=== PATIENT | female | born 1965 | race Two or more races ===

== ENCOUNTER 2020-01-17 15:47 | Inpatient (IN) | payer SELFPAY ==
[~2020-01-17] VITALS: Ht 160 cm; Wt 93.1 kg
--- NOTE | 2020-01-17 16:26 | RAD ---
Single AP view of the chest. Comparison: None. Indication: Shortness of breath Findings: The heart is not enlarged. There is no pneumothorax or effusion. Patchy wedge-shaped opacities are identified throughout the bilateral lung whitt in the mid zones more so on the left in the periphery. Impression: 1. Patchy interstitial opacities throughout the lung whitt may represent pulmonary wedge-shaped infarcts versus atypical infection such as a viral illness. Electronically signed by: Santiago Sweet MD (01/17/2020 4:23 PM) [id number]
[2020-01-17 16:45] LABS: BASO % 0 % (0-3); EOS % 0 % (0-3); HEMATOCRIT 42.1 % (36.0-47.0); HEMOGLOBIN 14.5 g/dL (12.0-15.5); LYMPH # 0.6 x10^3/uL (1.0-4.8); LYMPH % 31 % (24-48); MEAN CORPUSCULAR HEMOGLOBIN 31 pg (25-35); MEAN CORPUSCULAR HGB CONC 34 g/dL (31-37); MEAN CORPUSCULAR VOLUME 91 fL (79-100); MONO # 0.2 x10^3/uL (0.0-1.1); MONO % 11 % (0-9); NEUT # 1.1 x10^3/uL (1.8-7.7); NEUT % 58 % (31-73); PLATELET COUNT 70 x10^3/uL (140-400); RED BLOOD COUNT 4.62 x10^6/uL (3.50-5.40)
[2020-01-17 16:48] LABS: WHITE BLOOD COUNT 1.8 x10^3/uL (4.0-11.0)
[2020-01-17 16:56] LABS: CALCIUM 7.9 mg/dL (8.5-10.1); CREATININE 0.8 mg/dL (0.6-1.0); GFR 74.2
[2020-01-17 16:57] LABS: ALBUMIN 2.8 g/dL (3.4-5.0); ALBUMIN/GLOBULIN RATIO 0.7 (1.0-1.7); C-REACTIVE PROTEIN 31.7 mg/L (0-3.3); TOTAL BILIRUBIN 0.9 mg/dL (0.2-1.0); TOTAL PROTEIN 7.1 g/dL (6.4-8.2)
[2020-01-17 17:11] LABS: % ATYL 1 % (0-0); % BANDS 13 % (0-9); % LYMPHS 28 % (24-48); % MONOS 4 % (0-10); % SEGS 54 % (35-66); PLT ESTIMATE DECREASED (ADEQUATE)
[2020-01-17] MEDS ORDERED: PIP/TAZO PER PHARMACY MC PRN (19:30)
[2020-01-17] MEDS ORDERED: PIPERACILLIN/TAZOBACTAM 3.375 GM in IV NORMAL SALINE 50ML 50 ML IV ONE (19:45)
--- NOTE | 2020-01-17 19:52 | HP ---
ADMIT DATE: CHIEF COMPLAINT: Shortness of breath. HISTORY OF PRESENT ILLNESS: The patient is a pleasant middle-aged female who presents with shortness of breath. Chest x-ray showing patchy interstitial opacities throughout the lung whitt consistent with an atypical infection or virus. I discussed the case with ER physician. We are concerned she could have COVID-19. We are going to admit the patient and consult Pulmonary and Infectious Disease. PAST MEDICAL HISTORY: None. ALLERGIES: None. FAMILY HISTORY: Diabetes. SOCIAL HISTORY: She does not drink, smoke or take drugs. MEDICATIONS: Reviewed, please refer to the MRAD. REVIEW OF SYSTEMS: GENERAL: No history of weight change, weakness or fevers. SKIN: No bruising, hair changes or rashes. EYES: No blurred, double or loss of vision. NOSE AND THROAT: No history of nosebleeds, hoarseness or sore throat. HEART: No history of palpitations, chest pain or shortness of breath on exertion. LUNGS: She complains of shortness of breath. GASTROINTESTINAL: Denies changes in appetite, nausea, vomiting, diarrhea or constipation. GENITOURINARY: No history of frequency, urgency, hesitancy or nocturia. NEUROLOGIC: Denies history of numbness, tingling, tremor or weakness. PSYCHIATRIC: No history of panic, anxiety or depression. ENDOCRINE: No history of heat or cold intolerance, polyuria or polydipsia. EXTREMITIES: Denies muscle weakness, joint pain, pain on walking or stiffness. PHYSICAL EXAMINATION: VITALS: Within normal limits and are stable. GENERAL: No apparent distress. Alert and oriented. HEENT: Normal cephalic atraumatic, external auditory canals are patent. EYES: Extraocular muscles are intact, pupils are equally round and reactive to light and accommodation. MUSCULOSKELETAL: Well developed, well nourished, good range of motion ENDOCRINE: No thyromegaly was palpated LYMPHATICS: No cervical chain or axillary nodes were noted HEMATOPOIETIC: No bruising NECK: Supple, no JVD, no thyromegaly was noted. LUNGS: She has decreased breath sounds. HEART: RRR, S1, S2 present. Peripheral pulses intact, no obvious murmurs were noted. ABDOMEN: Soft, nontender. Positive bowel sounds no organomegaly, normal bowel sounds. EXTREMITIES: Without any cyanosis, clubbing, or edema. Pedal pulses intact, Homans sign is negative. NEUROLOGIC: Normal speech, normal tone. A & O x3, moves all extremities, no obvious focal deficits. PSYCHIATRIC: Normal affect, normal mood. Stable. SKIN: No ulcerations or rashes, good skin turgor, no jaundice. VASCULAR: Good capillary refill, neurovascular bundle appears to be intact. LABORATORY DATA: White count 1.8. Chest x-ray shows atypical infection in all lung whitt. Sodium was 132. ASSESSMENT AND PLAN: Probable COVID-19. The patient has been admitted. We will consult Infectious Disease and Pulmonary. Respiratory isolation. Home meds, DVT prophylaxis. Full code. We will give her IV antibiotics and trend labs. Prognosis guarded. PATRICIA MEDINA DO DR: JERRY/bradly JOB#: [id number] / [id number]
[2020-01-17 20:44] LABS: BILIRUBIN,URINE NEGATIVE (NEG); CLARITY,URINE CLOUDY; COLOR,URINE AMBER; NITRITE,URINE NEGATIVE (NEG); PH,URINE 6.5 (<5.0-8.0); PROTEIN,URINE 100 mg/dL (NEG-TRACE)
[2020-01-17 20:49] LABS: SQUAMOUS EPITHELIAL CELL,UR MANY /LPF
[2020-01-17 20:50] LABS: BACTERIA,URINE 0 /HPF (0-FEW); WBC,URINE >40 /HPF (0-4)
[2020-01-17 23:00] VITALS: BP 137/67
[2020-01-17] MEDS: PIPERACILLIN/TAZOBACTAM 3.375 GM in IV NORMAL SALINE 50ML 50 ML IV SCH (23:34)
[2020-01-18] MEDS ORDERED: METF10007 PO (00:37)
[2020-01-18] MEDS ORDERED: ZOLPIDEM 5 MG TABLET. PO PRN (01:00)
[2020-01-18] MEDS: ACETAMINOPHEN 325 MG TABLET. PO PRN ×2 (01:42→17:20)
[2020-01-18 03:00] VITALS: BP 109/60
[2020-01-18] MEDS: PIPERACILLIN/TAZOBACTAM 3.375 GM in IV NORMAL SALINE 50ML 50 ML IV SCH ×3 (06:21→17:20)
[2020-01-18 07:30] VITALS: BP 128/86
[2020-01-18] MEDS: ENOXAPARIN 40 MG/0.4 ML SYRINGE. SQ SCH ×2 (09:03→21:28)
--- NOTE | 2020-01-18 09:03 | PHYS DOC ---
Past Medical History Past Medical History: Diabetes-Type II Past Surgical History: No Surgical History Smoking Status: Unknown if ever smoked Alcohol Use: None General Adult EDM: Chief Complaint: ABNORMAL LABS HPI: HPI: Patient is a 54 year old female who presents with shortness of breath, fatigue, cough. She saw her primary care doctor last week who did lab work at that time as she had just started feeling unwell. They deny the lab work done until today. They called her and told her she needed to come to the emergency room because she had some lab abnormalities. I did discuss the case with her primary care physician who is concerned that she may have the coronavirus. Patient has progressively been feeling worse over the last several days. She states that she is very fatigued and has severe shortness of breath if she tries to get up and walk to the bathroom. She otherwise does not get out of bed. She denies any other medical problems. Review of Systems: Review of Systems: General: Reports fever, chills, sweats, fatigue Eyes: Denies drainage, blurred vision HENT: Denies rhinorrhea, sore throat Respiratory: Reports cough, shortness of breath Cardiac: Denies edema, palpitations, chest pain GI: Denies abdominal pain, N/V MSK: Denies back pain, neck pain Skin: Denies rash, jaundice Neuro: Denies headache, dizziness Psychiatric: Denies SI/HI Heart Score: Risk Factors: Risk Factors: DM, Current or recent (<one month) smoker, HTN, HLP, family history of CAD, obesity. Risk Scores: Score 0 - 3: 2.5% MACE over next 6 weeks - Discharge Home Score 4 - 6: 20.3% MACE over next 6 weeks - Admit for Clinical Observation Score 7 - 10: 72.7% MACE over next 6 weeks - Early Invasive Strategies Allergies: Allergies: Allergies Coded Allergies Type Severity Reaction Last Updated Verified No Known Drug Allergies 01/17/20 No Physical Exam: PE: Constitutional: Well developed, well nourished, Cooperative, NAD, non-toxic appearing HEENT: Normocephalic, atraumatic, oropharynx moist, EOMI, PERRL, no drainage from eyes, normal conjunctiva Neck: Supple, normal range of motion, no stridor Cardiovascular: Tachycardic, 2+ radial pulses bilaterally, no edema Respiratory: Decreased breath sounds bilaterally, mild increased work of breathing, diffuse crackles Abdomen: Soft, nontender, nondistended, no masses Skin: Warm, dry, intact Extremities: No obvious deformities Neurologic: Alert and Oriented x3, motor and sensory function grossly normal, no focal deficits Psychologic: Normal affect, normal judgment, normal mood. No SI/HI Current Patient Data: Labs: Laboratory Tests Test 01/17/20 16:30 01/17/20 20:30 01/17/20 23:40 White Blood Count 1.8 x10^3/uL (4.0-11.0) *L Red Blood Count 4.62 x10^6/uL (3.50-5.40) Hemoglobin 14.5 g/dL (12.0-15.5) Hematocrit 42.1 % (36.0-47.0) Mean Corpuscular Volume 91 fL (79-100) Mean Corpuscular Hemoglobin 31 pg (25-35) Mean Corpuscular Hemoglobin Concent 34 g/dL (31-37) Red Cell Distribution Width 14.0 % (11.5-14.5) Platelet Count 70 x10^3/uL (140-400) L Neutrophils (%) (Auto) 58 % (31-73) Lymphocytes (%) (Auto) 31 % (24-48) Monocytes (%) (Auto) 11 % (0-9) H Eosinophils (%) (Auto) 0 % (0-3) Basophils (%) (Auto) 0 % (0-3) Neutrophils # (Auto) 1.1 x10^3/uL (1.8-7.7) L Lymphocytes # (Auto) 0.6 x10^3/uL (1.0-4.8) L Monocytes # (Auto) 0.2 x10^3/uL (0.0-1.1) Eosinophils # (Auto) 0.0 x10^3/uL (0.0-0.7) Basophils # (Auto) 0.0 x10^3/uL (0.0-0.2) Segmented Neutrophils % 54 % (35-66) Band Neutrophils % 13 % (0-9) H Lymphocytes % 28 % (24-48) Atypical Lymphocytes % (Manual) 1 % (0-0) H Monocytes % 4 % (0-10) Platelet Estimate Decreased (ADEQUATE) Sodium Level 132 mmol/L (136-145) L Potassium Level 4.0 mmol/L (3.5-5.1) Chloride Level 98 mmol/L (98-107) Carbon Dioxide Level 26 mmol/L (21-32) Anion Gap 8 (6-14) Blood Urea Nitrogen 11 mg/dL (7-20) Creatinine 0.8 mg/dL (0.6-1.0) Estimated GFR (Cockcroft-Gault) 74.2 BUN/Creatinine Ratio 14 (6-20) Glucose Level 312 mg/dL (70-99) H Calcium Level 7.9 mg/dL (8.5-10.1) L Total Bilirubin 0.9 mg/dL (0.2-1.0) Aspartate Amino Transferase (AST) 158 U/L (15-37) H Alanine Aminotransferase (ALT) 89 U/L (14-59) H Alkaline Phosphatase 67 U/L (46-116) Lactate Dehydrogenase 422 U/L (81-234) H Troponin I Quantitative < 0.017 ng/mL (0.000-0.055) C-Reactive Protein, Quantitative 31.7 mg/L (0-3.3) H Total Protein 7.1 g/dL (6.4-8.2) Albumin 2.8 g/dL (3.4-5.0) L Albumin/Globulin Ratio 0.7 (1.0-1.7) L Urine Collection Type Unknown Urine Color Carmen Urine Clarity Cloudy Urine pH 6.5 (<5.0-8.0) Urine Specific [place] >=1.030 (1.000-1.030) Urine Protein 100 mg/dL (NEG-TRACE) Urine Glucose (UA) 250 mg/dL (NEG) Urine Ketones (Stick) >=80 mg/dL (NEG) Urine Blood Negative (NEG) Urine Nitrite Negative (NEG) Urine Bilirubin Negative (NEG) Urine Urobilinogen Dipstick 4.0 mg/dL (0.2 mg/dL) Urine Leukocyte Esterase Small (NEG) Urine RBC 3-5 /HPF (0-2) Urine WBC >40 /HPF (0-4) Urine Squamous Epithelial Cells Many /LPF Urine Bacteria 0 /HPF (0-FEW) Urine Mucus Marked /LPF Glucose (Fingerstick) 285 mg/dL (70-99) H Laboratory Tests 01/17/20 16:30 Laboratory Tests 01/17/20 16:30 Vital Signs: Vital Signs Date Time Temp Pulse Resp B/P (MAP) Pulse Ox O2 Delivery O2 Flow Rate FiO2 01/18/20 07:30 99.6 81 16 128/86 (100) 91 Room Air 2.0 99.6 EKG: EKG: [] Radiology/Procedures: Radiology/Procedures: Chest x-ray suggestive of viral pneumonia likely coronavirus [] Course & Med Decision Making: Course & Med Decision Making Pertinent Labs and Imaging studies reviewed. (See chart for details) Patient is a 54-year-old female who presents to the emergency room with shortness of breath, cough, fatigue. At this time there is concern for the novel coronavirus 19. Patient's risk factors include age and diabetes. Risk stratifying work-up was ordered including chest x-ray, d-dimer, CPK, CRP, LDH, troponin, ferritin, CBC, CMP. At this time, patients labs, vitals, and exam are significant for hypoxia, low white blood cell count, elevated CRP, elevated LDH. Due to patient's risk and clinical picture, they will need to be admitted at this time. IVFs will be limited due to concern for fluid overload in COVID-19 patients. Patient will be given empiric antibiotics due to infiltrates and risk of co-bacterial infection. Further treatment will be dictated by the inpatient team. I spent greater than 30 minutes discussing her care with her family and discussing why the patient needed to stay in the hospital. She is requiring oxygen at this time. I have also spent a large amount of time discussing with them that the family who lives at home will only do quarantine as they likely c an also be infected even if they do not have symptoms. Esme Disclaimer: Dragemelyn Disclaimer: This electronic medical record was generated, in whole or in part, using a voice recognition dictation system. Departure Departure Impression: Primary Impression: Respiratory failure, acute Additional Impressions: Coronavirus infection Leukopenia Condition: STABLE Referrals: UNKNOWN PCP NAME (PCP) Justicifation of Admission Dx: Justifications for Admission: Justification of Admission Dx: Yes DIMA MCCARTY MD Jan 18, 2020 09:03
--- NOTE | 2020-01-18 09:13 | PDOC ---
Infectious Disease Note Vital Sign Vital Signs Vital Signs Date Time Temp Pulse Resp B/P (MAP) Pulse Ox O2 Delivery O2 Flow Rate FiO2 01/18/20 07:30 99.6 81 16 128/86 (100) 91 Room Air 2.0 99.6 Labs Lab Laboratory Tests Test 01/17/20 16:30 01/17/20 20:30 01/17/20 23:40 White Blood Count 1.8 x10^3/uL (4.0-11.0) Red Blood Count 4.62 x10^6/uL (3.50-5.40) Hemoglobin 14.5 g/dL (12.0-15.5) Hematocrit 42.1 % (36.0-47.0) Mean Corpuscular Volume 91 fL (79-100) Mean Corpuscular Hemoglobin 31 pg (25-35) Mean Corpuscular Hemoglobin Concent 34 g/dL (31-37) Red Cell Distribution Width 14.0 % (11.5-14.5) Platelet Count 70 x10^3/uL (140-400) Neutrophils (%) (Auto) 58 % (31-73) Lymphocytes (%) (Auto) 31 % (24-48) Monocytes (%) (Auto) 11 % (0-9) Eosinophils (%) (Auto) 0 % (0-3) Basophils (%) (Auto) 0 % (0-3) Neutrophils # (Auto) 1.1 x10^3/uL (1.8-7.7) Lymphocytes # (Auto) 0.6 x10^3/uL (1.0-4.8) Monocytes # (Auto) 0.2 x10^3/uL (0.0-1.1) Eosinophils # (Auto) 0.0 x10^3/uL (0.0-0.7) Basophils # (Auto) 0.0 x10^3/uL (0.0-0.2) Segmented Neutrophils % 54 % (35-66) Band Neutrophils % 13 % (0-9) Lymphocytes % 28 % (24-48) Atypical Lymphocytes % (Manual) 1 % (0-0) Monocytes % 4 % (0-10) Platelet Estimate Decreased (ADEQUATE) Sodium Level 132 mmol/L (136-145) Potassium Level 4.0 mmol/L (3.5-5.1) Chloride Level 98 mmol/L (98-107) Carbon Dioxide Level 26 mmol/L (21-32) Anion Gap 8 (6-14) Blood Urea Nitrogen 11 mg/dL (7-20) Creatinine 0.8 mg/dL (0.6-1.0) Estimated GFR (Cockcroft-Gault) 74.2 BUN/Creatinine Ratio 14 (6-20) Glucose Level 312 mg/dL (70-99) Calcium Level 7.9 mg/dL (8.5-10.1) Total Bilirubin 0.9 mg/dL (0.2-1.0) Aspartate Amino Transf (AST/SGOT) 158 U/L (15-37) Alanine Aminotransferase (ALT/SGPT) 89 U/L (14-59) Alkaline Phosphatase 67 U/L (46-116) Lactate Dehydrogenase 422 U/L (81-234) Troponin I Quantitative < 0.017 ng/mL (0.000-0.055) C-Reactive Protein, Quantitative 31.7 mg/L (0-3.3) Total Protein 7.1 g/dL (6.4-8.2) Albumin 2.8 g/dL (3.4-5.0) Albumin/Globulin Ratio 0.7 (1.0-1.7) Urine Collection Type Unknown Urine Color Carmen Urine Clarity Cloudy Urine pH 6.5 (<5.0-8.0) Urine Specific [place] >=1.030 (1.000-1.030) Urine Protein 100 mg/dL (NEG-TRACE) Urine Glucose (UA) 250 mg/dL (NEG) Urine Ketones (Stick) >=80 mg/dL (NEG) Urine Blood Negative (NEG) Urine Nitrite Negative (NEG) Urine Bilirubin Negative (NEG) Urine Urobilinogen Dipstick 4.0 mg/dL (0.2 mg/dL) Urine Leukocyte Esterase Small (NEG) Urine RBC 3-5 /HPF (0-2) Urine WBC >40 /HPF (0-4) Urine Squamous Epithelial Cells Many /LPF Urine Bacteria 0 /HPF (0-FEW) Urine Mucus Marked /LPF Glucose (Fingerstick) 285 mg/dL (70-99) Objective Assessment Acute resp hypoxic resp failure Abnormal CXR Leukopenina - chronic Thrombocytopenia Plan Plan of Care Cont Zosyn Add Doxycycline F/u COVID and if + would benefit from plasma F/u labs and cults May need Heme eval Seen and examined during COVID pandemic. Proper PPE was used. No interpretation phone or assistance available D/w nursing Thank you # [id number] DARIUSZ PARTIDA MD Jan 18, 2020 09:13
[2020-01-18] MEDS ORDERED: DEXTROSE 50% 25 GM / 50ML DISP.SYRIN. IV PRN (09:45)
[2020-01-18] MEDS: DOXYCYCLINE HYCLATE 100 MG TABLET PO SCH ×2 (09:46→21:28)
--- NOTE | 2020-01-18 10:15 | PDOC ---
[facility] PROGRESS NOTE Chief Complaint Chief Complaint Probable COVID-19 syndrome Leukopenia Thrombocytopenia History of Present Illness History of Present Illness 01/18/2020 Patient seen and examined Discussed with infectious disease Discussed with RN Chart reviewed I ordered hematology consultation as well Vitals/I&O Vitals/I&O: Vital Signs Date Time Temp Pulse Resp B/P (MAP) Pulse Ox O2 Delivery O2 Flow Rate FiO2 01/18/20 07:30 99.6 81 16 128/86 (100) 91 Room Air 2.0 99.6 I & O 0 01/17/20 01/17/20 01/18/20 15:00 23:00 07:00 Intake Total 100 ml Balance 100 ml Physical Exam General: Alert, Oriented X3 Heart: Regular rate, Normal S1 Lungs: Crackles Abdomen: Normal bowel sounds, Soft Extremities: No clubbing, No cyanosis Skin: No rashes, No breakdown Labs Labs: Laboratory Tests Test 01/17/20 16:30 01/17/20 20:30 01/17/20 23:40 01/18/20 09:18 White Blood Count 1.8 x10^3/uL (4.0-11.0) Red Blood Count 4.62 x10^6/uL (3.50-5.40) Hemoglobin 14.5 g/dL (12.0-15.5) Hematocrit 42.1 % (36.0-47.0) Mean Corpuscular Volume 91 fL (79-100) Mean Corpuscular Hemoglobin 31 pg (25-35) Mean Corpuscular Hemoglobin Concent 34 g/dL (31-37) Red Cell Distribution Width 14.0 % (11.5-14.5) Platelet Count 70 x10^3/uL (140-400) Neutrophils (%) (Auto) 58 % (31-73) Lymphocytes (%) (Auto) 31 % (24-48) Monocytes (%) (Auto) 11 % (0-9) Eosinophils (%) (Auto) 0 % (0-3) Basophils (%) (Auto) 0 % (0-3) Neutrophils # (Auto) 1.1 x10^3/uL (1.8-7.7) Lymphocytes # (Auto) 0.6 x10^3/uL (1.0-4.8) Monocytes # (Auto) 0.2 x10^3/uL (0.0-1.1) Eosinophils # (Auto) 0.0 x10^3/uL (0.0-0.7) Basophils # (Auto) 0.0 x10^3/uL (0.0-0.2) Segmented Neutrophils % 54 % (35-66) Band Neutrophils % 13 % (0-9) Lymphocytes % 28 % (24-48) Atypical Lymphocytes % (Manual) 1 % (0-0) Monocytes % 4 % (0-10) Platelet Estimate Decreased (ADEQUATE) Sodium Level 132 mmol/L (136-145) Potassium Level 4.0 mmol/L (3.5-5.1) Chloride Level 98 mmol/L (98-107) Carbon Dioxide Level 26 mmol/L (21-32) Anion Gap 8 (6-14) Blood Urea Nitrogen 11 mg/dL (7-20) Creatinine 0.8 mg/dL (0.6-1.0) Estimated GFR (Cockcroft-Gault) 74.2 BUN/Creatinine Ratio 14 (6-20) Glucose Level 312 mg/dL (70-99) Calcium Level 7.9 mg/dL (8.5-10.1) Total Bilirubin 0.9 mg/dL (0.2-1.0) Aspartate Amino Transf (AST/SGOT) 158 U/L (15-37) Alanine Aminotransferase (ALT/SGPT) 89 U/L (14-59) Alkaline Phosphatase 67 U/L (46-116) Lactate Dehydrogenase 422 U/L (81-234) Troponin I Quantitative < 0.017 ng/mL (0.000-0.055) C-Reactive Protein, Quantitative 31.7 mg/L (0-3.3) Total Protein 7.1 g/dL (6.4-8.2) Albumin 2.8 g/dL (3.4-5.0) Albumin/Globulin Ratio 0.7 (1.0-1.7) Urine Collection Type Unknown Urine Color Carmen Urine Clarity Cloudy Urine pH 6.5 (<5.0-8.0) Urine Specific [place] >=1.030 (1.000-1.030) Urine Protein 100 mg/dL (NEG-TRACE) Urine Glucose (UA) 250 mg/dL (NEG) Urine Ketones (Stick) >=80 mg/dL (NEG) Urine Blood Negative (NEG) Urine Nitrite Negative (NEG) Urine Bilirubin Negative (NEG) Urine Urobilinogen Dipstick 4.0 mg/dL (0.2 mg/dL) Urine Leukocyte Esterase Small (NEG) Urine RBC 3-5 /HPF (0-2) Urine WBC >40 /HPF (0-4) Urine Squamous Epithelial Cells Many /LPF Urine Bacteria 0 /HPF (0-FEW) Urine Mucus Marked /LPF Glucose (Fingerstick) 285 mg/dL (70-99) 246 mg/dL (70-99) Assessment and Plan Assessmemt and Plan Problems Medical Problems: (1) Coronavirus infection Status: Acute (2) Leukopenia Status: Acute (3) Respiratory failure, acute Status: Acut Probable COVID-19 Leukopenia Thrombocytopenia Plan Consult hematology for second opinion Appreciate ID input IV antibiotics Awaiting COVID-19 results Trend labs DVT prophylaxis Home meds PRN O2 Pulmonary consulted as well Full code Comment Review of Relevant I have reviewed the following items jorge (where applicable) has been applied. Medications: Current Medications Medications (Trade) Dose Ordered Sig/Tiear Route PRN Reason Start Time Stop Time Status Last Admin Dose Admin Piperacillin Sod/ Tazobactam Sod 3.375 gm/Sodium Chloride 50 ml @ 100 mls/hr 1X ONCE IV 01/17/20 19:45 01/17/20 20:14 DC 01/17/20 20:31 Piperacillin Sod/ Tazobactam Sod 3.375 gm/Sodium Chloride 50 ml @ 100 mls/hr Q6HRS IV 01/18/20 00:00 01/18/20 06:21 Acetaminophen (Tylenol) 650 mg PRN Q6HRS PRN PO FEVER > 100.3'F 01/18/20 01:00 01/18/20 01:42 Enoxaparin Sodium (Lovenox 40mg Syringe) 40 mg BID SQ 01/18/20 09:00 01/18/20 09:03 Doxycycline Hyclate (Vibra-Tab) 100 mg BID PO 01/18/20 09:00 01/18/20 09:46 Justicifation of Admission Dx: Justifications for Admission: Justification of Admission Dx: Yes Respiratory Failure: Severe Vent Deficit PATRICIA MEDINA III DO Jan 18, 2020 10:15
--- NOTE | 2020-01-18 10:16 | CONS ---
DATE OF CONSULTATION: 01/18/2020 PATIENT'S ROOM: 673. REQUESTING PHYSICIAN: Dr. Correa. REASON FOR CONSULTATION: COVID. HISTORY OF PRESENT ILLNESS: The patient is a 54-year-old female who presented to [facility] on 01[facility]17[facility]2020 with complaints of shortness of air. She had a chest x-ray, which showed patchy interstitial opacities throughout the lung whitt. She had a temperature of 100.3. White blood cell count was 1.8 and her AST was 158, ALT was 89. Troponin was normal. She was admitted to the hospital. COVID test is currently pending and she has been placed on Zosyn. She is [place] speaking and there is no interpretation phone available and no ip network architect available. PAST MEDICAL HISTORY: Appears to be positive for leukopenia and thrombocytopenia for over a year. She had a RPR test in 06/2017 as well as HIV that were nonreactive and she has had a nonreactive hepatitis screens in 03/2018 and also on 01/15/2020 she had a rheumatoid factor and FLORIN, linn antibody, double stranded DNA antibody, cyclic citrulline peptide, SSA and SSB, Ro and La antibodies were all negative. She has been admitted to the hospital. Otherwise past medical history is unknown. REVIEW OF SYSTEMS: She denies any fevers. She has no cough, no nausea or diarrhea. ALLERGIES: No known drug allergies. SOCIAL HISTORY: No tobacco, alcohol or drugs reported. FAMILY HISTORY: Positive for diabetes. CURRENT MEDICATIONS: Include Zosyn, Lovenox, insulin. PHYSICAL EXAMINATION: VITAL SIGNS: T-max has been 101.9, currently 99.6; pulse 81; respirations 16; blood pressure 128/60; satting 91% on 2 liters. CONSTITUTIONAL: She is lying in bed. She is cooperative. She is in no acute distress. She is smiling. HEENT: Pupils are equal and reactive. She has normal conjunctivae. Oral cavity, pharynx was clear. NECK: Supple. LUNGS: Decreased in the bases. HEART: S1, S2. ABDOMEN: Obese, soft, no guarding, rebound. EXTREMITIES: No clubbing, cyanosis or gross edema. SKIN: Warm to touch without signs of rash. NEUROLOGIC: She moves all extremities. She did answer some questions LABORATORY DATA: White count on admission was 1.8, it was 1.8 on the 12th, hemoglobin 14.5, platelets are 70, there were 86 on the 12th. She has 54 neutrophils, 13 bands, 28 lymphocytes, 1 atypical. Urinalysis is not consistent with urinary tract infection. Immunology serology previously reviewed in history of present illness. Chest x-ray reviewed in the history of present illness. IMPRESSION: 1. Acute hypoxic respiratory failure. 2. Abnormal chest x-ray. 3. Leukopenia appears chronic. 4. Thrombocytopenia. RECOMMENDATIONS: For now, continue the Zosyn, we will add doxycycline. Follow up COVID, would benefit from plasma. Follow up labs and cultures. She may need Hemovac. Again she was seen and examined during the COVID pandemic. Proper PPE was used. There is no interpretation or further assistance available at this time. This was discussed with nursing. Thank you for allowing me to participate in the patient's care. If you have any questions, please do not hesitate to contact me. DARIUSZ PARTIDA MD DR: QUENTIN/bradly JOB#: [id number] / [id number]
--- NOTE | 2020-01-18 10:20 | CONS ---
DATE OF CONSULTATION: PULMONARY CONSULTATION ATTENDING PHYSICIAN: Dr. Correa. REASON FOR CONSULTATION: Pneumonia, fever. HISTORY OF PRESENT ILLNESS: The patient is a 54-year-old female with a BMI of 41. No history of tobacco use. She came into the hospital with some shortness of breath and cough. Her chest x-ray showed bilateral patchy infiltrates. She had a fever of 101.9. Clinical and radiographic presentation was highly suspicious for COVID-19. As a result, she is in isolation. She is currently on 3 liters. PAST MEDICAL HISTORY: None. PAST SURGICAL HISTORY: No recent surgeries. ALLERGIES: None. MEDICATIONS: Reviewed as listed in the MRAD including antibiotic, Zosyn. REVIEW OF SYSTEMS: As discussed in my history of present illness. She does not speak much Amharic. SOCIAL HISTORY: Nonsmoker. PHYSICAL EXAMINATION: VITAL SIGNS: T-max of 101.9, pulse ox 99% on 2 liters. GENERAL: Visual exam done. No obvious respiratory distress. She is obese. SKIN: No rash. LABORATORY DATA: Reviewed. White cell count 1.8, hemoglobin 14.5. BUN and creatinine normal. AST and ALT are abnormal. IMPRESSION: 1. Acute hypoxic respiratory failure secondary to highly suspected COVID-19 pneumonia. 2. Leukopenia secondary to viral pneumonia. 3. Abnormal chest x-ray with bilateral patchy infiltrates, highly compatible with COVID-19 pneumonia. 4. Abnormal liver function tests, likely related to COVID pneumonia. RECOMMENDATIONS: 1. Keep her under COVID isolation. 2. Monitor oxygen level. Keep saturation 92 and above. 3. Empiric antibiotic. 4. COVID-19 has been sent and is pending. 5. Lovenox for DVT prophylaxis. 6. We will monitor respiratory status closely. MARIS BOYD MD DR: ALIA/bradly JOB#: [id number] / [id number]
[2020-01-18 11:30] VITALS: BP 134/70
[2020-01-18] MEDS: INSULIN LISPRO 300 UNITS/3 ML VIAL. SQ SCH ×2 (12:19→17:22)
--- NOTE | 2020-01-18 12:30 | NUR ---
SS following for discharge planning. SS reviewed pt chart and discussed with pt RN. Pt is self pay pt. Pt is from home with spouse and is currently requiring oxygen. Pt on IV Zosyn and PO Doxy. Pt COVID19 test pending. SS will continue to follow for discharge planning.
[2020-01-18 15:20] VITALS: BP 136/63
[2020-01-18 19:00] VITALS: BP 123/56
[2020-01-18] MEDS: LACTOBACILLUS RHAMNOSUS GG 1 CAPSULE. PO SCH (21:29)
[2020-01-18] MEDS: INSULIN GLARGINE SYRINGE. SQ SCH (21:30)
[2020-01-18 23:00] VITALS: BP 137/66
[2020-01-19] VITALS (12 sets, daily range): BP systolic 93–180; BP diastolic 41–109
[2020-01-19] MEDS: PIPERACILLIN/TAZOBACTAM 3.375 GM in IV NORMAL SALINE 50ML 50 ML IV SCH ×4 (00:02→17:40)
[2020-01-19] MEDS: ACETAMINOPHEN 325 MG TABLET. PO PRN ×2 (00:26→16:20)
[2020-01-19 04:54] LABS: BASO % 0 % (0-3); EOS % 0 % (0-3); HEMATOCRIT 39.9 % (36.0-47.0); HEMOGLOBIN 13.5 g/dL (12.0-15.5); LYMPH # 0.5 x10^3/uL (1.0-4.8); LYMPH % 16 % (24-48); MEAN CORPUSCULAR HEMOGLOBIN 31 pg (25-35); MEAN CORPUSCULAR HGB CONC 34 g/dL (31-37); MEAN CORPUSCULAR VOLUME 91 fL (79-100); MONO # 0.2 x10^3/uL (0.0-1.1); MONO % 7 % (0-9); NEUT # 2.5 x10^3/uL (1.8-7.7); NEUT % 77 % (31-73); PLATELET COUNT 66 x10^3/uL (140-400); RED BLOOD COUNT 4.38 x10^6/uL (3.50-5.40); RED CELL DISTRIBUTION WIDTH 14.1 % (11.5-14.5); WHITE BLOOD COUNT 3.2 x10^3/uL (4.0-11.0)
[2020-01-19 05:15] LABS: ALBUMIN 2.4 g/dL (3.4-5.0); ALBUMIN/GLOBULIN RATIO 0.6 (1.0-1.7); CALCIUM 7.7 mg/dL (8.5-10.1); CREATININE 0.9 mg/dL (0.6-1.0); GFR 64.8; POTASSIUM 3.5 mmol/L (3.5-5.1); TOTAL PROTEIN 6.4 g/dL (6.4-8.2)
--- NOTE | 2020-01-19 09:28 | PDOC ---
Infectious Disease Note Subjective Subjective Doing ok. Denies F/pain/nausea and had improved cough but sore lips Vital Sign Vital Signs Vital Signs Date Time Temp Pulse Resp B/P (MAP) Pulse Ox O2 Delivery O2 Flow Rate FiO2 01/19/20 03:00 99.0 85 20 124/72 (89) 91 Nasal Cannula 3.0 99.0 Physical Exam PHYSICAL EXAM CONSTITUTIONAL: She is lying in bed. She is cooperative. She is in no acute distress. She is smiling. HEENT: Pupils are equal and reactive. She has normal conjunctivae. Oral cavity, pharynx was clear. some blisters NECK: Supple. LUNGS: Decreased in the bases. HEART: S1, S2. ABDOMEN: Obese, soft, no guarding, rebound. EXTREMITIES: No clubbing, cyanosis or gross edema. SKIN: Warm to touch without signs of rash. NEUROLOGIC: She moves all extremities. She did answer some questions Labs Lab Laboratory Tests Test 01/18/20 11:22 01/18/20 16:59 01/18/20 21:34 01/19/20 04:30 Glucose (Fingerstick) 279 mg/dL (70-99) 266 mg/dL (70-99) 333 mg/dL (70-99) White Blood Count 3.2 x10^3/uL (4.0-11.0) Red Blood Count 4.38 x10^6/uL (3.50-5.40) Hemoglobin 13.5 g/dL (12.0-15.5) Hematocrit 39.9 % (36.0-47.0) Mean Corpuscular Volume 91 fL (79-100) Mean Corpuscular Hemoglobin 31 pg (25-35) Mean Corpuscular Hemoglobin Concent 34 g/dL (31-37) Red Cell Distribution Width 14.1 % (11.5-14.5) Platelet Count 66 x10^3/uL (140-400) Neutrophils (%) (Auto) 77 % (31-73) Lymphocytes (%) (Auto) 16 % (24-48) Monocytes (%) (Auto) 7 % (0-9) Eosinophils (%) (Auto) 0 % (0-3) Basophils (%) (Auto) 0 % (0-3) Neutrophils # (Auto) 2.5 x10^3/uL (1.8-7.7) Lymphocytes # (Auto) 0.5 x10^3/uL (1.0-4.8) Monocytes # (Auto) 0.2 x10^3/uL (0.0-1.1) Eosinophils # (Auto) 0.0 x10^3/uL (0.0-0.7) Basophils # (Auto) 0.0 x10^3/uL (0.0-0.2) Sodium Level 137 mmol/L (136-145) Potassium Level 3.5 mmol/L (3.5-5.1) Chloride Level 101 mmol/L (98-107) Carbon Dioxide Level 27 mmol/L (21-32) Anion Gap 9 (6-14) Blood Urea Nitrogen 12 mg/dL (7-20) Creatinine 0.9 mg/dL (0.6-1.0) Estimated GFR (Cockcroft-Gault) 64.8 BUN/Creatinine Ratio 13 (6-20) Glucose Level 285 mg/dL (70-99) Calcium Level 7.7 mg/dL (8.5-10.1) Total Bilirubin 1.0 mg/dL (0.2-1.0) Aspartate Amino Transf (AST/SGOT) 103 U/L (15-37) Alanine Aminotransferase (ALT/SGPT) 65 U/L (14-59) Alkaline Phosphatase 56 U/L (46-116) Total Protein 6.4 g/dL (6.4-8.2) Albumin 2.4 g/dL (3.4-5.0) Albumin/Globulin Ratio 0.6 (1.0-1.7) Test 01/19/20 08:29 Glucose (Fingerstick) 275 mg/dL (70-99) Objective Assessment Fever - Lips blisters Acute resp hypoxic resp failure - COVID + Abnormal CXR Leukopenina - chronic - some better Thrombocytopenia Plan Plan of Care Cont Zosyn Added Doxycycline 01/17 Started Remdesivir Pulm to eval for plasma Add valtrex for lips F/u labs and cults May need Heme eval Seen and examined during COVID pandemic. Proper PPE was used. No interpretation phone or assistance available D/w nursing DARIUSZ PARTIDA MD Jan 19, 2020 09:28
[2020-01-19] MEDS ORDERED: NON FORMULARY ITEM 1 EA in IV NORMAL SALINE 250ML 210 ML IV ONE ×2 (09:45→10:00)
[2020-01-19] MEDS: INSULIN LISPRO 300 UNITS/3 ML VIAL. SQ SCH ×3 (09:57→17:42)
[2020-01-19] MEDS: ENOXAPARIN 40 MG/0.4 ML SYRINGE. SQ SCH ×2 (09:57→21:23)
[2020-01-19] MEDS: LACTOBACILLUS RHAMNOSUS GG 1 CAPSULE. PO SCH ×2 (09:57→21:23)
[2020-01-19] MEDS: DOXYCYCLINE HYCLATE 100 MG TABLET PO SCH ×2 (09:58→21:23)
--- NOTE | 2020-01-19 10:00 | PDOC ---
PULMONARY PROGRESS NOTES Subjective no soa Vitals Vital Signs Date Time Temp Pulse Resp B/P (MAP) Pulse Ox O2 Delivery O2 Flow Rate FiO2 01/19/20 07:45 100.0 84 16 123/69 (87) 90 Room Air 4.0 100.0 Comments visual exam done due to COVID pandemia no soa, no rash, no edema General: Alert, No acute distress Labs Laboratory Tests Test 01/17/20 16:25 01/17/20 16:30 01/17/20 20:30 01/17/20 23:40 Coronavirus (COVID-19)(PCR) Detected (NOT DETECT.) White Blood Count 1.8 x10^3/uL (4.0-11.0) Red Blood Count 4.62 x10^6/uL (3.50-5.40) Hemoglobin 14.5 g/dL (12.0-15.5) Hematocrit 42.1 % (36.0-47.0) Mean Corpuscular Volume 91 fL (79-100) Mean Corpuscular Hemoglobin 31 pg (25-35) Mean Corpuscular Hemoglobin Concent 34 g/dL (31-37) Red Cell Distribution Width 14.0 % (11.5-14.5) Platelet Count 70 x10^3/uL (140-400) Neutrophils (%) (Auto) 58 % (31-73) Lymphocytes (%) (Auto) 31 % (24-48) Monocytes (%) (Auto) 11 % (0-9) Eosinophils (%) (Auto) 0 % (0-3) Basophils (%) (Auto) 0 % (0-3) Neutrophils # (Auto) 1.1 x10^3/uL (1.8-7.7) Lymphocytes # (Auto) 0.6 x10^3/uL (1.0-4.8) Monocytes # (Auto) 0.2 x10^3/uL (0.0-1.1) Eosinophils # (Auto) 0.0 x10^3/uL (0.0-0.7) Basophils # (Auto) 0.0 x10^3/uL (0.0-0.2) Segmented Neutrophils % 54 % (35-66) Band Neutrophils % 13 % (0-9) Lymphocytes % 28 % (24-48) Atypical Lymphocytes % (Manual) 1 % (0-0) Monocytes % 4 % (0-10) Platelet Estimate Decreased (ADEQUATE) Sodium Level 132 mmol/L (136-145) Potassium Level 4.0 mmol/L (3.5-5.1) Chloride Level 98 mmol/L (98-107) Carbon Dioxide Level 26 mmol/L (21-32) Anion Gap 8 (6-14) Blood Urea Nitrogen 11 mg/dL (7-20) Creatinine 0.8 mg/dL (0.6-1.0) Estimated GFR (Cockcroft-Gault) 74.2 BUN/Creatinine Ratio 14 (6-20) Glucose Level 312 mg/dL (70-99) Calcium Level 7.9 mg/dL (8.5-10.1) Total Bilirubin 0.9 mg/dL (0.2-1.0) Aspartate Amino Transf (AST/SGOT) 158 U/L (15-37) Alanine Aminotransferase (ALT/SGPT) 89 U/L (14-59) Alkaline Phosphatase 67 U/L (46-116) Lactate Dehydrogenase 422 U/L (81-234) Troponin I Quantitative < 0.017 ng/mL (0.000-0.055) C-Reactive Protein, Quantitative 31.7 mg/L (0-3.3) Total Protein 7.1 g/dL (6.4-8.2) Albumin 2.8 g/dL (3.4-5.0) Albumin/Globulin Ratio 0.7 (1.0-1.7) Urine Collection Type Unknown Urine Color Carmen Urine Clarity Cloudy Urine pH 6.5 (<5.0-8.0) Urine Specific [place] >=1.030 (1.000-1.030) Urine Protein 100 mg/dL (NEG-TRACE) Urine Glucose (UA) 250 mg/dL (NEG) Urine Ketones (Stick) >=80 mg/dL (NEG) Urine Blood Negative (NEG) Urine Nitrite Negative (NEG) Urine Bilirubin Negative (NEG) Urine Urobilinogen Dipstick 4.0 mg/dL (0.2 mg/dL) Urine Leukocyte Esterase Small (NEG) Urine RBC 3-5 /HPF (0-2) Urine WBC >40 /HPF (0-4) Urine Squamous Epithelial Cells Many /LPF Urine Bacteria 0 /HPF (0-FEW) Urine Mucus Marked /LPF Glucose (Fingerstick) 285 mg/dL (70-99) Test 01/18/20 09:18 01/18/20 11:22 01/18/20 16:59 01/18/20 21:34 Glucose (Fingerstick) 246 mg/dL (70-99) 279 mg/dL (70-99) 266 mg/dL (70-99) 333 mg/dL (70-99) Test 01/19/20 04:30 01/19/20 08:29 White Blood Count 3.2 x10^3/uL (4.0-11.0) Red Blood Count 4.38 x10^6/uL (3.50-5.40) Hemoglobin 13.5 g/dL (12.0-15.5) Hematocrit 39.9 % (36.0-47.0) Mean Corpuscular Volume 91 fL (79-100) Mean Corpuscular Hemoglobin 31 pg (25-35) Mean Corpuscular Hemoglobin Concent 34 g/dL (31-37) Red Cell Distribution Width 14.1 % (11.5-14.5) Platelet Count 66 x10^3/uL (140-400) Neutrophils (%) (Auto) 77 % (31-73) Lymphocytes (%) (Auto) 16 % (24-48) Monocytes (%) (Auto) 7 % (0-9) Eosinophils (%) (Auto) 0 % (0-3) Basophils (%) (Auto) 0 % (0-3) Neutrophils # (Auto) 2.5 x10^3/uL (1.8-7.7) Lymphocytes # (Auto) 0.5 x10^3/uL (1.0-4.8) Monocytes # (Auto) 0.2 x10^3/uL (0.0-1.1) Eosinophils # (Auto) 0.0 x10^3/uL (0.0-0.7) Basophils # (Auto) 0.0 x10^3/uL (0.0-0.2) Sodium Level 137 mmol/L (136-145) Potassium Level 3.5 mmol/L (3.5-5.1) Chloride Level 101 mmol/L (98-107) Carbon Dioxide Level 27 mmol/L (21-32) Anion Gap 9 (6-14) Blood Urea Nitrogen 12 mg/dL (7-20) Creatinine 0.9 mg/dL (0.6-1.0) Estimated GFR (Cockcroft-Gault) 64.8 BUN/Creatinine Ratio 13 (6-20) Glucose Level 285 mg/dL (70-99) Calcium Level 7.7 mg/dL (8.5-10.1) Total Bilirubin 1.0 mg/dL (0.2-1.0) Aspartate Amino Transf (AST/SGOT) 103 U/L (15-37) Alanine Aminotransferase (ALT/SGPT) 65 U/L (14-59) Alkaline Phosphatase 56 U/L (46-116) Total Protein 6.4 g/dL (6.4-8.2) Albumin 2.4 g/dL (3.4-5.0) Albumin/Globulin Ratio 0.6 (1.0-1.7) Glucose (Fingerstick) 275 mg/dL (70-99) Laboratory Tests Test 01/18/20 11:22 01/18/20 16:59 01/18/20 21:34 01/19/20 04:30 Glucose (Fingerstick) 279 mg/dL (70-99) 266 mg/dL (70-99) 333 mg/dL (70-99) White Blood Count 3.2 x10^3/uL (4.0-11.0) Red Blood Count 4.38 x10^6/uL (3.50-5.40) Hemoglobin 13.5 g/dL (12.0-15.5) Hematocrit 39.9 % (36.0-47.0) Mean Corpuscular Volume 91 fL (79-100) Mean Corpuscular Hemoglobin 31 pg (25-35) Mean Corpuscular Hemoglobin Concent 34 g/dL (31-37) Red Cell Distribution Width 14.1 % (11.5-14.5) Platelet Count 66 x10^3/uL (140-400) Neutrophils (%) (Auto) 77 % (31-73) Lymphocytes (%) (Auto) 16 % (24-48) Monocytes (%) (Auto) 7 % (0-9) Eosinophils (%) (Auto) 0 % (0-3) Basophils (%) (Auto) 0 % (0-3) Neutrophils # (Auto) 2.5 x10^3/uL (1.8-7.7) Lymphocytes # (Auto) 0.5 x10^3/uL (1.0-4.8) Monocytes # (Auto) 0.2 x10^3/uL (0.0-1.1) Eosinophils # (Auto) 0.0 x10^3/uL (0.0-0.7) Basophils # (Auto) 0.0 x10^3/uL (0.0-0.2) Sodium Level 137 mmol/L (136-145) Potassium Level 3.5 mmol/L (3.5-5.1) Chloride Level 101 mmol/L (98-107) Carbon Dioxide Level 27 mmol/L (21-32) Anion Gap 9 (6-14) Blood Urea Nitrogen 12 mg/dL (7-20) Creatinine 0.9 mg/dL (0.6-1.0) Estimated GFR (Cockcroft-Gault) 64.8 BUN/Creatinine Ratio 13 (6-20) Glucose Level 285 mg/dL (70-99) Calcium Level 7.7 mg/dL (8.5-10.1) Total Bilirubin 1.0 mg/dL (0.2-1.0) Aspartate Amino Transf (AST/SGOT) 103 U/L (15-37) Alanine Aminotransferase (ALT/SGPT) 65 U/L (14-59) Alkaline Phosphatase 56 U/L (46-116) Total Protein 6.4 g/dL (6.4-8.2) Albumin 2.4 g/dL (3.4-5.0) Albumin/Globulin Ratio 0.6 (1.0-1.7) Test 01/19/20 08:29 Glucose (Fingerstick) 275 mg/dL (70-99) Medications Active Scripts Medications Dose Route/Sig Max Daily Dose Days Date Category Metformin Hcl 1,000 Mg Tablet 1,000 Mg PO BIDWMEALS 01/18/20 Reported Impression . IMPRESSION: 1. Acute hypoxic respiratory failure secondary to COVID-19 pneumonia. 2. Leukopenia secondary to viral pneumonia. 3. Abnormal chest x-ray with bilateral patchy infiltrates, highly compatible with COVID-19 pneumonia. 4. Abnormal liver function tests, likely related to COVID pneumonia. Plan . 1. Keep her under COVID isolation. 2. Monitor oxygen level. Keep saturation 92 and above. 3. Empiric antibiotic. 4. COVID-19 positive 5. Lovenox for DVT prophylaxis. 6. We will monitor respiratory status closely. MARIS BOYD MD Jan 19, 2020 10:00
--- NOTE | 2020-01-19 10:09 | PDOC ---
[facility] PROGRESS NOTE Chief Complaint Chief Complaint COVID-19 syndrome Leukopenia Thrombocytopenia History of Present Illness History of Present Illness 01/19/2020 Patient seen and examined Her COVID test is now positive I spoke with her son Alexis on the phone Chart reviewed Discussed with RN 01/18/2020 Patient seen and examined Discussed with infectious disease Discussed with RN Chart reviewed I ordered hematology consultation as well Vitals/I&O Vitals/I&O: Vital Signs Date Time Temp Pulse Resp B/P (MAP) Pulse Ox O2 Delivery O2 Flow Rate FiO2 01/19/20 07:45 100.0 84 16 123/69 (87) 90 Room Air 4.0 100.0 I & O 01/18/20 01/18/20 01/19/20 15:00 23:00 07:00 Intake Total 200 ml 100 ml 100 ml Balance 200 ml 100 ml 100 ml Physical Exam Physical Exam: CONSTITUTIONAL: She is lying in bed. She is cooperative. She is in no acute distress. She is smiling. HEENT: Pupils are equal and reactive. She has normal conjunctivae. Oral cavity, pharynx was clear. NECK: Supple. LUNGS: Decreased in the bases. HEART: S1, S2. ABDOMEN: Obese, soft, no guarding, rebound. EXTREMITIES: No clubbing, cyanosis or gross edema. SKIN: Warm to touch without signs of rash. NEUROLOGIC: She moves all extremities. She did answer some questions General: Alert, Oriented X3 Heart: Regular rate, Normal S1 Lungs: Crackles Abdomen: Normal bowel sounds, Soft Extremities: No clubbing, No cyanosis Skin: No rashes, No breakdown Labs Labs: Laboratory Tests Test 01/18/20 11:22 01/18/20 16:59 01/18/20 21:34 01/19/20 04:30 Glucose (Fingerstick) 279 mg/dL (70-99) 266 mg/dL (70-99) 333 mg/dL (70-99) White Blood Count 3.2 x10^3/uL (4.0-11.0) Red Blood Count 4.38 x10^6/uL (3.50-5.40) Hemoglobin 13.5 g/dL (12.0-15.5) Hematocrit 39.9 % (36.0-47.0) Mean Corpuscular Volume 91 fL (79-100) Mean Corpuscular Hemoglobin 31 pg (25-35) Mean Corpuscular Hemoglobin Concent 34 g/dL (31-37) Red Cell Distribution Width 14.1 % (11.5-14.5) Platelet Count 66 x10^3/uL (140-400) Neutrophils (%) (Auto) 77 % (31-73) Lymphocytes (%) (Auto) 16 % (24-48) Monocytes (%) (Auto) 7 % (0-9) Eosinophils (%) (Auto) 0 % (0-3) Basophils (%) (Auto) 0 % (0-3) Neutrophils # (Auto) 2.5 x10^3/uL (1.8-7.7) Lymphocytes # (Auto) 0.5 x10^3/uL (1.0-4.8) Monocytes # (Auto) 0.2 x10^3/uL (0.0-1.1) Eosinophils # (Auto) 0.0 x10^3/uL (0.0-0.7) Basophils # (Auto) 0.0 x10^3/uL (0.0-0.2) Sodium Level 137 mmol/L (136-145) Potassium Level 3.5 mmol/L (3.5-5.1) Chloride Level 101 mmol/L (98-107) Carbon Dioxide Level 27 mmol/L (21-32) Anion Gap 9 (6-14) Blood Urea Nitrogen 12 mg/dL (7-20) Creatinine 0.9 mg/dL (0.6-1.0) Estimated GFR (Cockcroft-Gault) 64.8 BUN/Creatinine Ratio 13 (6-20) Glucose Level 285 mg/dL (70-99) Calcium Level 7.7 mg/dL (8.5-10.1) Total Bilirubin 1.0 mg/dL (0.2-1.0) Aspartate Amino Transf (AST/SGOT) 103 U/L (15-37) Alanine Aminotransferase (ALT/SGPT) 65 U/L (14-59) Alkaline Phosphatase 56 U/L (46-116) Total Protein 6.4 g/dL (6.4-8.2) Albumin 2.4 g/dL (3.4-5.0) Albumin/Globulin Ratio 0.6 (1.0-1.7) Test 01/19/20 08:29 Glucose (Fingerstick) 275 mg/dL (70-99) Assessment and Plan Assessmemt and Plan Problems Medical Problems: (1) Coronavirus infection Status: Acute (2) Leukopenia Status: Acute (3) Respiratory failure, acute Status: Acute COVID-19 syndrome Leukopenia Thrombocytopenia Plan IV antibiotics Duo nebs Trend lab O2 per nasal cannula DVT prophylaxis Home meds Respiratory isolation Appreciate subspecialist input Comment Review of Relevant I have reviewed the following items jorge (where applicable) has been applied. Medications: Current Medications Medications (Trade) Dose Ordered Sig/Tiera Route PRN Reason Start Time Stop Time Status Last Admin Dose Admin Insulin Glargine (Lantus Syringe) 12 unit QHS SQ 01/18/20 21:00 01/18/20 21:30 Insulin Human Lispro (HumaLOG) 0-5 UNITS TIDWMEALS SQ 01/18/20 12:00 01/19/20 09:57 Lactobacillus Rhamnosus (Culturelle) 1 cap BID PO 01/18/20 21:00 01/19/20 09:57 Non-Formulary Medication 1 ea/ Sodium Chloride 210 ml @ 420 mls/hr 1X ONCE IV 01/19/20 09:45 01/19/20 10:14 01/19/20 10:05 Justicifation of Admission Dx: Justifications for Admission: Justification of Admission Dx: Yes Respiratory Failure: Severe Vent Deficit PATRICIA MEDINA III DO Jan 19, 2020 10:09
--- NOTE | 2020-01-19 13:16 | NUR ---
IP: Pt is COVID + requiring airborne/contact precautions using a face shield.
[2020-01-19] MEDS: valACYclovir 500 MG TABLET. PO SCH ×2 (15:47→21:23)
--- NOTE | 2020-01-19 17:06 | NUR ---
SW following for discharge planning. SW reviewed chart and coordinate care with RN. Pt from home. Pt COVID positive with temperature today, 01/19/2020. Pt on 4l 02. Pt does not have home 02 but is self pay. SW to continue following.
--- NOTE | 2020-01-19 17:32 | NUR ---
Pt was requiring adtl O2. Paged Dr. Arvizu, he ordered 50% venti mask and transfer to ICU for closer monitoring. Pt's son, Alexis, notified of transfer. Pt and all personal belongings transferred to room 114. Care transferred to FRANCES Ortega.
--- NOTE | 2020-01-19 17:34 | NUR ---
Pt transferred to room 114 via bed with O2 on via venti mask at 50%. O2 sats 86% on venti mask. RT called and pt placed on vapotherm at 35 liters at 80% FiO2. O2 sats increased to 95%.
[2020-01-19] MEDS: STERILE WATER for RESP 1,000 ML BAG. INH PRN (18:00)
[2020-01-19] MEDS: INSULIN GLARGINE SYRINGE. SQ SCH (21:24)
[2020-01-19] MEDS: methylPREDNISolone SOD SUCC PF 125 MG/2 ML VIAL. IV SCH (22:15)
[2020-01-20] VITALS (24 sets, daily range): BP systolic 92–121; BP diastolic 52–74
[2020-01-20] MEDS: PIPERACILLIN/TAZOBACTAM 3.375 GM in IV NORMAL SALINE 50ML 50 ML IV SCH ×4 (00:18→18:16)
--- NOTE | 2020-01-20 04:23 | NUR ---
O2 sat decreases to 87-88% on vapotherm with 100% FiO2 plus 40 lpm. This is happening more frequenly as the night progresses. RR 28-36, though pt does not c/o SOA. Sat will recover to 91-92%, but within 30 minutes, has dropped again. Will monitor closely
--- NOTE | 2020-01-20 04:56 | NUR ---
Dr Medina called with updated assessment. Pt continues to desat to 87-88% frequently. Dr Medina ordered to start on BiPAP.
[2020-01-20 05:30] LABS: BASO % 0 % (0-3); EOS % 0 % (0-3); HEMATOCRIT 40.5 % (36.0-47.0); HEMOGLOBIN 13.8 g/dL (12.0-15.5); LYMPH # 0.5 x10^3/uL (1.0-4.8); LYMPH % 19 % (24-48); MEAN CORPUSCULAR HEMOGLOBIN 31 pg (25-35); MEAN CORPUSCULAR HGB CONC 34 g/dL (31-37); MEAN CORPUSCULAR VOLUME 92 fL (79-100); MONO # 0.1 x10^3/uL (0.0-1.1); MONO % 3 % (0-9); NEUT # 1.9 x10^3/uL (1.8-7.7); NEUT % 78 % (31-73); PLATELET COUNT 69 x10^3/uL (140-400); RED BLOOD COUNT 4.43 x10^6/uL (3.50-5.40); RED CELL DISTRIBUTION WIDTH 13.8 % (11.5-14.5); WHITE BLOOD COUNT 2.4 x10^3/uL (4.0-11.0)
[2020-01-20 05:40] LABS: ALBUMIN 2.1 g/dL (3.4-5.0); ALBUMIN/GLOBULIN RATIO 0.5 (1.0-1.7); CALCIUM 7.5 mg/dL (8.5-10.1); CREATININE 0.9 mg/dL (0.6-1.0); GFR 64.8; POTASSIUM 3.8 mmol/L (3.5-5.1); TOTAL BILIRUBIN 0.8 mg/dL (0.2-1.0); TOTAL PROTEIN 6.3 g/dL (6.4-8.2)
[2020-01-20 05:41] LABS: C-REACTIVE PROTEIN 85.7 mg/L (0-3.3)
[2020-01-20] MEDS: methylPREDNISolone SOD SUCC PF 125 MG/2 ML VIAL. IV SCH ×3 (05:51→20:23)
--- NOTE | 2020-01-20 06:24 | PDOC ---
PULMONARY PROGRESS NOTES Subjective on vapotherm 40 lpm and 100% fio2, appears comfortable, desat when falls sleep suspect pepito. Vitals Vital Signs Date Time Temp Pulse Resp B/P (MAP) Pulse Ox O2 Delivery O2 Flow Rate FiO2 01/20/20 04:20 90 VAPOTHERM 40.0 01/20/20 02:00 76 28 108/65 (79) 01/20/20 00:00 99.8 99.8 Comments visual exam done due to COVID pandemia appears comfortable, alert, nc at, nsr on ekg, no paradoxical abd motion, no rash, no edema General: Alert, No acute distress Labs Laboratory Tests Test 01/18/20 09:18 01/18/20 11:22 01/18/20 16:59 01/18/20 21:34 Glucose (Fingerstick) 246 mg/dL (70-99) 279 mg/dL (70-99) 266 mg/dL (70-99) 333 mg/dL (70-99) Test 01/19/20 04:30 01/19/20 08:29 01/19/20 12:23 01/19/20 17:27 White Blood Count 3.2 x10^3/uL (4.0-11.0) Red Blood Count 4.38 x10^6/uL (3.50-5.40) Hemoglobin 13.5 g/dL (12.0-15.5) Hematocrit 39.9 % (36.0-47.0) Mean Corpuscular Volume 91 fL (79-100) Mean Corpuscular Hemoglobin 31 pg (25-35) Mean Corpuscular Hemoglobin Concent 34 g/dL (31-37) Red Cell Distribution Width 14.1 % (11.5-14.5) Platelet Count 66 x10^3/uL (140-400) Neutrophils (%) (Auto) 77 % (31-73) Lymphocytes (%) (Auto) 16 % (24-48) Monocytes (%) (Auto) 7 % (0-9) Eosinophils (%) (Auto) 0 % (0-3) Basophils (%) (Auto) 0 % (0-3) Neutrophils # (Auto) 2.5 x10^3/uL (1.8-7.7) Lymphocytes # (Auto) 0.5 x10^3/uL (1.0-4.8) Monocytes # (Auto) 0.2 x10^3/uL (0.0-1.1) Eosinophils # (Auto) 0.0 x10^3/uL (0.0-0.7) Basophils # (Auto) 0.0 x10^3/uL (0.0-0.2) Sodium Level 137 mmol/L (136-145) Potassium Level 3.5 mmol/L (3.5-5.1) Chloride Level 101 mmol/L (98-107) Carbon Dioxide Level 27 mmol/L (21-32) Anion Gap 9 (6-14) Blood Urea Nitrogen 12 mg/dL (7-20) Creatinine 0.9 mg/dL (0.6-1.0) Estimated GFR (Cockcroft-Gault) 64.8 BUN/Creatinine Ratio 13 (6-20) Glucose Level 285 mg/dL (70-99) Calcium Level 7.7 mg/dL (8.5-10.1) Total Bilirubin 1.0 mg/dL (0.2-1.0) Aspartate Amino Transf (AST/SGOT) 103 U/L (15-37) Alanine Aminotransferase (ALT/SGPT) 65 U/L (14-59) Alkaline Phosphatase 56 U/L (46-116) Total Protein 6.4 g/dL (6.4-8.2) Albumin 2.4 g/dL (3.4-5.0) Albumin/Globulin Ratio 0.6 (1.0-1.7) Glucose (Fingerstick) 275 mg/dL (70-99) 271 mg/dL (70-99) 260 mg/dL (70-99) Test 01/19/20 21:33 01/20/20 05:15 Glucose (Fingerstick) 202 mg/dL (70-99) White Blood Count 2.4 x10^3/uL (4.0-11.0) Red Blood Count 4.43 x10^6/uL (3.50-5.40) Hemoglobin 13.8 g/dL (12.0-15.5) Hematocrit 40.5 % (36.0-47.0) Mean Corpuscular Volume 92 fL (79-100) Mean Corpuscular Hemoglobin 31 pg (25-35) Mean Corpuscular Hemoglobin Concent 34 g/dL (31-37) Red Cell Distribution Width 13.8 % (11.5-14.5) Platelet Count 69 x10^3/uL (140-400) Neutrophils (%) (Auto) 78 % (31-73) Lymphocytes (%) (Auto) 19 % (24-48) Monocytes (%) (Auto) 3 % (0-9) Eosinophils (%) (Auto) 0 % (0-3) Basophils (%) (Auto) 0 % (0-3) Neutrophils # (Auto) 1.9 x10^3/uL (1.8-7.7) Lymphocytes # (Auto) 0.5 x10^3/uL (1.0-4.8) Monocytes # (Auto) 0.1 x10^3/uL (0.0-1.1) Eosinophils # (Auto) 0.0 x10^3/uL (0.0-0.7) Basophils # (Auto) 0.0 x10^3/uL (0.0-0.2) D-Dimer (Mary Ann) 0.28 ug/mlFEU (0.00-0.50) Sodium Level 138 mmol/L (136-145) Potassium Level 3.8 mmol/L (3.5-5.1) Chloride Level 103 mmol/L (98-107) Carbon Dioxide Level 26 mmol/L (21-32) Anion Gap 9 (6-14) Blood Urea Nitrogen 16 mg/dL (7-20) Creatinine 0.9 mg/dL (0.6-1.0) Estimated GFR (Cockcroft-Gault) 64.8 BUN/Creatinine Ratio 18 (6-20) Glucose Level 316 mg/dL (70-99) Calcium Level 7.5 mg/dL (8.5-10.1) Ferritin 329 ng/mL (8-252) Total Bilirubin 0.8 mg/dL (0.2-1.0) Aspartate Amino Transf (AST/SGOT) 86 U/L (15-37) Alanine Aminotransferase (ALT/SGPT) 49 U/L (14-59) Alkaline Phosphatase 55 U/L (46-116) Lactate Dehydrogenase 436 U/L (81-234) C-Reactive Protein, Quantitative 85.7 mg/L (0-3.3) Total Protein 6.3 g/dL (6.4-8.2) Albumin 2.1 g/dL (3.4-5.0) Albumin/Globulin Ratio 0.5 (1.0-1.7) Laboratory Tests Test 01/19/20 08:29 01/19/20 12:23 01/19/20 17:27 01/19/20 21:33 Glucose (Fingerstick) 275 mg/dL (70-99) 271 mg/dL (70-99) 260 mg/dL (70-99) 202 mg/dL (70-99) Test 01/20/20 05:15 White Blood Count 2.4 x10^3/uL (4.0-11.0) Red Blood Count 4.43 x10^6/uL (3.50-5.40) Hemoglobin 13.8 g/dL (12.0-15.5) Hematocrit 40.5 % (36.0-47.0) Mean Corpuscular Volume 92 fL (79-100) Mean Corpuscular Hemoglobin 31 pg (25-35) Mean Corpuscular Hemoglobin Concent 34 g/dL (31-37) Red Cell Distribution Width 13.8 % (11.5-14.5) Platelet Count 69 x10^3/uL (140-400) Neutrophils (%) (Auto) 78 % (31-73) Lymphocytes (%) (Auto) 19 % (24-48) Monocytes (%) (Auto) 3 % (0-9) Eosinophils (%) (Auto) 0 % (0-3) Basophils (%) (Auto) 0 % (0-3) Neutrophils # (Auto) 1.9 x10^3/uL (1.8-7.7) Lymphocytes # (Auto) 0.5 x10^3/uL (1.0-4.8) Monocytes # (Auto) 0.1 x10^3/uL (0.0-1.1) Eosinophils # (Auto) 0.0 x10^3/uL (0.0-0.7) Basophils # (Auto) 0.0 x10^3/uL (0.0-0.2) D-Dimer (Mary Ann) 0.28 ug/mlFEU (0.00-0.50) Sodium Level 138 mmol/L (136-145) Potassium Level 3.8 mmol/L (3.5-5.1) Chloride Level 103 mmol/L (98-107) Carbon Dioxide Level 26 mmol/L (21-32) Anion Gap 9 (6-14) Blood Urea Nitrogen 16 mg/dL (7-20) Creatinine 0.9 mg/dL (0.6-1.0) Estimated GFR (Cockcroft-Gault) 64.8 BUN/Creatinine Ratio 18 (6-20) Glucose Level 316 mg/dL (70-99) Calcium Level 7.5 mg/dL (8.5-10.1) Ferritin 329 ng/mL (8-252) Total Bilirubin 0.8 mg/dL (0.2-1.0) Aspartate Amino Transf (AST/SGOT) 86 U/L (15-37) Alanine Aminotransferase (ALT/SGPT) 49 U/L (14-59) Alkaline Phosphatase 55 U/L (46-116) Lactate Dehydrogenase 436 U/L (81-234) C-Reactive Protein, Quantitative 85.7 mg/L (0-3.3) Total Protein 6.3 g/dL (6.4-8.2) Albumin 2.1 g/dL (3.4-5.0) Albumin/Globulin Ratio 0.5 (1.0-1.7) Medications Active Scripts Medications Dose Route/Sig Max Daily Dose Days Date Category Metformin Hcl 1,000 Mg Tablet 1,000 Mg PO BIDWMEALS 01/18/20 Reported Comments cxr reviewed Patchy interstitial opacities throughout the lung whitt may represent pulmonary wedge-shaped infarcts versus atypical infection such as a viral illness. Impression . IMPRESSION: 1. Acute hypoxic respiratory failure secondary to COVID-19 pneumonia. 2. Leukopenia secondary to viral pneumonia. 3. Abnormal chest x-ray with bilateral patchy infiltrates, highly compatible with COVID-19 pneumonia. 4. Abnormal liver function tests, likely related to COVID pneumonia. Plan . 1. now in icu, Keep her under COVID isolation. 2. Monitor oxygen level. Keep saturation 92 and above. 3. Empiric antibiotic. 4. COVID-19 positive 5. Lovenox for DVT prophylaxis. 6. We will monitor respiratory status closely, may need intubation, full code. discussed w rn, rt PEDRO REYES MD Jan 20, 2020 06:24
[2020-01-20] MEDS: INSULIN LISPRO 300 UNITS/3 ML VIAL. SQ SCH ×3 (08:00→17:58)
[2020-01-20] MEDS: LACTOBACILLUS RHAMNOSUS GG 1 CAPSULE. PO SCH ×2 (08:50→20:22)
[2020-01-20] MEDS: NON FORMULARY ITEM 1 EA in IV NORMAL SALINE 250ML 230 ML IV SCH (08:50)
[2020-01-20] MEDS: valACYclovir 500 MG TABLET. PO SCH ×3 (08:50→20:22)
[2020-01-20] MEDS: DOXYCYCLINE HYCLATE 100 MG TABLET PO SCH ×2 (08:50→20:23)
[2020-01-20 08:51] LABS: BASE EXCESS ABG 1 mmol/L (-3-3); HCO3 ABG 25 mmol/L (21-28); PCO2 ABG 40 mmHg (35-46); PO2 ABG 63 mmHg (75-108); SAT O2 ABG 92 % (92-99)
[2020-01-20] MEDS: ENOXAPARIN 40 MG/0.4 ML SYRINGE. SQ SCH ×2 (08:51→20:23)
--- NOTE | 2020-01-20 09:23 | PDOC ---
PROGRESS NOTES Chief Complaint Chief Complaint impression ACUTE HYPOXIC RESPIRATORY FAILURE COVID-19 syndrome Patchy interstitial opacities throughout the lung whitt may represent pulmonary wedge-shaped infarcts versus atypical infection such as a viral illness. Leukopenia Thrombocytopenia morbid obesity diabetes, uncontrolled History of Present Illness History of Present Illness 01/20/2020 Patient seen and examined COVID positive Chart reviewed Discussed with RN possible uti inc lantus to 16 units sq hs 33 min cc time 01/18/2020 Patient seen and examined Discussed with infectious disease Discussed with RN Chart reviewed I ordered hematology consultation as well Vitals Vitals Vital Signs Date Time Temp Pulse Resp B/P (MAP) Pulse Ox O2 Delivery O2 Flow Rate FiO2 01/20/20 06:00 70 28 92/52 (65) 93 Nasal Cannula 40.0 01/20/20 00:00 99.8 99.8 Physical Exam Physical Exam CONSTITUTIONAL: She is lying in bed. She is cooperative. She is in no acute distress. eating lunch HEENT: Pupils are equal and reactive. She has normal conjunctivae. Oral cavity, pharynx was clear. some blisters NECK: Supple. LUNGS: Decreased in the bases. HEART: S1, S2. ABDOMEN: Obese, soft, no guarding, rebound. EXTREMITIES: No clubbing, cyanosis or gross edema. SKIN: Warm to touch without signs of rash. NEUROLOGIC: She moves all extremities. General: Alert, Oriented X3 Heart: Regular rate, Normal S1 Abdomen: Normal bowel sounds, Soft Extremities: No clubbing, No cyanosis Skin: No rashes, No breakdown Labs LABS Single AP view of the chest. Comparison: None. Indication: Shortness of breath Findings: The heart is not enlarged. There is no pneumothorax or effusion. Patchy wedge-shaped opacities are identified throughout the bilateral lung whitt in the mid zones more so on the left in the periphery. Impression: 1. Patchy interstitial opacities throughout the lung whitt may represent pulmonary wedge-shaped infarcts versus atypical infection such as a viral illness. Electronically signed by: Santiago Pereira MD (01/17/2020 4:23 PM) [id number] DICTATED and SIGNED BY: SANTIAGO PEREIRA MD DATE: 01/17/20 1623 Laboratory Tests Test 01/19/20 12:23 01/19/20 17:27 01/19/20 21:33 01/20/20 05:15 Glucose (Fingerstick) 271 mg/dL (70-99) 260 mg/dL (70-99) 202 mg/dL (70-99) White Blood Count 2.4 x10^3/uL (4.0-11.0) Red Blood Count 4.43 x10^6/uL (3.50-5.40) Hemoglobin 13.8 g/dL (12.0-15.5) Hematocrit 40.5 % (36.0-47.0) Mean Corpuscular Volume 92 fL (79-100) Mean Corpuscular Hemoglobin 31 pg (25-35) Mean Corpuscular Hemoglobin Concent 34 g/dL (31-37) Red Cell Distribution Width 13.8 % (11.5-14.5) Platelet Count 69 x10^3/uL (140-400) Neutrophils (%) (Auto) 78 % (31-73) Lymphocytes (%) (Auto) 19 % (24-48) Monocytes (%) (Auto) 3 % (0-9) Eosinophils (%) (Auto) 0 % (0-3) Basophils (%) (Auto) 0 % (0-3) Neutrophils # (Auto) 1.9 x10^3/uL (1.8-7.7) Lymphocytes # (Auto) 0.5 x10^3/uL (1.0-4.8) Monocytes # (Auto) 0.1 x10^3/uL (0.0-1.1) Eosinophils # (Auto) 0.0 x10^3/uL (0.0-0.7) Basophils # (Auto) 0.0 x10^3/uL (0.0-0.2) D-Dimer (Mary Ann) 0.28 ug/mlFEU (0.00-0.50) Sodium Level 138 mmol/L (136-145) Potassium Level 3.8 mmol/L (3.5-5.1) Chloride Level 103 mmol/L (98-107) Carbon Dioxide Level 26 mmol/L (21-32) Anion Gap 9 (6-14) Blood Urea Nitrogen 16 mg/dL (7-20) Creatinine 0.9 mg/dL (0.6-1.0) Estimated GFR (Cockcroft-Gault) 64.8 BUN/Creatinine Ratio 18 (6-20) Glucose Level 316 mg/dL (70-99) Calcium Level 7.5 mg/dL (8.5-10.1) Ferritin 329 ng/mL (8-252) Total Bilirubin 0.8 mg/dL (0.2-1.0) Aspartate Amino Transf (AST/SGOT) 86 U/L (15-37) Alanine Aminotransferase (ALT/SGPT) 49 U/L (14-59) Alkaline Phosphatase 55 U/L (46-116) Lactate Dehydrogenase 436 U/L (81-234) C-Reactive Protein, Quantitative 85.7 mg/L (0-3.3) Total Protein 6.3 g/dL (6.4-8.2) Albumin 2.1 g/dL (3.4-5.0) Albumin/Globulin Ratio 0.5 (1.0-1.7) Assessment and Plan Assessmemt and Plan Problems Medical Problems: (1) Coronavirus infection Status: Acute (2) Leukopenia Status: Acute (3) Respiratory failure, acute Status: Acute Comment Review of Relevant I have reviewed the following items jorge (where applicable) has been applied. Labs Laboratory Tests Test 01/18/20 11:22 01/18/20 16:59 01/18/20 21:34 01/19/20 04:30 Glucose (Fingerstick) 279 mg/dL (70-99) 266 mg/dL (70-99) 333 mg/dL (70-99) White Blood Count 3.2 x10^3/uL (4.0-11.0) Red Blood Count 4.38 x10^6/uL (3.50-5.40) Hemoglobin 13.5 g/dL (12.0-15.5) Hematocrit 39.9 % (36.0-47.0) Mean Corpuscular Volume 91 fL (79-100) Mean Corpuscular Hemoglobin 31 pg (25-35) Mean Corpuscular Hemoglobin Concent 34 g/dL (31-37) Red Cell Distribution Width 14.1 % (11.5-14.5) Platelet Count 66 x10^3/uL (140-400) Neutrophils (%) (Auto) 77 % (31-73) Lymphocytes (%) (Auto) 16 % (24-48) Monocytes (%) (Auto) 7 % (0-9) Eosinophils (%) (Auto) 0 % (0-3) Basophils (%) (Auto) 0 % (0-3) Neutrophils # (Auto) 2.5 x10^3/uL (1.8-7.7) Lymphocytes # (Auto) 0.5 x10^3/uL (1.0-4.8) Monocytes # (Auto) 0.2 x10^3/uL (0.0-1.1) Eosinophils # (Auto) 0.0 x10^3/uL (0.0-0.7) Basophils # (Auto) 0.0 x10^3/uL (0.0-0.2) Sodium Level 137 mmol/L (136-145) Potassium Level 3.5 mmol/L (3.5-5.1) Chloride Level 101 mmol/L (98-107) Carbon Dioxide Level 27 mmol/L (21-32) Anion Gap 9 (6-14) Blood Urea Nitrogen 12 mg/dL (7-20) Creatinine 0.9 mg/dL (0.6-1.0) Estimated GFR (Cockcroft-Gault) 64.8 BUN/Creatinine Ratio 13 (-20) Glucose Level 285 mg/dL (70-99) Calcium Level 7.7 mg/dL (8.5-10.1) Total Bilirubin 1.0 mg/dL (0.2-1.0) Aspartate Amino Transf (AST/SGOT) 103 U/L (15-37) Alanine Aminotransferase (ALT/SGPT) 65 U/L (14-59) Alkaline Phosphatase 56 U/L (46-116) Total Protein 6.4 g/dL (6.4-8.2) Albumin 2.4 g/dL (3.4-5.0) Albumin/Globulin Ratio 0.6 (1.0-1.7) Test 01/19/20 08:29 01/19/20 12:23 01/19/20 17:27 01/19/20 21:33 Glucose (Fingerstick) 275 mg/dL (70-99) 271 mg/dL (70-99) 260 mg/dL (70-99) 202 mg/dL (70-99) Test 01/20/20 05:15 White Blood Count 2.4 x10^3/uL (4.0-11.0) Red Blood Count 4.43 x10^6/uL (3.50-5.40) Hemoglobin 13.8 g/dL (12.0-15.5) Hematocrit 40.5 % (36.0-47.0) Mean Corpuscular Volume 92 fL (79-100) Mean Corpuscular Hemoglobin 31 pg (25-35) Mean Corpuscular Hemoglobin Concent 34 g/dL (31-37) Red Cell Distribution Width 13.8 % (11.5-14.5) Platelet Count 69 x10^3/uL (140-400) Neutrophils (%) (Auto) 78 % (31-73) Lymphocytes (%) (Auto) 19 % (24-48) Monocytes (%) (Auto) 3 % (0-9) Eosinophils (%) (Auto) 0 % (0-3) Basophils (%) (Auto) 0 % (0-3) Neutrophils # (Auto) 1.9 x10^3/uL (1.8-7.7) Lymphocytes # (Auto) 0.5 x10^3/uL (1.0-4.8) Monocytes # (Auto) 0.1 x10^3/uL (0.0-1.1) Eosinophils # (Auto) 0.0 x10^3/uL (0.0-0.7) Basophils # (Auto) 0.0 x10^3/uL (0.0-0.2) D-Dimer (Mary Ann) 0.28 ug/mlFEU (0.00-0.50) Sodium Level 138 mmol/L (136-145) Potassium Level 3.8 mmol/L (3.5-5.1) Chloride Level 103 mmol/L (98-107) Carbon Dioxide Level 26 mmol/L (21-32) Anion Gap 9 (6-14) Blood Urea Nitrogen 16 mg/dL (7-20) Creatinine 0.9 mg/dL (0.6-1.0) Estimated GFR (Cockcroft-Gault) 64.8 BUN/Creatinine Ratio 18 (6-20) Glucose Level 316 mg/dL (70-99) Calcium Level 7.5 mg/dL (8.5-10.1) Ferritin 329 ng/mL (8-252) Total Bilirubin 0.8 mg/dL (0.2-1.0) Aspartate Amino Transf (AST/SGOT) 86 U/L (15-37) Alanine Aminotransferase (ALT/SGPT) 49 U/L (14-59) Alkaline Phosphatase 55 U/L (46-116) Lactate Dehydrogenase 436 U/L (81-234) C-Reactive Protein, Quantitative 85.7 mg/L (0-3.3) Total Protein 6.3 g/dL (6.4-8.2) Albumin 2.1 g/dL (3.4-5.0) Albumin/Globulin Ratio 0.5 (1.0-1.7) Laboratory Tests Test 01/19/20 12:23 01/19/20 17:27 01/19/20 21:33 01/20/20 05:15 Glucose (Fingerstick) 271 mg/dL (70-99) 260 mg/dL (70-99) 202 mg/dL (70-99) White Blood Count 2.4 x10^3/uL (4.0-11.0) Red Blood Count 4.43 x10^6/uL (3.50-5.40) Hemoglobin 13.8 g/dL (12.0-15.5) Hematocrit 40.5 % (36.0-47.0) Mean Corpuscular Volume 92 fL (79-100) Mean Corpuscular Hemoglobin 31 pg (25-35) Mean Corpuscular Hemoglobin Concent 34 g/dL (31-37) Red Cell Distribution Width 13.8 % (11.5-14.5) Platelet Count 69 x10^3/uL (140-400) Neutrophils (%) (Auto) 78 % (31-73) Lymphocytes (%) (Auto) 19 % (24-48) Monocytes (%) (Auto) 3 % (0-9) Eosinophils (%) (Auto) 0 % (0-3) Basophils (%) (Auto) 0 % (0-3) Neutrophils # (Auto) 1.9 x10^3/uL (1.8-7.7) Lymphocytes # (Auto) 0.5 x10^3/uL (1.0-4.8) Monocytes # (Auto) 0.1 x10^3/uL (0.0-1.1) Eosinophils # (Auto) 0.0 x10^3/uL (0.0-0.7) Basophils # (Auto) 0.0 x10^3/uL (0.0-0.2) D-Dimer (Mary Ann) 0.28 ug/mlFEU (0.00-0.50) Sodium Level 138 mmol/L (136-145) Potassium Level 3.8 mmol/L (3.5-5.1) Chloride Level 103 mmol/L (98-107) Carbon Dioxide Level 26 mmol/L (21-32) Anion Gap 9 (6-14) Blood Urea Nitrogen 16 mg/dL (7-20) Creatinine 0.9 mg/dL (0.6-1.0) Estimated GFR (Cockcroft-Gault) 64.8 BUN/Creatinine Ratio 18 (6-20) Glucose Level 316 mg/dL (70-99) Calcium Level 7.5 mg/dL (8.5-10.1) Ferritin 329 ng/mL (8-252) Total Bilirubin 0.8 mg/dL (0.2-1.0) Aspartate Amino Transf (AST/SGOT) 86 U/L (15-37) Alanine Aminotransferase (ALT/SGPT) 49 U/L (14-59) Alkaline Phosphatase 55 U/L (46-116) Lactate Dehydrogenase 436 U/L (81-234) C-Reactive Protein, Quantitative 85.7 mg/L (0-3.3) Total Protein 6.3 g/dL (6.4-8.2) Albumin 2.1 g/dL (3.4-5.0) Albumin/Globulin Ratio 0.5 (1.0-1.7) Medications Current Medications Piperacillin Sod/ Tazobactam Sod (Zosyn Per Pharmacy) 1 each PRN DAILY PRN SEE COMMENTS; Start 01/17/20 at 19:30 Piperacillin Sod/ Tazobactam Sod 3.375 gm/Sodium Chloride 50 ml @ 100 mls/hr 1X ONCE IV Last administered on 01/17/20at 20:31; Start 01/17/20 at 19:45; Stop 01/17/20 at 20:14; Status DC Piperacillin Sod/ Tazobactam Sod 3.375 gm/Sodium Chloride 50 ml @ 100 mls/hr Q6HRS IV Last administered on 01/20/20at 05:51; Start 01/18/20 at 00:00 Zolpidem Tartrate (Ambien) 5 mg PRN QHS PRN PO INSOMNIA; Start 01/18/20 at 01:00 Enoxaparin Sodium (Lovenox Per Pharmacy Prophylaxis Dosing) 1 each PRN DAILY PRN MC SEE COMMENTS; Start 01/18/20 at 01:00 Insulin Glargine (Lantus Syringe) 12 unit QHS SQ Last administered on 01/19/20at 21:24; Start 01/18/20 at 21:00 Acetaminophen (Tylenol) 650 mg PRN Q6HRS PRN PO FEVER > 100.3'F Last admini stered on 01/19/20at 16:20; Start 01/18/20 at 01:00 Enoxaparin Sodium (Lovenox 40mg Syringe) 40 mg BID SQ Last administered on at 08:51; Start 01/18/20 at 09:00 Doxycycline Hyclate (Vibra-Tab) 100 mg BID PO Last administered on 01/20/20at 08:50; Start 01/18/20 at 09:00 Insulin Human Lispro (HumaLOG) 0-5 UNITS TIDWMEALS SQ Last administered on 01/19/20at 17:42; Start 01/18/20 at 12:00 Dextrose (Dextrose 50%-Water Syringe) 12.5 gm PRN Q15MIN PRN IV SEE COMMENTS; Start 01/18/20 at 09:45 Lactobacillus Rhamnosus (Culturelle) 1 cap BID PO Last administered on 01/20/20at 08:50; Start 01/18/20 at 21:00 Non-Formulary Medication 1 ea/ Sodium Chloride 210 ml @ 420 mls/hr 1X ONCE IV ; Start 01/19/20 at 10:00; Stop 01/19/20 at 09:34; Status DC Non-Formulary Medication 1 ea/ Sodium Chloride 230 ml @ 460 mls/hr DAILY IV Last administered on 01/20/20at 08:50; Start 01/20/20 at 09:00; Stop 01/23/20 at 09:29 Non-Formulary Medication 1 ea/ Sodium Chloride 210 ml @ 420 mls/hr 1X ONCE IV Last administered on 01/19/20at 10:05; Start 01/19/20 at 09:45; Stop 01/19/20 at 10:14; Status DC Valacyclovir HCl (Valtrex) 1,000 mg TID PO Last administered on 01/20/20at 08:50; Start 01/19/20 at 14:00 Methylprednisolone Sodium Succinate (SOLU-Medrol 125MG VIAL) [address] administered on 01/20/20at 05:51; Start 01/19/20 at 22:00 Sterile Water (WATER for RESP) 1,000 ml CONT PRN INH VIA VAPOTHERM DEVICE Last administered on 01/19/20at 18:00; Start 01/19/20 at 17:30 Active Scripts Active Reported Metformin Hcl 1,000 Mg Tablet 1,000 Mg PO BIDWMEALS Vitals/I & O Vital Sign - Last 24 Hours 01/19/20 01/19/20 01/19/20 01/19/20 11:30 15:05 17:30 17:45 Temp 100.3 101.0 99.3 100.3 101.0 99.3 Pulse 87 90 88 Resp 18 31 B/P (MAP) 180/109 (132) 118/71 (87) 93/41 (58) Pulse Ox 89 87 86 91 O2 Delivery Nasal Cannula Nasal Cannula Venturi Mask VAPOTHERM O2 Flow Rate 4.0 6.0 15.0 40.0 01/19/20 01/19/20 01/19/20 01/19/20 17:45 18:00 18:15 20:00 Temp 99.1 99.1 Pulse 86 84 83 82 Resp 25 31 22 28 B/P (MAP) 94/59 (71) 105/64 (78) 116/65 (82) 115/64 (81) Pulse Ox 92 91 92 92 O2 Delivery vapotherm vapotherm vapotherm Nasal Cannula O2 Flow Rate 40.0 40.0 01/19/20 01/19/20 01/19/20 01/19/20 20:00 20:33 21:00 22:00 Pulse 83 75 Resp 26 28 B/P (MAP) 113/72 (86) 106/64 (78) Pulse Ox 94 91 91 O2 Delivery Nasal Cannula VAPOTHERM Nasal Cannula Nasal Cannula O2 Flow Rate 40.0 40.0 40.0 40.0 01/19/20 01/20/20 01/20/20 01/20/20 23:00 00:00 00:00 00:00 Temp 99.8 99.8 Pulse 83 82 Resp 28 26 B/P (MAP) 102/64 (77) 121/74 (90) Pulse Ox 92 94 O2 Delivery Nasal Cannula Nasal Cannula Nasal Cannula O2 Flow Rate 40.0 40.0 40.0 01/20/20 01/20/20 01/20/20 01/20/20 00:20 01:00 01:00 02:00 Pulse 74 Resp 28 B/P (MAP) 101/58 (72) Pulse Ox 94 90 93 O2 Delivery VAPOTHERM Nasal Cannula O2 Flow Rate 40.0 40.0 01/20/20 01/20/20 01/20/20 01/20/20 02:00 03:00 04:00 04:00 Pulse 76 68 72 Resp 28 36 34 B/P (MAP) 108/65 (79) 96/57 (70) 108/65 (79) Pulse Ox 91 89 O2 Delivery Nasal Cannula Nasal Cannula Nasal Cannula Nasal Cannula O2 Flow Rate 40.0 40.0 40.0 40.0 01/20/20 01/20/20 01/20/20 04:20 05:00 06:00 Pulse 76 70 Resp 36 28 B/P (MAP) 99/60 (73) 92/52 (65) Pulse Ox 90 93 93 O2 Delivery VAPOTHERM Nasal Cannula Nasal Cannula O2 Flow Rate 40.0 40.0 40.0 Intake and Output 01/19/20 01/19/20 01/20/20 15:00 23:00 07:00 Intake Total 200 ml 600 ml Output Total 1 ml 340 ml Balance -1 ml 200 ml 260 ml TANK MILTON MD Jan 20, 2020 09:23
--- NOTE | 2020-01-20 10:08 | PDOC ---
Infectious Disease Note Subjective Subjective Less fever O2 40 L FiO2 100% Vital Sign Vital Signs Vital Signs Date Time Temp Pulse Resp B/P (MAP) Pulse Ox O2 Delivery O2 Flow Rate FiO2 01/20/20 08:00 Nasal Cannula 40.0 01/20/20 06:00 70 28 92/52 (65) 93 01/20/20 00:00 99.8 99.8 Physical Exam PHYSICAL EXAM Visual exam: more details GENERAL: Propped up in bed, resting, appears comfortable LUNGS: Breathing is nonlabored HEART: Regular ABDOMEN: Obese PIV Labs Lab Laboratory Tests Test 01/19/20 12:23 01/19/20 17:27 01/19/20 21:33 01/20/20 05:15 Glucose (Fingerstick) 271 mg/dL (70-99) 260 mg/dL (70-99) 202 mg/dL (70-99) White Blood Count 2.4 x10^3/uL (4.0-11.0) Red Blood Count 4.43 x10^6/uL (3.50-5.40) Hemoglobin 13.8 g/dL (12.0-15.5) Hematocrit 40.5 % (36.0-47.0) Mean Corpuscular Volume 92 fL (79-100) Mean Corpuscular Hemoglobin 31 pg (25-35) Mean Corpuscular Hemoglobin Concent 34 g/dL (31-37) Red Cell Distribution Width 13.8 % (11.5-14.5) Platelet Count 69 x10^3/uL (140-400) Neutrophils (%) (Auto) 78 % (31-73) Lymphocytes (%) (Auto) 19 % (24-48) Monocytes (%) (Auto) 3 % (0-9) Eosinophils (%) (Auto) 0 % (0-3) Basophils (%) (Auto) 0 % (0-3) Neutrophils # (Auto) 1.9 x10^3/uL (1.8-7.7) Lymphocytes # (Auto) 0.5 x10^3/uL (1.0-4.8) Monocytes # (Auto) 0.1 x10^3/uL (0.0-1.1) Eosinophils # (Auto) 0.0 x10^3/uL (0.0-0.7) Basophils # (Auto) 0.0 x10^3/uL (0.0-0.2) D-Dimer (Mary Ann) 0.28 ug/mlFEU (0.00-0.50) Sodium Level 138 mmol/L (136-145) Potassium Level 3.8 mmol/L (3.5-5.1) Chloride Level 103 mmol/L (98-107) Carbon Dioxide Level 26 mmol/L (21-32) Anion Gap 9 (6-14) Blood Urea Nitrogen 16 mg/dL (7-20) Creatinine 0.9 mg/dL (0.6-1.0) Estimated GFR (Cockcroft-Gault) 64.8 BUN/Creatinine Ratio 18 (6-20) Glucose Level 316 mg/dL (70-99) Calcium Level 7.5 mg/dL (8.5-10.1) Ferritin 329 ng/mL (8-252) Total Bilirubin 0.8 mg/dL (0.2-1.0) Aspartate Amino Transf (AST/SGOT) 86 U/L (15-37) Alanine Aminotransferase (ALT/SGPT) 49 U/L (14-59) Alkaline Phosphatase 55 U/L (46-116) Lactate Dehydrogenase 436 U/L (81-234) C-Reactive Protein, Quantitative 85.7 mg/L (0-3.3) Total Protein 6.3 g/dL (6.4-8.2) Albumin 2.1 g/dL (3.4-5.0) Albumin/Globulin Ratio 0.5 (1.0-1.7) Objective Assessment Fever - better Lips blisters Acute resp hypoxic resp failure - COVID + Abnormal CXR Leukopenina - chronic Thrombocytopenia Plan Plan of Care Cont Zosyn, Doxycycline and Valtrex Remdesivir, 01/18 Pulm to eval for plasma On steroids F/u labs and cults May need Heme eval D/w nursing Attending Co-Sign The patient was seen and interviewed as well as examined at the bedside. The chart was reviewed. The case was discussed. Agree with the plan of care. HERBERT WOOTEN APRN Jan 20, 2020 10:08 ANALIA CHANG MD Jan 20, 2020 11:20
[2020-01-20 10:36] LABS: FIO2 ABG 100% VAPOTHERM
[2020-01-20] MEDS: STERILE WATER for RESP 1,000 ML BAG. INH PRN (11:31)
[2020-01-20] MEDS: INSULIN GLARGINE SYRINGE. SQ SCH (20:30)
--- NOTE | 2020-01-20 21:30 | NUR ---
Patient saturation maintaining 81-85% when sleeping. This RN went in to talk with patient, when patient was awake, highest saturations reached was 90%. This RN paged and talked to Dr. Medina about saturation situation not reaching >90% and desaturation and plateauing to low 80s when sleeping. Dr. Medina wants patient to try IS Q1 HR and also mentioned that patient has expressed she does not wish to be intubated in the past. Patient is currently a full code. This RN spoke with patient via fermenter helper. This RN discussed intubation with patient. Patient expressed that she did not want the breathing tube, did not want to be placed on mechanical ventilation. Patient said she has had negative experiences with family members being intubated. This RN told patient her saturations were not doing well in the 80s, and her current oxygen is as high as it will go. Still adamant about decision. Patient said she already spoke with family about this decision and they all agree with her. Dr. Medina was then updated on the decision. Situation then discussed with Dr. Mead, hiramay to give code status change.
[2020-01-21] VITALS (28 sets, daily range): BP systolic 93–119; BP diastolic 51–70
[2020-01-21] MEDS: PIPERACILLIN/TAZOBACTAM 3.375 GM in IV NORMAL SALINE 50ML 50 ML IV SCH ×5 (00:10→23:46)
[2020-01-21] MEDS: STERILE WATER for RESP 1,000 ML BAG. INH PRN ×2 (00:11→23:47)
[2020-01-21 04:30] LABS: BASO % 1 % (0-3); EOS % 0 % (0-3); HEMATOCRIT 39.6 % (36.0-47.0); HEMOGLOBIN 13.4 g/dL (12.0-15.5); LYMPH # 0.5 x10^3/uL (1.0-4.8); LYMPH % 21 % (24-48); MEAN CORPUSCULAR HEMOGLOBIN 31 pg (25-35); MEAN CORPUSCULAR HGB CONC 34 g/dL (31-37); MEAN CORPUSCULAR VOLUME 91 fL (79-100); MONO # 0.2 x10^3/uL (0.0-1.1); MONO % 9 % (0-9); NEUT # 1.9 x10^3/uL (1.8-7.7); NEUT % 70 % (31-73); PLATELET COUNT 81 x10^3/uL (140-400); RED BLOOD COUNT 4.36 x10^6/uL (3.50-5.40); RED CELL DISTRIBUTION WIDTH 13.9 % (11.5-14.5); WHITE BLOOD COUNT 2.7 x10^3/uL (4.0-11.0)
[2020-01-21 04:41] LABS: CALCIUM 7.8 mg/dL (8.5-10.1); GFR 57.4; POTASSIUM 3.5 mmol/L (3.5-5.1)
[2020-01-21] MEDS: methylPREDNISolone SOD SUCC PF 125 MG/2 ML VIAL. IV SCH (06:33)
--- NOTE | 2020-01-21 07:05 | PDOC ---
PULMONARY PROGRESS NOTES Subjective on vapotherm 40 lpm and 100% fio2, appears comfortable, desat when falls sleep suspect pepito. she doesnt want intubation Vitals Vital Signs Date Time Temp Pulse Resp B/P (MAP) Pulse Ox O2 Delivery O2 Flow Rate FiO2 01/21/20 06:00 62 28 96/61 (73) 96 Nasal Cannula 40.0 01/21/20 04:00 98.3 98.3 Comments visual exam done due to COVID pandemia appears comfortable, alert, nc at, nsr on ekg, no paradoxical abd motion, no rash, no edema General: Alert, No acute distress Labs Laboratory Tests Test 01/19/20 08:29 01/19/20 12:23 01/19/20 17:27 01/19/20 21:33 Glucose (Fingerstick) 275 mg/dL (70-99) 271 mg/dL (70-99) 260 mg/dL (70-99) 202 mg/dL (70-99) Test 01/20/20 05:15 01/20/20 08:00 01/20/20 12:59 01/20/20 17:49 White Blood Count 2.4 x10^3/uL (4.0-11.0) Red Blood Count 4.43 x10^6/uL (3.50-5.40) Hemoglobin 13.8 g/dL (12.0-15.5) Hematocrit 40.5 % (36.0-47.0) Mean Corpuscular Volume 92 fL (79-100) Mean Corpuscular Hemoglobin 31 pg (25-35) Mean Corpuscular Hemoglobin Concent 34 g/dL (31-37) Red Cell Distribution Width 13.8 % (11.5-14.5) Platelet Count 69 x10^3/uL (140-400) Neutrophils (%) (Auto) 78 % (31-73) Lymphocytes (%) (Auto) 19 % (24-48) Monocytes (%) (Auto) 3 % (0-9) Eosinophils (%) (Auto) 0 % (0-3) Basophils (%) (Auto) 0 % (0-3) Neutrophils # (Auto) 1.9 x10^3/uL (1.8-7.7) Lymphocytes # (Auto) 0.5 x10^3/uL (1.0-4.8) Monocytes # (Auto) 0.1 x10^3/uL (0.0-1.1) Eosinophils # (Auto) 0.0 x10^3/uL (0.0-0.7) Basophils # (Auto) 0.0 x10^3/uL (0.0-0.2) D-Dimer (Mary Ann) 0.28 ug/mlFEU (0.00-0.50) Sodium Level 138 mmol/L (136-145) Potassium Level 3.8 mmol/L (3.5-5.1) Chloride Level 103 mmol/L (98-107) Carbon Dioxide Level 26 mmol/L (21-32) Anion Gap 9 (6-14) Blood Urea Nitrogen 16 mg/dL (7-20) Creatinine 0.9 mg/dL (0.6-1.0) Estimated GFR (Cockcroft-Gault) 64.8 BUN/Creatinine Ratio 18 (6-20) Glucose Level 316 mg/dL (70-99) Calcium Level 7.5 mg/dL (8.5-10.1) Ferritin 329 ng/mL (8-252) Total Bilirubin 0.8 mg/dL (0.2-1.0) Aspartate Amino Transf (AST/SGOT) 86 U/L (15-37) Alanine Aminotransferase (ALT/SGPT) 49 U/L (14-59) Alkaline Phosphatase 55 U/L (46-116) Lactate Dehydrogenase 436 U/L (81-234) C-Reactive Protein, Quantitative 85.7 mg/L (0-3.3) Total Protein 6.3 g/dL (6.4-8.2) Albumin 2.1 g/dL (3.4-5.0) Albumin/Globulin Ratio 0.5 (1.0-1.7) O2 Saturation 92 % (92-99) Arterial Blood pH 7.42 (7.35-7.45) Arterial Blood pCO2 at Patient Temp 40 mmHg (35-46) Arterial Blood pO2 at Patient Temp 63 mmHg (75-108) Arterial Blood HCO3 25 mmol/L (21-28) Arterial Blood Base Excess 1 mmol/L (-3-3) FiO2 100% vapotherm Glucose (Fingerstick) 373 mg/dL (70-99) 387 mg/dL (70-99) Test 01/20/20 20:35 01/21/20 04:20 Glucose (Fingerstick) 365 mg/dL (70-99) White Blood Count 2.7 x10^3/uL (4.0-11.0) Red Blood Count 4.36 x10^6/uL (3.50-5.40) Hemoglobin 13.4 g/dL (12.0-15.5) Hematocrit 39.6 % (36.0-47.0) Mean Corpuscular Volume 91 fL (79-100) Mean Corpuscular Hemoglobin 31 pg (25-35) Mean Corpuscular Hemoglobin Concent 34 g/dL (31-37) Red Cell Distribution Width 13.9 % (11.5-14.5) Platelet Count 81 x10^3/uL (140-400) Neutrophils (%) (Auto) 70 % (31-73) Lymphocytes (%) (Auto) 21 % (24-48) Monocytes (%) (Auto) 9 % (0-9) Eosinophils (%) (Auto) 0 % (0-3) Basophils (%) (Auto) 1 % (0-3) Neutrophils # (Auto) 1.9 x10^3/uL (1.8-7.7) Lymphocytes # (Auto) 0.5 x10^3/uL (1.0-4.8) Monocytes # (Auto) 0.2 x10^3/uL (0.0-1.1) Eosinophils # (Auto) 0.0 x10^3/uL (0.0-0.7) Basophils # (Auto) 0.0 x10^3/uL (0.0-0.2) Sodium Level 138 mmol/L (136-145) Potassium Level 3.5 mmol/L (3.5-5.1) Chloride Level 103 mmol/L (98-107) Carbon Dioxide Level 27 mmol/L (21-32) Anion Gap 8 (6-14) Blood Urea Nitrogen 24 mg/dL (7-20) Creatinine 1.0 mg/dL (0.6-1.0) Estimated GFR (Cockcroft-Gault) 57.4 Glucose Level 392 mg/dL (70-99) Calcium Level 7.8 mg/dL (8.5-10.1) Laboratory Tests Test 01/20/20 08:00 01/20/20 12:59 01/20/20 17:49 01/20/20 20:35 O2 Saturation 92 % (92-99) Arterial Blood pH 7.42 (7.35-7.45) Arterial Blood pCO2 at Patient Temp 40 mmHg (35-46) Arterial Blood pO2 at Patient Temp 63 mmHg (75-108) Arterial Blood HCO3 25 mmol/L (21-28) Arterial Blood Base Excess 1 mmol/L (-3-3) FiO2 100% vapotherm Glucose (Fingerstick) 373 mg/dL (70-99) 387 mg/dL (70-99) 365 mg/dL (70-99) Test 01/21/20 04:20 White Blood Count 2.7 x10^3/uL (4.0-11.0) Red Blood Count 4.36 x10^6/uL (3.50-5.40) Hemoglobin 13.4 g/dL (12.0-15.5) Hematocrit 39.6 % (36.0-47.0) Mean Corpuscular Volume 91 fL (79-100) Mean Corpuscular Hemoglobin 31 pg (25-35) Mean Corpuscular Hemoglobin Concent 34 g/dL (31-37) Red Cell Distribution Width 13.9 % (11.5-14.5) Platelet Count 81 x10^3/uL (140-400) Neutrophils (%) (Auto) 70 % (31-73) Lymphocytes (%) (Auto) 21 % (24-48) Monocytes (%) (Auto) 9 % (0-9) Eosinophils (%) (Auto) 0 % (0-3) Basophils (%) (Auto) 1 % (0-3) Neutrophils # (Auto) 1.9 x10^3/uL (1.8-7.7) Lymphocytes # (Auto) 0.5 x10^3/uL (1.0-4.8) Monocytes # (Auto) 0.2 x10^3/uL (0.0-1.1) Eosinophils # (Auto) 0.0 x10^3/uL (0.0-0.7) Basophils # (Auto) 0.0 x10^3/uL (0.0-0.2) Sodium Level 138 mmol/L (136-145) Potassium Level 3.5 mmol/L (3.5-5.1) Chloride Level 103 mmol/L (98-107) Carbon Dioxide Level 27 mmol/L (21-32) Anion Gap 8 (6-14) Blood Urea Nitrogen 24 mg/dL (7-20) Creatinine 1.0 mg/dL (0.6-1.0) Estimated GFR (Cockcroft-Gault) 57.4 Glucose Level 392 mg/dL (70-99) Calcium Level 7.8 mg/dL (8.5-10.1) Medications Active Scripts Medications Dose Route/Sig Max Daily Dose Days Date Category Metformin Hcl 1,000 Mg Tablet 1,000 Mg PO BIDWMEALS 01/18/20 Reported Comments cxr reviewed There is increased airspace opacity/infiltrates of the bilateral hemithoraces. Impression . IMPRESSION: 1. Acute hypoxic respiratory failure secondary to COVID-19 pneumonia. 2. Leukopenia secondary to viral pneumonia. 3. Abnormal chest x-ray with bilateral patchy infiltrates, highly compatible with COVID-19 pneumonia. 4. Abnormal liver function tests, likely related to COVID pneumonia. 5. leukopenia tcp Plan . 1. Keep her under COVID isolation. Remdesivir, 01/18 ? convulasant plasma, will discuss w id and dr devlin, cont solumedrol, change to 40 bid 2. Monitor oxygen level. Keep saturation 92 and above. is helped oxygenation some 3. Empiric antibiotic. 4. COVID-19 positive 5. Lovenox for DVT prophylaxis. 6. We will monitor respiratory status closely, 7. no intubation per pt request discussed w rn, rt PEDRO REYES MD Jan 21, 2020 07:04
--- NOTE | 2020-01-21 07:54 | RAD ---
PORTABLE CHEST 1V History: Respiratory failure, COVID PNEUMONIA Comparison: None. Findings: Single view of the chest is submitted. There is increased airspace opacity of the bilateral hemithoraces greatest at the periphery of the mid to superior hemithoraces bilaterally. No pneumothorax or significant dependent pleural fluid is identified. Heart size is similar. Impression: 1. There is increased airspace opacity/infiltrates of the bilateral hemithoraces. Electronically signed by: Luis Duke MD (01/21/2020 7:51 AM) [id number]
--- NOTE | 2020-01-21 08:38 | PDOC ---
Infectious Disease Note Subjective Subjective Feels good No fevers last 24 hrs Remains on O2 40 L FiO2 100% ROS ROS limited d/t language barrier Vital Sign Vital Signs Vital Signs Date Time Temp Pulse Resp B/P (MAP) Pulse Ox O2 Delivery O2 Flow Rate FiO2 01/21/20 08:00 Nasal Cannula 40.0 01/21/20 08:00 65 36 95/64 (74) 87 01/21/20 07:00 98.3 98.3 Physical Exam PHYSICAL EXAM GENERAL: Propped up in bed, alert and watching TV HEENT: Oral cavity, pharynx was clear. some blisters NECK: Supple. LUNGS: Clear, no accessory muscle use HEART: S1, S2. regular ABDOMEN: Obese, soft, no guarding, rebound. : Hinkle in place EXTREMITIES: No clubbing, cyanosis or gross edema. SKIN: Warm to touch without signs of rash. NEUROLOGIC: Alert, responding to questions/gestures appropriately PIV Labs Lab Laboratory Tests Test 01/20/20 12:59 01/20/20 17:49 01/20/20 20:35 01/21/20 04:20 Glucose (Fingerstick) 373 mg/dL (70-99) 387 mg/dL (70-99) 365 mg/dL (70-99) White Blood Count 2.7 x10^3/uL (4.0-11.0) Red Blood Count 4.36 x10^6/uL (3.50-5.40) Hemoglobin 13.4 g/dL (12.0-15.5) Hematocrit 39.6 % (36.0-47.0) Mean Corpuscular Volume 91 fL (79-100) Mean Corpuscular Hemoglobin 31 pg (25-35) Mean Corpuscular Hemoglobin Concent 34 g/dL (31-37) Red Cell Distribution Width 13.9 % (11.5-14.5) Platelet Count 81 x10^3/uL (140-400) Neutrophils (%) (Auto) 70 % (31-73) Lymphocytes (%) (Auto) 21 % (24-48) Monocytes (%) (Auto) 9 % (0-9) Eosinophils (%) (Auto) 0 % (0-3) Basophils (%) (Auto) 1 % (0-3) Neutrophils # (Auto) 1.9 x10^3/uL (1.8-7.7) Lymphocytes # (Auto) 0.5 x10^3/uL (1.0-4.8) Monocytes # (Auto) 0.2 x10^3/uL (0.0-1.1) Eosinophils # (Auto) 0.0 x10^3/uL (0.0-0.7) Basophils # (Auto) 0.0 x10^3/uL (0.0-0.2) Sodium Level 138 mmol/L (136-145) Potassium Level 3.5 mmol/L (3.5-5.1) Chloride Level 103 mmol/L (98-107) Carbon Dioxide Level 27 mmol/L (21-32) Anion Gap 8 (6-14) Blood Urea Nitrogen 24 mg/dL (7-20) Creatinine 1.0 mg/dL (0.6-1.0) Estimated GFR (Cockcroft-Gault) 57.4 Glucose Level 392 mg/dL (70-99) Calcium Level 7.8 mg/dL (8.5-10.1) CXR, 01/20 Impression: 1. There is increased airspace opacity/infiltrates of the bilateral hemithoraces. Objective Assessment Fever - better Lips blisters Acute resp hypoxic resp failure - COVID + 01/16 Abnormal CXR Leukopenina - chronic Thrombocytopenia Plan Plan of Care Cont Zosyn, Doxycycline and Valtrex Remdesivir, 01/18 On steroids F/u labs May need Heme eval D/w Dr. Medina Attending Co-Sign The patient was seen and interviewed as well as examined at the bedside. The chart was reviewed. The case was discussed. Agree with the plan of care. HERBERT WOOTEN APRN Jan 21, 2020 08:38 ANALIA CHANG MD Jan 21, 2020 11:23
[2020-01-21 09:01] LABS: BASE EXCESS ABG -1 mmol/L (-3-3); HCO3 ABG 22 mmol/L (21-28); PCO2 ABG 31 mmHg (35-46); PO2 ABG 65 mmHg (75-108); SAT O2 ABG 93 % (92-99)
[2020-01-21] MEDS: NON FORMULARY ITEM 1 EA in IV NORMAL SALINE 250ML 230 ML IV SCH (09:15)
[2020-01-21] MEDS: LACTOBACILLUS RHAMNOSUS GG 1 CAPSULE. PO SCH ×2 (09:18→21:17)
[2020-01-21] MEDS: methylPREDNISolone SOD SUCC PF 40 MG/ML VIAL. IV SCH ×2 (09:18→21:19)
[2020-01-21] MEDS: DOXYCYCLINE HYCLATE 100 MG TABLET PO SCH ×2 (09:18→21:19)
[2020-01-21] MEDS: valACYclovir 500 MG TABLET. PO SCH ×3 (09:18→21:17)
[2020-01-21] MEDS: ENOXAPARIN 40 MG/0.4 ML SYRINGE. SQ SCH ×2 (09:18→21:17)
[2020-01-21] MEDS: INSULIN LISPRO 300 UNITS/3 ML VIAL. SQ SCH ×3 (09:20→17:55)
[2020-01-21 11:07] LABS: FIO2 ABG 100% VAPOTH
--- NOTE | 2020-01-21 11:22 | PDOC ---
PROGRESS NOTES Chief Complaint Chief Complaint impression ACUTE HYPOXIC RESPIRATORY FAILURE COVID-19 syndrome Patchy interstitial opacities throughout the lung whitt may represent pulmonary wedge-shaped infarcts versus atypical infection such as a viral illness. Leukopenia Thrombocytopenia morbid obesity diabetes, uncontrolled Cont Zosyn, Doxycycline and Valtrex Remdesivir, 01/18 On steroids heme consult History of Present Illness History of Present Illness 01/21/2020 Patient seen and examined COVID positive Chart reviewed Discussed with RN possible uti inc lantus to 16 units sq hs heme consult 35 min cc time 01/18/2020 Patient seen and examined Discussed with infectious disease Discussed with RN Chart reviewed I ordered hematology consultation as well Vitals Vitals Vital Signs Date Time Temp Pulse Resp B/P (MAP) Pulse Ox O2 Delivery O2 Flow Rate FiO2 01/21/20 11:01 88 VAPOTHERM 40.0 01/21/20 11:00 71 30 98/57 (71) 01/21/20 07:00 98.3 98.3 Physical Exam Physical Exam GENERAL: Propped up in bed, alert and watching TV HEENT: Oral cavity, pharynx was clear. some blisters NECK: Supple. LUNGS: Clear, no accessory muscle use HEART: S1, S2. regular ABDOMEN: Obese, soft, no guarding, rebound. : Hinkle in place EXTREMITIES: No clubbing, cyanosis or gross edema. SKIN: Warm to touch without signs of rash. NEUROLOGIC: Alert, responding to questions/gestures appropriately PIV General: Alert, Oriented X3 Heart: Regular rate, Normal S1 Abdomen: Normal bowel sounds, Soft Extremities: No clubbing, No cyanosis Skin: No rashes, No breakdown Labs LABS Laboratory Tests Test 01/20/20 12:59 01/20/20 17:49 01/20/20 20:35 01/21/20 04:20 Glucose (Fingerstick) 373 mg/dL (70-99) 387 mg/dL (70-99) 365 mg/dL (70-99) White Blood Count 2.7 x10^3/uL (4.0-11.0) Red Blood Count 4.36 x10^6/uL (3.50-5.40) Hemoglobin 13.4 g/dL (12.0-15.5) Hematocrit 39.6 % (36.0-47.0) Mean Corpuscular Volume 91 fL (79-100) Mean Corpuscular Hemoglobin 31 pg (25-35) Mean Corpuscular Hemoglobin Concent 34 g/dL (31-37) Red Cell Distribution Width 13.9 % (11.5-14.5) Platelet Count 81 x10^3/uL (140-400) Neutrophils (%) (Auto) 70 % (31-73) Lymphocytes (%) (Auto) 21 % (24-48) Monocytes (%) (Auto) 9 % (0-9) Eosinophils (%) (Auto) 0 % (0-3) Basophils (%) (Auto) 1 % (0-3) Neutrophils # (Auto) 1.9 x10^3/uL (1.8-7.7) Lymphocytes # (Auto) 0.5 x10^3/uL (1.0-4.8) Monocytes # (Auto) 0.2 x10^3/uL (0.0-1.1) Eosinophils # (Auto) 0.0 x10^3/uL (0.0-0.7) Basophils # (Auto) 0.0 x10^3/uL (0.0-0.2) Sodium Level 138 mmol/L (136-145) Potassium Level 3.5 mmol/L (3.5-5.1) Chloride Level 103 mmol/L (98-107) Carbon Dioxide Level 27 mmol/L (21-32) Anion Gap 8 (6-14) Blood Urea Nitrogen 24 mg/dL (7-20) Creatinine 1.0 mg/dL (0.6-1.0) Estimated GFR (Cockcroft-Gault) 57.4 Glucose Level 392 mg/dL (70-99) Calcium Level 7.8 mg/dL (8.5-10.1) Test 01/21/20 09:00 O2 Saturation 93 % (92-99) Arterial Blood pH 7.46 (7.35-7.45) Arterial Blood pCO2 at Patient Temp 31 mmHg (35-46) Arterial Blood pO2 at Patient Temp 65 mmHg (75-108) Arterial Blood HCO3 22 mmol/L (21-28) Arterial Blood Base Excess -1 mmol/L (-3-3) FiO2 100% vapoth Assessment and Plan Assessmemt and Plan Problems Medical Problems: (1) Coronavirus infection Status: Acute (2) Leukopenia Status: Acute (3) Respiratory failure, acute Status: Acute Comment Review of Relevant I have reviewed the following items jorge (where applicable) has been applied. Labs Laboratory Tests Test 01/19/20 12:23 01/19/20 17:27 01/19/20 21:33 01/20/20 05:15 Glucose (Fingerstick) 271 mg/dL (70-99) 260 mg/dL (70-99) 202 mg/dL (70-99) White Blood Count 2.4 x10^3/uL (4.0-11.0) Red Blood Count 4.43 x10^6/uL (3.50-5.40) Hemoglobin 13.8 g/dL (12.0-15.5) Hematocrit 40.5 % (36.0-47.0) Mean Corpuscular Volume 92 fL (79-100) Mean Corpuscular Hemoglobin 31 pg (25-35) Mean Corpuscular Hemoglobin Concent 34 g/dL (31-37) Red Cell Distribution Width 13.8 % (11.5-14.5) Platelet Count 69 x10^3/uL (140-400) Neutrophils (%) (Auto) 78 % (31-73) Lymphocytes (%) (Auto) 19 % (24-48) Monocytes (%) (Auto) 3 % (0-9) Eosinophils (%) (Auto) 0 % (0-3) Basophils (%) (Auto) 0 % (0-3) Neutrophils # (Auto) 1.9 x10^3/uL (1.8-7.7) Lymphocytes # (Auto) 0.5 x10^3/uL (1.0-4.8) Monocytes # (Auto) 0.1 x10^3/uL (0.0-1.1) Eosinophils # (Auto) 0.0 x10^3/uL (0.0-0.7) Basophils # (Auto) 0.0 x10^3/uL (0.0-0.2) D-Dimer (Mary Ann) 0.28 ug/mlFEU (0.00-0.50) Sodium Level 138 mmol/L (136-145) Potassium Level 3.8 mmol/L (3.5-5.1) Chloride Level 103 mmol/L (98-107) Carbon Dioxide Level 26 mmol/L (21-32) Anion Gap 9 (6-14) Blood Urea Nitrogen 16 mg/dL (7-20) Creatinine 0.9 mg/dL (0.6-1.0) Estimated GFR (Cockcroft-Gault) 64.8 BUN/Creatinine Ratio 18 (6-20) Glucose Level 316 mg/dL (70-99) Calcium Level 7.5 mg/dL (8.5-10.1) Ferritin 329 ng/mL (8-252) Total Bilirubin 0.8 mg/dL (0.2-1.0) Aspartate Amino Transf (AST/SGOT) 86 U/L (15-37) Alanine Aminotransferase (ALT/SGPT) 49 U/L (14-59) Alkaline Phosphatase 55 U/L (46-116) Lactate Dehydrogenase 436 U/L (81-234) C-Reactive Protein, Quantitative 85.7 mg/L (0-3.3) Total Protein 6.3 g/dL (6.4-8.2) Albumin 2.1 g/dL (3.4-5.0) Albumin/Globulin Ratio 0.5 (1.0-1.7) Test 01/20/20 08:00 01/20/20 12:59 01/20/20 17:49 01/20/20 20:35 O2 Saturation 92 % (92-99) Arterial Blood pH 7.42 (7.35-7.45) Arterial Blood pCO2 at Patient Temp 40 mmHg (35-46) Arterial Blood pO2 at Patient Temp 63 mmHg (75-108) Arterial Blood HCO3 25 mmol/L (21-28) Arterial Blood Base Excess 1 mmol/L (-3-3) FiO2 100% vapotherm Glucose (Fingerstick) 373 mg/dL (70-99) 387 mg/dL (70-99) 365 mg/dL (70-99) Test 01/21/20 04:20 01/21/20 09:00 White Blood Count 2.7 x10^3/uL (4.0-11.0) Red Blood Count 4.36 x10^6/uL (3.50-5.40) Hemoglobin 13.4 g/dL (12.0-15.5) Hematocrit 39.6 % (36.0-47.0) Mean Corpuscular Volume 91 fL (79-100) Mean Corpuscular Hemoglobin 31 pg (25-35) Mean Corpuscular Hemoglobin Concent 34 g/dL (31-37) Red Cell Distribution Width 13.9 % (11.5-14.5) Platelet Count 81 x10^3/uL (140-400) Neutrophils (%) (Auto) 70 % (31-73) Lymphocytes (%) (Auto) 21 % (24-48) Monocytes (%) (Auto) 9 % (0-9) Eosinophils (%) (Auto) 0 % (0-3) Basophils (%) (Auto) 1 % (0-3) Neutrophils # (Auto) 1.9 x10^3/uL (1.8-7.7) Lymphocytes # (Auto) 0.5 x10^3/uL (1.0-4.8) Monocytes # (Auto) 0.2 x10^3/uL (0.0-1.1) Eosinophils # (Auto) 0.0 x10^3/uL (0.0-0.7) Basophils # (Auto) 0.0 x10^3/uL (0.0-0.2) Sodium Level 138 mmol/L (136-145) Potassium Level 3.5 mmol/L (3.5-5.1) Chloride Level 103 mmol/L (98-107) Carbon Dioxide Level 27 mmol/L (21-32) Anion Gap 8 (6-14) Blood Urea Nitrogen 24 mg/dL (7-20) Creatinine 1.0 mg/dL (0.6-1.0) Estimated GFR (Cockcroft-Gault) 57.4 Glucose Level 392 mg/dL (70-99) Calcium Level 7.8 mg/dL (8.5-10.1) O2 Saturation 93 % (92-99) Arterial Blood pH 7.46 (7.35-7.45) Arterial Blood pCO2 at Patient Temp 31 mmHg (35-46) Arterial Blood pO2 at Patient Temp 65 mmHg (75-108) Arterial Blood HCO3 22 mmol/L (21-28) Arterial Blood Base Excess -1 mmol/L (-3-3) FiO2 100% vapoth Laboratory Tests Test 01/20/20 12:59 01/20/20 17:49 01/20/20 20:35 01/21/20 04:20 Glucose (Fingerstick) 373 mg/dL (70-99) 387 mg/dL (70-99) 365 mg/dL (70-99) White Blood Count 2.7 x10^3/uL (4.0-11.0) Red Blood Count 4.36 x10^6/uL (3.50-5.40) Hemoglobin 13.4 g/dL (12.0-15.5) Hematocrit 39.6 % (36.0-47.0) Mean Corpuscular Volume 91 fL (79-100) Mean Corpuscular Hemoglobin 31 pg (25-35) Mean Corpuscular Hemoglobin Concent 34 g/dL (31-37) Red Cell Distribution Width 13.9 % (11.5-14.5) Platelet Count 81 x10^3/uL (140-400) Neutrophils (%) (Auto) 70 % (31-73) Lymphocytes (%) (Auto) 21 % (24-48) Monocytes (%) (Auto) 9 % (0-9) Eosinophils (%) (Auto) 0 % (0-3) Basophils (%) (Auto) 1 % (0-3) Neutrophils # (Auto) 1.9 x10^3/uL (1.8-7.7) Lymphocytes # (Auto) 0.5 x10^3/uL (1.0-4.8) Monocytes # (Auto) 0.2 x10^3/uL (0.0-1.1) Eosinophils # (Auto) 0.0 x10^3/uL (0.0-0.7) Basophils # (Auto) 0.0 x10^3/uL (0.0-0.2) Sodium Level 138 mmol/L (136-145) Potassium Level 3.5 mmol/L (3.5-5.1) Chloride Level 103 mmol/L (98-107) Carbon Dioxide Level 27 mmol/L (21-32) Anion Gap 8 (6-14) Blood Urea Nitrogen 24 mg/dL (7-20) Creatinine 1.0 mg/dL (0.6-1.0) Estimated GFR (Cockcroft-Gault) 57.4 Glucose Level 392 mg/dL (70-99) Calcium Level 7.8 mg/dL (8.5-10.1) Test 01/21/20 09:00 O2 Saturation 93 % (92-99) Arterial Blood pH 7.46 (7.35-7.45) Arterial Blood pCO2 at Patient Temp 31 mmHg (35-46) Arterial Blood pO2 at Patient Temp 65 mmHg (75-108) Arterial Blood HCO3 22 mmol/L (21-28) Arterial Blood Base Excess -1 mmol/L (-3-3) FiO2 100% vapoth Medications Current Medications Piperacillin Sod/ Tazobactam Sod (Zosyn Per Pharmacy) 1 each PRN DAILY PRN MC SEE COMMENTS; Start 01/17/20 at 19:30 Piperacillin Sod/ Tazobactam Sod 3.375 gm/Sodium Chloride 50 ml @ 100 mls/hr 1X ONCE IV Last administered on 01/17/20at 20:31; Start 01/17/20 at 19:45; Stop 01/17/20 at 20:14; Status DC Piperacillin Sod/ Tazobactam Sod 3.375 gm/Sodium Chloride 50 ml @ 100 mls/hr Q6HRS IV Last administered on 01/21/20at 06:32; Start 01/18/20 at 00:00 Zolpidem Tartrate (Ambien) 5 mg PRN QHS PRN PO INSOMNIA; Start 01/18/20 at 01:00 Enoxaparin Sodium (Lovenox Per Pharmacy Prophylaxis Dosing) 1 each PRN DAILY PRN MC SEE COMMENTS; Start 01/18/20 at 01:00 Insulin Glargine (Lantus Syringe) 12 unit QHS SQ Last administered on 01/19/20at 21:24; Start 01/18/20 at 21:00; Stop 01/20/20 at 09:27; Status DC Acetaminophen (Tylenol) 650 mg PRN Q6HRS PRN PO FEVER > 100.3'F Last administered on 01/19/20at 16:20; Start 01/18/20 at 01:00 Enoxaparin Sodium (Lovenox 40mg Syringe) 40 mg BID SQ Last administered on 01/21/20at 09:18; Start 01/18/20 at 09:00 Doxycycline Hyclate (Vibra-Tab) 100 mg BID PO Last administered on 01/21/20at 09:18; Start 01/18/20 at 09:00 Insulin Human Lispro (HumaLOG) 0-5 UNITS TIDWMEALS SQ Last administered on 01/20/20at 17:58; Start 01/18/20 at 12:00; Stop 01/20/20 at 19:03; Status DC Dextrose (Dextrose 50%-Water Syringe) 12.5 gm PRN Q15MIN PRN IV SEE COMMENTS; Start 01/18/20 at 09:45 Lactobacillus Rhamnosus (Culturelle) 1 cap BID PO Last administered on 01/21/20at 09:18; Start 01/18/20 at 21:00 Non-Formulary Medication 1 ea/ Sodium Chloride 210 ml @ 420 mls/hr 1X ONCE IV ; Start 01/19/20 at 10:00; Stop 01/19/20 at 09:34; Status DC Non-Formulary Medication 1 ea/ Sodium Chloride 230 ml @ 460 mls/hr DAILY IV Last administered on 01/21/20at 09:15; Start 01/20/20 at 09:00; Stop 01/23/20 at 09:29 Non-Formulary Medication 1 ea/ Sodium Chloride 210 ml @ 420 mls/hr 1X ONCE IV Last administered on 01/19/20at 10:05; Start 01/19/20 at 09:45; Stop 01/19/20 at 10:14; Status DC Valacyclovir HCl (Valtrex) 1,000 mg TID PO Last administered on 01/21/20at 09:18; Start 01/19/20 at 14:00 Methylprednisolone Sodium Succinate (SOLU-Medrol 125MG VIAL) 60 mg Q8HRS IV Last administered on 01/21/20at 06:33; Start 01/19/20 at 22:00; Stop 01/21/20 at 07:09; Status DC Sterile Water (WATER for RESP) 1,000 ml CONT PRN INH VIA VAPOTHERM DEVICE Last administered on 01/21/20at 00:11; Start 01/19/20 at 17:30 Insulin Glargine (Lantus Syringe) 16 unit QHS SQ Last administered on 01/20/20at 20:30; Start 01/20/20 at 21:00 Insulin Human Lispro (HumaLOG) 0-9 UNITS TIDWMEALS SQ Last administered on 01/21/20at 09:20; Start 01/21/20 at 08:00 Methylprednisolone Sodium Succinate (SOLU-Medrol 40MG VIAL) 40 mg Q12HR IV Last administered on 01/21/20at 09:18; Start 01/21/20 at 09:00 Active Scripts Active Reported Metformin Hcl 1,000 Mg Tablet 1,000 Mg PO BIDWMEALS Vitals/I & O Vital Sign - Last 24 Hours 01/20/20 01/20/20 01/20/20 01/20/20 11:31 12:00 12:00 13:00 Pulse 76 70 Resp B/P (MAP) 108/61 (77) 108/65 (79) Pulse Ox 92 91 89 O2 Delivery VAPOTHERM Nasal Cannula Nasal Cannula Nasal Cannula O2 Flow Rate 40.0 40.0 40.0 40.0 01/20/20 01/20/20 01/20/20 01/20/20 14:00 15:00 16:00 16:00 Temp 98.6 98.6 Pulse 76 78 78 Resp B/P (MAP) 100/65 (77) 104/60 (75) 105/56 (72) Pulse Ox 88 87 92 O2 Delivery Nasal Cannula Nasal Cannula Nasal Cannula Nasal Cannula O2 Flow Rate 40.0 40.0 40.0 40.0 01/20/20 01/20/20 01/20/20 01/20/20 17:00 18:00 19:00 20:00 Pulse 76 74 72 Resp B/P (MAP) 107/69 (82) 111/65 (80) 111/64 (80) Pulse Ox 87 92 87 O2 Delivery Nasal Cannula Nasal Cannula Nasal Cannula Nasal Cannula O2 Flow Rate 40.0 40.0 40.0 40.0 01/20/20 01/20/20 01/20/20 01/20/20 20:00 21:00 21:11 22:00 Temp 98.4 98.4 Pulse 76 70 63 Resp B/P (MAP) 106/61 (76) 106/57 (73) 107/62 (77) Pulse Ox 90 84 84 87 O2 Delivery Nasal Cannula Nasal Cannula VAPOTHERM Nasal Cannula O2 Flow Rate 40.0 40.0 40.0 40.0 01/20/20 01/21/20 01/21/20 01/21/20 23:00 00:00 00:01 01:00 Temp 98.3 98.3 Pulse 72 60 64 Resp B/P (MAP) 102/65 (77) 107/63 (78) 107/63 (78) Pulse Ox 84 93 82 O2 Delivery Nasal Cannula Nasal Cannula Nasal Cannula Nasal Cannula O2 Flow Rate 40.0 40.0 40.0 40.0 01/21/20 01/21/20 01/21/20 01/21/20 02:00 02:45 03:00 03:50 Pulse 64 64 63 Resp 28 22 28 B/P (MAP) 98/61 (73) 100/57 (71) Pulse Ox 80 95 83 O2 Delivery Nasal Cannula Nasal Cannula Nasal Cannula Nasal Cannula O2 Flow Rate 40.0 40.0 40.0 40.0 01/21/20 01/21/20 01/21/20 01/21/20 04:00 05:00 06:00 07:00 Temp 98.3 98.3 98.3 98.3 Pulse 70 62 62 71 Resp 26 28 28 33 B/P (MAP) 99/65 (76) 100/63 (75) 96/61 (73) 102/62 (75) Pulse Ox 91 85 96 87 O2 Delivery Nasal Cannula Nasal Cannula Nasal Cannula Nasal Cannula O2 Flow Rate 40.0 40.0 40.0 40.0 01/21/20 01/21/20 01/21/20 01/21/20 08:00 08:00 09:00 09:00 Pulse 65 61 Resp 36 23 B/P (MAP) 95/64 (74) 102/53 (69) Pulse Ox 87 90 88 O2 Delivery Nasal Cannula Nasal Cannula VAPOTHERM Nasal Cannula O2 Flow Rate 40.0 40.0 40.0 40.0 01/21/20 01/21/20 01/21/20 10:00 11:00 11:01 Pulse 68 71 Resp 30 30 B/P (MAP) 102/55 (71) 98/57 (71) Pulse Ox 87 89 88 O2 Delivery Nasal Cannula Nasal Cannula VAPOTHERM O2 Flow Rate 40.0 40.0 40.0 Intake and Output 01/20/20 01/20/20 01/21/20 15:00 23:00 07:00 Intake Total 600 ml Output Total 390 ml 305 ml 365 ml Balance -390 ml 295 ml -365 ml TANK MILTON MD Jan 21, 2020 11:22
[2020-01-21] MEDS: INSULIN GLARGINE SYRINGE. SQ SCH (21:18)
[2020-01-22] VITALS (24 sets, daily range): BP systolic 85–119; BP diastolic 51–69
[2020-01-22 04:28] LABS: BASO % 0 % (0-3); EOS % 0 % (0-3); HEMATOCRIT 38.5 % (36.0-47.0); HEMOGLOBIN 13.1 g/dL (12.0-15.5); LYMPH # 0.3 x10^3/uL (1.0-4.8); LYMPH % 10 % (24-48); MEAN CORPUSCULAR HEMOGLOBIN 31 pg (25-35); MEAN CORPUSCULAR HGB CONC 34 g/dL (31-37); MEAN CORPUSCULAR VOLUME 92 fL (79-100); MONO # 0.3 x10^3/uL (0.0-1.1); MONO % 8 % (0-9); NEUT # 2.7 x10^3/uL (1.8-7.7); NEUT % 82 % (31-73); PLATELET COUNT 79 x10^3/uL (140-400); RED BLOOD COUNT 4.21 x10^6/uL (3.50-5.40); RED CELL DISTRIBUTION WIDTH 13.7 % (11.5-14.5); WHITE BLOOD COUNT 3.3 x10^3/uL (4.0-11.0)
[2020-01-22 04:51] LABS: ALBUMIN/GLOBULIN RATIO 0.5 (1.0-1.7); CALCIUM 7.8 mg/dL (8.5-10.1); CREATININE 0.9 mg/dL (0.6-1.0); GFR 64.8; POTASSIUM 3.3 mmol/L (3.5-5.1); TOTAL BILIRUBIN 0.7 mg/dL (0.2-1.0)
[2020-01-22] MEDS: PIPERACILLIN/TAZOBACTAM 3.375 GM in IV NORMAL SALINE 50ML 50 ML IV SCH ×3 (05:55→18:19)
[2020-01-22] MEDS: ENOXAPARIN 40 MG/0.4 ML SYRINGE. SQ SCH ×2 (08:23→20:41)
[2020-01-22] MEDS: LACTOBACILLUS RHAMNOSUS GG 1 CAPSULE. PO SCH ×2 (08:23→20:41)
[2020-01-22] MEDS: valACYclovir 500 MG TABLET. PO SCH ×3 (08:23→20:41)
[2020-01-22] MEDS: DOXYCYCLINE HYCLATE 100 MG TABLET PO SCH ×2 (08:23→20:41)
[2020-01-22] MEDS: methylPREDNISolone SOD SUCC PF 40 MG/ML VIAL. IV SCH ×2 (08:24→20:41)
[2020-01-22] MEDS: INSULIN LISPRO 300 UNITS/3 ML VIAL. SQ SCH ×3 (08:27→18:47)
[2020-01-22 08:48] LABS: BASE EXCESS ABG 1 mmol/L (-3-3); HCO3 ABG 24 mmol/L (21-28); PCO2 ABG 33 mmHg (35-46); PO2 ABG 60 mmHg (75-108); SAT O2 ABG 91 % (92-99)
[2020-01-22 08:59] LABS: FIO2 ABG 100
--- NOTE | 2020-01-22 09:55 | PDOC ---
PROGRESS NOTES Chief Complaint Chief Complaint impression ACUTE HYPOXIC RESPIRATORY FAILURE COVID-19 syndrome Patchy interstitial opacities throughout the lung whitt may represent pulmonary wedge-shaped infarcts versus atypical infection such as a viral illness. Leukopenia Thrombocytopenia morbid obesity diabetes, uncontrolled Cont Zosyn, Doxycycline and Valtrex Remdesivir, 01/18 On steroids heme consult 01/21 on vapotherm 40 lpm and 100% fio2, History of Present Illness History of Present Illness 01/22/2020 Patient seen and examined COVID positive Chart reviewed Discussed with RN possible uti inc lantus to 20 units sq hs heme consult 37 min cc time 01/18/2020 Patient seen and examined Discussed with infectious disease Discussed with RN Chart reviewed I ordered hematology consultation as well Vitals Vitals Vital Signs Date Time Temp Pulse Resp B/P (MAP) Pulse Ox O2 Delivery O2 Flow Rate FiO2 01/22/20 07:50 90 High Flow Nasal Cannula 40.0 01/22/20 07:28 53 39 105/61 (76) 01/22/20 04:00 98.0 98.0 Physical Exam Physical Exam GENERAL: Propped up in bed, alert and watching TV HEENT: Oral cavity, pharynx was clear. some blisters NECK: Supple. LUNGS: WHEEZING HEART: S1, S2. regular ABDOMEN: Obese, soft, no guarding, rebound. : Hinkle in place EXTREMITIES: No clubbing, cyanosis or gross edema. SKIN: Warm to touch without signs of rash. NEUROLOGIC: Alert, responding to questions/gestures appropriately PIV General: Alert, Oriented X3, Cooperative Heart: Regular rate, Normal S1 Lungs: Wheezing Abdomen: Normal bowel sounds, Soft Extremities: No clubbing, No cyanosis Skin: No rashes, No breakdown Labs LABS Laboratory Tests Test 01/21/20 12:35 01/21/20 17:16 01/21/20 21:31 01/22/20 03:55 Glucose (Fingerstick) 413 mg/dL (70-99) 343 mg/dL (70-99) 357 mg/dL (70-99) White Blood Count 3.3 x10^3/uL (4.0-11.0) Red Blood Count 4.21 x10^6/uL (3.50-5.40) Hemoglobin 13.1 g/dL (12.0-15.5) Hematocrit 38.5 % (36.0-47.0) Mean Corpuscular Volume 92 fL (79-100) Mean Corpuscular Hemoglobin 31 pg (25-35) Mean Corpuscular Hemoglobin Concent 34 g/dL (31-37) Red Cell Distribution Width 13.7 % (11.5-14.5) Platelet Count 79 x10^3/uL (140-400) Neutrophils (%) (Auto) 82 % (31-73) Lymphocytes (%) (Auto) 10 % (24-48) Monocytes (%) (Auto) 8 % (0-9) Eosinophils (%) (Auto) 0 % (0-3) Basophils (%) (Auto) 0 % (0-3) Neutrophils # (Auto) 2.7 x10^3/uL (1.8-7.7) Lymphocytes # (Auto) 0.3 x10^3/uL (1.0-4.8) Monocytes # (Auto) 0.3 x10^3/uL (0.0-1.1) Eosinophils # (Auto) 0.0 x10^3/uL (0.0-0.7) Basophils # (Auto) 0.0 x10^3/uL (0.0-0.2) Sodium Level 139 mmol/L (136-145) Potassium Level 3.3 mmol/L (3.5-5.1) Chloride Level 103 mmol/L (98-107) Carbon Dioxide Level 25 mmol/L (21-32) Anion Gap 11 (6-14) Blood Urea Nitrogen 26 mg/dL (7-20) Creatinine 0.9 mg/dL (0.6-1.0) Estimated GFR (Cockcroft-Gault) 64.8 BUN/Creatinine Ratio 29 (6-20) Glucose Level 396 mg/dL (70-99) Calcium Level 7.8 mg/dL (8.5-10.1) Total Bilirubin 0.7 mg/dL (0.2-1.0) Aspartate Amino Transf (AST/SGOT) 59 U/L (15-37) Alanine Aminotransferase (ALT/SGPT) 37 U/L (14-59) Alkaline Phosphatase 61 U/L (46-116) Total Protein 6.0 g/dL (6.4-8.2) Albumin 2.0 g/dL (3.4-5.0) Albumin/Globulin Ratio 0.5 (1.0-1.7) Test 01/22/20 07:50 O2 Saturation 91 % (92-99) Arterial Blood pH 7.48 (7.35-7.45) Arterial Blood pCO2 at Patient Temp 33 mmHg (35-46) Arterial Blood pO2 at Patient Temp 60 mmHg (75-108) Arterial Blood HCO3 24 mmol/L (21-28) Arterial Blood Base Excess 1 mmol/L (-3-3) FiO2 100 Assessment and Plan Assessmemt and Plan Problems Medical Problems: (1) Coronavirus infection Status: Acute (2) Leukopenia Status: Acute (3) Respiratory failure, acute Status: Acute Comment Review of Relevant I have reviewed the following items jorge (where applicable) has been applied. Labs Laboratory Tests Test 01/20/20 12:59 01/20/20 17:49 01/20/20 20:35 01/21/20 04:20 Glucose (Fingerstick) 373 mg/dL (70-99) 387 mg/dL (70-99) 365 mg/dL (70-99) White Blood Count 2.7 x10^3/uL (4.0-11.0) Red Blood Count 4.36 x10^6/uL (3.50-5.40) Hemoglobin 13.4 g/dL (12.0-15.5) Hematocrit 39.6 % (36.0-47.0) Mean Corpuscular Volume 91 fL (79-100) Mean Corpuscular Hemoglobin 31 pg (25-35) Mean Corpuscular Hemoglobin Concent 34 g/dL (31-37) Red Cell Distribution Width 13.9 % (11.5-14.5) Platelet Count 81 x10^3/uL (140-400) Neutrophils (%) (Auto) 70 % (31-73) Lymphocytes (%) (Auto) 21 % (24-48) Monocytes (%) (Auto) 9 % (0-9) Eosinophils (%) (Auto) 0 % (0-3) Basophils (%) (Auto) 1 % (0-3) Neutrophils # (Auto) 1.9 x10^3/uL (1.8-7.7) Lymphocytes # (Auto) 0.5 x10^3/uL (1.0-4.8) Monocytes # (Auto) 0.2 x10^3/uL (0.0-1.1) Eosinophils # (Auto) 0.0 x10^3/uL (0.0-0.7) Basophils # (Auto) 0.0 x10^3/uL (0.0-0.2) Sodium Level 138 mmol/L (136-145) Potassium Level 3.5 mmol/L (3.5-5.1) Chloride Level 103 mmol/L (98-107) Carbon Dioxide Level 27 mmol/L (21-32) Anion Gap 8 (6-14) Blood Urea Nitrogen 24 mg/dL (7-20) Creatinine 1.0 mg/dL (0.6-1.0) Estimated GFR (Cockcroft-Gault) 57.4 Glucose Level 392 mg/dL (70-99) Calcium Level 7.8 mg/dL (8.5-10.1) Test 01/21/20 09:00 01/21/20 12:35 01/21/20 17:16 01/21/20 21:31 O2 Saturation 93 % (92-99) Arterial Blood pH 7.46 (7.35-7.45) Arterial Blood pCO2 at Patient Temp 31 mmHg (35-46) Arterial Blood pO2 at Patient Temp 65 mmHg (75-108) Arterial Blood HCO3 22 mmol/L (21-28) Arterial Blood Base Excess -1 mmol/L (-3-3) FiO2 100% vapoth Glucose (Fingerstick) 413 mg/dL (70-99) 343 mg/dL (70-99) 357 mg/dL (70-99) Test 01/22/20 03:55 01/22/20 07:50 White Blood Count 3.3 x10^3/uL (4.0-11.0) Red Blood Count 4.21 x10^6/uL (3.50-5.40) Hemoglobin 13.1 g/dL (12.0-15.5) Hematocrit 38.5 % (36.0-47.0) Mean Corpuscular Volume 92 fL (79-100) Mean Corpuscular Hemoglobin 31 pg (25-35) Mean Corpuscular Hemoglobin Concent 34 g/dL (31-37) Red Cell Distribution Width 13.7 % (11.5-14.5) Platelet Count 79 x10^3/uL (140-400) Neutrophils (%) (Auto) 82 % (31-73) Lymphocytes (%) (Auto) 10 % (24-48) Monocytes (%) (Auto) 8 % (0-9) Eosinophils (%) (Auto) 0 % (0-3) Basophils (%) (Auto) 0 % (0-3) Neutrophils # (Auto) 2.7 x10^3/uL (1.8-7.7) Lymphocytes # (Auto) 0.3 x10^3/uL (1.0-4.8) Monocytes # (Auto) 0.3 x10^3/uL (0.0-1.1) Eosinophils # (Auto) 0.0 x10^3/uL (0.0-0.7) Basophils # (Auto) 0.0 x10^3/uL (0.0-0.2) Sodium Level 139 mmol/L (136-145) Potassium Level 3.3 mmol/L (3.5-5.1) Chloride Level 103 mmol/L (98-107) Carbon Dioxide Level 25 mmol/L (21-32) Anion Gap 11 (6-14) Blood Urea Nitrogen 26 mg/dL (7-20) Creatinine 0.9 mg/dL (0.6-1.0) Estimated GFR (Cockcroft-Gault) 64.8 BUN/Creatinine Ratio 29 (6-20) Glucose Level 396 mg/dL (70-99) Calcium Level 7.8 mg/dL (8.5-10.1) Total Bilirubin 0.7 mg/dL (0.2-1.0) Aspartate Amino Transf (AST/SGOT) 59 U/L (15-37) Alanine Aminotransferase (ALT/SGPT) 37 U/L (14-59) Alkaline Phosphatase 61 U/L (46-116) Total Protein 6.0 g/dL (6.4-8.2) Albumin 2.0 g/dL (3.4-5.0) Albumin/Globulin Ratio 0.5 (1.0-1.7) O2 Saturation 91 % (92-99) Arterial Blood pH 7.48 (7.35-7.45) Arterial Blood pCO2 at Patient Temp 33 mmHg (35-46) Arterial Blood pO2 at Patient Temp 60 mmHg (75-108) Arterial Blood HCO3 24 mmol/L (21-28) Arterial Blood Base Excess 1 mmol/L (-3-3) FiO2 100 Laboratory Tests Test 01/21/20 12:35 01/21/20 17:16 01/21/20 21:31 01/22/20 03:55 Glucose (Fingerstick) 413 mg/dL (70-99) 343 mg/dL (70-99) 357 mg/dL (70-99) White Blood Count 3.3 x10^3/uL (4.0-11.0) Red Blood Count 4.21 x10^6/uL (3.50-5.40) Hemoglobin 13.1 g/dL (12.0-15.5) Hematocrit 38.5 % (36.0-47.0) Mean Corpuscular Volume 92 fL (79-100) Mean Corpuscular Hemoglobin 31 pg (25-35) Mean Corpuscular Hemoglobin Concent 34 g/dL (31-37) Red Cell Distribution Width 13.7 % (11.5-14.5) Platelet Count 79 x10^3/uL (140-400) Neutrophils (%) (Auto) 82 % (31-73) Lymphocytes (%) (Auto) 10 % (24-48) Monocytes (%) (Auto) 8 % (0-9) Eosinophils (%) (Auto) 0 % (0-3) Basophils (%) (Auto) 0 % (0-3) Neutrophils # (Auto) 2.7 x10^3/uL (1.8-7.7) Lymphocytes # (Auto) 0.3 x10^3/uL (1.0-4.8) Monocytes # (Auto) 0.3 x10^3/uL (0.0-1.1) Eosinophils # (Auto) 0.0 x10^3/uL (0.0-0.7) Basophils # (Auto) 0.0 x10^3/uL (0.0-0.2) Sodium Level 139 mmol/L (136-145) Potassium Level 3.3 mmol/L (3.5-5.1) Chloride Level 103 mmol/L (98-107) Carbon Dioxide Level 25 mmol/L (21-32) Anion Gap 11 (6-14) Blood Urea Nitrogen 26 mg/dL (7-20) Creatinine 0.9 mg/dL (0.6-1.0) Estimated GFR (Cockcroft-Gault) 64.8 BUN/Creatinine Ratio 29 (6-20) Glucose Level 396 mg/dL (70-99) Calcium Level 7.8 mg/dL (8.5-10.1) Total Bilirubin 0.7 mg/dL (0.2-1.0) Aspartate Amino Transf (AST/SGOT) 59 U/L (15-37) Alanine Aminotransferase (ALT/SGPT) 37 U/L (14-59) Alkaline Phosphatase 61 U/L (46-116) Total Protein 6.0 g/dL (6.4-8.2) Albumin 2.0 g/dL (3.4-5.0) Albumin/Globulin Ratio 0.5 (1.0-1.7) Test 01/22/20 07:50 O2 Saturation 91 % (92-99) Arterial Blood pH 7.48 (7.35-7.45) Arterial Blood pCO2 at Patient Temp 33 mmHg (35-46) Arterial Blood pO2 at Patient Temp 60 mmHg (75-108) Arterial Blood HCO3 24 mmol/L (21-28) Arterial Blood Base Excess 1 mmol/L (-3-3) FiO2 100 Medications Current Medications Piperacillin Sod/ Tazobactam Sod (Zosyn Per Pharmacy) 1 each PRN DAILY PRN MC SEE COMMENTS; Start 01/17/20 at 19:30 Piperacillin Sod/ Tazobactam Sod 3.375 gm/Sodium Chloride 50 ml @ 100 mls/hr 1X ONCE IV Last administered on 01/17/20at 20:31; Start 01/17/20 at 19:45; Stop 01/17/20 at 20:14; Status DC Piperacillin Sod/ Tazobactam Sod 3.375 gm/Sodium Chloride 50 ml @ 100 mls/hr Q6HRS IV Last administered on 01/22/20at 05:55; Start 01/18/20 at 00:00 Zolpidem Tartrate (Ambien) 5 mg PRN QHS PRN PO INSOMNIA; Start 01/18/20 at 01:00 Enoxaparin Sodium (Lovenox Per Pharmacy Prophylaxis Dosing) 1 each PRN DAILY PRN MC SEE COMMENTS; Start 01/18/20 at 01:00 Insulin Glargine (Lantus Syringe) 12 unit QHS SQ Last administered on 01/19/20at 21:24; Start 01/18/20 at 21:00; Stop 01/20/20 at 09:27; Status DC Acetaminophen (Tylenol) 650 mg PRN Q6HRS PRN PO FEVER > 100.3'F Last administered on 01/19/20at 16:20; Start 01/18/20 at 01:00 Enoxaparin Sodium (Lovenox 40mg Syringe) 40 mg BID SQ Last administered on 01/22/20at 08:23; Start 01/18/20 at 09:00 Doxycycline Hyclate (Vibra-Tab) 100 mg BID PO Last administered on 01/22/20at 08:23; Start 01/18/20 at 09:00 Insulin Human Lispro (HumaLOG) 0-5 UNITS TIDWMEALS SQ Last administered on 01/20/20at 17:58; Start 01/18/20 at 12:00; Stop 01/20/20 at 19:03; Status DC Dextrose (Dextrose 50%-Water Syringe) 12.5 gm PRN Q15MIN PRN IV SEE COMMENTS; Start 01/18/20 at 09:45 Lactobacillus Rhamnosus (Culturelle) 1 cap BID PO Last administered on 01/22/20at 08:23; Start 01/18/20 at 21:00 Non-Formulary Medication 1 ea/ Sodium Chloride 210 ml @ 420 mls/hr 1X ONCE IV ; Start 01/19/20 at 10:00; Stop 01/19/20 at 09:34; Status DC Non-Formulary Medication 1 ea/ Sodium Chloride 230 ml @ 460 mls/hr DAILY IV Last administered on 01/21/20at 09:15; Start 01/20/20 at 09:00; Stop 01/23/20 at 09:29 Non-Formulary Medication 1 ea/ Sodium Chloride 210 ml @ 420 mls/hr 1X ONCE IV Last administered on 01/19/20at 10:05; Start 01/19/20 at 09:45; Stop 01/19/20 at 10:14; Status DC Valacyclovir HCl (Valtrex) 1,000 mg TID PO Last administered on 01/22/20at 08:23; Start 01/19/20 at 14:00 Methylprednisolone Sodium Succinate (SOLU-Medrol 125MG VIAL) 60 mg Q8HRS IV Last administered on 01/21/20at 06:33; Start 01/19/20 at 22:00; Stop 01/21/20 at 07:09; Status DC Sterile Water (WATER for RESP) 1,000 ml CONT PRN INH VIA VAPOTHERM DEVICE Last administered on 01/21/20at 23:47; Start 01/19/20 at 17:30 Insulin Glargine (Lantus Syringe) 16 unit QHS SQ Last administered on 01/21/20at 21:18; Start 01/20/20 at 21:00 Insulin Human Lispro (HumaLOG) 0-9 UNITS TIDWMEALS SQ Last administered on 01/22/20at 08:27; Start 01/21/20 at 08:00 Methylprednisolone Sodium Succinate (SOLU-Medrol 40MG VIAL) 40 mg Q12HR IV Last administered on 01/22/20at 08:24; Start 01/21/20 at 09:00 Active Scripts Active Reported Metformin Hcl 1,000 Mg Tablet 1,000 Mg PO BIDWMEALS Vitals/I & O Vital Sign - Last 24 Hours 01/21/20 01/21/20 01/21/20 01/21/20 10:00 11:00 11:01 12:00 Pulse 68 71 Resp 30 30 B/P (MAP) 102/55 (71) 98/57 (71) Pulse Ox 87 89 88 O2 Delivery Nasal Cannula Nasal Cannula VAPOTHERM Nasal Cannula O2 Flow Rate 40.0 40.0 40.0 40.0 01/21/20 01/21/20 01/21/20 01/21/20 12:00 13:00 14:00 15:00 Temp 98.4 98.4 Pulse 62 59 73 71 Resp 31 24 32 27 B/P (MAP) 103/58 (73) 103/66 (78) 113/57 (75) 95/51 (66) Pulse Ox 83 87 89 86 O2 Delivery Nasal Cannula Nasal Cannula Nasal Cannula Nasal Cannula O2 Flow Rate 40.0 40.0 40.0 40.0 01/21/20 01/21/20 01/21/20 01/21/20 15:10 16:00 16:00 17:00 Temp 98.2 98.2 Pulse 69 63 Resp 40 29 B/P (MAP) 100/56 (71) 102/56 (71) Pulse Ox 93 86 91 O2 Delivery VAPOTHERM Nasal Cannula Nasal Cannula Nasal Cannula O2 Flow Rate 40.0 40.0 40.0 40.0 01/21/20 01/21/20 01/21/20 01/21/20 17:50 18:00 18:20 19:00 Temp 98.2 98.3 98.2 98.3 Pulse 66 69 67 63 Resp 24 22 31 38 B/P (MAP) 102/56 119/70 (86) 119/70 116/65 (82) Pulse Ox 89 87 O2 Delivery Nasal Cannula Nasal Cannula O2 Flow Rate 40.0 40.0 01/21/20 01/21/20 01/21/20 01/21/20 19:30 20:00 20:00 20:30 Temp 98.3 98.3 98.4 98.3 98.3 98.4 Pulse 68 68 72 Resp 28 33 28 B/P (MAP) 116/65 110/59 (76) 115/59 Pulse Ox 87 O2 Delivery Nasal Cannula Nasal Cannula O2 Flow Rate 40.0 40.0 01/21/20 01/21/20 01/21/20 01/21/20 20:35 21:00 21:00 22:00 Temp 98.3 98.4 98.3 98.4 Pulse 72 72 58 Resp 38 38 33 B/P (MAP) 110/53 110/53 (72) 104/56 Pulse Ox 87 95 O2 Delivery High Flow Nasal Cannula Nasal Cannula O2 Flow Rate 40.0 40.0 01/21/20 01/21/20 01/21/20 01/22/20 22:00 23:00 23:30 00:00 Temp 98.1 98.1 Pulse 58 56 72 Resp 33 39 29 B/P (MAP) 104/56 (72) 93/56 (68) 99/59 (72) Pulse Ox 86 85 88 O2 Delivery Nasal Cannula Nasal Cannula Nasal Cannula Nasal Cannula O2 Flow Rate 40.0 40.0 40.0 40.0 01/22/20 01/22/20 01/22/20 01/22/20 01:00 02:00 03:00 04:00 Temp 98.0 98.0 Pulse 54 56 60 70 Resp 31 35 27 30 B/P (MAP) 100/54 (69) 96/52 (67) 97/51 (66) 95/55 (68) Pulse Ox 85 86 90 88 O2 Delivery Nasal Cannula Nasal Cannula Nasal Cannula Nasal Cannula O2 Flow Rate 40.0 40.0 40.0 40.0 01/22/20 01/22/20 01/22/20 01/22/20 04:00 05:00 06:00 07:28 Pulse 54 60 53 Resp 43 39 39 B/P (MAP) 106/66 (79) 96/65 (75) 105/61 (76) Pulse Ox 84 83 86 O2 Delivery Nasal Cannula Nasal Cannula Nasal Cannula Nasal Cannula O2 Flow Rate 40.0 40.0 40.0 40.0 01/22/20 07:50 Pulse Ox 90 O2 Delivery High Flow Nasal Cannula O2 Flow Rate 40.0 Intake and Output 01/21/20 01/21/20 01/22/20 15:00 23:00 07:00 Intake Total 1954 ml 400 ml Output Total 305 ml 330 ml 235 ml Balance -305 ml 1624 ml 165 ml TANK MILTON MD Jan 22, 2020 09:55
--- NOTE | 2020-01-22 10:41 | PDOC ---
PULMONARY PROGRESS NOTES Subjective on vapotherm 40 lpm and 100% fio2, appears comfortable, desat when falls sleep suspect pepito. she doesnt want intubation Vitals Vital Signs Date Time Temp Pulse Resp B/P (MAP) Pulse Ox O2 Delivery O2 Flow Rate FiO2 01/22/20 07:50 90 High Flow Nasal Cannula 40.0 01/22/20 07:28 53 39 105/61 (76) 01/22/20 04:00 98.0 98.0 Comments visual exam done due to COVID pandemia appears comfortable, alert, nc at, nsr on ekg, no paradoxical abd motion, no rash, no edema General: Alert, No acute distress Labs Laboratory Tests Test 01/20/20 12:59 01/20/20 17:49 01/20/20 20:35 01/21/20 04:20 Glucose (Fingerstick) 373 mg/dL (70-99) 387 mg/dL (70-99) 365 mg/dL (70-99) White Blood Count 2.7 x10^3/uL (4.0-11.0) Red Blood Count 4.36 x10^6/uL (3.50-5.40) Hemoglobin 13.4 g/dL (12.0-15.5) Hematocrit 39.6 % (36.0-47.0) Mean Corpuscular Volume 91 fL (79-100) Mean Corpuscular Hemoglobin 31 pg (25-35) Mean Corpuscular Hemoglobin Concent 34 g/dL (31-37) Red Cell Distribution Width 13.9 % (11.5-14.5) Platelet Count 81 x10^3/uL (140-400) Neutrophils (%) (Auto) 70 % (31-73) Lymphocytes (%) (Auto) 21 % (24-48) Monocytes (%) (Auto) 9 % (0-9) Eosinophils (%) (Auto) 0 % (0-3) Basophils (%) (Auto) 1 % (0-3) Neutrophils # (Auto) 1.9 x10^3/uL (1.8-7.7) Lymphocytes # (Auto) 0.5 x10^3/uL (1.0-4.8) Monocytes # (Auto) 0.2 x10^3/uL (0.0-1.1) Eosinophils # (Auto) 0.0 x10^3/uL (0.0-0.7) Basophils # (Auto) 0.0 x10^3/uL (0.0-0.2) Sodium Level 138 mmol/L (136-145) Potassium Level 3.5 mmol/L (3.5-5.1) Chloride Level 103 mmol/L (98-107) Carbon Dioxide Level 27 mmol/L (21-32) Anion Gap 8 (6-14) Blood Urea Nitrogen 24 mg/dL (7-20) Creatinine 1.0 mg/dL (0.6-1.0) Estimated GFR (Cockcroft-Gault) 57.4 Glucose Level 392 mg/dL (70-99) Calcium Level 7.8 mg/dL (8.5-10.1) Test 01/21/20 09:00 01/21/20 12:35 01/21/20 17:16 01/21/20 21:31 O2 Saturation 93 % (92-99) Arterial Blood pH 7.46 (7.35-7.45) Arterial Blood pCO2 at Patient Temp 31 mmHg (35-46) Arterial Blood pO2 at Patient Temp 65 mmHg (75-108) Arterial Blood HCO3 22 mmol/L (21-28) Arterial Blood Base Excess -1 mmol/L (-3-3) FiO2 100% vapoth Glucose (Fingerstick) 413 mg/dL (70-99) 343 mg/dL (70-99) 357 mg/dL (70-99) Test 01/22/20 03:55 01/22/20 07:50 White Blood Count 3.3 x10^3/uL (4.0-11.0) Red Blood Count 4.21 x10^6/uL (3.50-5.40) Hemoglobin 13.1 g/dL (12.0-15.5) Hematocrit 38.5 % (36.0-47.0) Mean Corpuscular Volume 92 fL (79-100) Mean Corpuscular Hemoglobin 31 pg (25-35) Mean Corpuscular Hemoglobin Concent 34 g/dL (31-37) Red Cell Distribution Width 13.7 % (11.5-14.5) Platelet Count 79 x10^3/uL (140-400) Neutrophils (%) (Auto) 82 % (31-73) Lymphocytes (%) (Auto) 10 % (24-48) Monocytes (%) (Auto) 8 % (0-9) Eosinophils (%) (Auto) 0 % (0-3) Basophils (%) (Auto) 0 % (0-3) Neutrophils # (Auto) 2.7 x10^3/uL (1.8-7.7) Lymphocytes # (Auto) 0.3 x10^3/uL (1.0-4.8) Monocytes # (Auto) 0.3 x10^3/uL (0.0-1.1) Eosinophils # (Auto) 0.0 x10^3/uL (0.0-0.7) Basophils # (Auto) 0.0 x10^3/uL (0.0-0.2) Sodium Level 139 mmol/L (136-145) Potassium Level 3.3 mmol/L (3.5-5.1) Chloride Level 103 mmol/L (98-107) Carbon Dioxide Level 25 mmol/L (21-32) Anion Gap 11 (6-14) Blood Urea Nitrogen 26 mg/dL (7-20) Creatinine 0.9 mg/dL (0.6-1.0) Estimated GFR (Cockcroft-Gault) 64.8 BUN/Creatinine Ratio 29 (6-20) Glucose Level 396 mg/dL (70-99) Calcium Level 7.8 mg/dL (8.5-10.1) Total Bilirubin 0.7 mg/dL (0.2-1.0) Aspartate Amino Transf (AST/SGOT) 59 U/L (15-37) Alanine Aminotransferase (ALT/SGPT) 37 U/L (14-59) Alkaline Phosphatase 61 U/L (46-116) Total Protein 6.0 g/dL (6.4-8.2) Albumin 2.0 g/dL (3.4-5.0) Albumin/Globulin Ratio 0.5 (1.0-1.7) O2 Saturation 91 % (92-99) Arterial Blood pH 7.48 (7.35-7.45) Arterial Blood pCO2 at Patient Temp 33 mmHg (35-46) Arterial Blood pO2 at Patient Temp 60 mmHg (75-108) Arterial Blood HCO3 24 mmol/L (21-28) Arterial Blood Base Excess 1 mmol/L (-3-3) FiO2 100 Laboratory Tests Test 01/21/20 12:35 01/21/20 17:16 01/21/20 21:31 01/22/20 03:55 Glucose (Fingerstick) 413 mg/dL (70-99) 343 mg/dL (70-99) 357 mg/dL (70-99) White Blood Count 3.3 x10^3/uL (4.0-11.0) Red Blood Count 4.21 x10^6/uL (3.50-5.40) Hemoglobin 13.1 g/dL (12.0-15.5) Hematocrit 38.5 % (36.0-47.0) Mean Corpuscular Volume 92 fL (79-100) Mean Corpuscular Hemoglobin 31 pg (25-35) Mean Corpuscular Hemoglobin Concent 34 g/dL (31-37) Red Cell Distribution Width 13.7 % (11.5-14.5) Platelet Count 79 x10^3/uL (140-400) Neutrophils (%) (Auto) 82 % (31-73) Lymphocytes (%) (Auto) 10 % (24-48) Monocytes (%) (Auto) 8 % (0-9) Eosinophils (%) (Auto) 0 % (0-3) Basophils (%) (Auto) 0 % (0-3) Neutrophils # (Auto) 2.7 x10^3/uL (1.8-7.7) Lymphocytes # (Auto) 0.3 x10^3/uL (1.0-4.8) Monocytes # (Auto) 0.3 x10^3/uL (0.0-1.1) Eosinophils # (Auto) 0.0 x10^3/uL (0.0-0.7) Basophils # (Auto) 0.0 x10^3/uL (0.0-0.2) Sodium Level 139 mmol/L (136-145) Potassium Level 3.3 mmol/L (3.5-5.1) Chloride Level 103 mmol/L (98-107) Carbon Dioxide Level 25 mmol/L (21-32) Anion Gap 11 (6-14) Blood Urea Nitrogen 26 mg/dL (7-20) Creatinine 0.9 mg/dL (0.6-1.0) Estimated GFR (Cockcroft-Gault) 64.8 BUN/Creatinine Ratio 29 (6-20) Glucose Level 396 mg/dL (70-99) Calcium Level 7.8 mg/dL (8.5-10.1) Total Bilirubin 0.7 mg/dL (0.2-1.0) Aspartate Amino Transf (AST/SGOT) 59 U/L (15-37) Alanine Aminotransferase (ALT/SGPT) 37 U/L (14-59) Alkaline Phosphatase 61 U/L (46-116) Total Protein 6.0 g/dL (6.4-8.2) Albumin 2.0 g/dL (3.4-5.0) Albumin/Globulin Ratio 0.5 (1.0-1.7) Test 01/22/20 07:50 O2 Saturation 91 % (92-99) Arterial Blood pH 7.48 (7.35-7.45) Arterial Blood pCO2 at Patient Temp 33 mmHg (35-46) Arterial Blood pO2 at Patient Temp 60 mmHg (75-108) Arterial Blood HCO3 24 mmol/L (21-28) Arterial Blood Base Excess 1 mmol/L (-3-3) FiO2 100 Medications Active Scripts Medications Dose Route/Sig Max Daily Dose Days Date Category Metformin Hcl 1,000 Mg Tablet 1,000 Mg PO BIDWMEALS 01/18/20 Reported Comments cxr reviewed There is increased airspace opacity/infiltrates of the bilateral hemithoraces. Impression . IMPRESSION: 1. Acute hypoxic respiratory failure secondary to COVID-19 pneumonia. 2. Leukopenia secondary to viral pneumonia.improved. 3. Abnormal chest x-ray with bilateral patchy infiltrates, highly compatible with COVID-19 pneumonia. 4. Abnormal liver function tests, likely related to COVID pneumonia. Plan . 1. Keep her on high flow Vapotherm/ 100%FIO2. Keep her under COVID isolation. Remdesivir, 01/18 s/p convulasant plasma, cont solumedrol, changed to 40 bid 2. Monitor oxygen level. Keep saturation 92 and above. 3. Empiric antibiotic. 4. COVID-19 positive 5. Lovenox for DVT prophylaxis. 6. We will monitor respiratory status closely, 7. no intubation per pt request . will d/w son and make her official DNR discussed w rn, rt MARIS BOYD MD Jan 22, 2020 10:41
[2020-01-22] MEDS: NON FORMULARY ITEM 1 EA in IV NORMAL SALINE 250ML 230 ML IV SCH (10:57)
--- NOTE | 2020-01-22 11:15 | PDOC ---
Infectious Disease Note Subjective Subjective Feels better says No fevers last 24 hrs Remains on O2 40 L FiO2 100% ROS ROS No nausea vomiting diarrhea chest pain Vital Sign Vital Signs Vital Signs Date Time Temp Pulse Resp B/P (MAP) Pulse Ox O2 Delivery O2 Flow Rate FiO2 01/22/20 11:05 63 40 101/55 (70) 89 Nasal Cannula 40.0 01/22/20 08:00 97.9 97.9 Physical Exam PHYSICAL EXAM GENERAL: Propped up in bed, alert and watching TV HEENT: Oral cavity, pharynx was clear. some blisters NECK: Supple. LUNGS: Clear, no accessory muscle use HEART: S1, S2. regular ABDOMEN: Obese, soft, no guarding, rebound. : Hinkle in place EXTREMITIES: No clubbing, cyanosis or gross edema. SKIN: Warm to touch without signs of rash. NEUROLOGIC: Alert, responding to questions/gestures appropriately PIV Labs Lab Laboratory Tests Test 01/21/20 12:35 01/21/20 17:16 01/21/20 21:31 01/22/20 03:55 Glucose (Fingerstick) 413 mg/dL (70-99) 343 mg/dL (70-99) 357 mg/dL (70-99) White Blood Count 3.3 x10^3/uL (4.0-11.0) Red Blood Count 4.21 x10^6/uL (3.50-5.40) Hemoglobin 13.1 g/dL (12.0-15.5) Hematocrit 38.5 % (36.0-47.0) Mean Corpuscular Volume 92 fL (79-100) Mean Corpuscular Hemoglobin 31 pg (25-35) Mean Corpuscular Hemoglobin Concent 34 g/dL (31-37) Red Cell Distribution Width 13.7 % (11.5-14.5) Platelet Count 79 x10^3/uL (140-400) Neutrophils (%) (Auto) 82 % (31-73) Lymphocytes (%) (Auto) 10 % (24-48) Monocytes (%) (Auto) 8 % (0-9) Eosinophils (%) (Auto) 0 % (0-3) Basophils (%) (Auto) 0 % (0-3) Neutrophils # (Auto) 2.7 x10^3/uL (1.8-7.7) Lymphocytes # (Auto) 0.3 x10^3/uL (1.0-4.8) Monocytes # (Auto) 0.3 x10^3/uL (0.0-1.1) Eosinophils # (Auto) 0.0 x10^3/uL (0.0-0.7) Basophils # (Auto) 0.0 x10^3/uL (0.0-0.2) Sodium Level 139 mmol/L (136-145) Potassium Level 3.3 mmol/L (3.5-5.1) Chloride Level 103 mmol/L (98-107) Carbon Dioxide Level 25 mmol/L (21-32) Anion Gap 11 (6-14) Blood Urea Nitrogen 26 mg/dL (7-20) Creatinine 0.9 mg/dL (0.6-1.0) Estimated GFR (Cockcroft-Gault) 64.8 BUN/Creatinine Ratio 29 (6-20) Glucose Level 396 mg/dL (70-99) Calcium Level 7.8 mg/dL (8.5-10.1) Total Bilirubin 0.7 mg/dL (0.2-1.0) Aspartate Amino Transf (AST/SGOT) 59 U/L (15-37) Alanine Aminotransferase (ALT/SGPT) 37 U/L (14-59) Alkaline Phosphatase 61 U/L (46-116) Total Protein 6.0 g/dL (6.4-8.2) Albumin 2.0 g/dL (3.4-5.0) Albumin/Globulin Ratio 0.5 (1.0-1.7) Test 01/22/20 07:50 O2 Saturation 91 % (92-99) Arterial Blood pH 7.48 (7.35-7.45) Arterial Blood pCO2 at Patient Temp 33 mmHg (35-46) Arterial Blood pO2 at Patient Temp 60 mmHg (75-108) Arterial Blood HCO3 24 mmol/L (21-28) Arterial Blood Base Excess 1 mmol/L (-3-3) FiO2 100 Objective Assessment Fever - better Lips blisters Acute resp hypoxic resp failure - COVID + Abnormal CXR Leukopenina - chronic Thrombocytopenia Plan Plan of Care Cont Zosyn, Doxycycline and Valtrex Remdesivir, 01/18 On steroids F/u labs Plasma given D/w son through the phone per patient request ANALIA CHANG MD Jan 22, 2020 11:15
--- NOTE | 2020-01-22 12:04 | NUR ---
SS following up with discharge planning. SS reviewed pt chart and discussed with pt RN. Pt is currently on vapotherm and COVID19 positive. Pt DNI. Pt on IV Zosyn and Remdesvir. Pt received plasma. SS will continue to follow for discharge planning.
[2020-01-22] MEDS ORDERED: POTASSIUM CHLORIDE 20 MEQ TABLET.ER. PO ONE (16:00)
[2020-01-22] MEDS: metFORMIN 500 MG TABLET PO SCH (16:56)
[2020-01-22] MEDS ORDERED: INSULIN GLARGINE SYRINGE. SQ SCH (21:00)
[2020-01-22] MEDS: STERILE WATER for RESP 1,000 ML BAG. INH PRN (23:54)
[2020-01-23] VITALS (24 sets, daily range): BP systolic 90–127; BP diastolic 47–75
[2020-01-23] MEDS: PIPERACILLIN/TAZOBACTAM 3.375 GM in IV NORMAL SALINE 50ML 50 ML IV SCH ×4 (00:46→17:40)
[2020-01-23 04:11] LABS: BASO % 0 % (0-3); EOS % 0 % (0-3); HEMATOCRIT 39.6 % (36.0-47.0); HEMOGLOBIN 13.2 g/dL (12.0-15.5); LYMPH # 0.3 x10^3/uL (1.0-4.8); LYMPH % 7 % (24-48); MEAN CORPUSCULAR HEMOGLOBIN 31 pg (25-35); MEAN CORPUSCULAR HGB CONC 34 g/dL (31-37); MEAN CORPUSCULAR VOLUME 91 fL (79-100); MONO # 0.2 x10^3/uL (0.0-1.1); MONO % 6 % (0-9); NEUT # 3.5 x10^3/uL (1.8-7.7); NEUT % 87 % (31-73); PLATELET COUNT 75 x10^3/uL (140-400); RED BLOOD COUNT 4.34 x10^6/uL (3.50-5.40); RED CELL DISTRIBUTION WIDTH 13.8 % (11.5-14.5)
[2020-01-23 04:56] LABS: CALCIUM 7.5 mg/dL (8.5-10.1); GFR 57.4; POTASSIUM 3.6 mmol/L (3.5-5.1)
--- NOTE | 2020-01-23 08:07 | PDOC ---
Infectious Disease Note Subjective Subjective Feels better says No fevers last 24 hrs Remains on O2 40 L FiO2 100% ROS ROS No nausea vomiting diarrhea chest pain Vital Sign Vital Signs Vital Signs Date Time Temp Pulse Resp B/P (MAP) Pulse Ox O2 Delivery O2 Flow Rate FiO2 01/23/20 07:38 66 35 95/65 (75) 96 Nasal Cannula 40.0 01/23/20 04:00 98.1 98.1 Physical Exam PHYSICAL EXAM GENERAL: Propped up in bed, alert and watching TV HEENT: Oral cavity, pharynx was clear. some blisters NECK: Supple. LUNGS: WHEEZING HEART: S1, S2. regular ABDOMEN: Obese, soft, no guarding, rebound. : Hinkle in place EXTREMITIES: No clubbing, cyanosis or gross edema. SKIN: Warm to touch without signs of rash. NEUROLOGIC: Alert, responding to questions/gestures appropriately PIV Labs Lab Laboratory Tests Test 01/22/20 12:37 01/22/20 21:50 01/23/20 02:55 Glucose (Fingerstick) 358 mg/dL (70-99) 293 mg/dL (70-99) White Blood Count 4.0 x10^3/uL (4.0-11.0) Red Blood Count 4.34 x10^6/uL (3.50-5.40) Hemoglobin 13.2 g/dL (12.0-15.5) Hematocrit 39.6 % (36.0-47.0) Mean Corpuscular Volume 91 fL (79-100) Mean Corpuscular Hemoglobin 31 pg (25-35) Mean Corpuscular Hemoglobin Concent 34 g/dL (31-37) Red Cell Distribution Width 13.8 % (11.5-14.5) Platelet Count 75 x10^3/uL (140-400) Neutrophils (%) (Auto) 87 % (31-73) Lymphocytes (%) (Auto) 7 % (24-48) Monocytes (%) (Auto) 6 % (0-9) Eosinophils (%) (Auto) 0 % (0-3) Basophils (%) (Auto) 0 % (0-3) Neutrophils # (Auto) 3.5 x10^3/uL (1.8-7.7) Lymphocytes # (Auto) 0.3 x10^3/uL (1.0-4.8) Monocytes # (Auto) 0.2 x10^3/uL (0.0-1.1) Eosinophils # (Auto) 0.0 x10^3/uL (0.0-0.7) Basophils # (Auto) 0.0 x10^3/uL (0.0-0.2) Sodium Level 141 mmol/L (136-145) Potassium Level 3.6 mmol/L (3.5-5.1) Chloride Level 106 mmol/L (98-107) Carbon Dioxide Level 23 mmol/L (21-32) Anion Gap 12 (6-14) Blood Urea Nitrogen 25 mg/dL (7-20) Creatinine 1.0 mg/dL (0.6-1.0) Estimated GFR (Cockcroft-Gault) 57.4 Glucose Level 330 mg/dL (70-99) Calcium Level 7.5 mg/dL (8.5-10.1) Objective Assessment Fever - better Acute resp hypoxic resp failure - COVID + Abnormal CXR Leukopenina - chronic Thrombocytopenia Plan Plan of Care Cont Zosyn, Doxycycline and Valtrex Remdesivir, 01/18 On steroids F/u labs Plasma given ANALIA CHANG MD Jan 23, 2020 08:07
[2020-01-23] MEDS: LACTOBACILLUS RHAMNOSUS GG 1 CAPSULE. PO SCH ×2 (08:39→21:01)
[2020-01-23] MEDS: methylPREDNISolone SOD SUCC PF 40 MG/ML VIAL. IV SCH ×2 (08:39→21:01)
[2020-01-23] MEDS: valACYclovir 500 MG TABLET. PO SCH ×3 (08:39→21:01)
[2020-01-23] MEDS: metFORMIN 500 MG TABLET PO SCH ×2 (08:39→17:32)
[2020-01-23] MEDS: DOXYCYCLINE HYCLATE 100 MG TABLET PO SCH ×2 (08:39→21:01)
[2020-01-23] MEDS: ENOXAPARIN 40 MG/0.4 ML SYRINGE. SQ SCH ×2 (08:40→21:00)
[2020-01-23] MEDS: INSULIN LISPRO 300 UNITS/3 ML VIAL. SQ SCH ×3 (08:41→17:35)
[2020-01-23] MEDS: POTASSIUM CHLORIDE 20 MEQ TABLET.ER. PO SCH (08:43)
[2020-01-23 09:10] LABS: BASE EXCESS ABG -1 mmol/L (-3-3); HCO3 ABG 22 mmol/L (21-28); PCO2 ABG 32 mmHg (35-46); PO2 ABG 82 mmHg (75-108); SAT O2 ABG 96 % (92-99)
[2020-01-23 09:32] LABS: FIO2 ABG 100% VAPOTHERM
--- NOTE | 2020-01-23 09:56 | PDOC ---
PULMONARY PROGRESS NOTES Subjective on vapotherm 40 lpm and 100% fio2, appears comfortable, desat when falls sleep suspect pepito. she doesnt want intubation Vitals Vital Signs Date Time Temp Pulse Resp B/P (MAP) Pulse Ox O2 Delivery O2 Flow Rate FiO2 01/23/20 09:03 60 36 95/54 (68) 96 Nasal Cannula 40.0 01/23/20 08:14 98.1 98.1 Comments visual exam done due to COVID pandemia appears comfortable, alert, nc at, nsr on ekg, no paradoxical abd motion, no rash, no edema General: Alert, No acute distress Lungs: Wheezing Labs Laboratory Tests Test 01/21/20 12:35 01/21/20 17:16 01/21/20 21:31 01/22/20 03:55 Glucose (Fingerstick) 413 mg/dL (70-99) 343 mg/dL (70-99) 357 mg/dL (70-99) White Blood Count 3.3 x10^3/uL (4.0-11.0) Red Blood Count 4.21 x10^6/uL (3.50-5.40) Hemoglobin 13.1 g/dL (12.0-15.5) Hematocrit 38.5 % (36.0-47.0) Mean Corpuscular Volume 92 fL (79-100) Mean Corpuscular Hemoglobin 31 pg (25-35) Mean Corpuscular Hemoglobin Concent 34 g/dL (31-37) Red Cell Distribution Width 13.7 % (11.5-14.5) Platelet Count 79 x10^3/uL (140-400) Neutrophils (%) (Auto) 82 % (31-73) Lymphocytes (%) (Auto) 10 % (24-48) Monocytes (%) (Auto) 8 % (0-9) Eosinophils (%) (Auto) 0 % (0-3) Basophils (%) (Auto) 0 % (0-3) Neutrophils # (Auto) 2.7 x10^3/uL (1.8-7.7) Lymphocytes # (Auto) 0.3 x10^3/uL (1.0-4.8) Monocytes # (Auto) 0.3 x10^3/uL (0.0-1.1) Eosinophils # (Auto) 0.0 x10^3/uL (0.0-0.7) Basophils # (Auto) 0.0 x10^3/uL (0.0-0.2) Sodium Level 139 mmol/L (136-145) Potassium Level 3.3 mmol/L (3.5-5.1) Chloride Level 103 mmol/L (98-107) Carbon Dioxide Level 25 mmol/L (21-32) Anion Gap 11 (6-14) Blood Urea Nitrogen 26 mg/dL (7-20) Creatinine 0.9 mg/dL (0.6-1.0) Estimated GFR (Cockcroft-Gault) 64.8 BUN/Creatinine Ratio 29 (6-20) Glucose Level 396 mg/dL (70-99) Calcium Level 7.8 mg/dL (8.5-10.1) Total Bilirubin 0.7 mg/dL (0.2-1.0) Aspartate Amino Transf (AST/SGOT) 59 U/L (15-37) Alanine Aminotransferase (ALT/SGPT) 37 U/L (14-59) Alkaline Phosphatase 61 U/L (46-116) Total Protein 6.0 g/dL (6.4-8.2) Albumin 2.0 g/dL (3.4-5.0) Albumin/Globulin Ratio 0.5 (1.0-1.7) Test 01/22/20 07:50 01/22/20 12:37 01/22/20 21:50 01/23/20 02:55 O2 Saturation 91 % (92-99) Arterial Blood pH 7.48 (7.35-7.45) Arterial Blood pCO2 at Patient Temp 33 mmHg (35-46) Arterial Blood pO2 at Patient Temp 60 mmHg (75-108) Arterial Blood HCO3 24 mmol/L (21-28) Arterial Blood Base Excess 1 mmol/L (-3-3) FiO2 100 Glucose (Fingerstick) 358 mg/dL (70-99) 293 mg/dL (70-99) White Blood Count 4.0 x10^3/uL (4.0-11.0) Red Blood Count 4.34 x10^6/uL (3.50-5.40) Hemoglobin 13.2 g/dL (12.0-15.5) Hematocrit 39.6 % (36.0-47.0) Mean Corpuscular Volume 91 fL (79-100) Mean Corpuscular Hemoglobin 31 pg (25-35) Mean Corpuscular Hemoglobin Concent 34 g/dL (31-37) Red Cell Distribution Width 13.8 % (11.5-14.5) Platelet Count 75 x10^3/uL (140-400) Neutrophils (%) (Auto) 87 % (31-73) Lymphocytes (%) (Auto) 7 % (24-48) Monocytes (%) (Auto) 6 % (0-9) Eosinophils (%) (Auto) 0 % (0-3) Basophils (%) (Auto) 0 % (0-3) Neutrophils # (Auto) 3.5 x10^3/uL (1.8-7.7) Lymphocytes # (Auto) 0.3 x10^3/uL (1.0-4.8) Monocytes # (Auto) 0.2 x10^3/uL (0.0-1.1) Eosinophils # (Auto) 0.0 x10^3/uL (0.0-0.7) Basophils # (Auto) 0.0 x10^3/uL (0.0-0.2) Sodium Level 141 mmol/L (136-145) Potassium Level 3.6 mmol/L (3.5-5.1) Chloride Level 106 mmol/L (98-107) Carbon Dioxide Level 23 mmol/L (21-32) Anion Gap 12 (6-14) Blood Urea Nitrogen 25 mg/dL (7-20) Creatinine 1.0 mg/dL (0.6-1.0) Estimated GFR (Cockcroft-Gault) 57.4 Glucose Level 330 mg/dL (70-99) Calcium Level 7.5 mg/dL (8.5-10.1) Test 01/23/20 09:05 O2 Saturation 96 % (92-99) Arterial Blood pH 7.46 (7.35-7.45) Arterial Blood pCO2 at Patient Temp 32 mmHg (35-46) Arterial Blood pO2 at Patient Temp 82 mmHg (75-108) Arterial Blood HCO3 22 mmol/L (21-28) Arterial Blood Base Excess -1 mmol/L (-3-3) FiO2 100% vapotherm Laboratory Tests Test 01/22/20 12:37 01/22/20 21:50 6/23/20 02:55 01/23/20 09:05 Glucose (Fingerstick) 358 mg/dL (70-99) 293 mg/dL (70-99) White Blood Count 4.0 x10^3/uL (4.0-11.0) Red Blood Count 4.34 x10^6/uL (3.50-5.40) Hemoglobin 13.2 g/dL (12.0-15.5) Hematocrit 39.6 % (36.0-47.0) Mean Corpuscular Volume 91 fL (79-100) Mean Corpuscular Hemoglobin 31 pg (25-35) Mean Corpuscular Hemoglobin Concent 34 g/dL (31-37) Red Cell Distribution Width 13.8 % (11.5-14.5) Platelet Count 75 x10^3/uL (140-400) Neutrophils (%) (Auto) 87 % (31-73) Lymphocytes (%) (Auto) 7 % (24-48) Monocytes (%) (Auto) 6 % (0-9) Eosinophils (%) (Auto) 0 % (0-3) Basophils (%) (Auto) 0 % (0-3) Neutrophils # (Auto) 3.5 x10^3/uL (1.8-7.7) Lymphocytes # (Auto) 0.3 x10^3/uL (1.0-4.8) Monocytes # (Auto) 0.2 x10^3/uL (0.0-1.1) Eosinophils # (Auto) 0.0 x10^3/uL (0.0-0.7) Basophils # (Auto) 0.0 x10^3/uL (0.0-0.2) Sodium Level 141 mmol/L (136-145) Potassium Level 3.6 mmol/L (3.5-5.1) Chloride Level 106 mmol/L (98-107) Carbon Dioxide Level 23 mmol/L (21-32) Anion Gap 12 (6-14) Blood Urea Nitrogen 25 mg/dL (7-20) Creatinine 1.0 mg/dL (0.6-1.0) Estimated GFR (Cockcroft-Gault) 57.4 Glucose Level 330 mg/dL (70-99) Calcium Level 7.5 mg/dL (8.5-10.1) O2 Saturation 96 % (92-99) Arterial Blood pH 7.46 (7.35-7.45) Arterial Blood pCO2 at Patient Temp 32 mmHg (35-46) Arterial Blood pO2 at Patient Temp 82 mmHg (75-108) Arterial Blood HCO3 22 mmol/L (21-28) Arterial Blood Base Excess -1 mmol/L (-3-3) FiO2 100% vapotherm Medications Active Scripts Medications Dose Route/Sig Max Daily Dose Days Date Category Metformin Hcl 1,000 Mg Tablet 1,000 Mg PO [id number] 01/18/20 Reported Comments cxr reviewed There is increased airspace opacity/infiltrates of the bilateral hemithoraces. Impression . IMPRESSION: 1. Acute hypoxic respiratory failure secondary to COVID-19 pneumonia. 2. Leukopenia secondary to viral pneumonia.improved. 3. Abnormal chest x-ray with bilateral patchy infiltrates, highly compatible with COVID-19 pneumonia. 4. Abnormal liver function tests, likely related to COVID pneumonia. Plan . 1. Keep her on high flow Vapotherm/ 100%FIO2. wean to 90% .Keep her under COVID isolation. Remdesivir, 01/18 s/p convulasant plasma, cont solumedrol, changed to 40 bid 2. Monitor oxygen level. Keep saturation 92 and above. 3. Empiric antibiotic. 4. COVID-19 positive 5. Lovenox for DVT prophylaxis. 6. We will monitor respiratory status closely, 7. no intubation per pt request . will d/w son and make her official DNR discussed w rn, rt MARIS BOYD MD Jan 23, 2020 09:56
[2020-01-23] MEDS: NON FORMULARY ITEM 1 EA in IV NORMAL SALINE 250ML 230 ML IV SCH (10:37)
--- NOTE | 2020-01-23 10:57 | PDOC ---
PROGRESS NOTES Chief Complaint Chief Complaint impression ACUTE HYPOXIC RESPIRATORY FAILURE COVID-19 syndrome Patchy interstitial opacities throughout the lung whitt may represent pulmonary wedge-shaped infarcts versus atypical infection such as a viral illness. Leukopenia Thrombocytopenia morbid obesity diabetes, uncontrolled Cont Zosyn, Doxycycline and Valtrex Remdesivir, 01/18 On steroids heme consult REFUSED INTUBATION SUPPORT 01/21 on vapotherm 40 lpm and 100% fio2, History of Present Illness History of Present Illness 01/23/2020 Patient seen and examined COVID positive Chart reviewed Discussed with RN possible uti inc lantus to 25 units sq hs heme consult on vapotherm 40 lpm and 100% fio2, appears comfortable, 34 min cc time 01/18/2020 Patient seen and examined Discussed with infectious disease Discussed with RN Chart reviewed I ordered hematology consultation as well Vitals Vitals Vital Signs Date Time Temp Pulse Resp B/P (MAP) Pulse Ox O2 Delivery O2 Flow Rate FiO2 01/23/20 10:21 54 36 92/50 (64) 94 Nasal Cannula 40.0 01/23/20 08:14 98.1 98.1 Physical Exam Physical Exam GENERAL: Propped up in bed, alert and watching TV HEENT: Oral cavity, pharynx was clear. some blisters NECK: Supple. LUNGS: WHEEZING HEART: S1, S2. regular ABDOMEN: Obese, soft, no guarding, rebound. : Hinkle in place EXTREMITIES: No clubbing, cyanosis or gross edema. SKIN: Warm to touch without signs of rash. NEUROLOGIC: Alert, responding to questions/gestures appropriately PIV General: Alert, Oriented X3, Cooperative Heart: Regular rate, Normal S1 Lungs: Wheezing Abdomen: Normal bowel sounds, Soft Extremities: No clubbing, No cyanosis Skin: No rashes, No breakdown Labs LABS Laboratory Tests Test 01/22/20 12:37 01/22/20 21:50 01/23/20 02:55 01/23/20 09:05 Glucose (Fingerstick) 358 mg/dL (70-99) 293 mg/dL (70-99) White Blood Count 4.0 x10^3/uL (4.0-11.0) Red Blood Count 4.34 x10^6/uL (3.50-5.40) Hemoglobin 13.2 g/dL (12.0-15.5) Hematocrit 39.6 % (36.0-47.0) Mean Corpuscular Volume 91 fL (79-100) Mean Corpuscular Hemoglobin 31 pg (25-35) Mean Corpuscular Hemoglobin Concent 34 g/dL (31-37) Red Cell Distribution Width 13.8 % (11.5-14.5) Platelet Count 75 x10^3/uL (140-400) Neutrophils (%) (Auto) 87 % (31-73) Lymphocytes (%) (Auto) 7 % (24-48) Monocytes (%) (Auto) 6 % (0-9) Eosinophils (%) (Auto) 0 % (0-3) Basophils (%) (Auto) 0 % (0-3) Neutrophils # (Auto) 3.5 x10^3/uL (1.8-7.7) Lymphocytes # (Auto) 0.3 x10^3/uL (1.0-4.8) Monocytes # (Auto) 0.2 x10^3/uL (0.0-1.1) Eosinophils # (Auto) 0.0 x10^3/uL (0.0-0.7) Basophils # (Auto) 0.0 x10^3/uL (0.0-0.2) Sodium Level 141 mmol/L (136-145) Potassium Level 3.6 mmol/L (3.5-5.1) Chloride Level 106 mmol/L (98-107) Carbon Dioxide Level 23 mmol/L (21-32) Anion Gap 12 (6-14) Blood Urea Nitrogen 25 mg/dL (7-20) Creatinine 1.0 mg/dL (0.6-1.0) Estimated GFR (Cockcroft-Gault) 57.4 Glucose Level 330 mg/dL (70-99) Calcium Level 7.5 mg/dL (8.5-10.1) O2 Saturation 96 % (92-99) Arterial Blood pH 7.46 (7.35-7.45) Arterial Blood pCO2 at Patient Temp 32 mmHg (35-46) Arterial Blood pO2 at Patient Temp 82 mmHg (75-108) Arterial Blood HCO3 22 mmol/L (21-28) Arterial Blood Base Excess -1 mmol/L (-3-3) FiO2 100% vapotherm Assessment and Plan Assessmemt and Plan Problems Medical Problems: (1) Coronavirus infection Status: Acute (2) Leukopenia Status: Acute (3) Respiratory failure, acute Status: Acute Comment Review of Relevant I have reviewed the following items jorge (where applicable) has been applied. Labs Laboratory Tests Test 01/21/20 12:35 01/21/20 17:16 01/21/20 21:31 01/22/20 03:55 Glucose (Fingerstick) 413 mg/dL (70-99) 343 mg/dL (70-99) 357 mg/dL (70-99) White Blood Count 3.3 x10^3/uL (4.0-11.0) Red Blood Count 4.21 x10^6/uL (3.50-5.40) Hemoglobin 13.1 g/dL (12.0-15.5) Hematocrit 38.5 % (36.0-47.0) Mean Corpuscular Volume 92 fL (79-100) Mean Corpuscular Hemoglobin 31 pg (25-35) Mean Corpuscular Hemoglobin Concent 34 g/dL (31-37) Red Cell Distribution Width 13.7 % (11.5-14.5) Platelet Count 79 x10^3/uL (140-400) Neutrophils (%) (Auto) 82 % (31-73) Lymphocytes (%) (Auto) 10 % (24-48) Monocytes (%) (Auto) 8 % (0-9) Eosinophils (%) (Auto) 0 % (0-3) Basophils (%) (Auto) 0 % (0-3) Neutrophils # (Auto) 2.7 x10^3/uL (1.8-7.7) Lymphocytes # (Auto) 0.3 x10^3/uL (1.0-4.8) Monocytes # (Auto) 0.3 x10^3/uL (0.0-1.1) Eosinophils # (Auto) 0.0 x10^3/uL (0.0-0.7) Basophils # (Auto) 0.0 x10^3/uL (0.0-0.2) Sodium Level 139 mmol/L (136-145) Potassium Level 3.3 mmol/L (3.5-5.1) Chloride Level 103 mmol/L (98-107) Carbon Dioxide Level 25 mmol/L (21-32) Anion Gap 11 (6-14) Blood Urea Nitrogen 26 mg/dL (7-20) Creatinine 0.9 mg/dL (0.6-1.0) Estimated GFR (Cockcroft-Gault) 64.8 BUN/Creatinine Ratio 29 (6-20) Glucose Level 396 mg/dL (70-99) Calcium Level 7.8 mg/dL (8.5-10.1) Total Bilirubin 0.7 mg/dL (0.2-1.0) Aspartate Amino Transf (AST/SGOT) 59 U/L (15-37) Alanine Aminotransferase (ALT/SGPT) 37 U/L (14-59) Alkaline Phosphatase 61 U/L (46-116) Total Protein 6.0 g/dL (6.4-8.2) Albumin 2.0 g/dL (3.4-5.0) Albumin/Globulin Ratio 0.5 (1.0-1.7) Test 01/22/20 07:50 01/22/20 12:37 01/22/20 21:50 01/23/20 02:55 O2 Saturation 91 % (92-99) Arterial Blood pH 7.48 (7.35-7.45) Arterial Blood pCO2 at Patient Temp 33 mmHg (35-46) Arterial Blood pO2 at Patient Temp 60 mmHg (75-108) Arterial Blood HCO3 24 mmol/L (21-28) Arterial Blood Base Excess 1 mmol/L (-3-3) FiO2 100 Glucose (Fingerstick) 358 mg/dL (70-99) 293 mg/dL (70-99) White Blood Count 4.0 x10^3/uL (4.0-11.0) Red Blood Count 4.34 x10^6/uL (3.50-5.40) Hemoglobin 13.2 g/dL (12.0-15.5) Hematocrit 39.6 % (36.0-47.0) Mean Corpuscular Volume 91 fL (79-100) Mean Corpuscular Hemoglobin 31 pg (25-35) Mean Corpuscular Hemoglobin Concent 34 g/dL (31-37) Red Cell Distribution Width 13.8 % (11.5-14.5) Platelet Count 75 x10^3/uL (140-400) Neutrophils (%) (Auto) 87 % (31-73) Lymphocytes (%) (Auto) 7 % (24-48) Monocytes (%) (Auto) 6 % (0-9) Eosinophils (%) (Auto) 0 % (0-3) Basophils (%) (Auto) 0 % (0-3) Neutrophils # (Auto) 3.5 x10^3/uL (1.8-7.7) Lymphocytes # (Auto) 0.3 x10^3/uL (1.0-4.8) Monocytes # (Auto) 0.2 x10^3/uL (0.0-1.1) Eosinophils # (Auto) 0.0 x10^3/uL (0.0-0.7) Basophils # (Auto) 0.0 x10^3/uL (0.0-0.2) Sodium Level 141 mmol/L (136-145) Potassium Level 3.6 mmol/L (3.5-5.1) Chloride Level 106 mmol/L (98-107) Carbon Dioxide Level 23 mmol/L (21-32) Anion Gap 12 (6-14) Blood Urea Nitrogen 25 mg/dL (7-20) Creatinine 1.0 mg/dL (0.6-1.0) Estimated GFR (Cockcroft-Gault) 57.4 Glucose Level 330 mg/dL (70-99) Calcium Level 7.5 mg/dL (8.5-10.1) Test 01/23/20 09:05 O2 Saturation 96 % (92-99) Arterial Blood pH 7.46 (7.35-7.45) Arterial Blood pCO2 at Patient Temp 32 mmHg (35-46) Arterial Blood pO2 at Patient Temp 82 mmHg (75-108) Arterial Blood HCO3 22 mmol/L (21-28) Arterial Blood Base Excess -1 mmol/L (-3-3) FiO2 100% vapotherm Laboratory Tests Test 01/22/20 12:37 01/22/20 21:50 01/23/20 02:55 01/23/20 09:05 Glucose (Fingerstick) 358 mg/dL (70-99) 293 mg/dL (70-99) White Blood Count 4.0 x10^3/uL (4.0-11.0) Red Blood Count 4.34 x10^6/uL (3.50-5.40) Hemoglobin 13.2 g/dL (12.0-15.5) Hematocrit 39.6 % (36.0-47.0) Mean Corpuscular Volume 91 fL (79-100) Mean Corpuscular Hemoglobin 31 pg (25-35) Mean Corpuscular Hemoglobin Concent 34 g/dL (31-37) Red Cell Distribution Width 13.8 % (11.5-14.5) Platelet Count 75 x10^3/uL (140-400) Neutrophils (%) (Auto) 87 % (31-73) Lymphocytes (%) (Auto) 7 % (24-48) Monocytes (%) (Auto) 6 % (0-9) Eosinophils (%) (Auto) 0 % (0-3) Basophils (%) (Auto) 0 % (0-3) Neutrophils # (Auto) 3.5 x10^3/uL (1.8-7.7) Lymphocytes # (Auto) 0.3 x10^3/uL (1.0-4.8) Monocytes # (Auto) 0.2 x10^3/uL (0.0-1.1) Eosinophils # (Auto) 0.0 x10^3/uL (0.0-0.7) Basophils # (Auto) 0.0 x10^3/uL (0.0-0.2) Sodium Level 141 mmol/L (136-145) Potassium Level 3.6 mmol/L (3.5-5.1) Chloride Level 106 mmol/L (98-107) Carbon Dioxide Level 23 mmol/L (21-32) Anion Gap 12 (6-14) Blood Urea Nitrogen 25 mg/dL (7-20) Creatinine 1.0 mg/dL (0.6-1.0) Estimated GFR (Cockcroft-Gault) 57.4 Glucose Level 330 mg/dL (70-99) Calcium Level 7.5 mg/dL (8.5-10.1) O2 Saturation 96 % (92-99) Arterial Blood pH 7.46 (7.35-7.45) Arterial Blood pCO2 at Patient Temp 32 mmHg (35-46) Arterial Blood pO2 at Patient Temp 82 mmHg (75-108) Arterial Blood HCO3 22 mmol/L (21-28) Arterial Blood Base Excess -1 mmol/L (-3-3) FiO2 100% vapotherm Medications Current Medications Piperacillin Sod/ Tazobactam Sod (Zosyn Per Pharmacy) 1 each PRN DAILY PRN MC SEE COMMENTS; Start 01/17/20 at 19:30 Piperacillin Sod/ Tazobactam Sod 3.375 gm/Sodium Chloride 50 ml @ 100 mls/hr 1X ONCE IV Last administered on 01/17/20at 20:31; Start 01/17/20 at 19:45; Stop 01/17/20 at 20:14; Status DC Piperacillin Sod/ Tazobactam Sod 3.375 gm/Sodium Chloride 50 ml @ 100 mls/hr Q6HRS IV Last administered on 01/23/20at 05:49; Start 01/18/20 at 00:00 Zolpidem Tartrate (Ambien) 5 mg PRN QHS PRN PO INSOMNIA; Start 01/18/20 at 01:00 Enoxaparin Sodium (Lovenox Per Pharmacy Prophylaxis Dosing) 1 each PRN DAILY PRN MC SEE COMMENTS; Start 01/18/20 at 01:00 Insulin Glargine (Lantus Syringe) 12 unit QHS SQ Last administered on 01/19/20at 21:24; Start 01/18/20 at 21:00; Stop 01/20/20 at 09:27; Status DC Acetaminophen (Tylenol) 650 mg PRN Q6HRS PRN PO FEVER > 100.3'F Last administered on 01/19/20at 16:20; Start 01/18/20 at 01:00 Enoxaparin Sodium (Lovenox 40mg Syringe) 40 mg BID SQ Last administered on 01/23/20at 08:40; Start 01/18/20 at 09:00 Doxycycline Hyclate (Vibra-Tab) 100 mg BID PO Last administered on 01/23/20at 08:39; Start 01/18/20 at 09:00 Insulin Human Lispro (HumaLOG) 0-5 UNITS TIDWMEALS SQ Last administered on 01/20/20at 17:58; Start 01/18/20 at 12:00; Stop 01/20/20 at 19:03; Status DC Dextrose (Dextrose 50%-Water Syringe) 12.5 gm PRN Q15MIN PRN IV SEE COMMENTS; Start 01/18/20 at 09:45 Lactobacillus Rhamnosus (Culturelle) 1 cap BID PO Last administered on 01/23/20at 08:39; Start 01/18/20 at 21:00 Non-Formulary Medication 1 ea/ Sodium Chloride 210 ml @ 420 mls/hr 1X ONCE IV ; Start 01/19/20 at 10:00; Stop 01/19/20 at 09:34; Status DC Non-Formulary Medication 1 ea/ Sodium Chloride 230 ml @ 460 mls/hr DAILY IV Last administered on 01/23/20at 10:37; Start 01/20/20 at 09:00; Stop 01/23/20 at 09:29; Status DC Non-Formulary Medication 1 ea/ Sodium Chloride 210 ml @ 420 mls/hr 1X ONCE IV Last administered on 01/19/20at 10:05; Start 01/19/20 at 09:45; Stop 01/19/20 at 10:14; Status DC Valacyclovir HCl (Valtrex) 1,000 mg TID PO Last administered on 01/23/20at 08:39; Start 01/19/20 at 14:00 Methylprednisolone Sodium Succinate (SOLU-Medrol 125MG VIAL) 60 mg Q8HRS IV Last administered on 01/21/20at 06:33; Start 01/19/20 at 22:00; Stop 01/21/20 at 07:09; Status DC Sterile Water (WATER for RESP) 1,000 ml CONT PRN INH VIA VAPOTHERM DEVICE Last administered on 01/22/20at 23:54; Start 01/19/20 at 17:30 Insulin Glargine (Lantus Syringe) 16 unit QHS SQ Last administered on 01/21/20at 21:18; Start 01/20/20 at 21:00; Stop 01/22/20 at 13:09; Status DC Insulin Human Lispro (HumaLOG) 0-9 UNITS TIDWMEALS SQ Last administered on 01/23/20at 08:41; Start 01/21/20 at 08:00 Methylprednisolone Sodium Succinate (SOLU-Medrol 40MG VIAL) 40 mg Q12HR IV Last administered on 01/23/20at 08:39; Start 01/21/20 at 09:00 Insulin Glargine (Lantus Syringe) 20 unit QHS SQ Last administered on 01/22/20at 20:40; Start 01/22/20 at 21:00 Potassium Chloride (Klor-Con) 40 meq 1X ONCE PO Last administered on 01/22/20at 16:56; Start 01/22/20 at 16:00; Stop 01/22/20 at 16:03; Status DC Potassium Chloride (Klor-Con) 20 meq DAILYWBKFT PO Last administered on 01/23/20at 08:43; Start 01/23/20 at 08:00 Metformin HCl (Glucophage) 1,000 mg BIDWMEALS PO Last administered on 01/23/20at 08:39; Start 01/22/20 at 17:00 Active Scripts Active Reported Metformin Hcl 1,000 Mg Tablet 1,000 Mg PO BIDWMEALS Vitals/I & O Vital Sign - Last 24 Hours 01/22/20 01/22/20 01/22/20 01/22/20 11:05 11:53 12:45 12:48 Temp 98.1 98.1 Pulse 63 65 Resp 40 33 B/P (MAP) 101/55 (70) 96/57 (70) Pulse Ox 89 90 90 O2 Delivery Nasal Cannula High Flow Nasal Cannula Nasal Cannula Nasal Cannula O2 Flow Rate 40.0 40.0 40.0 40.0 01/22/20 01/22/20 01/22/20 01/22/20 13:02 14:00 15:12 15:40 Pulse 57 61 63 Resp 40 33 37 B/P (MAP) 110/56 (74) 119/68 (85) 85/67 (73) Pulse Ox 88 89 90 89 O2 Delivery Nasal Cannula Nasal Cannula Nasal Cannula High Flow Nasal Cannula O2 Flow Rate 40.0 40.0 40.0 40.0 01/22/20 01/22/20 01/22/20 01/22/20 15:50 16:02 17:02 18:06 Pulse 59 72 Resp 25 32 B/P (MAP) 92/56 (68) 113/69 (84) Pulse Ox 92 89 93 O2 Delivery Nasal Cannula Nasal Cannula Nasal Cannula High Flow Nasal Cannula O2 Flow Rate 40.0 40.0 40.0 40.0 01/22/20 01/22/20 01/22/20 01/22/20 18:27 19:00 19:42 20:00 Pulse 65 67 Resp 30 32 B/P (MAP) 105/60 (75) 106/64 (78) Pulse Ox 92 94 96 O2 Delivery Nasal Cannula Nasal Cannula High Flow Nasal Cannula Nasal Cannula O2 Flow Rate 40.0 40.0 40.0 40.0 01/22/20 01/22/20 01/22/20 01/22/20 20:00 21:00 22:00 23:00 Temp 98.3 98.3 Pulse 58 62 56 56 Resp 31 34 37 40 B/P (MAP) 112/65 (81) 110/59 (76) 109/64 (79) 98/56 (70) Pulse Ox 96 94 91 92 O2 Delivery Nasal Cannula Nasal Cannula Nasal Cannula Nasal Cannula O2 Flow Rate 40.0 40.0 40.0 40.0 01/22/20 01/23/20 01/23/20 01/23/20 23:53 00:00 00:00 01:00 Temp 98.1 98.1 Pulse 59 60 Resp 45 39 B/P (MAP) 101/55 (70) 101/59 (73) Pulse Ox 92 91 93 O2 Delivery High Flow Nasal Cannula Nasal Cannula Nasal Cannula Nasal Cannula O2 Flow Rate 40.0 40.0 40.0 40.0 01/23/20 01/23/20 01/23/20 01/23/20 02:00 03:00 03:10 04:00 Temp 98.1 98.1 Pulse 63 59 56 Resp 32 41 27 B/P (MAP) 98/59 (72) 93/47 (62) 94/52 (66) Pulse Ox 92 91 95 92 O2 Delivery Nasal Cannula Nasal Cannula High Flow Nasal Cannula Nasal Cannula O2 Flow Rate 40.0 40.0 40.0 40.0 01/23/20 01/23/20 01/23/20 01/23/20 04:00 05:00 06:00 07:38 Pulse 50 53 66 Resp 40 37 35 B/P (MAP) 90/53 (65) 90/51 (64) 95/65 (75) Pulse Ox 92 91 96 O2 Delivery Nasal Cannula Nasal Cannula Nasal Cannula Nasal Cannula O2 Flow Rate 40.0 40.0 40.0 40.0 01/23/20 01/23/20 01/23/20 01/23/20 08:00 08:00 08:14 09:03 Temp 98.1 98.1 Pulse 62 60 Resp 27 36 B/P (MAP) 99/54 (69) 95/54 (68) Pulse Ox 97 97 96 O2 Delivery Nasal Cannula High Flow Nasal Cannula Nasal Cannula Nasal Cannula O2 Flow Rate 40.0 40.0 40.0 40.0 01/23/20 10:21 Pulse 54 Resp 36 B/P (MAP) 92/50 (64) Pulse Ox 94 O2 Delivery Nasal Cannula O2 Flow Rate 40.0 Intake and Output 01/22/20 01/22/20 01/23/20 15:00 23:00 07:00 Intake Total 280 ml 100 ml 100 ml Output Total 280 ml 250 ml 195 ml Balance 0 ml -150 ml -95 ml TANK MILTON MD Jan 23, 2020 10:57
--- NOTE | 2020-01-23 13:33 | NUR ---
SS following up with discharge planning. SS reviewed pt chart and discussed with pt RN. Pt currently on Vapotherm and COVID19 positive. SS will continue to follow for discharge planning.
[2020-01-23] MEDS ORDERED: INSULIN GLARGINE SYRINGE. SQ SCH (21:00)
[2020-01-24] VITALS (25 sets, daily range): BP systolic 100–125; BP diastolic 58–78
[2020-01-24] MEDS: PIPERACILLIN/TAZOBACTAM 3.375 GM in IV NORMAL SALINE 50ML 50 ML IV SCH ×2 (00:24→06:07)
[2020-01-24] MEDS: STERILE WATER for RESP 1,000 ML BAG. INH PRN ×2 (04:21→11:27)
[2020-01-24 05:24] LABS: BASO % 0 % (0-3); EOS % 0 % (0-3); HEMATOCRIT 40.6 % (36.0-47.0); HEMOGLOBIN 13.5 g/dL (12.0-15.5); LYMPH # 0.3 x10^3/uL (1.0-4.8); LYMPH % 9 % (24-48); MEAN CORPUSCULAR HEMOGLOBIN 31 pg (25-35); MEAN CORPUSCULAR HGB CONC 33 g/dL (31-37); MEAN CORPUSCULAR VOLUME 92 fL (79-100); MONO # 0.1 x10^3/uL (0.0-1.1); MONO % 4 % (0-9); NEUT # 3.3 x10^3/uL (1.8-7.7); NEUT % 88 % (31-73); PLATELET COUNT 72 x10^3/uL (140-400); RED BLOOD COUNT 4.43 x10^6/uL (3.50-5.40); WHITE BLOOD COUNT 3.8 x10^3/uL (4.0-11.0)
[2020-01-24 05:44] LABS: CALCIUM 7.4 mg/dL (8.5-10.1); CREATININE 0.9 mg/dL (0.6-1.0); GFR 64.8
[2020-01-24] MEDS: DOXYCYCLINE HYCLATE 100 MG TABLET PO SCH ×2 (08:28→21:18)
[2020-01-24] MEDS: POTASSIUM CHLORIDE 20 MEQ TABLET.ER. PO SCH (08:28)
[2020-01-24] MEDS: valACYclovir 500 MG TABLET. PO SCH (08:28)
[2020-01-24] MEDS: metFORMIN 500 MG TABLET PO SCH ×2 (08:28→17:25)
[2020-01-24] MEDS: LACTOBACILLUS RHAMNOSUS GG 1 CAPSULE. PO SCH ×2 (08:28→21:16)
[2020-01-24] MEDS: methylPREDNISolone SOD SUCC PF 40 MG/ML VIAL. IV SCH ×2 (08:29→21:16)
[2020-01-24] MEDS: ENOXAPARIN 40 MG/0.4 ML SYRINGE. SQ SCH ×2 (08:29→21:18)
[2020-01-24] MEDS: INSULIN LISPRO 300 UNITS/3 ML VIAL. SQ SCH ×3 (08:30→17:25)
--- NOTE | 2020-01-24 09:27 | PDOC ---
Infectious Disease Note Subjective Subjective Feels better says No fevers last 24 hrs Remains on O2 40 L FiO2 100% ROS ROS No nausea vomiting diarrhea chest pain Vital Sign Vital Signs Vital Signs Date Time Temp Pulse Resp B/P (MAP) Pulse Ox O2 Delivery O2 Flow Rate FiO2 01/24/20 09:12 58 41 111/58 (75) 97 Nasal Cannula 40.0 01/24/20 08:10 98.1 98.1 Physical Exam PHYSICAL EXAM GENERAL: Propped up in bed, alert and watching TV HEENT: Oral cavity, pharynx was clear. some blisters NECK: Supple. LUNGS: WHEEZING HEART: S1, S2. regular ABDOMEN: Obese, soft, no guarding, rebound. : Hinkle in place EXTREMITIES: No clubbing, cyanosis or gross edema. SKIN: Warm to touch without signs of rash. NEUROLOGIC: Alert, responding to questions/gestures appropriately PIV Labs Lab Laboratory Tests Test 01/23/20 12:04 01/23/20 17:34 01/23/20 21:48 01/24/20 04:50 Glucose (Fingerstick) 258 mg/dL (70-99) 232 mg/dL (70-99) 215 mg/dL (70-99) White Blood Count 3.8 x10^3/uL (4.0-11.0) Red Blood Count 4.43 x10^6/uL (3.50-5.40) Hemoglobin 13.5 g/dL (12.0-15.5) Hematocrit 40.6 % (36.0-47.0) Mean Corpuscular Volume 92 fL (79-100) Mean Corpuscular Hemoglobin 31 pg (25-35) Mean Corpuscular Hemoglobin Concent 33 g/dL (31-37) Red Cell Distribution Width 14.0 % (11.5-14.5) Platelet Count 72 x10^3/uL (140-400) Neutrophils (%) (Auto) 88 % (31-73) Lymphocytes (%) (Auto) 9 % (24-48) Monocytes (%) (Auto) 4 % (0-9) Eosinophils (%) (Auto) 0 % (0-3) Basophils (%) (Auto) 0 % (0-3) Neutrophils # (Auto) 3.3 x10^3/uL (1.8-7.7) Lymphocytes # (Auto) 0.3 x10^3/uL (1.0-4.8) Monocytes # (Auto) 0.1 x10^3/uL (0.0-1.1) Eosinophils # (Auto) 0.0 x10^3/uL (0.0-0.7) Basophils # (Auto) 0.0 x10^3/uL (0.0-0.2) Sodium Level 141 mmol/L (136-145) Potassium Level 4.0 mmol/L (3.5-5.1) Chloride Level 106 mmol/L (98-107) Carbon Dioxide Level 24 mmol/L (21-32) Anion Gap 11 (6-14) Blood Urea Nitrogen 25 mg/dL (7-20) Creatinine 0.9 mg/dL (0.6-1.0) Estimated GFR (Cockcroft-Gault) 64.8 Glucose Level 285 mg/dL (70-99) Calcium Level 7.4 mg/dL (8.5-10.1) Objective Assessment Fever - better Acute resp hypoxic resp failure - COVID + Abnormal CXR Leukopenina - chronic Thrombocytopenia Plan Plan of Care Cont Doxycycline and Valtrex discontinue Valtrex and Zosyn Remdesivir, 01/18 On steroids F/u labs Plasma given ANALIA CHANG MD Jan 24, 2020 09:27
--- NOTE | 2020-01-24 09:51 | PDOC ---
PROGRESS NOTES Chief Complaint Chief Complaint impression ACUTE HYPOXIC RESPIRATORY FAILURE COVID-19 syndrome Patchy interstitial opacities throughout the lung whitt may represent pulmonary wedge-shaped infarcts versus atypical infection such as a viral illness. 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 morbid obesity diabetes, uncontrolled, insulin adjusted Cont Zosyn, Doxycycline and Valtrex Remdesivir, 01/18 s/p convulasant plasma, cont solumedrol, changed to 40 bid heme consult REFUSED INTUBATION SUPPORT INC LANTUS 28 UNITS SQ HS 01/23 on vapotherm 40 lpm and 100% fio2, History of Present Illness History of Present Illness 01/24/2020 Patient seen and examined COVID positive Chart reviewed Discussed with RN possible uti inc lantus to 25 units sq hs heme consult on vapotherm 40 lpm and 100% fio2, appears comfortable, 35 min cc time 01/18/2020 Patient seen and examined Discussed with infectious disease Discussed with RN Chart reviewed I ordered hematology consultation as well Vitals Vitals Vital Signs Date Time Temp Pulse Resp B/P (MAP) Pulse Ox O2 Delivery O2 Flow Rate FiO2 01/24/20 09:12 58 41 111/58 (75) 97 Nasal Cannula 40.0 01/24/20 08:10 98.1 98.1 Physical Exam Physical Exam GENERAL: Propped up in bed, alert and watching TV HEENT: Oral cavity, pharynx was clear. some blisters NECK: Supple. LUNGS: WHEEZING HEART: S1, S2. regular ABDOMEN: Obese, soft, no guarding, rebound. : Hinkle in place EXTREMITIES: No clubbing, cyanosis or gross edema. SKIN: Warm to touch without signs of rash. NEUROLOGIC: Alert, responding to questions/gestures appropriately PIV General: Alert, Oriented X3, Cooperative Heart: Regular rate, Normal S1 Lungs: Wheezing Abdomen: Normal bowel sounds, Soft Extremities: No clubbing, No cyanosis Skin: No rashes, No breakdown Labs LABS Laboratory Tests Test 01/23/20 12:04 01/23/20 17:34 01/23/20 21:48 01/24/20 04:50 Glucose (Fingerstick) 258 mg/dL (70-99) 232 mg/dL (70-99) 215 mg/dL (70-99) White Blood Count 3.8 x10^3/uL (4.0-11.0) Red Blood Count 4.43 x10^6/uL (3.50-5.40) Hemoglobin 13.5 g/dL (12.0-15.5) Hematocrit 40.6 % (36.0-47.0) Mean Corpuscular Volume 92 fL (79-100) Mean Corpuscular Hemoglobin 31 pg (25-35) Mean Corpuscular Hemoglobin Concent 33 g/dL (31-37) Red Cell Distribution Width 14.0 % (11.5-14.5) Platelet Count 72 x10^3/uL (140-400) Neutrophils (%) (Auto) 88 % (31-73) Lymphocytes (%) (Auto) 9 % (24-48) Monocytes (%) (Auto) 4 % (0-9) Eosinophils (%) (Auto) 0 % (0-3) Basophils (%) (Auto) 0 % (0-3) Neutrophils # (Auto) 3.3 x10^3/uL (1.8-7.7) Lymphocytes # (Auto) 0.3 x10^3/uL (1.0-4.8) Monocytes # (Auto) 0.1 x10^3/uL (0.0-1.1) Eosinophils # (Auto) 0.0 x10^3/uL (0.0-0.7) Basophils # (Auto) 0.0 x10^3/uL (0.0-0.2) Sodium Level 141 mmol/L (136-145) Potassium Level 4.0 mmol/L (3.5-5.1) Chloride Level 106 mmol/L (98-107) Carbon Dioxide Level 24 mmol/L (21-32) Anion Gap 11 (6-14) Blood Urea Nitrogen 25 mg/dL (7-20) Creatinine 0.9 mg/dL (0.6-1.0) Estimated GFR (Cockcroft-Gault) 64.8 Glucose Level 285 mg/dL (70-99) Calcium Level 7.4 mg/dL (8.5-10.1) Assessment and Plan Assessmemt and Plan Problems Medical Problems: (1) Coronavirus infection Status: Acute (2) Leukopenia Status: Acute (3) Respiratory failure, acute Status: Acute Comment Review of Relevant I have reviewed the following items jorge (where applicable) has been applied. Labs Laboratory Tests Test 01/22/20 12:37 01/22/20 21:50 01/23/20 02:55 01/23/20 09:05 Glucose (Fingerstick) 358 mg/dL (70-99) 293 mg/dL (70-99) White Blood Count 4.0 x10^3/uL (4.0-11.0) Red Blood Count 4.34 x10^6/uL (3.50-5.40) Hemoglobin 13.2 g/dL (12.0-15.5) Hematocrit 39.6 % (36.0-47.0) Mean Corpuscular Volume 91 fL (79-100) Mean Corpuscular Hemoglobin 31 pg (25-35) Mean Corpuscular Hemoglobin Concent 34 g/dL (31-37) Red Cell Distribution Width 13.8 % (11.5-14.5) Platelet Count 75 x10^3/uL (140-400) Neutrophils (%) (Auto) 87 % (31-73) Lymphocytes (%) (Auto) 7 % (24-48) Monocytes (%) (Auto) 6 % (0-9) Eosinophils (%) (Auto) 0 % (0-3) Basophils (%) (Auto) 0 % (0-3) Neutrophils # (Auto) 3.5 x10^3/uL (1.8-7.7) Lymphocytes # (Auto) 0.3 x10^3/uL (1.0-4.8) Monocytes # (Auto) 0.2 x10^3/uL (0.0-1.1) Eosinophils # (Auto) 0.0 x10^3/uL (0.0-0.7) Basophils # (Auto) 0.0 x10^3/uL (0.0-0.2) Sodium Level 141 mmol/L (136-145) Potassium Level 3.6 mmol/L (3.5-5.1) Chloride Level 106 mmol/L (98-107) Carbon Dioxide Level 23 mmol/L (21-32) Anion Gap 12 (6-14) Blood Urea Nitrogen 25 mg/dL (7-20) Creatinine 1.0 mg/dL (0.6-1.0) Estimated GFR (Cockcroft-Gault) 57.4 Glucose Level 330 mg/dL (70-99) Calcium Level 7.5 mg/dL (8.5-10.1) O2 Saturation 96 % (92-99) Arterial Blood pH 7.46 (7.35-7.45) Arterial Blood pCO2 at Patient Temp 32 mmHg (35-46) Arterial Blood pO2 at Patient Temp 82 mmHg (75-108) Arterial Blood HCO3 22 mmol/L (21-28) Arterial Blood Base Excess -1 mmol/L (-3-3) FiO2 100% vapotherm Test 01/23/20 12:04 01/23/20 17:34 01/23/20 21:48 01/24/20 04:50 Glucose (Fingerstick) 258 mg/dL (70-99) 232 mg/dL (70-99) 215 mg/dL (70-99) White Blood Count 3.8 x10^3/uL (4.0-11.0) Red Blood Count 4.43 x10^6/uL (3.50-5.40) Hemoglobin 13.5 g/dL (12.0-15.5) Hematocrit 40.6 % (36.0-47.0) Mean Corpuscular Volume 92 fL (79-100) Mean Corpuscular Hemoglobin 31 pg (25-35) Mean Corpuscular Hemoglobin Concent 33 g/dL (31-37) Red Cell Distribution Width 14.0 % (11.5-14.5) Platelet Count 72 x10^3/uL (140-400) Neutrophils (%) (Auto) 88 % (31-73) Lymphocytes (%) (Auto) 9 % (24-48) Monocytes (%) (Auto) 4 % (0-9) Eosinophils (%) (Auto) 0 % (0-3) Basophils (%) (Auto) 0 % (0-3) Neutrophils # (Auto) 3.3 x10^3/uL (1.8-7.7) Lymphocytes # (Auto) 0.3 x10^3/uL (1.0-4.8) Monocytes # (Auto) 0.1 x10^3/uL (0.0-1.1) Eosinophils # (Auto) 0.0 x10^3/uL (0.0-0.7) Basophils # (Auto) 0.0 x10^3/uL (0.0-0.2) Sodium Level 141 mmol/L (136-145) Potassium Level 4.0 mmol/L (3.5-5.1) Chloride Level 106 mmol/L (98-107) Carbon Dioxide Level 24 mmol/L (21-32) Anion Gap 11 (6-14) Blood Urea Nitrogen 25 mg/dL (7-20) Creatinine 0.9 mg/dL (0.6-1.0) Estimated GFR (Cockcroft-Gault) 64.8 Glucose Level 285 mg/dL (70-99) Calcium Level 7.4 mg/dL (8.5-10.1) Laboratory Tests Test 01/23/20 12:04 01/23/20 17:34 01/23/20 21:48 01/24/20 04:50 Glucose (Fingerstick) 258 mg/dL (70-99) 232 mg/dL (70-99) 215 mg/dL (70-99) White Blood Count 3.8 x10^3/uL (4.0-11.0) Red Blood Count 4.43 x10^6/uL (3.50-5.40) Hemoglobin 13.5 g/dL (12.0-15.5) Hematocrit 40.6 % (36.0-47.0) Mean Corpuscular Volume 92 fL (79-100) Mean Corpuscular Hemoglobin 31 pg (25-35) Mean Corpuscular Hemoglobin Concent 33 g/dL (31-37) Red Cell Distribution Width 14.0 % (11.5-14.5) Platelet Count 72 x10^3/uL (140-400) Neutrophils (%) (Auto) 88 % (31-73) Lymphocytes (%) (Auto) 9 % (24-48) Monocytes (%) (Auto) 4 % (0-9) Eosinophils (%) (Auto) 0 % (0-3) Basophils (%) (Auto) 0 % (0-3) Neutrophils # (Auto) 3.3 x10^3/uL (1.8-7.7) Lymphocytes # (Auto) 0.3 x10^3/uL (1.0-4.8) Monocytes # (Auto) 0.1 x10^3/uL (0.0-1.1) Eosinophils # (Auto) 0.0 x10^3/uL (0.0-0.7) Basophils # (Auto) 0.0 x10^3/uL (0.0-0.2) Sodium Level 141 mmol/L (136-145) Potassium Level 4.0 mmol/L (3.5-5.1) Chloride Level 106 mmol/L (98-107) Carbon Dioxide Level 24 mmol/L (21-32) Anion Gap 11 (6-14) Blood Urea Nitrogen 25 mg/dL (7-20) Creatinine 0.9 mg/dL (0.6-1.0) Estimated GFR (Cockcroft-Gault) 64.8 Glucose Level 285 mg/dL (70-99) Calcium Level 7.4 mg/dL (8.5-10.1) Medications Current Medications Piperacillin Sod/ Tazobactam Sod (Zosyn Per Pharmacy) 1 each PRN DAILY PRN MC SEE COMMENTS; Start 01/17/20 at 19:30 Piperacillin Sod/ Tazobactam Sod 3.375 gm/Sodium Chloride 50 ml @ 100 mls/hr 1X ONCE IV Last administered on 01/17/20at 20:31; Start 01/17/20 at 19:45; Stop 01/17/20 at 20:14; Status DC Piperacillin Sod/ Tazobactam Sod 3.375 gm/Sodium Chloride 50 ml @ 100 mls/hr Q6HRS IV Last administered on 01/24/20at 06:07; Start 01/18/20 at 00:00 Zolpidem Tartrate (Ambien) 5 mg PRN QHS PRN PO INSOMNIA; Start 01/18/20 at 01:00 Enoxaparin Sodium (Lovenox Per Pharmacy Prophylaxis Dosing) 1 each PRN DAILY PRN MC SEE COMMENTS; Start 01/18/20 at 01:00 Insulin Glargine (Lantus Syringe) 12 unit QHS SQ Last administered on 01/19/20at 21:24; Start 01/18/20 at 21:00; Stop 01/20/20 at 09:27; Status DC Acetaminophen (Tylenol) 650 mg PRN Q6HRS PRN PO FEVER > 100.3'F Last administered on 01/19/20at 16:20; Start 01/18/20 at 01:00 Enoxaparin Sodium (Lovenox 40mg Syringe) 40 mg BID SQ Last administered on 01/24/20at 08:29; Start 01/18/20 at 09:00 Doxycycline Hyclate (Vibra-Tab) 100 mg BID PO Last administered on 01/24/20at 08:28; Start 01/18/20 at 09:00 Insulin Human Lispro (HumaLOG) 0-5 UNITS TIDWMEALS SQ Last administered on 01/20/20at 17:58; Start 01/18/20 at 12:00; Stop 01/20/20 at 19:03; Status DC Dextrose (Dextrose 50%-Water Syringe) 12.5 gm PRN Q15MIN PRN IV SEE COMMENTS; Start 01/18/20 at 09:45 Lactobacillus Rhamnosus (Culturelle) 1 cap BID PO Last administered on 01/24/20at 08:28; Start 01/18/20 at 21:00 Non-Formulary Medication 1 ea/ Sodium Chloride 210 ml @ 420 mls/hr 1X ONCE IV ; Start 01/19/20 at 10:00; Stop 01/19/20 at 09:34; Status DC Non-Formulary Medication 1 ea/ Sodium Chloride 230 ml @ 460 mls/hr DAILY IV Last administered on 01/23/20at 10:37; Start 01/20/20 at 09:00; Stop 01/23/20 at 09:29; Status DC Non-Formulary Medication 1 ea/ Sodium Chloride 210 ml @ 420 mls/hr 1X ONCE IV Last administered on 01/19/20at 10:05; Start 01/19/20 at 09:45; Stop 01/19/20 at 10:14; Status DC Valacyclovir HCl (Valtrex) 1,000 mg TID PO Last administered on 01/24/20at 08:28; Start 01/19/20 at 14:00 Methylprednisolone Sodium Succinate (SOLU-Medrol 125MG VIAL) 60 mg Q8HRS IV Last administered on 01/21/20at 06:33; Start 01/19/20 at 22:00; Stop 01/21/20 at 07:09; Status DC Sterile Water (WATER for RESP) 1,000 ml CONT PRN INH VIA VAPOTHERM DEVICE Last administered on 01/24/20at 04:21; Start 01/19/20 at 17:30 Insulin Glargine (Lantus Syringe) 16 unit QHS SQ Last administered on 6/21/20at 21:18; Start 01/20/20 at 21:00; Stop 01/22/20 at 13:09; Status DC Insulin Human Lispro (HumaLOG) 0-9 UNITS TIDWMEALS SQ Last administered on 01/24/20at 08:30; Start 01/21/20 at 08:00 Methylprednisolone Sodium Succinate (SOLU-Medrol 40MG VIAL) 40 mg Q12HR IV Last administered on 01/24/20at 08:29; Start 01/21/20 at 09:00 Insulin Glargine (Lantus Syringe) 20 unit QHS SQ Last administered on 01/22/20at 20:40; Start 01/22/20 at 21:00; Stop 01/23/20 at 15:58; Status DC Potassium Chloride (Klor-Con) 40 meq 1X ONCE PO Last administered on 01/22/20at 16:56; Start 01/22/20 at 16:00; Stop 01/22/20 at 16:03; Status DC Potassium Chloride (Klor-Con) 20 meq DAILYWBKFT PO Last administered on 01/24/20at 08:28; Start 01/23/20 at 08:00 Metformin HCl (Glucophage) 1,000 mg BIDWMEALS PO Last administered on 01/24/20at 08:28; Start 01/22/20 at 17:00 Insulin Glargine (Lantus Syringe) 25 unit QHS SQ Last administered on 01/23/20at 21:01; Start 01/23/20 at 21:00 Active Scripts Active Reported Metformin Hcl 1,000 Mg Tablet 1,000 Mg PO BIDWMEALS Vitals/I & O Vital Sign - Last 24 Hours 01/23/20 01/23/20 01/23/20 01/23/20 10:21 11:00 11:05 12:31 Temp 98.0 98.0 Pulse 54 61 58 Resp 36 32 33 B/P (MAP) 92/50 (64) 97/54 (68) 110/56 (74) Pulse Ox 94 96 94 92 O2 Delivery Nasal Cannula Nasal Cannula High Flow Nasal Cannula Nasal Cannula O2 Flow Rate 40.0 40.0 40.0 40.0 01/23/20 01/23/20 01/23/20 01/23/20 12:33 13:23 14:03 15:11 Pulse 64 63 63 Resp 35 34 32 B/P (MAP) 104/59 (74) 116/69 (85) 120/63 (82) Pulse Ox 94 94 95 O2 Delivery Nasal Cannula Nasal Cannula Nasal Cannula Nasal Cannula O2 Flow Rate 40.0 40.0 40.0 40.0 01/22/01/23/20 01/23/20 01/23/20 15:46 16:27 16:33 17:42 Temp 98.1 98.1 Pulse 70 63 Resp 32 25 B/P (MAP) 101/62 (75) 112/64 (80) Pulse Ox 97 94 95 O2 Delivery High Flow Nasal Cannula Nasal Cannula Nasal Cannula Nasal Cannula O2 Flow Rate 40.0 40.0 40.0 40.0 01/23/20 01/23/20 01/23/20 01/23/20 18:22 19:00 20:00 20:00 Temp 98.4 98.4 Pulse 72 69 65 Resp 25 31 32 B/P (MAP) 127/65 (85) 106/66 (79) 97/68 (78) Pulse Ox 94 96 96 O2 Delivery Nasal Cannula Nasal Cannula Nasal Cannula Nasal Cannula O2 Flow Rate 40.0 40.0 40.0 40.0 01/23/20 01/23/20 01/23/20 01/23/20 20:09 21:00 22:00 23:00 Pulse 67 62 61 Resp 34 41 31 B/P (MAP) 107/64 (78) 115/75 (88) 109/69 (82) Pulse Ox 92 95 94 91 O2 Delivery High Flow Nasal Cannula Nasal Cannula Nasal Cannula Nasal Cannula O2 Flow Rate 40.0 40.0 40.0 40.0 01/24/20 01/24/20 01/24/20 01/24/20 00:00 00:00 01:00 02:00 Temp 98.3 98.3 Pulse 59 69 58 Resp 48 34 32 B/P (MAP) 111/70 (84) 116/65 (82) 113/68 (83) Pulse Ox 92 94 92 O2 Delivery Nasal Cannula Nasal Cannula Nasal Cannula Nasal Cannula O2 Flow Rate 40.0 40.0 40.0 40.0 01/24/20 01/24/20 01/24/20 01/24/20 03:00 04:00 04:00 04:01 Temp 97.5 97.5 Pulse 58 65 Resp 43 33 B/P (MAP) 100/66 (77) 100/62 (75) Pulse Ox 90 94 95 O2 Delivery Nasal Cannula Nasal Cannula Nasal Cannula High Flow Nasal Cannula O2 Flow Rate 40.0 40.0 40.0 40.0 01/24/20 01/24/20 01/24/20 01/24/20 05:00 06:00 07:00 07:47 Pulse 59 69 61 Resp 44 38 33 B/P (MAP) 104/60 (75) 100/63 (75) 114/70 (85) Pulse Ox 93 94 89 O2 Delivery Nasal Cannula Nasal Cannula Nasal Cannula Nasal Cannula O2 Flow Rate 40.0 40.0 40.0 40.0 01/24/20 01/24/20 01/24/20 08:10 08:32 09:12 Temp 98.1 98.1 Pulse 58 58 Resp 29 41 B/P (MAP) 119/61 (80) 111/58 (75) Pulse Ox 98 95 97 O2 Delivery Nasal Cannula High Flow Nasal Cannula Nasal Cannula O2 Flow Rate 40.0 40.0 40.0 Intake and Output 01/23/20 01/23/20 01/24/20 15:00 23:00 07:00 Intake Total 50 ml 400 ml 50 ml Output Total 305 ml 250 ml 190 ml Balance -255 ml 150 ml -140 ml TANK MILTON MD Jan 24, 2020 09:50
--- NOTE | 2020-01-24 09:52 | PDOC ---
PULMONARY PROGRESS NOTES Subjective on vapotherm 40 lpm and 90% fio2, appears comfortable, Vitals Vital Signs Date Time Temp Pulse Resp B/P (MAP) Pulse Ox O2 Delivery O2 Flow Rate FiO2 01/24/20 09:12 58 41 111/58 (75) 97 Nasal Cannula 40.0 01/24/20 08:10 98.1 98.1 Comments visual exam done due to COVID pandemia appears comfortable, alert, nc at, nsr on ekg, no paradoxical abd motion, no rash, no edema General: Alert, No acute distress Labs Laboratory Tests Test 01/22/20 12:37 01/22/20 21:50 01/23/20 02:55 01/23/20 09:05 Glucose (Fingerstick) 358 mg/dL (70-99) 293 mg/dL (70-99) White Blood Count 4.0 x10^3/uL (4.0-11.0) Red Blood Count 4.34 x10^6/uL (3.50-5.40) Hemoglobin 13.2 g/dL (12.0-15.5) Hematocrit 39.6 % (36.0-47.0) Mean Corpuscular Volume 91 fL (79-100) Mean Corpuscular Hemoglobin 31 pg (25-35) Mean Corpuscular Hemoglobin Concent 34 g/dL (31-37) Red Cell Distribution Width 13.8 % (11.5-14.5) Platelet Count 75 x10^3/uL (140-400) Neutrophils (%) (Auto) 87 % (31-73) Lymphocytes (%) (Auto) 7 % (24-48) Monocytes (%) (Auto) 6 % (0-9) Eosinophils (%) (Auto) 0 % (0-3) Basophils (%) (Auto) 0 % (0-3) Neutrophils # (Auto) 3.5 x10^3/uL (1.8-7.7) Lymphocytes # (Auto) 0.3 x10^3/uL (1.0-4.8) Monocytes # (Auto) 0.2 x10^3/uL (0.0-1.1) Eosinophils # (Auto) 0.0 x10^3/uL (0.0-0.7) Basophils # (Auto) 0.0 x10^3/uL (0.0-0.2) Sodium Level 141 mmol/L (136-145) Potassium Level 3.6 mmol/L (3.5-5.1) Chloride Level 106 mmol/L (98-107) Carbon Dioxide Level 23 mmol/L (21-32) Anion Gap 12 (6-14) Blood Urea Nitrogen 25 mg/dL (7-20) Creatinine 1.0 mg/dL (0.6-1.0) Estimated GFR (Cockcroft-Gault) 57.4 Glucose Level 330 mg/dL (70-99) Calcium Level 7.5 mg/dL (8.5-10.1) O2 Saturation 96 % (92-99) Arterial Blood pH 7.46 (7.35-7.45) Arterial Blood pCO2 at Patient Temp 32 mmHg (35-46) Arterial Blood pO2 at Patient Temp 82 mmHg (75-108) Arterial Blood HCO3 22 mmol/L (21-28) Arterial Blood Base Excess -1 mmol/L (-3-3) FiO2 100% vapotherm Test 01/23/20 12:04 01/23/20 17:34 01/23/20 21:48 01/24/20 04:50 Glucose (Fingerstick) 258 mg/dL (70-99) 232 mg/dL (70-99) 215 mg/dL (70-99) White Blood Count 3.8 x10^3/uL (4.0-11.0) Red Blood Count 4.43 x10^6/uL (3.50-5.40) Hemoglobin 13.5 g/dL (12.0-15.5) Hematocrit 40.6 % (36.0-47.0) Mean Corpuscular Volume 92 fL (79-100) Mean Corpuscular Hemoglobin 31 pg (25-35) Mean Corpuscular Hemoglobin Concent 33 g/dL (31-37) Red Cell Distribution Width 14.0 % (11.5-14.5) Platelet Count 72 x10^3/uL (140-400) Neutrophils (%) (Auto) 88 % (31-73) Lymphocytes (%) (Auto) 9 % (24-48) Monocytes (%) (Auto) 4 % (0-9) Eosinophils (%) (Auto) 0 % (0-3) Basophils (%) (Auto) 0 % (0-3) Neutrophils # (Auto) 3.3 x10^3/uL (1.8-7.7) Lymphocytes # (Auto) 0.3 x10^3/uL (1.0-4.8) Monocytes # (Auto) 0.1 x10^3/uL (0.0-1.1) Eosinophils # (Auto) 0.0 x10^3/uL (0.0-0.7) Basophils # (Auto) 0.0 x10^3/uL (0.0-0.2) Sodium Level 141 mmol/L (136-145) Potassium Level 4.0 mmol/L (3.5-5.1) Chloride Level 106 mmol/L (98-107) Carbon Dioxide Level 24 mmol/L (21-32) Anion Gap 11 (6-14) Blood Urea Nitrogen 25 mg/dL (7-20) Creatinine 0.9 mg/dL (0.6-1.0) Estimated GFR (Cockcroft-Gault) 64.8 Glucose Level 285 mg/dL (70-99) Calcium Level 7.4 mg/dL (8.5-10.1) Laboratory Tests Test 01/23/20 12:04 01/23/20 17:34 01/23/20 21:48 01/24/20 04:50 Glucose (Fingerstick) 258 mg/dL (70-99) 232 mg/dL (70-99) 215 mg/dL (70-99) White Blood Count 3.8 x10^3/uL (4.0-11.0) Red Blood Count 4.43 x10^6/uL (3.50-5.40) Hemoglobin 13.5 g/dL (12.0-15.5) Hematocrit 40.6 % (36.0-47.0) Mean Corpuscular Volume 92 fL (79-100) Mean Corpuscular Hemoglobin 31 pg (25-35) Mean Corpuscular Hemoglobin Concent 33 g/dL (31-37) Red Cell Distribution Width 14.0 % (11.5-14.5) Platelet Count 72 x10^3/uL (140-400) Neutrophils (%) (Auto) 88 % (31-73) Lymphocytes (%) (Auto) 9 % (24-48) Monocytes (%) (Auto) 4 % (0-9) Eosinophils (%) (Auto) 0 % (0-3) Basophils (%) (Auto) 0 % (0-3) Neutrophils # (Auto) 3.3 x10^3/uL (1.8-7.7) Lymphocytes # (Auto) 0.3 x10^3/uL (1.0-4.8) Monocytes # (Auto) 0.1 x10^3/uL (0.0-1.1) Eosinophils # (Auto) 0.0 x10^3/uL (0.0-0.7) Basophils # (Auto) 0.0 x10^3/uL (0.0-0.2) Sodium Level 141 mmol/L (136-145) Potassium Level 4.0 mmol/L (3.5-5.1) Chloride Level 106 mmol/L (98-107) Carbon Dioxide Level 24 mmol/L (21-32) Anion Gap 11 (6-14) Blood Urea Nitrogen 25 mg/dL (7-20) Creatinine 0.9 mg/dL (0.6-1.0) Estimated GFR (Cockcroft-Gault) 64.8 Glucose Level 285 mg/dL (70-99) Calcium Level 7.4 mg/dL (8.5-10.1) Medications Active Scripts Medications Dose Route/Sig Max Daily Dose Days Date Category Metformin Hcl 1,000 Mg Tablet 1,000 Mg PO BIDWMEALS 01/18/20 Reported Comments cxr reviewed There is increased airspace opacity/infiltrates of the bilateral hemithoraces. Impression . IMPRESSION: 1. Acute hypoxic respiratory failure secondary to COVID-19 pneumonia. 2. Leukopenia secondary to viral pneumonia.improved. 3. Abnormal chest x-ray with bilateral patchy infiltrates, highly compatible with COVID-19 pneumonia. 4. Abnormal liver function tests, likely related to COVID pneumonia. Plan . 1. Keep her on high flow Vapotherm/ 90%FIO2. .Keep her under COVID isolation. Remdesivir, 01/18 s/p convulasant plasma, cont solumedrol, changed to 40 bid 2. Monitor oxygen level. Keep saturation 92 and above. 3. Empiric antibiotic. 4. COVID-19 positive 5. Lovenox for DVT prophylaxis. 6. We will monitor respiratory status closely, 7. Pt does not want intubation/ DNI discussed w rn, rt MARIS BOYD MD Jan 24, 2020 09:52
--- NOTE | 2020-01-24 14:41 | NUR ---
SS following up with discharge planning. SS reviewed pt chart and discussed with pt RN. Pt COVID19 positive. Pt on Vapotherm. SS will continue to follow for discharge planning.
[2020-01-24] MEDS: IV NORMAL SALINE 1000ML BAG 1,000 ML IV SCH (14:54)
[2020-01-24] MEDS: INSULIN GLARGINE SYRINGE. SQ SCH (21:17)
[2020-01-25] VITALS (23 sets, daily range): BP systolic 98–123; BP diastolic 57–75
[2020-01-25 06:18] LABS: BASO % 0 % (0-3); EOS % 0 % (0-3); HEMATOCRIT 41.5 % (36.0-47.0); HEMOGLOBIN 13.9 g/dL (12.0-15.5); LYMPH # 0.3 x10^3/uL (1.0-4.8); LYMPH % 8 % (24-48); MEAN CORPUSCULAR HEMOGLOBIN 31 pg (25-35); MEAN CORPUSCULAR HGB CONC 33 g/dL (31-37); MEAN CORPUSCULAR VOLUME 92 fL (79-100); MONO # 0.2 x10^3/uL (0.0-1.1); MONO % 4 % (0-9); NEUT # 3.7 x10^3/uL (1.8-7.7); NEUT % 88 % (31-73); PLATELET COUNT 68 x10^3/uL (140-400); RED BLOOD COUNT 4.51 x10^6/uL (3.50-5.40); WHITE BLOOD COUNT 4.2 x10^3/uL (4.0-11.0)
[2020-01-25 06:19] LABS: CALCIUM 7.5 mg/dL (8.5-10.1); CREATININE 0.8 mg/dL (0.6-1.0); GFR 74.2; POTASSIUM 4.2 mmol/L (3.5-5.1)
[2020-01-25] MEDS: IV NORMAL SALINE 1000ML BAG 1,000 ML IV SCH (06:30)
[2020-01-25 06:47] LABS: % BANDS 4 % (0-9); % LYMPHS 4 % (24-48); % MONOS 2 % (0-10); % SEGS 90 % (35-66); ANISOCYTOSIS SLIGHT; PLT ESTIMATE DECREASED (ADEQUATE)
[2020-01-25] MEDS: ENOXAPARIN 40 MG/0.4 ML SYRINGE. SQ SCH ×2 (08:48→21:39)
[2020-01-25] MEDS: methylPREDNISolone SOD SUCC PF 40 MG/ML VIAL. IV SCH ×2 (08:48→21:39)
[2020-01-25] MEDS: POTASSIUM CHLORIDE 20 MEQ TABLET.ER. PO SCH (08:48)
[2020-01-25] MEDS: DOXYCYCLINE HYCLATE 100 MG TABLET PO SCH ×2 (08:49→21:39)
[2020-01-25] MEDS: LACTOBACILLUS RHAMNOSUS GG 1 CAPSULE. PO SCH ×2 (08:49→21:39)
[2020-01-25] MEDS: metFORMIN 500 MG TABLET PO SCH ×2 (08:49→17:16)
[2020-01-25] MEDS: INSULIN LISPRO 300 UNITS/3 ML VIAL. SQ SCH ×3 (08:53→17:00)
--- NOTE | 2020-01-25 09:02 | PDOC ---
Infectious Disease Note Subjective Subjective feeling better, breathing better ROS ROS no n/v/d/sob/fever Vital Sign Vital Signs Vital Signs Date Time Temp Pulse Resp B/P (MAP) Pulse Ox O2 Delivery O2 Flow Rate FiO2 01/25/20 07:00 50 28 123/71 (88) 94 High Flow Nasal Cannula 40.0 01/25/20 04:00 97.5 97.5 Physical Exam PHYSICAL EXAM GENERAL: Propped up in bed, alert and watching TV HEENT: Oral cavity, pharynx was clear. some blisters NECK: Supple. LUNGS: WHEEZING HEART: S1, S2. regular ABDOMEN: Obese, soft, no guarding, rebound. : Hinkle in place EXTREMITIES: No clubbing, cyanosis or gross edema. SKIN: Warm to touch without signs of rash. NEUROLOGIC: Alert, responding to questions/gestures appropriately PIV Labs Lab Laboratory Tests Test 01/24/20 11:47 01/24/20 17:11 01/24/20 21:21 01/25/20 05:20 Glucose (Fingerstick) 273 mg/dL (70-99) 221 mg/dL (70-99) 159 mg/dL (70-99) Sodium Level 143 mmol/L (136-145) Potassium Level 4.2 mmol/L (3.5-5.1) Chloride Level 110 mmol/L (98-107) Carbon Dioxide Level 21 mmol/L (21-32) Anion Gap 12 (6-14) Blood Urea Nitrogen 25 mg/dL (7-20) Creatinine 0.8 mg/dL (0.6-1.0) Estimated GFR (Cockcroft-Gault) 74.2 Glucose Level 183 mg/dL (70-99) Calcium Level 7.5 mg/dL (8.5-10.1) Test 01/25/20 05:30 01/25/20 08:15 White Blood Count 4.2 x10^3/uL (4.0-11.0) Red Blood Count 4.51 x10^6/uL (3.50-5.40) Hemoglobin 13.9 g/dL (12.0-15.5) Hematocrit 41.5 % (36.0-47.0) Mean Corpuscular Volume 92 fL (79-100) Mean Corpuscular Hemoglobin 31 pg (25-35) Mean Corpuscular Hemoglobin Concent 33 g/dL (31-37) Red Cell Distribution Width 14.0 % (11.5-14.5) Platelet Count 68 x10^3/uL (140-400) Neutrophils (%) (Auto) 88 % (31-73) Lymphocytes (%) (Auto) 8 % (24-48) Monocytes (%) (Auto) 4 % (0-9) Eosinophils (%) (Auto) 0 % (0-3) Basophils (%) (Auto) 0 % (0-3) Neutrophils # (Auto) 3.7 x10^3/uL (1.8-7.7) Lymphocytes # (Auto) 0.3 x10^3/uL (1.0-4.8) Monocytes # (Auto) 0.2 x10^3/uL (0.0-1.1) Eosinophils # (Auto) 0.0 x10^3/uL (0.0-0.7) Basophils # (Auto) 0.0 x10^3/uL (0.0-0.2) Segmented Neutrophils % 90 % (35-66) Band Neutrophils % 4 % (0-9) Lymphocytes % 4 % (24-48) Monocytes % 2 % (0-10) Platelet Estimate Decreased (ADEQUATE) Anisocytosis Slight Glucose (Fingerstick) 155 mg/dL (70-99) Objective Assessment Fever - better Acute resp hypoxic resp failure - COVID + Abnormal CXR Leukopenina - chronic Thrombocytopenia Plan Plan of Care Cont Doxycycline Remdesivir, 01/18 done On steroids F/u labs Plasma given ANALIA CHANG MD Jan 25, 2020 09:02
--- NOTE | 2020-01-25 09:35 | PDOC ---
PROGRESS NOTES Chief Complaint Chief Complaint impression ACUTE HYPOXIC RESPIRATORY FAILURE COVID-19 syndrome Patchy interstitial opacities throughout the lung whitt may represent pulmonary wedge-shaped infarcts versus atypical infection such as a viral illness. 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 morbid obesity weight down to 90.5 kg diabetes, uncontrolled, insulin//lantus adjusted Cont po , Doxycycline Remdesivir, 01/18 s/p convulasant plasma, cont solumedrol, changed to 40 bid heme consult REFUSED INTUBATION SUPPORT INC LANTUS 28 UNITS SQ HS Remdesivir, 01/18 done 01/24 on vapotherm 40 lpm and 100% fio2, 33 min cc time History of Present Illness History of Present Illness 01/25/2020 Patient seen and examined COVID positive Chart reviewed Discussed with RN possible uti inc lantus to 25 units sq hs heme consult on vapotherm 40 lpm and 100% fio2, appears comfortable, po protonix 34 min cc time 01/18/2020 Patient seen and examined Discussed with infectious disease Discussed with RN Chart reviewed I ordered hematology consultation as well Vitals Vitals Vital Signs Date Time Temp Pulse Resp B/P (MAP) Pulse Ox O2 Delivery O2 Flow Rate FiO2 01/25/20 08:49 98 High Flow Nasal Cannula 40.0 01/25/20 07:00 50 28 123/71 (88) 01/25/20 04:00 97.5 97.5 Physical Exam Physical Exam GENERAL: Propped up in bed, alert and watching TV HEENT: Oral cavity, pharynx was clear. some blisters NECK: Supple. LUNGS: WHEEZING HEART: S1, S2. regular ABDOMEN: Obese, soft, no guarding, rebound. : Hinkle in place EXTREMITIES: No clubbing, cyanosis or gross edema. SKIN: Warm to touch without signs of rash. NEUROLOGIC: Alert, responding to questions/gestures appropriately PIV General: Alert, Oriented X3, Cooperative, No acute distress Heart: Regular rate, Normal S1 Lungs: Wheezing Abdomen: Normal bowel sounds, Soft Extremities: No clubbing, No cyanosis Skin: No rashes, No breakdown Labs LABS Laboratory Tests Test 01/24/20 11:47 01/24/20 17:11 01/24/20 21:21 01/25/20 05:20 Glucose (Fingerstick) 273 mg/dL (70-99) 221 mg/dL (70-99) 159 mg/dL (70-99) Sodium Level 143 mmol/L (136-145) Potassium Level 4.2 mmol/L (3.5-5.1) Chloride Level 110 mmol/L (98-107) Carbon Dioxide Level 21 mmol/L (21-32) Anion Gap 12 (6-14) Blood Urea Nitrogen 25 mg/dL (7-20) Creatinine 0.8 mg/dL (0.6-1.0) Estimated GFR (Cockcroft-Gault) 74.2 Glucose Level 183 mg/dL (70-99) Calcium Level 7.5 mg/dL (8.5-10.1) Test 01/25/20 05:30 01/25/20 08:15 White Blood Count 4.2 x10^3/uL (4.0-11.0) Red Blood Count 4.51 x10^6/uL (3.50-5.40) Hemoglobin 13.9 g/dL (12.0-15.5) Hematocrit 41.5 % (36.0-47.0) Mean Corpuscular Volume 92 fL (79-100) Mean Corpuscular Hemoglobin 31 pg (25-35) Mean Corpuscular Hemoglobin Concent 33 g/dL (31-37) Red Cell Distribution Width 14.0 % (11.5-14.5) Platelet Count 68 x10^3/uL (140-400) Neutrophils (%) (Auto) 88 % (31-73) Lymphocytes (%) (Auto) 8 % (24-48) Monocytes (%) (Auto) 4 % (0-9) Eosinophils (%) (Auto) 0 % (0-3) Basophils (%) (Auto) 0 % (0-3) Neutrophils # (Auto) 3.7 x10^3/uL (1.8-7.7) Lymphocytes # (Auto) 0.3 x10^3/uL (1.0-4.8) Monocytes # (Auto) 0.2 x10^3/uL (0.0-1.1) Eosinophils # (Auto) 0.0 x10^3/uL (0.0-0.7) Basophils # (Auto) 0.0 x10^3/uL (0.0-0.2) Segmented Neutrophils % 90 % (35-66) Band Neutrophils % 4 % (0-9) Lymphocytes % 4 % (24-48) Monocytes % 2 % (0-10) Platelet Estimate Decreased (ADEQUATE) Anisocytosis Slight Glucose (Fingerstick) 155 mg/dL (70-99) Assessment and Plan Assessmemt and Plan Problems Medical Problems: (1) Coronavirus infection Status: Acute (2) Leukopenia Status: Acute (3) Respiratory failure, acute Status: Acute Comment Review of Relevant I have reviewed the following items jorge (where applicable) has been applied. Labs Laboratory Tests Test 01/23/20 12:04 01/23/20 17:34 01/23/20 21:48 01/24/20 04:50 Glucose (Fingerstick) 258 mg/dL (70-99) 232 mg/dL (70-99) 215 mg/dL (70-99) White Blood Count 3.8 x10^3/uL (4.0-11.0) Red Blood Count 4.43 x10^6/uL (3.50-5.40) Hemoglobin 13.5 g/dL (12.0-15.5) Hematocrit 40.6 % (36.0-47.0) Mean Corpuscular Volume 92 fL (79-100) Mean Corpuscular Hemoglobin 31 pg (25-35) Mean Corpuscular Hemoglobin Concent 33 g/dL (31-37) Red Cell Distribution Width 14.0 % (11.5-14.5) Platelet Count 72 x10^3/uL (140-400) Neutrophils (%) (Auto) 88 % (31-73) Lymphocytes (%) (Auto) 9 % (24-48) Monocytes (%) (Auto) 4 % (0-9) Eosinophils (%) (Auto) 0 % (0-3) Basophils (%) (Auto) 0 % (0-3) Neutrophils # (Auto) 3.3 x10^3/uL (1.8-7.7) Lymphocytes # (Auto) 0.3 x10^3/uL (1.0-4.8) Monocytes # (Auto) 0.1 x10^3/uL (0.0-1.1) Eosinophils # (Auto) 0.0 x10^3/uL (0.0-0.7) Basophils # (Auto) 0.0 x10^3/uL (0.0-0.2) Sodium Level 141 mmol/L (136-145) Potassium Level 4.0 mmol/L (3.5-5.1) Chloride Level 106 mmol/L (98-107) Carbon Dioxide Level 24 mmol/L (21-32) Anion Gap 11 (6-14) Blood Urea Nitrogen 25 mg/dL (7-20) Creatinine 0.9 mg/dL (0.6-1.0) Estimated GFR (Cockcroft-Gault) 64.8 Glucose Level 285 mg/dL (70-99) Calcium Level 7.4 mg/dL (8.5-10.1) Test 01/24/20 11:47 01/24/20 17:11 01/24/20 21:21 01/25/20 05:20 Glucose (Fingerstick) 273 mg/dL (70-99) 221 mg/dL (70-99) 159 mg/dL (70-99) Sodium Level 143 mmol/L (136-145) Potassium Level 4.2 mmol/L (3.5-5.1) Chloride Level 110 mmol/L (98-107) Carbon Dioxide Level 21 mmol/L (21-32) Anion Gap 12 (6-14) Blood Urea Nitrogen 25 mg/dL (7-20) Creatinine 0.8 mg/dL (0.6-1.0) Estimated GFR (Cockcroft-Gault) 74.2 Glucose Level 183 mg/dL (70-99) Calcium Level 7.5 mg/dL (8.5-10.1) Test 01/25/20 05:30 01/25/20 08:15 White Blood Count 4.2 x10^3/uL (4.0-11.0) Red Blood Count 4.51 x10^6/uL (3.50-5.40) Hemoglobin 13.9 g/dL (12.0-15.5) Hematocrit 41.5 % (36.0-47.0) Mean Corpuscular Volume 92 fL (79-100) Mean Corpuscular Hemoglobin 31 pg (25-35) Mean Corpuscular Hemoglobin Concent 33 g/dL (31-37) Red Cell Distribution Width 14.0 % (11.5-14.5) Platelet Count 68 x10^3/uL (140-400) Neutrophils (%) (Auto) 88 % (31-73) Lymphocytes (%) (Auto) 8 % (24-48) Monocytes (%) (Auto) 4 % (0-9) Eosinophils (%) (Auto) 0 % (0-3) Basophils (%) (Auto) 0 % (0-3) Neutrophils # (Auto) 3.7 x10^3/uL (1.8-7.7) Lymphocytes # (Auto) 0.3 x10^3/uL (1.0-4.8) Monocytes # (Auto) 0.2 x10^3/uL (0.0-1.1) Eosinophils # (Auto) 0.0 x10^3/uL (0.0-0.7) Basophils # (Auto) 0.0 x10^3/uL (0.0-0.2) Segmented Neutrophils % 90 % (35-66) Band Neutrophils % 4 % (0-9) Lymphocytes % 4 % (24-48) Monocytes % 2 % (0-10) Platelet Estimate Decreased (ADEQUATE) Anisocytosis Slight Glucose (Fingerstick) 155 mg/dL (70-99) Laboratory Tests Test 01/24/20 11:47 01/24/20 17:11 01/24/20 21:21 01/25/20 05:20 Glucose (Fingerstick) 273 mg/dL (70-99) 221 mg/dL (70-99) 159 mg/dL (70-99) Sodium Level 143 mmol/L (136-145) Potassium Level 4.2 mmol/L (3.5-5.1) Chloride Level 110 mmol/L (98-107) Carbon Dioxide Level 21 mmol/L (21-32) Anion Gap 12 (6-14) Blood Urea Nitrogen 25 mg/dL (7-20) Creatinine 0.8 mg/dL (0.6-1.0) Estimated GFR (Cockcroft-Gault) 74.2 Glucose Level 183 mg/dL (70-99) Calcium Level 7.5 mg/dL (8.5-10.1) Test 01/25/20 05:30 01/25/20 08:15 White Blood Count 4.2 x10^3/uL (4.0-11.0) Red Blood Count 4.51 x10^6/uL (3.50-5.40) Hemoglobin 13.9 g/dL (12.0-15.5) Hematocrit 41.5 % (36.0-47.0) Mean Corpuscular Volume 92 fL (79-100) Mean Corpuscular Hemoglobin 31 pg (25-35) Mean Corpuscular Hemoglobin Concent 33 g/dL (31-37) Red Cell Distribution Width 14.0 % (11.5-14.5) Platelet Count 68 x10^3/uL (140-400) Neutrophils (%) (Auto) 88 % (31-73) Lymphocytes (%) (Auto) 8 % (24-48) Monocytes (%) (Auto) 4 % (0-9) Eosinophils (%) (Auto) 0 % (0-3) Basophils (%) (Auto) 0 % (0-3) Neutrophils # (Auto) 3.7 x10^3/uL (1.8-7.7) Lymphocytes # (Auto) 0.3 x10^3/uL (1.0-4.8) Monocytes # (Auto) 0.2 x10^3/uL (0.0-1.1) Eosinophils # (Auto) 0.0 x10^3/uL (0.0-0.7) Basophils # (Auto) 0.0 x10^3/uL (0.0-0.2) Segmented Neutrophils % 90 % (35-66) Band Neutrophils % 4 % (0-9) Lymphocytes % 4 % (24-48) Monocytes % 2 % (0-10) Platelet Estimate Decreased (ADEQUATE) Anisocytosis Slight Glucose (Fingerstick) 155 mg/dL (70-99) Medications Current Medications Piperacillin Sod/ Tazobactam Sod (Zosyn Per Pharmacy) 1 each PRN DAILY PRN MC SEE COMMENTS; Start 01/17/20 at 19:30; Stop 01/24/20 at 11:11; Status DC Piperacillin Sod/ Tazobactam Sod 3.375 gm/Sodium Chloride 50 ml @ 100 mls/hr 1X ONCE IV Last administered on 01/17/20at 20:31; Start 01/17/20 at 19:45; Stop 01/17/20 at 20:14; Status DC Piperacillin Sod/ Tazobactam Sod 3.375 gm/Sodium Chloride 50 ml @ 100 mls/hr Q6HRS IV Last administered on 01/24/20at 06:07; Start 01/18/20 at 00:00; Stop 01/24/20 at 11:09; Status DC Zolpidem Tartrate (Ambien) 5 mg PRN QHS PRN PO INSOMNIA; Start 01/18/20 at 01:00 Enoxaparin Sodium (Lovenox Per Pharmacy Prophylaxis Dosing) 1 each PRN DAILY PRN MC SEE COMMENTS; Start 01/18/20 at 01:00 Insulin Glargine (Lantus Syringe) 12 unit QHS SQ Last administered on 01/19/20at 21:24; Start 01/18/20 at 21:00; Stop 01/20/20 at 09:27; Status DC Acetaminophen (Tylenol) 650 mg PRN Q6HRS PRN PO FEVER > 100.3'F Last administered on 01/19/20at 16:20; Start 01/18/20 at 01:00 Enoxaparin Sodium (Lovenox 40mg Syringe) 40 mg BID SQ Last administered on 01/25/20at 08:48; Start 01/18/20 at 09:00 Doxycycline Hyclate (Vibra-Tab) 100 mg BID PO Last administered on 01/25/20at 08:49; Start 01/18/20 at 09:00 Insulin Human Lispro (HumaLOG) 0-5 UNITS TIDWMEALS SQ Last administered on 01/20/20at 17:58; Start 01/18/20 at 12:00; Stop 01/20/20 at 19:03; Status DC Dextrose (Dextrose 50%-Water Syringe) 12.5 gm PRN Q15MIN PRN IV SEE COMMENTS; Start 01/18/20 at 09:45 Lactobacillus Rhamnosus (Culturelle) 1 cap BID PO Last administered on 01/25/20at 08:49; Start 01/18/20 at 21:00 Non-Formulary Medication 1 ea/ Sodium Chloride 210 ml @ 420 mls/hr 1X ONCE IV ; Start 01/19/20 at 10:00; Stop 01/19/20 at 09:34; Status DC Non-Formulary Medication 1 ea/ Sodium Chloride 230 ml @ 460 mls/hr DAILY IV Last administered on 01/23/20at 10:37; Start 01/20/20 at 09:00; Stop 01/23/20 at 09:29; Status DC Non-Formulary Medication 1 ea/ Sodium Chloride 210 ml @ 420 mls/hr 1X ONCE IV Last administered on 01/19/20at 10:05; Start 01/19/20 at 09:45; Stop 01/19/20 at 10:14; Status DC Valacyclovir HCl (Valtrex) 1,000 mg TID PO Last administered on 01/24/20at 08:28; Start 01/19/20 at 14:00; Stop 01/24/20 at 11:09; Status DC Methylprednisolone Sodium Succinate (SOLU-Medrol 125MG VIAL) 60 mg Q8HRS IV Last administered on 01/21/20at 06:33; Start 01/19/20 at 22:00; Stop 01/21/20 at 07:09; Status DC Sterile Water (WATER for RESP) 1,000 ml CONT PRN INH VIA VAPOTHERM DEVICE Last administered on 01/24/20at 11:27; Start 01/19/20 at 17:30 Insulin Glargine (Lantus Syringe) 16 unit QHS SQ Last administered on 01/21/20at 21:18; Start 01/20/20 at 21:00; Stop 01/22/20 at 13:09; Status DC Insulin Human Lispro (HumaLOG) 0-9 UNITS TIDWMEALS SQ Last administered on at 08:53; Start 01/21/20 at 08:00 Methylprednisolone Sodium Succinate (SOLU-Medrol 40MG VIAL) 40 mg Q12HR IV Last administered on 01/25/20at 08:48; Start 01/21/20 at 09:00 Insulin Glargine (Lantus Syringe) 20 unit QHS SQ Last administered on 01/22/20at 20:40; Start 01/22/20 at 21:00; Stop 01/23/20 at 15:58; Status DC Potassium Chloride (Klor-Con) 40 meq 1X ONCE PO Last administered on 01/22/20at 16:56; Start 01/22/20 at 16:00; Stop 01/22/20 at 16:03; Status DC Potassium Chloride (Klor-Con) 20 meq [id number] PO Last administered on 01/25/20at 08:48; Start 01/23/20 at 08:00 Metformin HCl (Glucophage) 1,000 mg BIDWMEALS PO Last administered on 01/25/20at 08:49; Start 01/22/20 at 17:00 Insulin Glargine (Lantus Syringe) 25 unit QHS SQ Last administered on 01/23/20at 21:01; Start 01/23/20 at 21:00; Stop 01/24/20 at 11:12; Status DC Insulin Glargine (Lantus Syringe) 28 unit QHS SQ Last administered on 01/24/20at 21:17; Start 01/24/20 at 21:00 Sodium Chloride 1,000 ml @ 65 mls/hr [id number] IV Last administered on 01/25/20at 06:30; Start 01/24/20 at 14:45 Active Scripts Active Reported Metformin Hcl 1,000 Mg Tablet 1,000 Mg PO BIDWMEALS Vitals/I & O Vital Sign - Last 24 Hours 01/24/20 01/24/20 01/24/20 01/24/20 10:03 11:12 11:23 12:10 Temp 97.7 97.8 97.7 97.8 Pulse 66 67 63 Resp 44 39 B/P (MAP) 105/62 (76) 108/61 (77) 112/64 (80) Pulse Ox 97 96 97 96 O2 Delivery Nasal Cannula Nasal Cannula High Flow Nasal Cannula Nasal Cannula O2 Flow Rate 40.0 40.0 40.0 40.0 01/24/20 01/24/20 01/24/20 01/24/20 12:10 13:06 14:00 15:00 Pulse 54 60 64 Resp 36 35 37 B/P (MAP) 100/61 (74) 122/71 (88) 104/61 (75) Pulse Ox 92 97 97 O2 Delivery Nasal Cannula Nasal Cannula Nasal Cannula Nasal Cannula O2 Flow Rate 40.0 40.0 40.0 40.0 01/24/20 01/24/20 01/24/20 01/24/20 15:54 16:12 16:14 17:16 Pulse 62 63 Resp 39 B/P (MAP) 107/69 (82) 108/65 (79) Pulse Ox 97 94 93 O2 Delivery High Flow Nasal Cannula Nasal Cannula Nasal Cannula Nasal Cannula O2 Flow Rate 40.0 40.0 40.0 40.0 01/24/20 01/24/20 01/24/20 6/24/20 18:00 19:00 20:00 20:00 Temp 98.5 98.5 Pulse 64 58 76 B/P (MAP) 125/76 (92) 118/68 (85) 116/68 (84) Pulse Ox 93 94 96 O2 Delivery Nasal Cannula Nasal Cannula Nasal Cannula Nasal Cannula O2 Flow Rate 40.0 40.0 40.0 40.0 01/24/20 01/24/20 01/24/20 01/24/20 20:18 21:00 22:00 23:00 Pulse 60 52 58 Resp 41 B/P (MAP) 122/78 (93) 115/72 (86) 109/75 (86) Pulse Ox 95 96 94 95 O2 Delivery High Flow Nasal Cannula Nasal Cannula Nasal Cannula Nasal Cannula O2 Flow Rate 40.0 40.0 40.0 40.0 01/24/20 01/24/20 01/25/20 01/25/20 23:59 23:59 00:27 01:00 Temp 98.7 98.7 Pulse 52 49 Resp 28 30 B/P (MAP) 104/61 (75) 98/61 (73) Pulse Ox 95 94 95 O2 Delivery Nasal Cannula Nasal Cannula High Flow Nasal Cannula Nasal Cannula O2 Flow Rate 40.0 40.0 40.0 40.0 01/25/20 01/25/20 01/25/20 01/25/20 02:00 03:00 04:00 04:00 Temp 97.5 97.5 Pulse 59 55 50 Resp 28 27 28 B/P (MAP) 104/66 (79) 109/66 (80) 114/61 (78) Pulse Ox 95 97 97 O2 Delivery Nasal Cannula Nasal Cannula Nasal Cannula Nasal Cannula O2 Flow Rate 40.0 40.0 40.0 40.0 01/25/20 01/25/20 01/25/20 01/25/20 04:40 05:00 05:58 07:00 Pulse 61 54 50 Resp 30 30 28 B/P (MAP) 109/60 (76) 98/57 (71) 123/71 (88) Pulse Ox 97 96 96 94 O2 Delivery High Flow Nasal Cannula Nasal Cannula Nasal Cannula High Flow Nasal Cannula O2 Flow Rate 40.0 40.0 40.0 40.0 01/25/20 08:49 Pulse Ox 98 O2 Delivery High Flow Nasal Cannula O2 Flow Rate 40.0 Intake and Output 01/24/20 01/24/20 01/25/20 14:59 22:59 06:59 Intake Total 590 ml 546 ml Output Total 247 ml 155 ml 420 ml Balance 343 ml -155 ml 126 ml TANK MILTON MD Jan 25, 2020 09:35
--- NOTE | 2020-01-25 10:34 | PDOC ---
PULMONARY PROGRESS NOTES Subjective Patient on Vapotherm able to decrease FiO2 Vitals Vital Signs Date Time Temp Pulse Resp B/P (MAP) Pulse Ox O2 Delivery O2 Flow Rate FiO2 01/25/20 09:00 64 32 113/68 (83) 91 High Flow Nasal Cannula 35.0 01/25/20 08:00 98.4 98.4 General: Alert, No acute distress Lungs: Clear Abdomen: Soft Neuro Exam: Alert Extremities: No Edema Skin: Warm Labs Laboratory Tests Test 01/23/20 12:04 01/23/20 17:34 01/23/20 21:48 01/24/20 04:50 Glucose (Fingerstick) 258 mg/dL (70-99) 232 mg/dL (70-99) 215 mg/dL (70-99) White Blood Count 3.8 x10^3/uL (4.0-11.0) Red Blood Count 4.43 x10^6/uL (3.50-5.40) Hemoglobin 13.5 g/dL (12.0-15.5) Hematocrit 40.6 % (36.0-47.0) Mean Corpuscular Volume 92 fL (79-100) Mean Corpuscular Hemoglobin 31 pg (25-35) Mean Corpuscular Hemoglobin Concent 33 g/dL (31-37) Red Cell Distribution Width 14.0 % (11.5-14.5) Platelet Count 72 x10^3/uL (140-400) Neutrophils (%) (Auto) 88 % (31-73) Lymphocytes (%) (Auto) 9 % (24-48) Monocytes (%) (Auto) 4 % (0-9) Eosinophils (%) (Auto) 0 % (0-3) Basophils (%) (Auto) 0 % (0-3) Neutrophils # (Auto) 3.3 x10^3/uL (1.8-7.7) Lymphocytes # (Auto) 0.3 x10^3/uL (1.0-4.8) Monocytes # (Auto) 0.1 x10^3/uL (0.0-1.1) Eosinophils # (Auto) 0.0 x10^3/uL (0.0-0.7) Basophils # (Auto) 0.0 x10^3/uL (0.0-0.2) Sodium Level 141 mmol/L (136-145) Potassium Level 4.0 mmol/L (3.5-5.1) Chloride Level 106 mmol/L (98-107) Carbon Dioxide Level 24 mmol/L (21-32) Anion Gap 11 (6-14) Blood Urea Nitrogen 25 mg/dL (7-20) Creatinine 0.9 mg/dL (0.6-1.0) Estimated GFR (Cockcroft-Gault) 64.8 Glucose Level 285 mg/dL (70-99) Calcium Level 7.4 mg/dL (8.5-10.1) Test 01/24/20 11:47 01/24/20 17:11 01/24/20 21:21 01/25/20 05:20 Glucose (Fingerstick) 273 mg/dL (70-99) 221 mg/dL (70-99) 159 mg/dL (70-99) Sodium Level 143 mmol/L (136-145) Potassium Level 4.2 mmol/L (3.5-5.1) Chloride Level 110 mmol/L (98-107) Carbon Dioxide Level 21 mmol/L (21-32) Anion Gap 12 (6-14) Blood Urea Nitrogen 25 mg/dL (7-20) Creatinine 0.8 mg/dL (0.6-1.0) Estimated GFR (Cockcroft-Gault) 74.2 Glucose Level 183 mg/dL (70-99) Calcium Level 7.5 mg/dL (8.5-10.1) Test 01/25/20 05:30 01/25/20 08:15 White Blood Count 4.2 x10^3/uL (4.0-11.0) Red Blood Count 4.51 x10^6/uL (3.50-5.40) Hemoglobin 13.9 g/dL (12.0-15.5) Hematocrit 41.5 % (36.0-47.0) Mean Corpuscular Volume 92 fL (79-100) Mean Corpuscular Hemoglobin 31 pg (25-35) Mean Corpuscular Hemoglobin Concent 33 g/dL (31-37) Red Cell Distribution Width 14.0 % (11.5-14.5) Platelet Count 68 x10^3/uL (140-400) Neutrophils (%) (Auto) 88 % (31-73) Lymphocytes (%) (Auto) 8 % (24-48) Monocytes (%) (Auto) 4 % (0-9) Eosinophils (%) (Auto) 0 % (0-3) Basophils (%) (Auto) 0 % (0-3) Neutrophils # (Auto) 3.7 x10^3/uL (1.8-7.7) Lymphocytes # (Auto) 0.3 x10^3/uL (1.0-4.8) Monocytes # (Auto) 0.2 x10^3/uL (0.0-1.1) Eosinophils # (Auto) 0.0 x10^3/uL (0.0-0.7) Basophils # (Auto) 0.0 x10^3/uL (0.0-0.2) Segmented Neutrophils % 90 % (35-66) Band Neutrophils % 4 % (0-9) Lymphocytes % 4 % (24-48) Monocytes % 2 % (0-10) Platelet Estimate Decreased (ADEQUATE) Anisocytosis Slight Glucose (Fingerstick) 155 mg/dL (70-99) Laboratory Tests Test 01/24/20 11:47 01/24/20 17:11 01/24/20 21:21 01/25/20 05:20 Glucose (Fingerstick) 273 mg/dL (70-99) 221 mg/dL (70-99) 159 mg/dL (70-99) Sodium Level 143 mmol/L (136-145) Potassium Level 4.2 mmol/L (3.5-5.1) Chloride Level 110 mmol/L (98-107) Carbon Dioxide Level 21 mmol/L (21-32) Anion Gap 12 (6-14) Blood Urea Nitrogen 25 mg/dL (7-20) Creatinine 0.8 mg/dL (0.6-1.0) Estimated GFR (Cockcroft-Gault) 74.2 Glucose Level 183 mg/dL (70-99) Calcium Level 7.5 mg/dL (8.5-10.1) Test 01/25/20 05:30 01/25/20 08:15 White Blood Count 4.2 x10^3/uL (4.0-11.0) Red Blood Count 4.51 x10^6/uL (3.50-5.40) Hemoglobin 13.9 g/dL (12.0-15.5) Hematocrit 41.5 % (36.0-47.0) Mean Corpuscular Volume 92 fL (79-100) Mean Corpuscular Hemoglobin 31 pg (25-35) Mean Corpuscular Hemoglobin Concent 33 g/dL (31-37) Red Cell Distribution Width 14.0 % (11.5-14.5) Platelet Count 68 x10^3/uL (140-400) Neutrophils (%) (Auto) 88 % (31-73) Lymphocytes (%) (Auto) 8 % (24-48) Monocytes (%) (Auto) 4 % (0-9) Eosinophils (%) (Auto) 0 % (0-3) Basophils (%) (Auto) 0 % (0-3) Neutrophils # (Auto) 3.7 x10^3/uL (1.8-7.7) Lymphocytes # (Auto) 0.3 x10^3/uL (1.0-4.8) Monocytes # (Auto) 0.2 x10^3/uL (0.0-1.1) Eosinophils # (Auto) 0.0 x10^3/uL (0.0-0.7) Basophils # (Auto) 0.0 x10^3/uL (0.0-0.2) Segmented Neutrophils % 90 % (35-66) Band Neutrophils % 4 % (0-9) Lymphocytes % 4 % (24-48) Monocytes % 2 % (0-10) Platelet Estimate Decreased (ADEQUATE) Anisocytosis Slight Glucose (Fingerstick) 155 mg/dL (70-99) Medications Active Scripts Medications Dose Route/Sig Max Daily Dose Days Date Category Metformin Hcl 1,000 Mg Tablet 1,000 Mg PO BIDWMEALS 01/18/20 Reported Comments cxr reviewed There is increased airspace opacity/infiltrates of the bilateral hemithoraces. Impression . IMPRESSION: 1. Acute hypoxic respiratory failure secondary to COVID-19 pneumonia. 2. Leukopenia secondary to viral pneumonia.improved. 3. Abnormal chest x-ray with bilateral patchy infiltrates, highly compatible with COVID-19 pneumonia. 4. Abnormal liver function tests, likely related to COVID pneumonia. Plan . Continue current support 1. Keep her on high flow Vapotherm/ 90%FIO2. .Keep her under COVID isolation. Remdesivir, 01/18 s/p convulasant plasma, cont solumedrol, changed to 40 bid 2. Monitor oxygen level. Keep saturation 92 and above. 3. Empiric antibiotic. 4. COVID-19 positive 5. Lovenox for DVT prophylaxis. 6. We will monitor respiratory status closely, 7. Pt does not want intubation/ DNI discussed w rn, rt JAIRO CORTEZ MD Jan 25, 2020 10:34
[2020-01-25] MEDS: STERILE WATER for RESP 1,000 ML BAG. INH PRN (13:23)
--- NOTE | 2020-01-25 13:28 | NUR ---
SS following up with discharge planning. SS reviewed pt chart and discussed with pt RN. Pt remains on Vapotherm at this time. Pt COVID19 positive. SS will continue to follow for discharge planning.
[2020-01-25] MEDS: PANTOPRAZOLE 40 MG TABLET.DR. PO SCH (17:16)
[2020-01-25] MEDS: INSULIN GLARGINE SYRINGE. SQ SCH (21:43)
[2020-01-26] VITALS (24 sets, daily range): BP systolic 81–134; BP diastolic 51–74
[2020-01-26] MEDS: IV NORMAL SALINE 1000ML BAG 1,000 ML IV SCH ×2 (00:19→14:00)
--- NOTE | 2020-01-26 07:41 | PDOC ---
Infectious Disease Note Subjective Subjective feeling better, breathing better ROS ROS No fever chest pain abdominal pain Vital Sign Vital Signs Vital Signs Date Time Temp Pulse Resp B/P (MAP) Pulse Ox O2 Delivery O2 Flow Rate FiO2 01/26/20 06:00 46 40 101/62 (75) 92 Nasal Cannula 35.0 01/26/20 05:00 98.6 98.6 Physical Exam PHYSICAL EXAM GENERAL: Propped up in bed, alert and watching TV HEENT: Oral cavity, pharynx was clear. some blisters NECK: Supple. LUNGS: WHEEZING HEART: S1, S2. regular ABDOMEN: Obese, soft, no guarding, rebound. : Hinkle in place EXTREMITIES: No clubbing, cyanosis or gross edema. SKIN: Warm to touch without signs of rash. NEUROLOGIC: Alert, responding to questions/gestures appropriately PIV Labs Lab Laboratory Tests Test 01/25/20 08:15 01/25/20 17:09 01/25/20 21:22 01/26/20 04:00 Glucose (Fingerstick) 155 mg/dL (70-99) 214 mg/dL (70-99) 176 mg/dL (70-99) Magnesium Level 2.3 mg/dL (1.8-2.4) Test 01/26/20 07:30 Glucose (Fingerstick) 188 mg/dL (70-99) Objective Assessment Fever - better Acute resp hypoxic resp failure - COVID + Abnormal CXR Leukopenina - chronic Thrombocytopenia Plan Plan of Care Cont Doxycycline Remdesivir, 01/18 done On steroids F/u labs Plasma given ANALIA CHANG MD Jan 26, 2020 07:41
[2020-01-26] MEDS: LACTOBACILLUS RHAMNOSUS GG 1 CAPSULE. PO SCH ×2 (08:11→20:45)
[2020-01-26] MEDS: POTASSIUM CHLORIDE 20 MEQ TABLET.ER. PO SCH (08:11)
[2020-01-26] MEDS: DOXYCYCLINE HYCLATE 100 MG TABLET PO SCH ×2 (08:11→20:45)
[2020-01-26] MEDS: metFORMIN 500 MG TABLET PO SCH ×2 (08:11→17:12)
[2020-01-26] MEDS: ENOXAPARIN 40 MG/0.4 ML SYRINGE. SQ SCH ×2 (08:11→20:45)
[2020-01-26] MEDS: PANTOPRAZOLE 40 MG TABLET.DR. PO SCH (08:11)
[2020-01-26] MEDS: methylPREDNISolone SOD SUCC PF 40 MG/ML VIAL. IV SCH ×2 (08:12→20:45)
[2020-01-26] MEDS: INSULIN LISPRO 300 UNITS/3 ML VIAL. SQ SCH ×3 (08:13→17:13)
--- NOTE | 2020-01-26 09:32 | PDOC ---
PULMONARY PROGRESS NOTES Subjective Patient on Vapotherm able to decrease FiO2 Vitals Vital Signs Date Time Temp Pulse Resp B/P (MAP) Pulse Ox O2 Delivery O2 Flow Rate FiO2 01/26/20 08:46 97 Vepotherm 35.0 01/26/20 06:00 46 40 101/62 (75) 01/26/20 05:00 98.6 98.6 General: Alert, No acute distress Lungs: Clear Abdomen: Soft Neuro Exam: Alert Extremities: No Edema Skin: Warm Labs Laboratory Tests Test 01/24/20 11:47 01/24/20 17:11 01/24/20 21:21 01/25/20 05:20 Glucose (Fingerstick) 273 mg/dL (70-99) 221 mg/dL (70-99) 159 mg/dL (70-99) Sodium Level 143 mmol/L (136-145) Potassium Level 4.2 mmol/L (3.5-5.1) Chloride Level 110 mmol/L (98-107) Carbon Dioxide Level 21 mmol/L (21-32) Anion Gap 12 (6-14) Blood Urea Nitrogen 25 mg/dL (7-20) Creatinine 0.8 mg/dL (0.6-1.0) Estimated GFR (Cockcroft-Gault) 74.2 Glucose Level 183 mg/dL (70-99) Calcium Level 7.5 mg/dL (8.5-10.1) Test 01/25/20 05:30 01/25/20 08:15 01/25/20 17:09 01/25/20 21:22 White Blood Count 4.2 x10^3/uL (4.0-11.0) Red Blood Count 4.51 x10^6/uL (3.50-5.40) Hemoglobin 13.9 g/dL (12.0-15.5) Hematocrit 41.5 % (36.0-47.0) Mean Corpuscular Volume 92 fL (79-100) Mean Corpuscular Hemoglobin 31 pg (25-35) Mean Corpuscular Hemoglobin Concent 33 g/dL (31-37) Red Cell Distribution Width 14.0 % (11.5-14.5) Platelet Count 68 x10^3/uL (140-400) Neutrophils (%) (Auto) 88 % (31-73) Lymphocytes (%) (Auto) 8 % (24-48) Monocytes (%) (Auto) 4 % (0-9) Eosinophils (%) (Auto) 0 % (0-3) Basophils (%) (Auto) 0 % (0-3) Neutrophils # (Auto) 3.7 x10^3/uL (1.8-7.7) Lymphocytes # (Auto) 0.3 x10^3/uL (1.0-4.8) Monocytes # (Auto) 0.2 x10^3/uL (0.0-1.1) Eosinophils # (Auto) 0.0 x10^3/uL (0.0-0.7) Basophils # (Auto) 0.0 x10^3/uL (0.0-0.2) Segmented Neutrophils % 90 % (35-66) Band Neutrophils % 4 % (0-9) Lymphocytes % 4 % (24-48) Monocytes % 2 % (0-10) Platelet Estimate Decreased (ADEQUATE) Anisocytosis Slight Glucose (Fingerstick) 155 mg/dL (70-99) 214 mg/dL (70-99) 176 mg/dL (70-99) Test 01/26/20 04:00 01/26/20 07:30 Magnesium Level 2.3 mg/dL (1.8-2.4) Glucose (Fingerstick) 188 mg/dL (70-99) Laboratory Tests Test 01/25/20 17:09 01/25/20 21:22 01/26/20 04:00 01/26/20 07:30 Glucose (Fingerstick) 214 mg/dL (70-99) 176 mg/dL (70-99) 188 mg/dL (70-99) Magnesium Level 2.3 mg/dL (1.8-2.4) Medications Active Scripts Medications Dose Route/Sig Max Daily Dose Days Date Category Metformin Hcl 1,000 Mg Tablet 1,000 Mg PO BIDWMEALS 01/18/20 Reported Comments cxr reviewed There is increased airspace opacity/infiltrates of the bilateral hemithoraces. Impression . IMPRESSION: 1. Acute hypoxic respiratory failure secondary to COVID-19 pneumonia. 2. Leukopenia secondary to viral pneumonia.improved. 3. Abnormal chest x-ray with bilateral patchy infiltrates, highly compatible with COVID-19 pneumonia. 4. Abnormal liver function tests, likely related to COVID pneumonia. Plan . Continue current support Decrease FiO2 Continue current support Status post convalescent serum, and Remdesivir JAIRO CORTEZ MD Jan 26, 2020 09:32
--- NOTE | 2020-01-26 12:16 | PDOC ---
PROGRESS NOTES Chief Complaint Chief Complaint Impression ACUTE HYPOXIC RESPIRATORY FAILURE COVID-19 syndrome Patchy interstitial opacities throughout the lung whitt may represent pulmonary wedge-shaped infarcts versus atypical infection such as a viral illness. 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 morbid obesity weight down to 90.5 kg diabetes, uncontrolled, insulin//lantus adjusted Plan: Cont po , Doxycycline Remdesivir, 01/18 s/p convulasant plasma, cont solumedrol, changed to 40 bid heme consult REFUSED INTUBATION SUPPORT will increase LANTUS 32 UNITS SQ HS Remdesivir, 01/18 done History of Present Illness History of Present Illness 01/25/2020 Patient seen and examined COVID positive Chart reviewed Discussed with RN possible uti inc lantus to 25 units sq hs heme consult on vapotherm 40 lpm and 100% fio2, appears comfortable, po protonix 01/25 No acute events reported overnight, case discussed with nursing staff patient in no acute distress no complaints during my visit, asking when she can go home, reassurance provided still requiring Vapotherm plan of care explained in detail all of her concerns were addressed to the best of my abilities. Lantus has been increased for better glycemic control 01/18/2020 Patient seen and examined Discussed with infectious disease Discussed with RN Chart reviewed I ordered hematology consultation as well Vitals Vitals Vital Signs Date Time Temp Pulse Resp B/P (MAP) Pulse Ox O2 Delivery O2 Flow Rate FiO2 01/26/20 11:52 96 Vepotherm 35.0 01/26/20 11:00 60 35 83/55 (64) 01/26/20 08:00 98.4 98.4 Physical Exam Physical Exam GENERAL: Propped up in bed, alert and watching TV HEENT: Oral cavity, pharynx was clear. some blisters NECK: Supple. LUNGS: WHEEZING HEART: S1, S2. regular ABDOMEN: Obese, soft, no guarding, rebound. : Hinkle in place EXTREMITIES: No clubbing, cyanosis or gross edema. SKIN: Warm to touch without signs of rash. NEUROLOGIC: Alert, responding to questions/gestures appropriately PIV General: Alert, Oriented X3, Cooperative, No acute distress Heart: Regular rate, Normal S1 Lungs: Clear Abdomen: Normal bowel sounds, Soft Extremities: No clubbing, No cyanosis Skin: No rashes, No breakdown Labs LABS Laboratory Tests Test 01/25/20 17:09 01/25/20 21:22 01/26/20 04:00 01/26/20 07:30 Glucose (Fingerstick) 214 mg/dL (70-99) 176 mg/dL (70-99) 188 mg/dL (70-99) Magnesium Level 2.3 mg/dL (1.8-2.4) Test 01/26/20 11:37 Glucose (Fingerstick) 193 mg/dL (70-99) Assessment and Plan Assessmemt and Plan Problems Medical Problems: (1) Coronavirus infection Status: Acute (2) Leukopenia Status: Acute (3) Respiratory failure, acute Status: Acute Comment Review of Relevant I have reviewed the following items jorge (where applicable) has been applied. Labs Laboratory Tests Test 01/24/20 17:11 01/24/20 21:21 01/25/20 05:20 01/25/20 05:30 Glucose (Fingerstick) 221 mg/dL (70-99) 159 mg/dL (70-99) Sodium Level 143 mmol/L (136-145) Potassium Level 4.2 mmol/L (3.5-5.1) Chloride Level 110 mmol/L (98-107) Carbon Dioxide Level 21 mmol/L (21-32) Anion Gap 12 (6-14) Blood Urea Nitrogen 25 mg/dL (7-20) Creatinine 0.8 mg/dL (0.6-1.0) Estimated GFR (Cockcroft-Gault) 74.2 Glucose Level 183 mg/dL (70-99) Calcium Level 7.5 mg/dL (8.5-10.1) White Blood Count 4.2 x10^3/uL (4.0-11.0) Red Blood Count 4.51 x10^6/uL (3.50-5.40) Hemoglobin 13.9 g/dL (12.0-15.5) Hematocrit 41.5 % (36.0-47.0) Mean Corpuscular Volume 92 fL (79-100) Mean Corpuscular Hemoglobin 31 pg (25-35) Mean Corpuscular Hemoglobin Concent 33 g/dL (31-37) Red Cell Distribution Width 14.0 % (11.5-14.5) Platelet Count 68 x10^3/uL (140-400) Neutrophils (%) (Auto) 88 % (31-73) Lymphocytes (%) (Auto) 8 % (24-48) Monocytes (%) (Auto) 4 % (0-9) Eosinophils (%) (Auto) 0 % (0-3) Basophils (%) (Auto) 0 % (0-3) Neutrophils # (Auto) 3.7 x10^3/uL (1.8-7.7) Lymphocytes # (Auto) 0.3 x10^3/uL (1.0-4.8) Monocytes # (Auto) 0.2 x10^3/uL (0.0-1.1) Eosinophils # (Auto) 0.0 x10^3/uL (0.0-0.7) Basophils # (Auto) 0.0 x10^3/uL (0.0-0.2) Segmented Neutrophils % 90 % (35-66) Band Neutrophils % 4 % (0-9) Lymphocytes % 4 % (24-48) Monocytes % 2 % (0-10) Platelet Estimate Decreased (ADEQUATE) Anisocytosis Slight Test 01/25/20 08:15 01/25/20 17:09 01/25/20 21:22 01/26/20 04:00 Glucose (Fingerstick) 155 mg/dL (70-99) 214 mg/dL (70-99) 176 mg/dL (70-99) Magnesium Level 2.3 mg/dL (1.8-2.4) Test 01/26/20 07:30 01/26/20 11:37 Glucose (Fingerstick) 188 mg/dL (70-99) 193 mg/dL (70-99) Laboratory Tests Test 01/25/20 17:09 01/25/20 21:22 01/26/20 04:00 01/26/20 07:30 Glucose (Fingerstick) 214 mg/dL (70-99) 176 mg/dL (70-99) 188 mg/dL (70-99) Magnesium Level 2.3 mg/dL (1.8-2.4) Test 01/26/20 11:37 Glucose (Fingerstick) 193 mg/dL (70-99) Medications Current Medications Piperacillin Sod/ Tazobactam Sod (Zosyn Per Pharmacy) 1 each PRN DAILY PRN MC SEE COMMENTS; Start 01/17/20 at 19:30; Stop 01/24/20 at 11:11; Status DC Piperacillin Sod/ Tazobactam Sod 3.375 gm/Sodium Chloride 50 ml @ 100 mls/hr 1X ONCE IV Last administered on 01/17/20at 20:31; Start 01/17/20 at 19:45; Stop 01/17/20 at 20:14; Status DC Piperacillin Sod/ Tazobactam Sod 3.375 gm/Sodium Chloride 50 ml @ 100 mls/hr Q6HRS IV Last administered on 01/24/20at 06:07; Start 01/18/20 at 00:00; Stop 01/24/20 at 11:09; Status DC Zolpidem Tartrate (Ambien) 5 mg PRN QHS PRN PO INSOMNIA; Start 01/18/20 at 01:00 Enoxaparin Sodium (Lovenox Per Pharmacy Prophylaxis Dosing) 1 each PRN DAILY PRN MC SEE COMMENTS; Start 01/18/20 at 01:00 Insulin Glargine (Lantus Syringe) 12 unit QHS SQ Last administered on 01/19/20at 21:24; Start 01/18/20 at 21:00; Stop 01/20/20 at 09:27; Status DC Acetaminophen (Tylenol) 650 mg PRN Q6HRS PRN PO FEVER > 100.3'F Last administered on 01/19/20at 16:20; Start 01/18/20 at 01:00 Enoxaparin Sodium (Lovenox 40mg Syringe) 40 mg BID SQ Last administered on 01/26/20at 08:11; Start 01/18/20 at 09:00 Doxycycline Hyclate (Vibra-Tab) 100 mg BID PO Last administered on 01/26/20at 08:11; Start 01/18/20 at 09:00 Insulin Human Lispro (HumaLOG) 0-5 UNITS TIDWMEALS SQ Last administered on 01/20/20at 17:58; Start 01/18/20 at 12:00; Stop 01/20/20 at 19:03; Status DC Dextrose (Dextrose 50%-Water Syringe) 12.5 gm PRN Q15MIN PRN IV SEE COMMENTS; Start 01/18/20 at 09:45 Lactobacillus Rhamnosus (Culturelle) 1 cap BID PO Last administered on 01/26/20at 08:11; Start 01/18/20 at 21:00 Non-Formulary Medication 1 ea/ Sodium Chloride 210 ml @ 420 mls/hr 1X ONCE IV ; Start 01/19/20 at 10:00; Stop 01/19/20 at 09:34; Status DC Non-Formulary Medication 1 ea/ Sodium Chloride 230 ml @ 460 mls/hr DAILY IV Last administered on 01/23/20at 10:37; Start 01/20/20 at 09:00; Stop 01/23/20 at 09:29; Status DC Non-Formulary Medication 1 ea/ Sodium Chloride 210 ml @ 420 mls/hr 1X ONCE IV Last administered on 01/19/20at 10:05; Start 01/19/20 at 09:45; Stop 01/19/20 at 10:14; Status DC Valacyclovir HCl (Valtrex) 1,000 mg TID PO Last administered on 01/24/20at 08: 28; Start 01/19/20 at 14:00; Stop 01/24/20 at 11:09; Status DC Methylprednisolone Sodium Succinate (SOLU-Medrol 125MG VIAL) 60 mg Q8HRS IV Last administered on 01/21/20at 06:33; Start 01/19/20 at 22:00; Stop 01/21/20 at 07:09; Status DC Sterile Water (WATER for RESP) 1,000 ml CONT PRN INH VIA VAPOTHERM DEVICE Last administered on 01/25/20at 13:23; Start 01/19/20 at 17:30 Insulin Glargine (Lantus Syringe) 16 unit QHS SQ Last administered on 01/21/20at 21:18; Start 01/20/20 at 21:00; Stop 01/22/20 at 13:09; Status DC Insulin Human Lispro (HumaLOG) 0-9 UNITS TIDWMEALS SQ Last administered on 01/26/20at 08:13; Start 01/21/20 at 08:00 Methylprednisolone Sodium Succinate (SOLU-Medrol 40MG VIAL) 40 mg Q12HR IV Last administered on 01/26/20at 08:12; Start 01/21/20 at 09:00 Insulin Glargine (Lantus Syringe) 20 unit QHS SQ Last administered on 01/22/20at 20:40; Start 01/22/20 at 21:00; Stop 01/23/20 at 15:58; Status DC Potassium Chloride (Klor-Con) 40 meq 1X ONCE PO Last administered on 01/22/20at 16:56; Start 01/22/20 at 16:00; Stop 01/22/20 at 16:03; Status DC Potassium Chloride (Klor-Con) 20 meq DAILYWBKFT PO Last administered on 01/25at 08:11; Start 01/23/20 at 08:00 Metformin HCl (Glucophage) 1,000 mg BIDWMEALS PO Last administered on 01/26/20at 08:11; Start 01/22/20 at 17:00 Insulin Glargine (Lantus Syringe) 25 unit QHS SQ Last administered on 01/23/20at 21:01; Start 01/23/20 at 21:00; Stop 01/24/20 at 11:12; Status DC Insulin Glargine (Lantus Syringe) 28 unit QHS SQ Last administered on 01/25/20at 21:43; Start 01/24/20 at 21:00 Sodium Chloride 1,000 ml @ 65 mls/hr [id number] IV Last administered on 01/26/20at 00:19; Start 01/24/20 at 14:45 Pantoprazole Sodium (Protonix) 40 mg DAILYAC PO Last administered on 01/26/20at 08:11; Start 01/25/20 at 14:00 Active Scripts Active Reported Metformin Hcl 1,000 Mg Tablet 1,000 Mg PO BIDWMEALS Vitals/I & O Vital Sign - Last 24 Hours 01/25/20 01/25/20 01/25/20 01/25/20 13:00 14:00 15:00 15:55 Pulse 64 58 56 Resp 36 33 28 B/P (MAP) 122/75 (91) 112/71 (85) 109/70 (83) Pulse Ox 92 93 92 93 O2 Delivery High Flow Nasal Cannula High Flow Nasal Cannula High Flow Nasal Cannula Vapotherm HHFNC O2 Flow Rate 35.0 35.0 35.0 35.0 01/25/20 01/25/20 01/25/20 01/25/20 16:00 16:00 17:00 18:00 Temp 98.4 98.4 Pulse 60 65 59 Resp 28 31 36 B/P (MAP) 112/71 (85) 115/74 (88) 116/72 (87) Pulse Ox 93 96 96 O2 Delivery Nasal Cannula High Flow Nasal Cannula High Flow Nasal Cannula High Flow Nasal Cannula O2 Flow Rate 35.0 35.0 35.0 35.0 01/25/20 01/25/20 01/25/20 01/25/20 19:00 20:00 20:00 20:13 Temp 98.6 98.6 Pulse 59 59 Resp 34 34 B/P (MAP) 114/71 (85) 119/71 (87) Pulse Ox 96 96 99 O2 Delivery High Flow Nasal Cannula Nasal Cannula High Flow Nasal Cannula Vapotherm HHFNC O2 Flow Rate 35.0 35.0 35.0 35.0 01/25/20 01/25/20 01/25/20 01/25/20 21:00 22:32 23:00 23:38 Temp 98.8 98.8 98.6 98.8 98.8 98.6 Pulse 60 60 50 Resp 30 30 40 B/P (MAP) 112/70 (84) 119/72 (88) 112/75 (87) Pulse Ox 96 95 91 92 O2 Delivery Nasal Cannula Nasal Cannula Nasal Cannula Vapotherm HHFNC O2 Flow Rate 35.0 35.0 35.0 35.0 01/26/20 01/26/20 01/26/20 01/26/20 00:00 00:01 01:00 02:00 Pulse 48 44 46 Resp 43 B/P (MAP) 102/65 (77) 113/70 (84) 108/68 (81) Pulse Ox 90 91 91 O2 Delivery Nasal Cannula Nasal Cannula Nasal Cannula Nasal Cannula O2 Flow Rate 35.0 35.0 35.0 35.0 01/26/20 01/26/20 01/26/20 01/26/20 03:00 04:00 04:00 05:00 Temp 98.6 98.6 Pulse 46 48 48 Resp 35 33 44 B/P (MAP) 108/66 (80) 110/65 (80) 108/65 (79) Pulse Ox 92 91 90 O2 Delivery Nasal Cannula Nasal Cannula Nasal Cannula Nasal Cannula O2 Flow Rate 35.0 35.0 35.0 35.0 01/26/20 01/26/20 01/26/20 01/26/20 06:00 07:00 08:00 08:00 Temp 98.4 98.4 Pulse 46 58 62 Resp 40 39 41 B/P (MAP) 101/62 (75) 118/64 (82) 108/69 (82) Pulse Ox 92 98 97 O2 Delivery Nasal Cannula Nasal Cannula Nasal Cannula Nasal Cannula O2 Flow Rate 35.0 35.0 35.0 35.0 01/26/20 01/26/20 01/26/20 01/26/20 08:46 09:00 10:00 11:00 Pulse 60 60 60 Resp 40 39 35 B/P (MAP) 104/66 (79) 81/51 (61) 83/55 (64) Pulse Ox 97 97 99 97 O2 Delivery Vepotherm Nasal Cannula Nasal Cannula Nasal Cannula O2 Flow Rate 35.0 35.0 35.0 35.0 01/26/20 11:52 Pulse Ox 96 O2 Delivery Vepotherm O2 Flow Rate 35.0 Intake and Output 01/25/20 01/25/20 01/26/20 15:00 23:00 07:00 Intake Total 840 ml 340 ml 2095 ml Output Total 460 ml 435 ml 1000 ml Balance 380 ml -95 ml 1095 ml PURVI FAUST MD Jan 26, 2020 12:16
--- NOTE | 2020-01-26 14:35 | NUR ---
SS following up with discharge planning. SS reviewed pt chart and discussed with pt RN. No new changes today. Pt remains on Vapotherm and is COVID19 positive. SS will continue to follow for discharge planning.
[2020-01-26] MEDS: STERILE WATER for RESP 1,000 ML BAG. INH PRN (16:25)
[2020-01-26] MEDS: INSULIN GLARGINE SYRINGE. SQ SCH (21:24)
[2020-01-27] VITALS (24 sets, daily range): BP systolic 97–134; BP diastolic 61–75
[2020-01-27] MEDS: IV NORMAL SALINE 1000ML BAG 1,000 ML IV SCH ×2 (04:21→15:09)
[2020-01-27] MEDS: STERILE WATER for RESP 1,000 ML BAG. INH PRN ×2 (04:43→07:45)
--- NOTE | 2020-01-27 08:31 | PDOC ---
Infectious Disease Note Subjective: Subjective Pt remains on vapotherm feels better Vital Signs: Vital Signs Vital Signs Date Time Temp Pulse Resp B/P (MAP) Pulse Ox O2 Delivery O2 Flow Rate FiO2 01/27/20 07:48 93 Vepotherm 35.0 01/27/20 07:00 61 30 110/70 (83) 01/27/20 05:00 98.2 98.2 Physical Exam: PHYSICAL EXAM GENERAL: Propped up in bed, alert HEENT: Oral cavity, pharynx was clear. some blisters NECK: Supple. LUNGS: coarse bc scattered rhonchi HEART: S1, S2. regular ABDOMEN: Obese, soft, no guarding, rebound. : Hinkle in place EXTREMITIES: No clubbing, cyanosis or gross edema. SKIN: Warm to touch without signs of rash. NEUROLOGIC: Alert, responding to questions PIV Medications: Inpatient Meds: Current Medications Medications (Trade) Dose Ordered Sig/Tiera Start Time Stop Time Status Last Admin Dose Admin Acetaminophen (Tylenol) 650 mg PRN Q6HRS PRN 01/18/20 01:00 01/19/20 16:20 650 MG Dextrose (Dextrose 50%-Water Syringe) 12.5 gm PRN Q15MIN PRN 01/18/20 09:45 Doxycycline Hyclate (Vibra-Tab) 100 mg BID 01/18/20 09:00 01/26/20 20:45 100 MG Enoxaparin Sodium (Lovenox 40mg Syringe) 40 mg BID 01/18/20 09:00 01/26/20 20:45 40 MG Enoxaparin Sodium (Lovenox Per Pharmacy Prophylaxis Dosing) 1 each PRN DAILY PRN 01/18/20 01:00 Insulin Glargine (Lantus Syringe) 32 unit QHS 01/26/20 21:00 01/26/20 21:24 32 UNIT Insulin Human Lispro (HumaLOG) 0-9 UNITS TIDWMEALS 01/21/20 08:00 01/26/20 12:47 4 UNITS Lactobacillus Rhamnosus (Culturelle) 1 cap BID 01/18/20 21:00 01/26/20 20:45 1 CAP Metformin HCl (Glucophage) 1,000 mg BIDWMEALS 01/22/20 17:00 01/26/20 17:12 1,000 MG Methylprednisolone Sodium Succinate (SOLU-Medrol 40MG VIAL) 40 mg Q12HR 01/21/20 09:00 01/26/20 20:45 40 MG Methylprednisolone Sodium Succinate (SOLU-Medrol 125MG VIAL) 60 mg Q8HRS 01/19/20 22:00 01/21/20 07:09 DC 01/21/20 06:33 60 MG Non-Formulary Medication 1 ea/ Sodium Chloride 210 ml @ 420 mls/hr 1X ONCE 01/19/20 09:45 01/19/20 10:14 DC 01/19/20 10:05 420 MLS/HR Pantoprazole Sodium (Protonix) 40 mg DAILYAC 01/25/20 14:00 01/26/20 08:11 40 MG Piperacillin Sod/ Tazobactam Sod (Zosyn Per Pharmacy) 1 each PRN DAILY PRN 01/17/20 19:30 01/24/20 11:11 DC Piperacillin Sod/ Tazobactam Sod 3.375 gm/Sodium Chloride 50 ml @ 100 mls/hr Q6HRS 01/18/20 00:00 01/24/20 11:09 DC 01/24/20 06:07 100 MLS/HR Potassium Chloride (Klor-Con) 20 meq [id number] 01/23/20 08:00 01/26/20 08:11 20 MEQ Sodium Chloride 1,000 ml @ 65 mls/hr [id number] 01/24/20 14:45 01/26/20 14:00 65 MLS/HR Sterile Water (WATER for RESP) 1,000 ml CONT PRN 01/19/20 17:30 01/27/20 07:45 1,000 ML Valacyclovir HCl (Valtrex) 1,000 mg TID 01/19/20 14:00 01/24/20 11:09 DC 01/24/20 08:28 1,000 MG Zolpidem Tartrate (Ambien) 5 mg PRN QHS PRN 01/18/20 01:00 Labs: Lab Laboratory Tests Test 01/26/20 11:37 01/26/20 16:45 01/26/20 20:57 01/27/20 08:21 Glucose (Fingerstick) 193 mg/dL (70-99) 205 mg/dL (70-99) 218 mg/dL (70-99) 230 mg/dL (70-99) Objective: Assessment: Fever - better Acute resp hypoxic resp failure COVID + Abnormal CXR Leukopenina - chronic Thrombocytopenia Plan: Plan of Care Cont Doxycycline Remdesivir, 01/18 completed completed Plasma On steroids F/u labs supportive care d/w CHRIS RENE MD Jan 27, 2020 08:31
[2020-01-27] MEDS: ENOXAPARIN 40 MG/0.4 ML SYRINGE. SQ SCH ×2 (08:58→20:01)
[2020-01-27] MEDS: metFORMIN 500 MG TABLET PO SCH ×2 (08:59→18:19)
[2020-01-27] MEDS: LACTOBACILLUS RHAMNOSUS GG 1 CAPSULE. PO SCH ×2 (08:59→20:00)
[2020-01-27] MEDS: PANTOPRAZOLE 40 MG TABLET.DR. PO SCH (08:59)
[2020-01-27] MEDS: methylPREDNISolone SOD SUCC PF 40 MG/ML VIAL. IV SCH ×2 (08:59→20:01)
[2020-01-27] MEDS: POTASSIUM CHLORIDE 20 MEQ TABLET.ER. PO SCH (08:59)
[2020-01-27] MEDS: INSULIN LISPRO 300 UNITS/3 ML VIAL. SQ SCH ×3 (09:35→18:23)
[2020-01-27] MEDS: DOXYCYCLINE HYCLATE 100 MG TABLET PO SCH ×2 (09:40→20:00)
--- NOTE | 2020-01-27 12:03 | PDOC ---
PULMONARY PROGRESS NOTES Subjective Remains on Vapotherm 35 Liters and 50%, denies any SOB, nursing reports ability to ambulate with SOB or hypoxia -- afebrile Vitals Vital Signs Date Time Temp Pulse Resp B/P (MAP) Pulse Ox O2 Delivery O2 Flow Rate FiO2 01/27/20 11:45 92 Vepotherm 35.0 01/27/20 11:00 57 29 118/64 (82) 01/27/20 08:00 98.3 98.3 Comments ros unable to obtain Pt. is on Vapotherm, without distress no obvious edema or rash Visual exam performed due to COVID-19 pandemic Patient appears to be comfortable Labs Laboratory Tests Test 01/25/20 17:09 01/25/20 21:22 01/26/20 04:00 01/26/20 07:30 Glucose (Fingerstick) 214 mg/dL (70-99) 176 mg/dL (70-99) 188 mg/dL (70-99) Magnesium Level 2.3 mg/dL (1.8-2.4) Test 01/26/20 11:37 01/26/20 16:45 01/26/20 20:57 01/27/20 08:21 Glucose (Fingerstick) 193 mg/dL (70-99) 205 mg/dL (70-99) 218 mg/dL (70-99) 230 mg/dL (70-99) Laboratory Tests Test 01/26/20 16:45 01/26/20 20:57 01/27/20 08:21 Glucose (Fingerstick) 205 mg/dL (70-99) 218 mg/dL (70-99) 230 mg/dL (70-99) Medications Active Scripts Medications Dose Route/Sig Max Daily Dose Days Date Category Metformin Hcl 1,000 Mg Tablet 1,000 Mg PO BIDWMEALS 01/18/20 Reported Comments cxr reviewed There is increased airspace opacity/infiltrates of the bilateral hemithoraces. Impression . IMPRESSION: 1. Acute hypoxic respiratory failure secondary to COVID-19 pneumonia. 2. Leukopenia secondary to viral pneumonia.improved. 3. Abnormal chest x-ray with bilateral patchy infiltrates, highly compatible with COVID-19 pneumonia. 4. Abnormal liver function tests, likely related to COVID pneumonia. Plan . Patient continues to clinically improve Continue Vapotherm attempt to wean oxygen requirements -- on 35 liters and 50% Status post convalescent serum, and Remdesivir on 01/21/20 Follow ID recs Continue lovenox OOB as tolerated IS at bedside D/W RN and RT JAIRO CORTEZ MD Jan 27, 2020 12:03
--- NOTE | 2020-01-27 14:00 | PDOC ---
PROGRESS NOTES Chief Complaint Chief Complaint Impression ACUTE HYPOXIC RESPIRATORY FAILURE COVID-19 syndrome Patchy interstitial opacities throughout the lung whitt may represent pulmonary wedge-shaped infarcts versus atypical infection such as a viral illness. 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 morbid obesity weight down to 90.5 kg diabetes, uncontrolled, insulin//lantus adjusted Plan: Cont po , Doxycycline Remdesivir, 01/18 s/p convulasant plasma, cont solumedrol, changed to 40 bid REFUSED INTUBATION will increase LANTUS 32 UNITS SQ HS Remdesivir, 01/18 done History of Present Illness History of Present Illness 01/25/2020 Patient seen and examined COVID positive Chart reviewed Discussed with RN possible uti inc lantus to 25 units sq hs heme consult on vapotherm 40 lpm and 100% fio2, appears comfortable, po protonix 01/25 No acute events reported overnight, case discussed with nursing staff patient in no acute distress no complaints during my visit, asking when she can go home, reassurance provided still requiring Vapotherm plan of care explained in detail all of her concerns were addressed to the best of my abilities. Lantus has been increased for better glycemic control 01/26 No acute events reported overnight, case discussed with nursing staff patient in no acute distress no complaints during my visit, still requiring Vapotherm hopefully will be able to wean off her oxygen requirements in the upcoming days 01/18/2020 Patient seen and examined Discussed with infectious disease Discussed with RN Chart reviewed I ordered hematology consultation as well Vitals Vitals Vital Signs Date Time Temp Pulse Resp B/P (MAP) Pulse Ox O2 Delivery O2 Flow Rate FiO2 01/27/20 13:00 60 26 110/71 (84) 94 Vapotherm 35.0 01/27/20 08:00 98.3 98.3 Physical Exam Physical Exam GENERAL: Propped up in bed, alert HEENT: Oral cavity, pharynx was clear. some blisters NECK: Supple. LUNGS: coarse bc scattered rhonchi HEART: S1, S2. regular ABDOMEN: Obese, soft, no guarding, rebound. : Hinkle in place EXTREMITIES: No clubbing, cyanosis or gross edema. SKIN: Warm to touch without signs of rash. NEUROLOGIC: Alert, responding to questions PIV General: Alert, Oriented X3, Cooperative, No acute distress Heart: Regular rate, Normal S1 Abdomen: Normal bowel sounds, Soft Extremities: No clubbing, No cyanosis Skin: No rashes, No breakdown Labs LABS Laboratory Tests Test 01/26/20 16:45 01/26/20 20:57 01/27/20 08:21 Glucose (Fingerstick) 205 mg/dL (70-99) 218 mg/dL (70-99) 230 mg/dL (70-99) Assessment and Plan Assessmemt and Plan Problems Medical Problems: (1) Coronavirus infection Status: Acute (2) Leukopenia Status: Acute (3) Respiratory failure, acute Status: Acute Comment Review of Relevant I have reviewed the following items jorge (where applicable) has been applied. Labs Laboratory Tests Test 01/25/20 17:09 01/25/20 21:22 01/26/20 04:00 01/26/20 07:30 Glucose (Fingerstick) 214 mg/dL (70-99) 176 mg/dL (70-99) 188 mg/dL (70-99) Magnesium Level 2.3 mg/dL (1.8-2.4) Test 01/26/20 11:37 01/26/20 16:45 01/26/20 20:57 01/27/20 08:21 Glucose (Fingerstick) 193 mg/dL (70-99) 205 mg/dL (70-99) 218 mg/dL (70-99) 230 mg/dL (70-99) Laboratory Tests Test 01/26/20 16:45 01/26/20 20:57 01/27/20 08:21 Glucose (Fingerstick) 205 mg/dL (70-99) 218 mg/dL (70-99) 230 mg/dL (70-99) Medications Current Medications Piperacillin Sod/ Tazobactam Sod (Zosyn Per Pharmacy) 1 each PRN DAILY PRN MC SEE COMMENTS; Start 01/17/20 at 19:30; Stop 01/24/20 at 11:11; Status DC Piperacillin Sod/ Tazobactam Sod 3.375 gm/Sodium Chloride 50 ml @ 100 mls/hr 1X ONCE IV Last administered on 01/17/20at 20:31; Start 01/17/20 at 19:45; Stop 01/17/20 at 20:14; Status DC Piperacillin Sod/ Tazobactam Sod 3.375 gm/Sodium Chloride 50 ml @ 100 mls/hr Q6HRS IV Last administered on 01/24/20at 06:07; Start 01/18/20 at 00:00; Stop 01/24/20 at 11:09; Status DC Zolpidem Tartrate (Ambien) 5 mg PRN QHS PRN PO INSOMNIA; Start 01/18/20 at 01:00 Enoxaparin Sodium (Lovenox Per Pharmacy Prophylaxis Dosing) 1 each PRN DAILY PRN MC SEE COMMENTS; Start 01/18/20 at 01:00 Insulin Glargine (Lantus Syringe) 12 unit QHS SQ Last administered on 01/19/20at 21:24; Start 01/18/20 at 21:00; Stop 01/20/20 at 09:27; Status DC Acetaminophen (Tylenol) 650 mg PRN Q6HRS PRN PO FEVER > 100.3'F Last administered on 01/19/20at 16:20; Start 01/18/20 at 01:00 Enoxaparin Sodium (Lovenox 40mg Syringe) 40 mg BID SQ Last administered on 01/27/20at 08:58; Start 01/18/20 at 09:00 Doxycycline Hyclate (Vibra-Tab) 100 mg BID PO Last administered on 01/27/20at 09:40; Start 01/18/20 at 09:00 Insulin Human Lispro (HumaLOG) 0-5 UNITS TIDWMEALS SQ Last administered on 01/20/20at 17:58; Start 01/18/20 at 12:00; Stop 01/20/20 at 19:03; Status DC Dextrose (Dextrose 50%-Water Syringe) 12.5 gm PRN Q15MIN PRN IV SEE COMMENTS; Start 01/18/20 at 09:45 Lactobacillus Rhamnosus (Culturelle) 1 cap BID PO Last administered on 01/27/20at 08:59; Start 01/18/20 at 21:00 Non-Formulary Medication 1 ea/ Sodium Chloride 210 ml @ 420 mls/hr 1X ONCE IV ; Start 01/19/20 at 10:00; Stop 01/19/20 at 09:34; Status DC Non-Formulary Medication 1 ea/ Sodium Chloride 230 ml @ 460 mls/hr DAILY IV Last administered on 01/23/20at 10:37; Start 01/20/20 at 09:00; Stop 01/23/20 at 09:29; Status DC Non-Formulary Medication 1 ea/ Sodium Chloride 210 ml @ 420 mls/hr 1X ONCE IV Last administered on 01/19/20at 10:05; Start 01/19/20 at 09:45; Stop 01/19/20 at 10:14; Status DC Valacyclovir HCl (Valtrex) 1,000 mg TID PO Last administered on 01/24/20at 08:28; Start 01/19/20 at 14:00; Stop 01/24/20 at 11:09; Status DC Methylprednisolone Sodium Succinate (SOLU-Medrol 125MG VIAL) 60 mg Q8HRS IV Last administered on 01/21/20at 06:33; Start 01/19/20 at 22:00; Stop 01/21/20 at 07:09; Status DC Sterile Water (WATER for RESP) 1,000 ml CONT PRN INH VIA VAPOTHERM DEVICE Last administered on 01/27/20at 07:45; Start 01/19/20 at 17:30 Insulin Glargine (Lantus Syringe) 16 unit QHS SQ Last administered on 01/21/20at 21:18; Start 01/20/20 at 21:00; Stop 01/22/20 at 13:09; Status DC Insulin Human Lispro (HumaLOG) 0-9 UNITS TIDWMEALS SQ Last administered on 01/27/20at 13:56; Start 01/21/20 at 08:00 Methylprednisolone Sodium Succinate (SOLU-Medrol 40MG VIAL) 40 mg Q12HR IV Last administered on 01/27/20at 08:59; Start 01/21/20 at 09:00 Insulin Glargine (Lantus Syringe) 20 unit QHS SQ Last administered on 01/22/20at 20:40; Start 01/22/20 at 21:00; Stop 01/23/20 at 15:58; Status DC Potassium Chloride (Klor-Con) 40 meq 1X ONCE PO Last administered on 01/22/20at 16:56; Start 01/22/20 at 16:00; Stop 01/22/20 at 16:03; Status DC Potassium Chloride (Klor-Con) 20 meq DAILYWBKFT PO Last administered on 01/27/20at 08:59; Start 01/23/20 at 08:00 Metformin HCl (Glucophage) 1,000 mg BIDWMEALS PO Last administered on 01/27/20at 08:59; Start 01/22/20 at 17:00 Insulin Glargine (Lantus Syringe) 25 unit QHS SQ Last administered on 01/23/20at 21:01; Start 01/23/20 at 21:00; Stop 01/24/20 at 11:12; Status DC Insulin Glargine (Lantus Syringe) 28 unit QHS SQ Last administered on 01/25/20at 21:43; Start 01/24/20 at 21:00; Stop 01/26/20 at 12:15; Status DC Sodium Chloride 1,000 ml @ 65 mls/hr [id number] IV Last administered on 01/26/20at 14:00; Start 01/24/20 at 14:45 Pantoprazole Sodium (Protonix) 40 mg DAILYAC PO Last administered on 01/27/20at 08:59; Start 01/25/20 at 14:00 Insulin Glargine (Lantus Syringe) 32 unit QHS SQ Last administered on 01/26/20at 21:24; Start 01/26/20 at 21:00 Active Scripts Active Reported Metformin Hcl 1,000 Mg Tablet 1,000 Mg PO BIDWMEALS Vitals/I & O Vital Sign - Last 24 Hours 01/26/20 01/26/20 01/26/20 01/26/20 14:00 15:00 15:59 16:00 Pulse 60 58 62 Resp 38 28 32 B/P (MAP) 101/61 (74) 103/57 (72) 103/57 (72) Pulse Ox 92 91 92 O2 Delivery Nasal Cannula Nasal Cannula Nasal Cannula Nasal Cannula O2 Flow Rate 35.0 35.0 35.0 35.0 01/26/20 01/26/20 01/26/20 01/26/20 16:29 17:00 18:00 19:00 Temp 98.6 98.6 Pulse 61 62 78 Resp 34 30 30 B/P (MAP) 114/68 (83) 115/71 (86) 134/63 (86) Pulse Ox 95 93 94 97 O2 Delivery Vepotherm Nasal Cannula Nasal Cannula Vapotherm O2 Flow Rate 35.0 35.0 35.0 35.0 01/26/20 01/26/20 01/26/20 01/26/20 20:00 20:00 20:18 21:00 Temp 98.0 98.0 Pulse 63 55 Resp 31 31 B/P (MAP) 104/61 (75) 112/73 (86) Pulse Ox 93 96 94 O2 Delivery Vapotherm Nasal Cannula High Flow Nasal Cannula Vapotherm O2 Flow Rate 35.0 35.0 35.0 35.0 01/26/20 01/26/20 01/27/20 01/27/20 22:00 23:00 00:00 00:00 Pulse 53 48 58 Resp 34 30 32 B/P (MAP) 120/74 (89) 115/74 (88) 119/74 (89) Pulse Ox 92 92 92 O2 Delivery Vapotherm Vapotherm Nasal Cannula Vapotherm O2 Flow Rate 35.0 35.0 35.0 35.0 01/27/20 01/27/20 01/27/20 01/27/20 00:15 01:00 02:00 03:00 Pulse 60 52 48 Resp 31 27 29 B/P (MAP) 114/71 (85) 109/70 (83) 116/69 (85) Pulse Ox 90 92 92 91 O2 Delivery High Flow Nasal Cannula Vapotherm Vapotherm Vapotherm O2 Flow Rate 35.0 35.0 35.0 35.0 01/27/20 01/27/20 01/27/20 01/27/20 04:00 04:00 04:47 05:00 Temp 98.2 98.2 Pulse 49 47 Resp 34 32 B/P (MAP) 115/70 (85) 105/63 (77) Pulse Ox 91 87 93 O2 Delivery Vapotherm Nasal Cannula Nasal Cannula Vapotherm O2 Flow Rate 35.0 35.0 35.0 35.0 01/27/20 01/27/20 01/27/20 01/27/20 06:00 07:00 07:48 08:00 Pulse 68 61 Resp 36 30 B/P (MAP) 111/70 (84) 110/70 (83) Pulse Ox 94 96 93 O2 Delivery Vapotherm Vapotherm Vepotherm Nasal Cannula O2 Flow Rate 35.0 35.0 35.0 35.0 01/27/20 01/27/20 01/27/20 01/27/20 08:00 10:00 11:00 11:45 Temp 98.3 98.3 Pulse 55 71 57 Resp 30 30 29 B/P (MAP) 106/70 (82) 97/65 (76) 118/64 (82) Pulse Ox 96 95 96 92 O2 Delivery Vapotherm Vapotherm Vapotherm Vepotherm O2 Flow Rate 35.0 35.0 35.0 35.0 01/27/20 13:00 Pulse 60 Resp 26 B/P (MAP) 110/71 (84) Pulse Ox 94 O2 Delivery Vapotherm O2 Flow Rate 35.0 Intake and Output 01/26/20 01/26/20 01/27/20 15:00 23:00 07:00 Intake Total 720 ml 890 ml 787 ml Output Total 385 ml 450 ml 860 ml Balance 335 ml 440 ml -73 ml PURVI FAUST MD Jan 27, 2020 14:00
[2020-01-27] MEDS: INSULIN GLARGINE SYRINGE. SQ SCH (21:49)
[2020-01-28] VITALS (14 sets, daily range): BP systolic 100–132; BP diastolic 53–75
[2020-01-28] MEDS: PANTOPRAZOLE 40 MG TABLET.DR. PO SCH (07:57)
[2020-01-28] MEDS: DOXYCYCLINE HYCLATE 100 MG TABLET PO SCH ×2 (07:57→20:35)
[2020-01-28] MEDS: metFORMIN 500 MG TABLET PO SCH ×2 (07:57→17:12)
[2020-01-28] MEDS: ENOXAPARIN 40 MG/0.4 ML SYRINGE. SQ SCH ×2 (07:57→20:35)
[2020-01-28] MEDS: LACTOBACILLUS RHAMNOSUS GG 1 CAPSULE. PO SCH ×2 (07:57→20:35)
[2020-01-28] MEDS: POTASSIUM CHLORIDE 20 MEQ TABLET.ER. PO SCH (07:58)
[2020-01-28] MEDS: methylPREDNISolone SOD SUCC PF 40 MG/ML VIAL. IV SCH ×2 (07:58→20:35)
--- NOTE | 2020-01-28 08:02 | PDOC ---
Infectious Disease Note Subjective: Subjective Pt feels better On O2 6 L by nasal Vital Signs: Vital Signs Vital Signs Date Time Temp Pulse Resp B/P (MAP) Pulse Ox O2 Delivery O2 Flow Rate FiO2 01/28/20 06:00 54 32 117/66 (83) 95 Nasal Cannula 6.0 01/28/20 04:00 98.1 98.1 Physical Exam: PHYSICAL EXAM GENERAL: Propped up in bed, alert HEENT: Oral cavity, pharynx was clear. some blisters NECK: Supple. LUNGS: coarse bc scattered rhonchi HEART: S1, S2. regular ABDOMEN: Obese, soft, no guarding, rebound. : Hinkle in place EXTREMITIES: No clubbing, cyanosis or gross edema. SKIN: Warm to touch without signs of rash. NEUROLOGIC: Alert, responding to questions PIV Medications: Inpatient Meds: Current Medications Medications (Trade) Dose Ordered Sig/Tiera Start Time Stop Time Status Last Admin Dose Admin Acetaminophen (Tylenol) 650 mg PRN Q6HRS PRN 01/18/20 01:00 01/19/20 16:20 650 MG Dextrose (Dextrose 50%-Water Syringe) 12.5 gm PRN Q15MIN PRN 01/18/20 09:45 Doxycycline Hyclate (Vibra-Tab) 100 mg BID 01/18/20 09:00 01/27/20 20:00 100 MG Enoxaparin Sodium (Lovenox 40mg Syringe) 40 mg BID 01/18/20 09:00 01/27/20 20:01 40 MG Enoxaparin Sodium (Lovenox Per Pharmacy Prophylaxis Dosing) 1 each PRN DAILY PRN 01/18/20 01:00 Insulin Glargine (Lantus Syringe) 32 unit QHS 01/26/20 21:00 01/27/20 21:49 32 UNIT Insulin Human Lispro (HumaLOG) 0-9 UNITS TIDWMEALS 01/21/20 08:00 01/27/20 18:23 5 UNITS Lactobacillus Rhamnosus (Culturelle) 1 cap BID 01/18/20 21:00 01/27/20 20:00 1 CAP Metformin HCl (Glucophage) 1,000 mg BIDWMEALS 01/22/20 17:00 01/27/20 18:19 1,000 MG Methylprednisolone Sodium Succinate (SOLU-Medrol 40MG VIAL) 40 mg Q12HR 01/21/20 09:00 01/27/20 20:01 40 MG Methylprednisolone Sodium Succinate (SOLU-Medrol 125MG VIAL) 60 mg Q8HRS 01/19/20 22:00 01/21/20 07:09 DC 01/21/20 06:33 60 MG Non-Formulary Medication 1 ea/ Sodium Chloride 210 ml @ 420 mls/hr 1X ONCE 01/19/20 09:45 01/19/20 10:14 DC 01/19/20 10:05 420 MLS/HR Pantoprazole Sodium (Protonix) 40 mg DAILYAC 01/25/20 14:00 01/27/20 08:59 40 MG Piperacillin Sod/ Tazobactam Sod (Zosyn Per Pharmacy) 1 each PRN DAILY PRN 01/17/20 19:30 01/24/20 11:11 DC Piperacillin Sod/ Tazobactam Sod 3.375 gm/Sodium Chloride 50 ml @ 100 mls/hr Q6HRS 01/18/20 00:00 01/24/20 11:09 DC 01/24/20 06:07 100 MLS/HR Potassium Chloride (Klor-Con) 20 meq DAILYWBKFT 01/23/20 08:00 01/27/20 08:59 20 MEQ Sodium Chloride 1,000 ml @ 65 mls/hr [id number] 01/24/20 14:45 01/27/20 15:09 65 MLS/HR Sterile Water (WATER for RESP) 1,000 ml CONT PRN 01/19/20 17:30 01/27/20 07:45 1,000 ML Valacyclovir HCl (Valtrex) 1,000 mg TID 01/19/20 14:00 01/24/20 11:09 DC 01/24/20 08:28 1,000 MG Zolpidem Tartrate (Ambien) 5 mg PRN QHS PRN 01/18/20 01:00 Labs: Lab Laboratory Tests Test 01/27/20 08:21 01/27/20 13:48 01/27/20 18:20 Glucose (Fingerstick) 230 mg/dL (70-99) 232 mg/dL (70-99) 244 mg/dL (70-99) Objective: Assessment: Fever resolved Acute resp hypoxic resp failure COVID + Abnormal CXR Leukopenina - chronic Thrombocytopenia Plan: Plan of Care Cont Doxycycline through today then DC Remdesivir, 01/18 completed completed Plasma On steroids F/u labs supportive care d/w CHRIS RENE MD Jan 28, 2020 08:02
[2020-01-28 09:05] LABS: BASO % 0 % (0-3); EOS % 0 % (0-3); HEMATOCRIT 42.9 % (36.0-47.0); HEMOGLOBIN 14.4 g/dL (12.0-15.5); LYMPH # 0.4 x10^3/uL (1.0-4.8); LYMPH % 8 % (24-48); MEAN CORPUSCULAR HEMOGLOBIN 31 pg (25-35); MEAN CORPUSCULAR HGB CONC 34 g/dL (31-37); MEAN CORPUSCULAR VOLUME 92 fL (79-100); MONO # 0.2 x10^3/uL (0.0-1.1); MONO % 4 % (0-9); NEUT # 4.1 x10^3/uL (1.8-7.7); NEUT % 87 % (31-73); PLATELET COUNT 57 x10^3/uL (140-400); RED BLOOD COUNT 4.66 x10^6/uL (3.50-5.40); RED CELL DISTRIBUTION WIDTH 13.9 % (11.5-14.5); WHITE BLOOD COUNT 4.8 x10^3/uL (4.0-11.0)
--- NOTE | 2020-01-28 09:10 | PDOC ---
PULMONARY PROGRESS NOTES Subjective off Vapotherm, tolerating 6 liter N/C nursing reports ability to ambulate with SOB or hypoxia -- afebrile no overnight concerns from nursing, continue to clinically improve Vitals Vital Signs Date Time Temp Pulse Resp B/P (MAP) Pulse Ox O2 Delivery O2 Flow Rate FiO2 01/28/20 06:00 54 32 117/66 (83) 95 Nasal Cannula 6.0 01/28/20 04:00 98.1 98.1 Comments ros unable to obtain Pt. is on Vapotherm, without distress no obvious edema or rash Visual exam performed due to COVID-19 pandemic Patient appears to be comfortable Labs Laboratory Tests Test 01/26/20 11:37 01/26/20 16:45 01/26/20 20:57 01/27/20 08:21 Glucose (Fingerstick) 193 mg/dL (70-99) 205 mg/dL (70-99) 218 mg/dL (70-99) 230 mg/dL (70-99) Test 01/27/20 13:48 01/27/20 18:20 Glucose (Fingerstick) 232 mg/dL (70-99) 244 mg/dL (70-99) Laboratory Tests Test 01/27/20 13:48 01/27/20 18:20 Glucose (Fingerstick) 232 mg/dL (70-99) 244 mg/dL (70-99) Medications Active Scripts Medications Dose Route/Sig Max Daily Dose Days Date Category Metformin Hcl 1,000 Mg Tablet 1,000 Mg PO BIDWMEALS 01/18/20 Reported Comments cxr reviewed There is increased airspace opacity/infiltrates of the bilateral hemithoraces. Impression . IMPRESSION: 1. Acute hypoxic respiratory failure secondary to COVID-19 pneumonia. 2. Leukopenia secondary to viral pneumonia.improved. 3. Abnormal chest x-ray with bilateral patchy infiltrates, highly compatible with COVID-19 pneumonia. 4. Abnormal liver function tests, related to COVID pneumonia. Plan . Patient continues to clinically improve remains on N/C oxygen tolerating well Status post convalescent serum, and Remdesivir on 01/21/20 Follow ID recs Continue lovenox OOB as tolerated IS at bedside D/W RN and RT DVT/GI PPX:protonix/lovenox Do not intubate CC time 30minutes JAIRO CORTEZ MD Jan 28, 2020 09:10
[2020-01-28 09:32] LABS: CALCIUM 7.7 mg/dL (8.5-10.1); CREATININE 0.9 mg/dL (0.6-1.0); GFR 64.8; POTASSIUM 4.4 mmol/L (3.5-5.1)
[2020-01-28] MEDS: INSULIN LISPRO 300 UNITS/3 ML VIAL. SQ SCH ×3 (10:13→17:14)
--- NOTE | 2020-01-28 11:29 | PDOC ---
PROGRESS NOTES Chief Complaint Chief Complaint Impression ACUTE HYPOXIC RESPIRATORY FAILURE resolved COVID-19 syndrome Patchy interstitial opacities throughout the lung whitt may represent pulmonary wedge-shaped infarcts versus atypical infection such as a viral illness. 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 morbid obesity weight down to 90.5 kg diabetes, uncontrolled, insulin//lantus adjusted Plan: Cont po , Doxycycline Remdesivir, 01/18 s/p convulasant plasma, cont solumedrol, changed to 40 bid REFUSED INTUBATION will increase LANTUS 38 UNITS SQ HS Remdesivir, 01/18 done History of Present Illness History of Present Illness 01/18/2020 Patient seen and examined Discussed with infectious disease Discussed with RN Chart reviewed I ordered hematology consultation as well 01/25/2020 Patient seen and examined COVID positive Chart reviewed Discussed with RN possible uti inc lantus to 25 units sq hs heme consult on vapotherm 40 lpm and 100% fio2, appears comfortable, po protonix 01/25 No acute events reported overnight, case discussed with nursing staff patient in no acute distress no complaints during my visit, asking when she can go home, reassurance provided still requiring Vapotherm plan of care explained in detail all of her concerns were addressed to the best of my abilities. Lantus has been increased for better glycemic control 01/26 No acute events reported overnight, case discussed with nursing staff patient in no acute distress no complaints during my visit, still requiring Vapotherm hopefully will be able to wean off her oxygen requirements in the upcoming days 01/27 No acute events reported overnight, case discussed with nursing staff patient in no acute distress no complaints during my visit now not requiring Vapotherm patient may be moved out of the intensive care unit Vitals Vitals Vital Signs Date Time Temp Pulse Resp B/P (MAP) Pulse Ox O2 Delivery O2 Flow Rate FiO2 01/28/20 10:00 63 20 108/62 (77) 95 Nasal Cannula 6.0 01/28/20 08:00 98.3 98.3 Physical Exam Physical Exam GENERAL: Propped up in bed, alert HEENT: Oral cavity, pharynx was clear. some blisters NECK: Supple. LUNGS: coarse bc scattered rhonchi HEART: S1, S2. regular ABDOMEN: Obese, soft, no guarding, rebound. : Hinkle in place EXTREMITIES: No clubbing, cyanosis or gross edema. SKIN: Warm to touch without signs of rash. NEUROLOGIC: Alert, responding to questions PIV General: Alert, Oriented X3, Cooperative, No acute distress Heart: Regular rate, Normal S1 Abdomen: Normal bowel sounds, Soft Extremities: No clubbing, No cyanosis Skin: No rashes, No breakdown Labs LABS Laboratory Tests Test 01/27/20 13:48 01/27/20 18:20 01/28/20 08:25 Glucose (Fingerstick) 232 mg/dL (70-99) 244 mg/dL (70-99) White Blood Count 4.8 x10^3/uL (4.0-11.0) Red Blood Count 4.66 x10^6/uL (3.50-5.40) Hemoglobin 14.4 g/dL (12.0-15.5) Hematocrit 42.9 % (36.0-47.0) Mean Corpuscular Volume 92 fL (79-100) Mean Corpuscular Hemoglobin 31 pg (25-35) Mean Corpuscular Hemoglobin Concent 34 g/dL (31-37) Red Cell Distribution Width 13.9 % (11.5-14.5) Platelet Count 57 x10^3/uL (140-400) Neutrophils (%) (Auto) 87 % (31-73) Lymphocytes (%) (Auto) 8 % (24-48) Monocytes (%) (Auto) 4 % (0-9) Eosinophils (%) (Auto) 0 % (0-3) Basophils (%) (Auto) 0 % (0-3) Neutrophils # (Auto) 4.1 x10^3/uL (1.8-7.7) Lymphocytes # (Auto) 0.4 x10^3/uL (1.0-4.8) Monocytes # (Auto) 0.2 x10^3/uL (0.0-1.1) Eosinophils # (Auto) 0.0 x10^3/uL (0.0-0.7) Basophils # (Auto) 0.0 x10^3/uL (0.0-0.2) Sodium Level 135 mmol/L (136-145) Potassium Level 4.4 mmol/L (3.5-5.1) Chloride Level 102 mmol/L (98-107) Carbon Dioxide Level 25 mmol/L (21-32) Anion Gap 8 (6-14) Blood Urea Nitrogen 20 mg/dL (7-20) Creatinine 0.9 mg/dL (0.6-1.0) Estimated GFR (Cockcroft-Gault) 64.8 Glucose Level 228 mg/dL (70-99) Calcium Level 7.7 mg/dL (8.5-10.1) Assessment and Plan Assessmemt and Plan Problems Medical Problems: (1) Coronavirus infection Status: Acute (2) Leukopenia Status: Acute (3) Respiratory failure, acute Status: Acute Comment Review of Relevant I have reviewed the following items jorge (where applicable) has been applied. Labs Laboratory Tests Test 01/26/20 11:37 01/26/20 16:45 01/26/20 20:57 01/27/20 08:21 Glucose (Fingerstick) 193 mg/dL (70-99) 205 mg/dL (70-99) 218 mg/dL (70-99) 230 mg/dL (70-99) Test 01/27/20 13:48 01/27/20 18:20 01/28/20 08:25 Glucose (Fingerstick) 232 mg/dL (70-99) 244 mg/dL (70-99) White Blood Count 4.8 x10^3/uL (4.0-11.0) Red Blood Count 4.66 x10^6/uL (3.50-5.40) Hemoglobin 14.4 g/dL (12.0-15.5) Hematocrit 42.9 % (36.0-47.0) Mean Corpuscular Volume 92 fL (79-100) Mean Corpuscular Hemoglobin 31 pg (25-35) Mean Corpuscular Hemoglobin Concent 34 g/dL (31-37) Red Cell Distribution Width 13.9 % (11.5-14.5) Platelet Count 57 x10^3/uL (140-400) Neutrophils (%) (Auto) 87 % (31-73) Lymphocytes (%) (Auto) 8 % (24-48) Monocytes (%) (Auto) 4 % (0-9) Eosinophils (%) (Auto) 0 % (0-3) Basophils (%) (Auto) 0 % (0-3) Neutrophils # (Auto) 4.1 x10^3/uL (1.8-7.7) Lymphocytes # (Auto) 0.4 x10^3/uL (1.0-4.8) Monocytes # (Auto) 0.2 x10^3/uL (0.0-1.1) Eosinophils # (Auto) 0.0 x10^3/uL (0.0-0.7) Basophils # (Auto) 0.0 x10^3/uL (0.0-0.2) Sodium Level 135 mmol/L (136-145) Potassium Level 4.4 mmol/L (3.5-5.1) Chloride Level 102 mmol/L (98-107) Carbon Dioxide Level 25 mmol/L (21-32) Anion Gap 8 (6-14) Blood Urea Nitrogen 20 mg/dL (7-20) Creatinine 0.9 mg/dL (0.6-1.0) Estimated GFR (Cockcroft-Gault) 64.8 Glucose Level 228 mg/dL (70-99) Calcium Level 7.7 mg/dL (8.5-10.1) Laboratory Tests Test 01/27/20 13:48 01/27/20 18:20 01/28/20 08:25 Glucose (Fingerstick) 232 mg/dL (70-99) 244 mg/dL (70-99) White Blood Count 4.8 x10^3/uL (4.0-11.0) Red Blood Count 4.66 x10^6/uL (3.50-5.40) Hemoglobin 14.4 g/dL (12.0-15.5) Hematocrit 42.9 % (36.0-47.0) Mean Corpuscular Volume 92 fL (79-100) Mean Corpuscular Hemoglobin 31 pg (25-35) Mean Corpuscular Hemoglobin Concent 34 g/dL (31-37) Red Cell Distribution Width 13.9 % (11.5-14.5) Platelet Count 57 x10^3/uL (140-400) Neutrophils (%) (Auto) 87 % (31-73) Lymphocytes (%) (Auto) 8 % (24-48) Monocytes (%) (Auto) 4 % (0-9) Eosinophils (%) (Auto) 0 % (0-3) Basophils (%) (Auto) 0 % (0-3) Neutrophils # (Auto) 4.1 x10^3/uL (1.8-7.7) Lymphocytes # (Auto) 0.4 x10^3/uL (1.0-4.8) Monocytes # (Auto) 0.2 x10^3/uL (0.0-1.1) Eosinophils # (Auto) 0.0 x10^3/uL (0.0-0.7) Basophils # (Auto) 0.0 x10^3/uL (0.0-0.2) Sodium Level 135 mmol/L (136-145) Potassium Level 4.4 mmol/L (3.5-5.1) Chloride Level 102 mmol/L (98-107) Carbon Dioxide Level 25 mmol/L (21-32) Anion Gap 8 (6-14) Blood Urea Nitrogen 20 mg/dL (7-20) Creatinine 0.9 mg/dL (0.6-1.0) Estimated GFR (Cockcroft-Gault) 64.8 Glucose Level 228 mg/dL (70-99) Calcium Level 7.7 mg/dL (8.5-10.1) Medications Current Medications Piperacillin Sod/ Tazobactam Sod (Zosyn Per Pharmacy) 1 each PRN DAILY PRN MC SEE COMMENTS; Start 01/17/20 at 19:30; Stop 01/24/20 at 11:11; Status DC Piperacillin Sod/ Tazobactam Sod 3.375 gm/Sodium Chloride 50 ml @ 100 mls/hr 1X ONCE IV Last administered on 01/17/20at 20:31; Start 01/17/20 at 19:45; Stop 01/17/20 at 20:14; Status DC Piperacillin Sod/ Tazobactam Sod 3.375 gm/Sodium Chloride 50 ml @ 100 mls/hr Q6HRS IV Last administered on 01/24/20at 06:07; Start 01/18/20 at 00:00; Stop 01/24/20 at 11:09; Status DC Zolpidem Tartrate (Ambien) 5 mg PRN QHS PRN PO INSOMNIA; Start 01/18/20 at 01:00 Enoxaparin Sodium (Lovenox Per Pharmacy Prophylaxis Dosing) 1 each PRN DAILY PRN MC SEE COMMENTS; Start 01/18/20 at 01:00 Insulin Glargine (Lantus Syringe) 12 unit QHS SQ Last administered on 01/19/20at 21:24; Start 01/18/20 at 21:00; Stop 01/20/20 at 09:27; Status DC Acetaminophen (Tylenol) 650 mg PRN Q6HRS PRN PO FEVER > 100.3'F Last administered on 01/19/20at 16:20; Start 01/18/20 at 01:00 Enoxaparin Sodium (Lovenox 40mg Syringe) 40 mg BID SQ Last administered on 01/28/20at 07:57; Start 01/18/20 at 09:00 Doxycycline Hyclate (Vibra-Tab) 100 mg BID PO Last administered on 01/28/20at 07:57; Start 01/18/20 at 09:00 Insulin Human Lispro (HumaLOG) 0-5 UNITS TIDWMEALS SQ Last administered on 01/20/20at 17:58; Start 01/18/20 at 12:00; Stop 01/20/20 at 19:03; Status DC Dextrose (Dextrose 50%-Water Syringe) 12.5 gm PRN Q15MIN PRN IV SEE COMMENTS; Start 01/18/20 at 09:45 Lactobacillus Rhamnosus (Culturelle) 1 cap BID PO Last administered on 01/28/20at 07:57; Start 01/18/20 at 21:00 Non-Formulary Medication 1 ea/ Sodium Chloride 210 ml @ 420 mls/hr 1X ONCE IV ; Start 01/19/20 at 10:00; Stop 01/19/20 at 09:34; Status DC Non-Formulary Medication 1 ea/ Sodium Chloride 230 ml @ 460 mls/hr DAILY IV Last administered on 01/23/20at 10:37; Start 01/20/20 at 09:00; Stop 01/23/20 at 09:29; Status DC Non-Formulary Medication 1 ea/ Sodium Chloride 210 ml @ 420 mls/hr 1X ONCE IV Last administered on 01/19/20at 10:05; Start 01/19/20 at 09:45; Stop 01/19/20 at 10:14; Status DC Valacyclovir HCl (Valtrex) 1,000 mg TID PO Last administered on 01/24/20at 08:28; Start 01/19/20 at 14:00; Stop 01/24/20 at 11:09; Status DC Methylprednisolone Sodium Succinate (SOLU-Medrol 125MG VIAL) 60 mg Q8HRS IV Last administered on 01/21/20 06:33; Start 01/19/20 at 22:00; Stop 01/21/20 at 07:09; Status DC Sterile Water (WATER for RESP) 1,000 ml CONT PRN INH VIA VAPOTHERM DEVICE Last administered on 01/27/20at 07:45; Start 01/19/20 at 17:30 Insulin Glargine (Lantus Syringe) 16 unit QHS SQ Last administered on 01/21/20at 21:18; Start 01/20/20 at 21:00; Stop 01/22/20 at 13:09; Status DC Insulin Human Lispro (HumaLOG) 0-9 UNITS TIDWMEALS SQ Last administered on 01/28/20at 10:13; Start 01/21/20 at 08:00 Methylprednisolone Sodium Succinate (SOLU-Medrol 40MG VIAL) 40 mg Q12HR IV Last administered on 01/28/20at 07:58; Start 01/21/20 at 09:00 Insulin Glargine (Lantus Syringe) 20 unit QHS SQ Last administered on 01/22/20at 20:40; Start 01/22/20 at 21:00; Stop 01/23/20 at 15:58; Status DC Potassium Chloride (Klor-Con) 40 meq 1X ONCE PO Last administered on 01/22/20at 16:56; Start 01/22/20 at 16:00; Stop 01/22/20 at 16:03; Status DC Potassium Chloride (Klor-Con) 20 meq DAILYWBKFT PO Last administered on 01/28/20at 07:58; Start 01/23/20 at 08:00 Metformin HCl (Glucophage) 1,000 mg BIDWMEALS PO Last administered on 01/28/20at 07:57; Start 01/22/20 at 17:00 Insulin Glargine (Lantus Syringe) 25 unit QHS SQ Last administered on 01/23/20at 21:01; Start 01/23/20 at 21:00; Stop 01/24/20 at 11:12; Status DC Insulin Glargine (Lantus Syringe) 28 unit QHS SQ Last administered on 01/25/20at 21:43; Start 01/24/20 at 21:00; Stop 01/26/20 at 12:15; Status DC Sodium Chloride 1,000 ml @ 65 mls/hr [id number] IV Last administered on 01/27/20at 15:09; Start 01/24/20 at 14:45 Pantoprazole Sodium (Protonix) 40 mg DAILYAC PO Last administered on 01/28/20at 07:57; Start 01/25/20 at 14:00 Insulin Glargine (Lantus Syringe) 32 unit QHS SQ Last administered on 01/27/20at 21:49; Start 01/26/20 at 21:00 Active Scripts Active Reported Metformin Hcl 1,000 Mg Tablet 1,000 Mg PO BIDWMEALS Vitals/I & O Vital Sign - Last 24 Hours 01/27/20 01/27/20 01/27/20 01/27/20 11:45 12:00 12:00 13:00 Temp 98.3 98.3 Pulse 56 60 Resp 29 26 B/P (MAP) 108/68 (81) 110/71 (84) Pulse Ox 92 93 94 O2 Delivery Vepotherm Vapotherm Nasal Cannula Vapotherm O2 Flow Rate 35.0 35.0 35.0 35.0 01/27/20 01/27/20 01/27/20 01/27/20 14:00 15:00 15:15 16:00 Temp 98.3 98.3 Pulse 62 60 61 Resp 26 26 35 B/P (MAP) 114/66 (82) 134/74 (94) 107/63 (78) Pulse Ox 92 94 93 93 O2 Delivery Vapotherm Vapotherm Nasal Cannula Vapotherm O2 Flow Rate 35.0 35.0 6.0 35.0 01/27/20 01/27/20 01/27/20 01/27/20 16:00 17:00 18:00 18:42 Pulse 64 61 Resp 34 34 B/P (MAP) 122/69 (86) 114/67 (83) Pulse Ox 94 94 96 O2 Delivery Nasal Cannula Nasal Cannula Nasal Cannula Nasal Cannula O2 Flow Rate 35.0 6.0 6.0 6.0 01/27/20 01/27/20 01/27/20 01/27/20 19:00 20:00 20:00 21:00 Temp 98.5 98.5 Pulse 64 67 63 Resp 34 35 34 B/P (MAP) 126/72 (90) 125/75 (92) 127/69 (88) Pulse Ox 94 94 93 O2 Delivery Nasal Cannula Nasal Cannula Nasal Cannula Nasal Cannula O2 Flow Rate 6.0 6.0 35.0 6.0 01/27/20 01/27/20 01/28/20 01/28/20 22:00 23:00 00:00 00:00 Temp 98.2 98.2 Pulse 61 69 58 Resp 34 35 35 B/P (MAP) 116/67 (83) 121/67 (85) 119/74 (89) Pulse Ox 93 93 94 O2 Delivery Nasal Cannula Nasal Cannula Nasal Cannula Nasal Cannula O2 Flow Rate 6.0 6.0 6.0 35.0 01/28/20 01/28/20 01/28/20 01/28/20 01:00 02:00 03:00 04:00 Pulse 54 69 59 Resp 35 27 32 B/P (MAP) 130/69 (89) 123/73 (90) 129/75 (93) Pulse Ox 93 93 95 O2 Delivery Nasal Cannula Nasal Cannula Nasal Cannula Nasal Cannula O2 Flow Rate 6.0 6.0 6.0 35.0 01/28/20 01/28/20 01/28/20 01/28/20 04:00 05:00 06:00 07:00 Temp 98.1 98.1 Pulse 64 53 54 54 Resp 35 32 32 20 B/P (MAP) 132/75 (94) 108/62 (77) 117/66 (83) 121/62 (81) Pulse Ox 94 95 95 95 O2 Delivery Nasal Cannula Nasal Cannula Nasal Cannula Nasal Cannula O2 Flow Rate 6.0 6.0 6.0 6.0 01/28/20 01/28/20 01/28/20 08:00 08:00 10:00 Temp 98.3 98.3 Pulse 64 63 Resp 35 20 B/P (MAP) 132/75 (94) 108/62 (77) Pulse Ox 94 95 O2 Delivery Nasal Cannula Nasal Cannula Nasal Cannula O2 Flow Rate 6.0 6.0 6.0 Intake and Output 01/27/20 01/27/20 01/28/20 15:00 23:00 07:00 Intake Total 2500 ml 230 ml Output Total 125 ml 1025 ml 700 ml Balance -125 ml 1475 ml -470 ml PURVI FAUST MD Jan 28, 2020 11:29
--- NOTE | 2020-01-28 12:00 | NUR ---
Tele on patient, received patient at this time. On 5LNC 95%
[2020-01-28] MEDS: IV NORMAL SALINE 1000ML BAG 1,000 ML IV SCH (12:47)
[2020-01-28] MEDS: INSULIN GLARGINE SYRINGE. SQ SCH ×2 (12:48→20:37)
[2020-01-29] MEDS: IV NORMAL SALINE 1000ML BAG 1,000 ML IV SCH ×2 (01:57→20:08)
[2020-01-29 03:00] VITALS: BP 99/63
[2020-01-29] MEDS: PANTOPRAZOLE 40 MG TABLET.DR. PO SCH (06:49)
[2020-01-29 07:00] VITALS: BP 98/50
[2020-01-29] MEDS: INSULIN LISPRO 300 UNITS/3 ML VIAL. SQ SCH ×3 (08:00→17:00)
[2020-01-29] MEDS: ENOXAPARIN 40 MG/0.4 ML SYRINGE. SQ SCH ×2 (09:00→22:30)
[2020-01-29] MEDS: LACTOBACILLUS RHAMNOSUS GG 1 CAPSULE. PO SCH ×2 (09:29→22:30)
[2020-01-29] MEDS: methylPREDNISolone SOD SUCC PF 40 MG/ML VIAL. IV SCH ×2 (09:30→22:29)
[2020-01-29] MEDS: metFORMIN 500 MG TABLET PO SCH ×2 (09:30→16:25)
[2020-01-29] MEDS: POTASSIUM CHLORIDE 20 MEQ TABLET.ER. PO SCH (09:31)
--- NOTE | 2020-01-29 10:00 | PDOC ---
Infectious Disease Note Subjective: Subjective Pt feels better Occasional loose bowel movement On O2 5L by nasal cannula Denies fever, nausea, vomiting, shortness of breath, abdominal pain, rash Otherwise as above Vital Signs: Vital Signs Vital Signs Date Time Temp Pulse Resp B/P (MAP) Pulse Ox O2 Delivery O2 Flow Rate FiO2 01/29/20 07:00 97.7 64 22 98/50 (66) 92 Nasal Cannula 5.0 97.7 Physical Exam: PHYSICAL EXAM GENERAL: Alert oriented x3 female sitting at the edge of the bed eating breakfast HEENT: Oral cavity, pharynx was clear. some blisters NECK: Supple. LUNGS: coarse bc scattered rhonchi HEART: S1, S2. regular ABDOMEN: Obese, soft, no guarding, rebound. : Hinkle in place EXTREMITIES: No clubbing, cyanosis or gross edema. SKIN: Warm to touch without signs of rash. NEUROLOGIC: Alert, oriented x3 grossly nonfocal PIV Medications: Inpatient Meds: Current Medications Medications (Trade) Dose Ordered Sig/Tiera Start Time Stop Time Status Last Admin Dose Admin Acetaminophen (Tylenol) 650 mg PRN Q6HRS PRN 01/18/20 01:00 01/19/20 16:20 650 MG Dextrose (Dextrose 50%-Water Syringe) 12.5 gm PRN Q15MIN PRN 01/18/20 09:45 Doxycycline Hyclate (Vibra-Tab) 100 mg BID 01/18/20 09:00 01/29/20 09:11 DC 01/28/20 20:35 100 MG Enoxaparin Sodium (Lovenox 40mg Syringe) 40 mg BID 01/18/20 09:00 01/28/20 20:35 40 MG Enoxaparin Sodium (Lovenox Per Pharmacy Prophylaxis Dosing) 1 each PRN DAILY PRN 01/18/20 01:00 Insulin Glargine (Lantus Syringe) 38 unit QHS 01/28/20 11:30 01/28/20 12:48 38 UNIT Insulin Human Lispro (HumaLOG) 0-9 UNITS TIDWMEALS 01/21/20 08:00 01/28/20 17:14 3 UNITS Lactobacillus Rhamnosus (Culturelle) 1 cap BID 01/18/20 21:00 01/29/20 09:29 1 CAP Metformin HCl (Glucophage) 1,000 mg BIDWMEALS 01/22/20 17:00 01/29/20 09:30 1,000 MG Methylprednisolone Sodium Succinate (SOLU-Medrol 40MG VIAL) 40 mg Q12HR 01/21/20 09:00 01/29/20 09:30 40 MG Methylprednisolone Sodium Succinate (SOLU-Medrol 125MG VIAL) 60 mg Q8HRS 01/19/20 22:00 01/21/20 07:09 DC 01/21/20 06:33 60 MG Non-Formulary Medication 1 ea/ Sodium Chloride 210 ml @ 420 mls/hr 1X ONCE 01/19/20 09:45 01/19/20 10:14 DC 01/19/20 10:05 420 MLS/HR Pantoprazole Sodium (Protonix) 40 mg DAILYAC 01/25/20 14:00 01/29/20 06:49 40 MG Piperacillin Sod/ Tazobactam Sod (Zosyn Per Pharmacy) 1 each PRN DAILY PRN 01/17/20 19:30 01/24/20 11:11 DC Piperacillin Sod/ Tazobactam Sod 3.375 gm/Sodium Chloride 50 ml @ 100 mls/hr Q6HRS 01/18/20 00:00 01/24/20 11:09 DC 01/24/20 06:07 100 MLS/HR Potassium Chloride (Klor-Con) 20 meq [id number] 01/23/20 08:00 01/29/20 09:31 20 MEQ Sodium Chloride 1,000 ml @ 65 mls/hr [id number] 01/24/20 14:45 01/29/20 01:57 65 MLS/HR Sterile Water (WATER for RESP) 1,000 ml CONT PRN 01/19/20 17:30 01/27/20 07:45 1,000 ML Valacyclovir HCl (Valtrex) 1,000 mg TID 01/19/20 14:00 01/24/20 11:09 DC 01/24/20 08:28 1,000 MG Zolpidem Tartrate (Ambien) 5 mg PRN QHS PRN 01/18/20 01:00 Labs: Lab Laboratory Tests Test 01/28/20 12:51 01/28/20 17:04 01/28/20 20:47 01/29/20 07:00 Glucose (Fingerstick) 170 mg/dL (70-99) 223 mg/dL (70-99) 173 mg/dL (70-99) 168 mg/dL (70-99) Objective: Assessment: Fever resolved Acute resp hypoxic resp failure COVID + Abnormal CXR Leukopenina - chronic Thrombocytopenia Plan: Plan of Care Discontinue doxycycline Completed plasma and Remdesivir treatment On steroids supportive care d/w CHRIS RENE MD Jan 29, 2020 10:00
[2020-01-29 11:30] VITALS: BP 119/65
--- NOTE | 2020-01-29 12:25 | PDOC ---
PROGRESS NOTES Chief Complaint Chief Complaint Impression ACUTE HYPOXIC RESPIRATORY FAILURE resolved COVID-19 syndrome Patchy interstitial opacities throughout the lung whitt may represent pulmonary wedge-shaped infarcts versus atypical infection such as a viral illness. 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 morbid obesity weight down to 90.5 kg diabetes, uncontrolled, insulin//lantus adjusted Plan: Cont po , Doxycycline Remdesivir, 01/18 s/p convulasant plasma, cont solumedrol, changed to 40 bid REFUSED INTUBATION will increase LANTUS 38 UNITS SQ HS Remdesivir, 01/18 done History of Present Illness History of Present Illness Feels better, still on 5L NCO2, very weak. Some chest discomfort. No leg swelling. 01/18/2020 Patient seen and examined Discussed with infectious disease Discussed with RN Chart reviewed I ordered hematology consultation as well 01/25/2020 Patient seen and examined COVID positive Chart reviewed Discussed with RN possible uti inc lantus to 25 units sq hs heme consult on vapotherm 40 lpm and 100% fio2, appears comfortable, po protonix 01/25 No acute events reported overnight, case discussed with nursing staff patient in no acute distress no complaints during my visit, asking when she can go home, reassurance provided still requiring Vapotherm plan of care explained in detail all of her concerns were addressed to the best of my abilities. Lantus has been increased for better glycemic control 01/26 No acute events reported overnight, case discussed with nursing staff patient in no acute distress no complaints during my visit, still requiring Vapotherm hopefully will be able to wean off her oxygen requirements in the upcoming days 01/27 No acute events reported overnight, case discussed with nursing staff patient in no acute distress no complaints during my visit now not requiring Vapotherm patient may be moved out of the intensive care unit Vitals Vitals Vital Signs Date Time Temp Pulse Resp B/P (MAP) Pulse Ox O2 Delivery O2 Flow Rate FiO2 01/29/20 11:30 98.3 79 22 119/65 (83) 94 Nasal Cannula 5.0 98.3 Physical Exam Physical Exam GENERAL: Alert oriented x3 female sitting at the edge of the bed eating breakfast HEENT: Oral cavity, pharynx was clear. some blisters NECK: Supple. LUNGS: coarse bc scattered rhonchi HEART: S1, S2. regular ABDOMEN: Obese, soft, no guarding, rebound. : Hinkle in place EXTREMITIES: No clubbing, cyanosis or gross edema. SKIN: Warm to touch without signs of rash. NEUROLOGIC: Alert, oriented x3 grossly nonfocal PIV General: Alert, Oriented X3, Cooperative, No acute distress Heart: Regular rate, Normal S1 Abdomen: Normal bowel sounds, Soft Extremities: No clubbing, No cyanosis Skin: No rashes, No breakdown Labs LABS Laboratory Tests Test 01/28/20 12:51 01/28/20 17:04 01/28/20 20:47 01/29/20 07:00 Glucose (Fingerstick) 170 mg/dL (70-99) 223 mg/dL (70-99) 173 mg/dL (70-99) 168 mg/dL (70-99) Test 01/29/20 12:09 Glucose (Fingerstick) 161 mg/dL (70-99) Assessment and Plan Assessmemt and Plan Problems Medical Problems: (1) Coronavirus infection Status: Acute (2) Leukopenia Status: Acute (3) Respiratory failure, acute Status: Acute Comment Review of Relevant I have reviewed the following items jorge (where applicable) has been applied. Labs Laboratory Tests Test 01/27/20 13:48 01/27/20 18:20 01/28/20 08:25 01/28/20 12:51 Glucose (Fingerstick) 232 mg/dL (70-99) 244 mg/dL (70-99) 170 mg/dL (70-99) White Blood Count 4.8 x10^3/uL (4.0-11.0) Red Blood Count 4.66 x10^6/uL (3.50-5.40) Hemoglobin 14.4 g/dL (12.0-15.5) Hematocrit 42.9 % (36.0-47.0) Mean Corpuscular Volume 92 fL (79-100) Mean Corpuscular Hemoglobin 31 pg (25-35) Mean Corpuscular Hemoglobin Concent 34 g/dL (31-37) Red Cell Distribution Width 13.9 % (11.5-14.5) Platelet Count 57 x10^3/uL (140-400) Neutrophils (%) (Auto) 87 % (31-73) Lymphocytes (%) (Auto) 8 % (24-48) Monocytes (%) (Auto) 4 % (0-9) Eosinophils (%) (Auto) 0 % (0-3) Basophils (%) (Auto) 0 % (0-3) Neutrophils # (Auto) 4.1 x10^3/uL (1.8-7.7) Lymphocytes # (Auto) 0.4 x10^3/uL (1.0-4.8) Monocytes # (Auto) 0.2 x10^3/uL (0.0-1.1) Eosinophils # (Auto) 0.0 x10^3/uL (0.0-0.7) Basophils # (Auto) 0.0 x10^3/uL (0.0-0.2) Sodium Level 135 mmol/L (136-145) Potassium Level 4.4 mmol/L (3.5-5.1) Chloride Level 102 mmol/L (98-107) Carbon Dioxide Level 25 mmol/L (21-32) Anion Gap 8 (6-14) Blood Urea Nitrogen 20 mg/dL (7-20) Creatinine 0.9 mg/dL (0.6-1.0) Estimated GFR (Cockcroft-Gault) 64.8 Glucose Level 228 mg/dL (70-99) Calcium Level 7.7 mg/dL (8.5-10.1) Test 01/28/20 17:04 01/28/20 20:47 01/29/20 07:00 01/29/20 12:09 Glucose (Fingerstick) 223 mg/dL (70-99) 173 mg/dL (70-99) 168 mg/dL (70-99) 161 mg/dL (70-99) Laboratory Tests Test 01/28/20 12:51 01/28/20 17:04 01/28/20 20:47 01/29/20 07:00 Glucose (Fingerstick) 170 mg/dL (70-99) 223 mg/dL (70-99) 173 mg/dL (70-99) 168 mg/dL (70-99) Test 01/29/20 12:09 Glucose (Fingerstick) 161 mg/dL (70-99) Medications Current Medications Piperacillin Sod/ Tazobactam Sod (Zosyn Per Pharmacy) 1 each PRN DAILY PRN MC SEE COMMENTS; Start 01/17/20 at 19:30; Stop 01/24/20 at 11:11; Status DC Piperacillin Sod/ Tazobactam Sod 3.375 gm/Sodium Chloride 50 ml @ 100 mls/hr 1X ONCE IV Last administered on 01/17/20at 20:31; Start 01/17/20 at 19:45; Stop 01/17/20 at 20:14; Status DC Piperacillin Sod/ Tazobactam Sod 3.375 gm/Sodium Chloride 50 ml @ 100 mls/hr Q 6HRS IV Last administered on 01/24/20at 06:07; Start 01/18/20 at 00:00; Stop 01/24/20 at 11:09; Status DC Zolpidem Tartrate (Ambien) 5 mg PRN QHS PRN PO INSOMNIA; Start 01/18/20 at 01:00 Enoxaparin Sodium (Lovenox Per Pharmacy Prophylaxis Dosing) 1 each PRN DAILY PRN MC SEE COMMENTS; Start 01/18/20 at 01:00 Insulin Glargine (Lantus Syringe) 12 unit QHS SQ Last administered on 01/19/20at 21:24; Start 01/18/20 at 21:00; Stop 01/20/20 at 09:27; Status DC Acetaminophen (Tylenol) 650 mg PRN Q6HRS PRN PO FEVER > 100.3'F Last administered on 01/19/20at 16:20; Start 01/18/20 at 01:00 Enoxaparin Sodium (Lovenox 40mg Syringe) 40 mg BID SQ Last administered on 01/28/20at 20:35; Start 01/18/20 at 09:00 Doxycycline Hyclate (Vibra-Tab) 100 mg BID PO Last administered on 01/28/20at 20:35; Start 01/18/20 at 09:00; Stop 01/29/20 at 09:11; Status DC Insulin Human Lispro (HumaLOG) 0-5 UNITS TIDWMEALS SQ Last administered on 01/20/20at 17:58; Start 01/18/20 at 12:00; Stop 01/20/20 at 19:03; Status DC Dextrose (Dextrose 50%-Water Syringe) 12.5 gm PRN Q15MIN PRN IV SEE COMMENTS; Start 01/18/20 at 09:45 Lactobacillus Rhamnosus (Culturelle) 1 cap BID PO Last administered on 01/29/20at 09:29; Start 01/18/20 at 21:00 Non-Formulary Medication 1 ea/ Sodium Chloride 210 ml @ 420 mls/hr 1X ONCE IV ; Start 01/19/20 at 10:00; Stop 01/19/20 at 09:34; Status DC Non-Formulary Medication 1 ea/ Sodium Chloride 230 ml @ 460 mls/hr DAILY IV Last administered on 01/23/20at 10:37; Start 01/20/20 at 09:00; Stop 01/23/20 at 09:29; Status DC Non-Formulary Medication 1 ea/ Sodium Chloride 210 ml @ 420 mls/hr 1X ONCE IV Last administered on 01/19/20at 10:05; Start 01/19/20 at 09:45; Stop 01/19/20 at 10:14; Status DC Valacyclovir HCl (Valtrex) 1,000 mg TID PO Last administered on 01/24/20at 08 :28; Start 01/19/20 at 14:00; Stop 01/24/20 at 11:09; Status DC Methylprednisolone Sodium Succinate (SOLU-Medrol 125MG VIAL) 60 mg Q8HRS IV Last administered on 01/21/20at 06:33; Start 01/19/20 at 22:00; Stop 01/21/20 at 07:09; Status DC Sterile Water (WATER for RESP) 1,000 ml CONT PRN INH VIA VAPOTHERM DEVICE Last administered on 01/27/20at 07:45; Start 01/19/20 at 17:30 Insulin Glargine (Lantus Syringe) 16 unit QHS SQ Last administered on 01/21/20at 21:18; Start 01/20/20 at 21:00; Stop 01/22/20 at 13:09; Status DC Insulin Human Lispro (HumaLOG) 0-9 UNITS TIDWMEALS SQ Last administered on 01/28/20at 17:14; Start 01/21/20 at 08:00 Methylprednisolone Sodium Succinate (SOLU-Medrol 40MG VIAL) 40 mg Q12HR IV Last administered on 01/29/20at 09:30; Start 01/21/20 at 09:00 Insulin Glargine (Lantus Syringe) 20 unit QHS SQ Last administered on 01/22/20at 20:40; Start 01/22/20 at 21:00; Stop 01/23/20 at 15:58; Status DC Potassium Chloride (Klor-Con) 40 meq 1X ONCE PO Last administered on 01/22/20at 16:56; Start 01/22/20 at 16:00; Stop 01/22/20 at 16:03; Status DC Potassium Chloride (Klor-Con) 20 meq DAILYWBKFT PO Last administered on 01/01 04/21at 09:31; Start 01/23/20 at 08:00 Metformin HCl (Glucophage) 1,000 mg BIDWMEALS PO Last administered on 01/29/20at 09:30; Start 01/22/20 at 17:00 Insulin Glargine (Lantus Syringe) 25 unit QHS SQ Last administered on 01/23/20at 21:01; Start 01/23/20 at 21:00; Stop 01/24/20 at 11:12; Status DC Insulin Glargine (Lantus Syringe) 28 unit QHS SQ Last administered on 01/25/20at 21:43; Start 01/24/20 at 21:00; Stop 01/26/20 at 12:15; Status DC Sodium Chloride 1,000 ml @ 65 mls/hr [id number] IV Last administered on 01/29/20at 01:57; Start 01/24/20 at 14:45 Pantoprazole Sodium (Protonix) 40 mg DAILYAC PO Last administered on 01/29/20at 06:49; Start 01/25/20 at 14:00 Insulin Glargine (Lantus Syringe) 32 unit QHS SQ Last administered on 01/27/20at 21:49; Start 01/26/20 at 21:00; Stop 01/28/20 at 11:29; Status DC Insulin Glargine (Lantus Syringe) 38 unit QHS SQ Last administered on 01/28/20at 12:48; Start 01/28/20 at 11:30 Active Scripts Active Reported Metformin Hcl 1,000 Mg Tablet 1,000 Mg PO BIDWMEALS Vitals/I & O Vital Sign - Last 24 Hours 01/28/20 01/28/20 01/28/20 01/28/20 15:00 19:00 21:00 23:00 Temp 98.0 98.3 97.3 98.0 98.3 97.3 Pulse 68 75 70 Resp 22 22 20 B/P (MAP) 100/53 (69) 107/65 (79) 115/66 (82) Pulse Ox 93 93 92 O2 Delivery Nasal Cannula Nasal Cannula Nasal Cannula Nasal Cannula O2 Flow Rate 5.0 5.0 5.0 5.0 01/29/20 01/29/20 01/29/20 01/29/20 03:00 07:00 08:00 11:30 Temp 98.0 97.7 98.3 98.0 97.7 98.3 Pulse 64 64 79 Resp B/P (MAP) 99/63 (75) 98/50 (66) 119/65 (83) Pulse Ox 92 92 94 O2 Delivery Nasal Cannula Nasal Cannula Nasal Cannula Nasal Cannula O2 Flow Rate 5.0 5.0 6.0 5.0 Intake and Output 01/28/20 01/28/20 01/29/20 14:59 22:59 06:59 Intake Total 500 ml 530 ml 240 ml Output Total 775 ml 225 ml 300 ml Balance -275 ml 305 ml -60 ml FERNANDO CABRALES MD Jan 29, 2020 12:25
--- NOTE | 2020-01-29 12:30 | PDOC ---
PULMONARY PROGRESS NOTES Subjective Patient feels better on nasal cannula oxygen Vitals Vital Signs Date Time Temp Pulse Resp B/P (MAP) Pulse Ox O2 Delivery O2 Flow Rate FiO2 01/29/20 11:30 98.3 79 22 119/65 (83) 94 Nasal Cannula 5.0 98.3 Comments ros unable to obtain Pt. is on Vapotherm, without distress no obvious edema or rash Visual exam performed due to COVID-19 pandemic Patient appears to be comfortable Labs Laboratory Tests Test 01/27/20 13:48 01/27/20 18:20 01/28/20 08:25 01/28/20 12:51 Glucose (Fingerstick) 232 mg/dL (70-99) 244 mg/dL (70-99) 170 mg/dL (70-99) White Blood Count 4.8 x10^3/uL (4.0-11.0) Red Blood Count 4.66 x10^6/uL (3.50-5.40) Hemoglobin 14.4 g/dL (12.0-15.5) Hematocrit 42.9 % (36.0-47.0) Mean Corpuscular Volume 92 fL (79-100) Mean Corpuscular Hemoglobin 31 pg (25-35) Mean Corpuscular Hemoglobin Concent 34 g/dL (31-37) Red Cell Distribution Width 13.9 % (11.5-14.5) Platelet Count 57 x10^3/uL (140-400) Neutrophils (%) (Auto) 87 % (31-73) Lymphocytes (%) (Auto) 8 % (24-48) Monocytes (%) (Auto) 4 % (0-9) Eosinophils (%) (Auto) 0 % (0-3) Basophils (%) (Auto) 0 % (0-3) Neutrophils # (Auto) 4.1 x10^3/uL (1.8-7.7) Lymphocytes # (Auto) 0.4 x10^3/uL (1.0-4.8) Monocytes # (Auto) 0.2 x10^3/uL (0.0-1.1) Eosinophils # (Auto) 0.0 x10^3/uL (0.0-0.7) Basophils # (Auto) 0.0 x10^3/uL (0.0-0.2) Sodium Level 135 mmol/L (136-145) Potassium Level 4.4 mmol/L (3.5-5.1) Chloride Level 102 mmol/L (98-107) Carbon Dioxide Level 25 mmol/L (21-32) Anion Gap 8 (6-14) Blood Urea Nitrogen 20 mg/dL (7-20) Creatinine 0.9 mg/dL (0.6-1.0) Estimated GFR (Cockcroft-Gault) 64.8 Glucose Level 228 mg/dL (70-99) Calcium Level 7.7 mg/dL (8.5-10.1) Test 01/28/20 17:04 01/28/20 20:47 01/29/20 07:00 01/29/20 12:09 Glucose (Fingerstick) 223 mg/dL (70-99) 173 mg/dL (70-99) 168 mg/dL (70-99) 161 mg/dL (70-99) Laboratory Tests Test 01/28/20 12:51 01/28/20 17:04 01/28/20 20:47 01/29/20 07:00 Glucose (Fingerstick) 170 mg/dL (70-99) 223 mg/dL (70-99) 173 mg/dL (70-99) 168 mg/dL (70-99) Test 01/29/20 12:09 Glucose (Fingerstick) 161 mg/dL (70-99) Medications Active Scripts Medications Dose Route/Sig Max Daily Dose Days Date Category Metformin Hcl 1,000 Mg Tablet 1,000 Mg PO BIDWMEALS 01/18/20 Reported Comments cxr reviewed There is increased airspace opacity/infiltrates of the bilateral hemithoraces. Impression . IMPRESSION: 1. Acute hypoxic respiratory failure secondary to COVID-19 pneumonia. 2. Leukopenia secondary to viral pneumonia.improved. 3. Abnormal chest x-ray with bilateral patchy infiltrates, highly compatible with COVID-19 pneumonia. 4. Abnormal liver function tests, related to COVID pneumonia. Plan . If continues to improve, discharge home in the a.m. on oxygen supplementation remains on N/C oxygen tolerating well Status post convalescent serum, and Remdesivir on 01/21/20 Follow ID recs,? Okay to discharge on 01/29 Continue lovenox OOB as tolerated IS at bedside D/W RN and RT DVT/GI PPX:protonix/lovenox JAIRO CORTEZ MD Jan 29, 2020 12:30
--- NOTE | 2020-01-29 14:19 | NUR ---
SW following. Reviewed chart and spoke with RN. Pt from home. Pt is self-pay. Pt is COVID positive. Pt on 5l. Doxycycline discontinued. SW to continue following.
[2020-01-29 15:00] VITALS: BP 112/67
--- NOTE | 2020-01-29 17:00 | NUR ---
Patient refusing to eat, s/s insulin not given
[2020-01-29 19:50] VITALS: BP 100/56
[2020-01-29] MEDS: INSULIN GLARGINE SYRINGE. SQ SCH (22:31)
[2020-01-29 22:45] VITALS: BP 104/64
[2020-01-30 03:18] VITALS: BP 120/67
[2020-01-30 04:52] LABS: BASO % 0 % (0-3); EOS % 0 % (0-3); HEMOGLOBIN 13.4 g/dL (12.0-15.5); LYMPH # 0.3 x10^3/uL (1.0-4.8); LYMPH % 6 % (24-48); MEAN CORPUSCULAR HEMOGLOBIN 31 pg (25-35); MEAN CORPUSCULAR HGB CONC 34 g/dL (31-37); MEAN CORPUSCULAR VOLUME 92 fL (79-100); MONO # 0.2 x10^3/uL (0.0-1.1); MONO % 4 % (0-9); NEUT % 90 % (31-73); PLATELET COUNT 44 x10^3/uL (140-400); RED BLOOD COUNT 4.36 x10^6/uL (3.50-5.40); WHITE BLOOD COUNT 4.5 x10^3/uL (4.0-11.0)
[2020-01-30 07:00] VITALS: BP 100/74
--- NOTE | 2020-01-30 08:15 | PDOC ---
PULMONARY PROGRESS NOTES Subjective Patient feels better on nasal cannula oxygen Vitals Vital Signs Date Time Temp Pulse Resp B/P (MAP) Pulse Ox O2 Delivery O2 Flow Rate FiO2 01/30/20 03:18 97.5 83 22 120/67 (84) 94 Nasal Cannula 5.0 97.5 Comments ros unable to obtain Pt. is on Vapotherm, without distress no obvious edema or rash Visual exam performed due to COVID-19 pandemic Patient appears to be comfortable Labs Laboratory Tests Test 01/28/20 08:25 01/28/20 12:51 01/28/20 14:18 01/28/20 17:04 White Blood Count 4.8 x10^3/uL (4.0-11.0) Red Blood Count 4.66 x10^6/uL (3.50-5.40) Hemoglobin 14.4 g/dL (12.0-15.5) Hematocrit 42.9 % (36.0-47.0) Mean Corpuscular Volume 92 fL (79-100) Mean Corpuscular Hemoglobin 31 pg (25-35) Mean Corpuscular Hemoglobin Concent 34 g/dL (31-37) Red Cell Distribution Width 13.9 % (11.5-14.5) Platelet Count 57 x10^3/uL (140-400) Neutrophils (%) (Auto) 87 % (31-73) Lymphocytes (%) (Auto) 8 % (24-48) Monocytes (%) (Auto) 4 % (0-9) Eosinophils (%) (Auto) 0 % (0-3) Basophils (%) (Auto) 0 % (0-3) Neutrophils # (Auto) 4.1 x10^3/uL (1.8-7.7) Lymphocytes # (Auto) 0.4 x10^3/uL (1.0-4.8) Monocytes # (Auto) 0.2 x10^3/uL (0.0-1.1) Eosinophils # (Auto) 0.0 x10^3/uL (0.0-0.7) Basophils # (Auto) 0.0 x10^3/uL (0.0-0.2) Sodium Level 135 mmol/L (136-145) Potassium Level 4.4 mmol/L (3.5-5.1) Chloride Level 102 mmol/L (98-107) Carbon Dioxide Level 25 mmol/L (21-32) Anion Gap 8 (6-14) Blood Urea Nitrogen 20 mg/dL (7-20) Creatinine 0.9 mg/dL (0.6-1.0) Estimated GFR (Cockcroft-Gault) 64.8 Glucose Level 228 mg/dL (70-99) Calcium Level 7.7 mg/dL (8.5-10.1) Glucose (Fingerstick) 170 mg/dL (70-99) 223 mg/dL (70-99) Coronavirus (COVID-19)(PCR) Detected (NOT DETECT.) Test 01/28/20 20:47 01/29/20 07:00 01/29/20 12:09 01/29/20 16:49 Glucose (Fingerstick) 173 mg/dL (70-99) 168 mg/dL (70-99) 161 mg/dL (70-99) 198 mg/dL (70-99) Test 01/29/20 22:26 01/30/20 04:30 01/30/20 08:09 Glucose (Fingerstick) 180 mg/dL (70-99) 213 mg/dL (70-99) White Blood Count 4.5 x10^3/uL (4.0-11.0) Red Blood Count 4.36 x10^6/uL (3.50-5.40) Hemoglobin 13.4 g/dL (12.0-15.5) Hematocrit 40.0 % (36.0-47.0) Mean Corpuscular Volume 92 fL (79-100) Mean Corpuscular Hemoglobin 31 pg (25-35) Mean Corpuscular Hemoglobin Concent 34 g/dL (31-37) Red Cell Distribution Width 14.0 % (11.5-14.5) Platelet Count 44 x10^3/uL (140-400) Neutrophils (%) (Auto) 90 % (31-73) Lymphocytes (%) (Auto) 6 % (24-48) Monocytes (%) (Auto) 4 % (0-9) Eosinophils (%) (Auto) 0 % (0-3) Basophils (%) (Auto) 0 % (0-3) Neutrophils # (Auto) 4.0 x10^3/uL (1.8-7.7) Lymphocytes # (Auto) 0.3 x10^3/uL (1.0-4.8) Monocytes # (Auto) 0.2 x10^3/uL (0.0-1.1) Eosinophils # (Auto) 0.0 x10^3/uL (0.0-0.7) Basophils # (Auto) 0.0 x10^3/uL (0.0-0.2) Laboratory Tests Test 01/29/20 12:09 01/29/20 16:49 01/29/20 22:26 01/30/20 04:30 Glucose (Fingerstick) 161 mg/dL (70-99) 198 mg/dL (70-99) 180 mg/dL (70-99) White Blood Count 4.5 x10^3/uL (4.0-11.0) Red Blood Count 4.36 x10^6/uL (3.50-5.40) Hemoglobin 13.4 g/dL (12.0-15.5) Hematocrit 40.0 % (36.0-47.0) Mean Corpuscular Volume 92 fL (79-100) Mean Corpuscular Hemoglobin 31 pg (25-35) Mean Corpuscular Hemoglobin Concent 34 g/dL (31-37) Red Cell Distribution Width 14.0 % (11.5-14.5) Platelet Count 44 x10^3/uL (140-400) Neutrophils (%) (Auto) 90 % (31-73) Lymphocytes (%) (Auto) 6 % (24-48) Monocytes (%) (Auto) 4 % (0-9) Eosinophils (%) (Auto) 0 % (0-3) Basophils (%) (Auto) 0 % (0-3) Neutrophils # (Auto) 4.0 x10^3/uL (1.8-7.7) Lymphocytes # (Auto) 0.3 x10^3/uL (1.0-4.8) Monocytes # (Auto) 0.2 x10^3/uL (0.0-1.1) Eosinophils # (Auto) 0.0 x10^3/uL (0.0-0.7) Basophils # (Auto) 0.0 x10^3/uL (0.0-0.2) Test 01/30/20 08:09 Glucose (Fingerstick) 213 mg/dL (70-99) Medications Active Scripts Medications Dose Route/Sig Max Daily Dose Days Date Category Metformin Hcl 1,000 Mg Tablet 1,000 Mg PO BIDWMEALS 01/18/20 Reported Comments cxr reviewed There is increased airspace opacity/infiltrates of the bilateral hemithoraces. Impression . IMPRESSION: 1. Acute hypoxic respiratory failure secondary to COVID-19 pneumonia. 2. Leukopenia secondary to viral pneumonia.improved. 3. Abnormal chest x-ray with bilateral patchy infiltrates, highly compatible with COVID-19 pneumonia. 4. Abnormal liver function tests, related to COVID pneumonia. Plan . Discharge today JAIRO CORTEZ MD Jan 30, 2020 08:15
[2020-01-30] MEDS: ENOXAPARIN 40 MG/0.4 ML SYRINGE. SQ SCH (09:00)
[2020-01-30] MEDS: LACTOBACILLUS RHAMNOSUS GG 1 CAPSULE. PO SCH (09:02)
[2020-01-30] MEDS: methylPREDNISolone SOD SUCC PF 40 MG/ML VIAL. IV SCH (09:02)
[2020-01-30] MEDS: POTASSIUM CHLORIDE 20 MEQ TABLET.ER. PO SCH (09:02)
[2020-01-30] MEDS: metFORMIN 500 MG TABLET PO SCH (09:02)
[2020-01-30] MEDS: PANTOPRAZOLE 40 MG TABLET.DR. PO SCH (09:02)
[2020-01-30] MEDS: INSULIN LISPRO 300 UNITS/3 ML VIAL. SQ SCH ×2 (09:04→12:10)
[2020-01-30] MEDS: IV NORMAL SALINE 1000ML BAG 1,000 ML IV SCH (09:21)
--- NOTE | 2020-01-30 09:25 | PDOC ---
Infectious Disease Note Subjective: Subjective Pt feels better On O2 4L by nasal cannula Denies fever, nausea, vomiting, shortness of breath, abdominal pain, rash Otherwise as above Vital Signs: Vital Signs Vital Signs Date Time Temp Pulse Resp B/P (MAP) Pulse Ox O2 Delivery O2 Flow Rate FiO2 01/30/20 03:18 97.5 83 22 120/67 (84) 94 Nasal Cannula 5.0 97.5 Physical Exam: PHYSICAL EXAM GENERAL: Alert oriented x3 female sitting at the edge of the bed eating breakfast HEENT: Oral cavity, pharynx was clear. some blisters NECK: Supple. LUNGS: coarse bc scattered rhonchi HEART: S1, S2. regular ABDOMEN: Obese, soft, no guarding, rebound. : Hinkle in place EXTREMITIES: No clubbing, cyanosis or gross edema. SKIN: Warm to touch without signs of rash. NEUROLOGIC: Alert, oriented x3 grossly nonfocal PIV Medications: Inpatient Meds: Current Medications Medications (Trade) Dose Ordered Sig/Tiera Start Time Stop Time Status Last Admin Dose Admin Acetaminophen (Tylenol) 650 mg PRN Q6HRS PRN 01/18/20 01:00 01/19/20 16:20 650 MG Dextrose (Dextrose 50%-Water Syringe) 12.5 gm PRN Q15MIN PRN 01/18/20 09:45 Doxycycline Hyclate (Vibra-Tab) 100 mg BID 01/18/20 09:00 01/29/20 09:11 DC 01/28/20 20:35 100 MG Enoxaparin Sodium (Lovenox 40mg Syringe) 40 mg BID 01/18/20 09:00 01/29/20 22:30 40 MG Enoxaparin Sodium (Lovenox Per Pharmacy Prophylaxis Dosing) 1 each PRN DAILY PRN 01/18/20 01:00 Insulin Glargine (Lantus Syringe) 38 unit QHS 01/28/20 11:30 01/29/20 22:31 38 UNIT Insulin Human Lispro (HumaLOG) 0-9 UNITS TIDWMEALS 01/21/20 08:00 01/30/20 09:04 5 UNITS Lactobacillus Rhamnosus (Culturelle) 1 cap BID 01/18/20 21:00 01/30/20 09:02 1 CAP Metformin HCl (Glucophage) 1,000 mg BIDWMEALS 01/22/20 17:00 01/30/20 09:02 1,000 MG Methylprednisolone Sodium Succinate (SOLU-Medrol 40MG VIAL) 40 mg Q12HR 01/21/20 09:00 01/30/20 09:02 40 MG Methylprednisolone Sodium Succinate (SOLU-Medrol 125MG VIAL) 60 mg Q8HRS 01/19/20 22:00 01/21/20 07:09 DC 01/21/20 06:33 60 MG Non-Formulary Medication 1 ea/ Sodium Chloride 210 ml @ 420 mls/hr 1X ONCE 01/19/20 09:45 01/19/20 10:14 DC 01/19/20 10:05 420 MLS/HR Pantoprazole Sodium (Protonix) 40 mg DAILYAC 01/25/20 14:00 01/30/20 09:02 40 MG Piperacillin Sod/ Tazobactam Sod (Zosyn Per Pharmacy) 1 each PRN DAILY PRN 01/17/20 19:30 01/24/20 11:11 DC Piperacillin Sod/ Tazobactam Sod 3.375 gm/Sodium Chloride 50 ml @ 100 mls/hr Q6HRS 01/18/20 00:00 01/24/20 11:09 DC 01/24/20 06:07 100 MLS/HR Potassium Chloride (Klor-Con) 20 meq [id number] 01/23/20 08:00 01/30/20 09:02 20 MEQ Sodium Chloride 1,000 ml @ 65 mls/hr [id number] 01/24/20 14:45 01/29/20 20:08 65 MLS/HR Sterile Water (WATER for RESP) 1,000 ml CONT PRN 01/19/20 17:30 01/27/20 07:45 1,000 ML Valacyclovir HCl (Valtrex) 1,000 mg TID 01/19/20 14:00 01/24/20 11:09 DC 01/24/20 08:28 1,000 MG Zolpidem Tartrate (Ambien) 5 mg PRN QHS PRN 01/18/20 01:00 Labs: Lab Laboratory Tests Test 01/29/20 12:09 01/29/20 16:49 01/29/20 22:26 01/30/20 04:30 Glucose (Fingerstick) 161 mg/dL (70-99) 198 mg/dL (70-99) 180 mg/dL (70-99) White Blood Count 4.5 x10^3/uL (4.0-11.0) Red Blood Count 4.36 x10^6/uL (3.50-5.40) Hemoglobin 13.4 g/dL (12.0-15.5) Hematocrit 40.0 % (36.0-47.0) Mean Corpuscular Volume 92 fL (79-100) Mean Corpuscular Hemoglobin 31 pg (25-35) Mean Corpuscular Hemoglobin Concent 34 g/dL (31-37) Red Cell Distribution Width 14.0 % (11.5-14.5) Platelet Count 44 x10^3/uL (140-400) Neutrophils (%) (Auto) 90 % (31-73) Lymphocytes (%) (Auto) 6 % (24-48) Monocytes (%) (Auto) 4 % (0-9) Eosinophils (%) (Auto) 0 % (0-3) Basophils (%) (Auto) 0 % (0-3) Neutrophils # (Auto) 4.0 x10^3/uL (1.8-7.7) Lymphocytes # (Auto) 0.3 x10^3/uL (1.0-4.8) Monocytes # (Auto) 0.2 x10^3/uL (0.0-1.1) Eosinophils # (Auto) 0.0 x10^3/uL (0.0-0.7) Basophils # (Auto) 0.0 x10^3/uL (0.0-0.2) Test 01/30/20 08:09 Glucose (Fingerstick) 213 mg/dL (70-99) Objective: Assessment: Fever resolved Acute resp hypoxic resp failure COVID + Abnormal CXR Leukopenina - chronic Thrombocytopenia Plan: Plan of Care Completed plasma and Remdesivir treatment On steroids completed antibiotic tx supportive care d/w CHRIS RENE MD Jan 30, 2020 09:25
[2020-01-30 11:00] VITALS: BP 114/62
--- NOTE | 2020-01-30 12:39 | DS ---
DATE OF DISCHARGE: 01/30/2020 ADMISSION DIAGNOSES: Respiratory failure with COVID-19. DISCHARGE DIAGNOSES: Resolving COVID-19, resolving pneumonia, resolving respiratory failure. HOSPITAL COURSE: The patient is a pleasant 54-year-old female, who presented with respiratory failure with pneumonia and COVID-19 positive. She was admitted. We gave her steroids, oxygen, and antibiotics. We consulted Pulmonary Medicine. Today, she was doing great. I saw her and examined her. Heart tones are normal. Lungs are clear. Abdomen was soft. We plan to discharge to home with a Medrol Dosepak and home oxygen. DISPOSITION: Home. ACTIVITY: As tolerated. DIET: Low sodium. MEDICATIONS: Please see the MRAD. TOTAL TIME: 34 minutes. PATRICIA MEDINA DO DR: JERRY/bradly JOB#: [id number] / [id number]
--- NOTE | 2020-01-30 13:51 | NUR ---
ABIGAIL following. Spoke with RN and coordinated care with Dr. Correa. Discharge orders received. ABIGAIL phoned and faxed discharge orders and referral for home 02 to [facility], , (fax). ABIGAIL spoke with granddaughter who confirmed she would pay for pt to have home 02. [employer]ama delivered the tank and Vivien at [facility] confirmed all orders received and that she had spoken with the granddaughter to get payment information. Family to transport pt home today. Pt on oral medications. No further ABIGAIL needs at this time. Addendum: 01/30/20 at 1633 by JANIS HAYES Patient Choice of Vendor form completed
--- NOTE | 2020-01-30 15:03 | NUR ---
Discharge Note: PT DISCHARGED HOME WITH SELF CARE. PT LEFT FACILITY VIA PRIVATE VEHICLE AT 1655. PT STABLE AND ALERT UPON DISCHARGE. PT PIV REMOVED FROM L AC WITHOUT COMPLICATIONS, BANDAGE APPLIED. PT AND SONS EDUCATED ABOUT DISCHARGE INSTRUCTIONS, DISCHARGE MEDICATIONS, AND FOLLOW-UP CARE. PT FAMILY VOICED NO CONCERNS AT THIS TIME. PT LEFT WITH ALL PERSONAL BELONGINGS. SARIAH LEMUS[address] [place] [address] Discharge instructions and discharge home medications reviewed with Patient and a copy given. All questions have been answered and understanding verbalized.
== END 2020-01-30 15:07 | disposition home or self-care (01) | DRG 177 ==
LOC: ER 15:47 → ED HOLD 17:55 → 6 SOUTH 22:01 → 1 WEST ICU 01-19 17:36 → 6 SOUTH 01-28 12:00
PROVIDERS: ADMIT Internal Medicine; ATTEND Internal Medicine
PROC: 30233K1 Transfusion of Nonautologous Frozen Plasma into Peripheral Vein, Percutaneous Approach (ICD-10-PCS; principal; 2020-01-21)
DX: U07.1 COVID-19 (principal); J12.89 Other viral pneumonia; J96.01 Acute respiratory failure with hypoxia; Z68.41 Body mass index [BMI] 40.0-44.9, adult; D69.6 Thrombocytopenia, unspecified; D72.819 Decreased white blood cell count, unspecified; E11.65 Type 2 diabetes mellitus with hyperglycemia; E66.01 Morbid (severe) obesity due to excess calories; Z78.9 Other specified health status; Z79.4 Long term (current) use of insulin; Z83.3 Family history of diabetes mellitus; Z79.899 Other long term (current) drug therapy
CPT/HCPCS: 36415; 36600; 71045; 80048; 80053; 81001; 82728; 82805; 82962; 83615; 83735; 84484; 85007; 85025; 85379; 86140; 86850; 86900; 86901; 86927; 94003; 94618; 94760; J1650; J1815; J2543; J2920; J2930; J7030; 99285-25; G0378; P9017; U0003-CS

== ENCOUNTER → 2020-05-15 | Outpatient (CLI) | payer OTHER ==
[~2020-05-15] MED LIST: METF10007 PO
--- NOTE | 2020-05-15 08:40 | RAD ---
CLINICAL HISTORY: Elevated Liver Function Test COMPARISON: None available. TECHNIQUE: Limited ultrasound examination of the right upper quadrant of the abdomen was performed FINDINGS: Of note, examination is significantly limited given suboptimal sonographic penetration. Visualized portions of the pancreas are unremarkable. Liver: The liver measures 17 cm in length in the right mid clavicular line. Increased hepatic echogenicity relative to the right kidney consistent with hepatic steatosis. There is no focal abnormality of the liver. Portal venous flow is confirmed. Gallbladder/Biliary: The gallbladder is normal in appearance without evidence for cholelithiasis. There is no wall thickening or pericholecystic fluid. There is no pain with direct transducer pressure over the gallbladder.The common bile duct measures 0.4 cm. The right kidney measures 11.6 cm in bipolar length. A 1.6 cm right lower pole hypoechoic renal lesion is likely cystic with internal debris/proteinaceous content. There is no free fluid in the subhepatic space. IMPRESSION: 1. Examination is is significantly limited given suboptimal sonographic penetration. 2. Increased hepatic echogenicity relative to the right kidney consistent with hepatic steatosis. 3. 1.6 cm right lower pole hypoechoic renal lesion is likely cystic although given the internal echoes likely hemorrhagic or proteinaceous content. Sonographic follow-up in 3 months is recommended. Electronically signed by: Kris Skaggs MD (05/15/2020 8:38 AM) [id number]
== END ==
LOC: US 07:22
PROVIDERS: ATTEND Family Medicine
DX: R79.89 Other specified abnormal findings of blood chemistry (principal)
CPT/HCPCS: 76705

== ENCOUNTER → 2020-10-31 | Outpatient (CLI) | payer OTHER ==
--- NOTE | 2020-10-31 15:11 | RAD ---
INDICATION: Reason: Follow up RT Renal mass seen on US 05-15-20 / Spl. Instructions: / History: COMPARISON: 05/15/2020 TECHNIQUE: Grayscale and color ultrasound images obtained of the bilateral kidneys and bladder. FINDINGS: Right Kidney: 123 mm. No hydronephrosis. 16 x 15 mm cystic lesion. Mildly echogenic rim therefore per ipheral calcification may be present Left Kidney: 125 mm. No hydronephrosis. Bladder: Partially distended Partially visualized liver is echogenic. Nonspecific but can be seen with fatty infiltration. IMPRESSION: * Repeat demonstration of right renal cystic lesion with the overall size similar to minimally incre ased from prior. Electronically signed by: Ranulfo Choudhury MD (10/31/2020 3:09 PM) [id number]
== END ==
LOC: US 10:33
PROVIDERS: ATTEND Family Medicine
DX: N28.1 Cyst of kidney, acquired (principal); N28.89 Other specified disorders of kidney and ureter
CPT/HCPCS: 76770

== ENCOUNTER 2020-11-12 10:34 | Inpatient (IN) | payer SELFPAY ==
[2020-11-12] VITALS (9 sets, daily range): BP systolic 143–175; BP diastolic 81–95
[~2020-11-12] VITALS: Ht 152.4 cm; Wt 88.0 kg
[2020-11-12] MEDS ORDERED: MORPHINE SULFATE 10 MG/ML VIAL. IV ONE ×2 (10:45→11:45)
--- NOTE | 2020-11-12 11:18 | RAD ---
EXAM: XR RT WRIST 2 VIEWS 11/12/2020 10:46 AM CLINICAL INDICATION: Open fracture from fall COMPARISON: None TECHNIQUE: 2 views of the right wrist FINDINGS: There is a comminuted distal radius fracture with severe, greater than one shaft width dis placement. The proximal fragment extends to the skin consistent with reported fracture. The distal fr agment remains grossly aligned with the carpus. There is a comminuted, displaced distal ulnar fractur e. There is disruption of the distal radioulnar joint. There is diffuse soft tissue swelling and smal l amount of soft tissue gas present. Tissue gas and small amount of IMPRESSION: Comminuted, severely displaced open fracture of the distal radius and comminuted, displa veronica distal ulnar fracture. Electronically signed by: Monserrat Gandhi MD (11/12/2020 11:15 AM) [id number]
[2020-11-12] MEDS ORDERED: DIPH,PERTUSS(ACELL),TET VAC/PF 0.5 ML SYRINGE. VAX IM ONE (11:30)
[2020-11-12] MEDS ORDERED: GENTAMICIN SULFATE 300 MG in IV DEXTROSE 5% 100ML 100 ML IV ONE (11:45)
--- NOTE | 2020-11-12 12:24 | PDOC2 ---
CONSULT Date of Consult Date of Consult DATE: 11/12/20 TIME: 12:22 Reason for Consult Reason for Consult: open wrist fracture Identification/Chief Complaint Chief Complaint Open wrist fracture Source Source: Chart review, Patient History of Present Illness Reason for Visit: This 55-year-old woman fell outdoors falling on an uneven driveway while taking out the trash,, and sustained an open wrist fracture. She was admitted through the emergency room and orthopedics was consulted. 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 She complains of severe pain at the wrist with any attempts at motion. She can still feel the fingers and move them slightly. There was a laceration and open fracture and she noted that the bones came through the skin at the time of injury. Family History Family History: Hypertension Social History No ALCOHOL: none Lives: with Family Current Medications Current Medications Current Medications Morphine Sulfate (Morphine Sulfate) 5 mg 1X ONCE IV Last administered on 11/12/20at 10:51; Start 11/12/20 at 10:45; Stop 11/12/20 at 10:46; Status DC Diphtheria/ Tetanus/Acell Pertussis (ADACEL TDap SYRINGE) 0.5 ml ONCE ONCE VAX IM Last administered on 11/12/20at 11:50; Start 11/12/20 at 11:30; Stop 11/12/20 at 11:31; Status DC Cefazolin Sodium/ Dextrose 50 ml @ 100 mls/hr 1X ONCE IV Last administered on 11/12/20at 11:50; Start 11/12/20 at 11:30; Stop 11/12/20 at 11:59; Status DC Gentamicin Sulfate 300 mg/ Dextrose 107.5 ml @ 107.5 mls/ hr 1X ONCE IV ; Start 11/12/20 at 11:45; Stop 11/12/20 at 12:44 Morphine Sulfate (Morphine Sulfate) 5 mg 1X ONCE IV Last administered on 11/12/20at 11:47; Start 11/12/20 at 11:45; Stop 11/12/20 at 11:46; Status DC Active Scripts Active Reported Metformin Hcl 1,000 Mg Tablet 1,000 Mg PO BIDWMEALS Allergies Allergies: Coded Allergies: No Known Drug Allergies (Unverified , 01/17/20) ROS Review of System General: No: Chills, Night Sweats, Fatigue, Malaise, Appetite, Other PSYCHOLOGICAL ROS: No: Anxiety, Behavioral Disorder, Concentration difficultie, Decreased libido, Depression, Disorientation, Hallucinations, Hostility, Irritablity, Memory difficulties, Mood Swings, Obsessive thoughts, Physical abuse, Sexual abuse, Sleep disturbances, Suicidal ideation, Other Eyes: No Blurry vision, No Decreased vision, No Double vision, No Dry eyes, No Excessive tearing, No Eye Pain, No Itchy Eyes, No Loss of vision, No Photophobia, No Scotomata, No Uses contacts, No Uses glasses, No Other HEENT: No: Heacaches, Visual Changes, Hearing change, Nasal congestion, Nasal discharge, Oral lesions, Sinus pain, Sore Throat, Epistaxis, Sneezing, Snoring, Tinnitus, Vertigo, Vocal changes, Other ALLERGY AND IMMUNOLOGY: No: Hives, Insect Bite Sensitivity, Itchy/Watery Eyes, Nasal Congestion, Post Nasal Drip, Seasonal Allergies, Other Hematological and Lymphatic: No: Bleeding Problems, Blood Clots, Blood Transfusions, Brusing, Night Sweats, Pallor, Swollen Lymph Nodes, Other ENDOCRINE: No: Breast Changes, Galactorrhea, Hair Pattern Changes, Hot Flashes, Malaise/lethargy, Mood Swings, Palpitations, Polydipsia/polyuria, Skin Changes, Temperature Intolerance, Unexpected Weight Changes, Other Breast: No New/Changing Breast Lumps, No Nipple changes, No Nipple discharge, No Other Respiratory: No: Cough, Hemoptysis, Orthopnea, Pleuritic Pain, Shortness of breath, SOB with excertion, Sputum Changes, Stridor, Tachypnea, Wheezing, Other Cardiovascular: No Chest Pain, No Palpitations, No Orthopnea, No Paroxysmal Noc. Dyspnea, No Edema, No Lt Headedness, No Other Gastrointestinal: No Nausea, No Vomiting, No Abdominal Pain, No Diarrhea, No Constipation, No Melena, No Hematochezia, No Other Genitourinary: No Dysuria, No Frequency, No Incontinence, No Hematuria, No Retention, No Discharge, No Urgency, No Pain, No Flank Pain, No Other, No , No , No , No , No , No , No Musculoskeletal: Yes Gait Disturbance, Yes Joint Pain, Yes Joint Stiffness, Yes Joint Swelling, Yes Muscle Pain; No Muscular Weakness, No Pain In:, No Swelling In:, No Other Neurological: Yes Gait Disturbance; No Behavorial Changes, No Bowel/Bladder ControlChng, No Confusion, No Dizziness, No Headaches, No Impaired Coord/balance, No Memory Loss, No Numbness/Tingling, No Seizures, No Speech Problems, No Tremors, No Visual Changes, No Weakness, No Other Skin: No Dry Skin, No Eczema, No Hair Changes, No Lumps, No Mole Changes, No Mottling, No Nail Changes, No Pruritus, No Rash, No Skin Lesion Changes, No Other, No Acne Physical Exam General: Alert, Cooperative HEENT: Atraumatic Lungs: Normal air movement Heart: Regular rate Abdomen: Soft Extremities: Other (There is a 4cm laceration transversely and about 1 cm proximal to the wrist flexion crease, starting at the palmaris longus tendon and extending ulnarly beyond the flexor carpi ulnaris tendon. There is no definitive tendon involvement. The bones are no longer exposed but the extensive laceration indicates an open fracture primarily of the ulnar fracture although the radius is likely involved due to the extensive laceration. There is deformity of the wrist and instability and wrist swelling masks the extent of the deformity. There is severe tenderness at the wrist. Finger motion is decreased but there is no evidence of specific neurovascular injury. Capillary refill is normal. Pulse is not assessable due to the tenderness of the wrist and open fracture. Light touch sensation is intact. Motor function is difficult to assess but seems present for the radial ulnar and median nerves. There is no tenderness at the elbow. ) Skin: Other (4 cm open fracture laceration) Neuro: Normal speech, Normal tone, Sensation intact Psych/Mental Status: Mental status NL, Mood NL Vitals VITALS Vital Signs Date Time Temp Pulse Resp B/P (MAP) Pulse Ox O2 Delivery O2 Flow Rate FiO2 11/12/20 11:47 16 94 Room Air 11/12/20 10:46 98.3 88 98.3 11/12/20 10:45 137/93 (108) Images Images Report reviewed, images independently reviewed. PATIENT: SARIAH LEMUS EACCOUNT: [id number] : 1965 LOCATION: ER AGE: 55 SEX: F EXAM STATUS: REG ER ORD. PHYSICIAN: DIMA MCCARTY MD REASON: open fracture from fall PROCEDURE: WRIST 2V RIGHT EXAM: XR RT WRIST 2 VIEWS 11/12/2020 10:46 AM CLINICAL INDICATION: Open fracture from fall COMPARISON: None TECHNIQUE: 2 views of the right wrist FINDINGS: There is a comminuted distal radius fracture with severe, greater than one shaft width displacement. The proximal fragment extends to the skin consistent with reported fracture. The distal fragment remains grossly aligned with the carpus. There is a comminuted, displaced distal ulnar fracture. There is disruption of the distal radioulnar joint. There is diffuse soft tissue swelling and small amount of soft tissue gas present. Tissue gas and small amount of IMPRESSION: Comminuted, severely displaced open fracture of the distal radius and comminuted, displaced distal ulnar fracture. Electronically signed by: Monserrat Gandhi MD (11/12/2020 11:15 AM) [id number] DICTATED and SIGNED BY: MONSERRAT GANDHI MD DATE: 11/12/20 [id number] Assessment/Plan Assessment/Plan Other intraarticular fracture of lower end of right radius, initial encounter for open fracture type I or II S52.571B Displaced fracture of right ulna styloid process, initial encounter for open fracture type I or II S52.611B She has an open fracture with severe comminution of the distal radius and ulna. I recommended irrigation and debridement for the open fracture and likely internal fixation for the radius and ulna fractures. We discussed potential external fixator use if the severity is worse than what I can tell preoperatively. We talked about the significant risks of infection with an open fracture. There are risks of infection and/or nonunion and need for additional surgery. Hopefully this will heal without infection. This may take a long time to heal. Fortunately she is not a smoker. I discussed in detail the irrigation procedure and demonstrated photographs of both internal and external fixation to her and to her son. All of their questions about surgery were answered and they desire to proceed. Written consent was obtained. JOVANNI STANLEY MD Nov 12, 2020 12:24
[2020-11-12] MEDS ORDERED: HYDROmorphone 2 MG/ML VIAL IVP PRN (12:45)
[2020-11-12] MEDS ORDERED: PROCHLORPERAZINE 10 MG/2 ML VIAL. IVP PRN (12:45)
[2020-11-12] MEDS ORDERED: IV RINGERS,LACTATED 1000ML 1,000 ML IV SCH (12:45)
[2020-11-12] MEDS ORDERED: fentaNYL PF VIAL 100 MCG/2 ML VIAL IVP PRN ×2 (12:45→19:00)
[2020-11-12] MEDS ORDERED: MORPHINE SULFATE 2 MG/ML VIAL. IVP PRN ×2 (12:45→19:00)
--- NOTE | 2020-11-12 12:48 | PDOC1 ---
History and Physical Date of Admission Date of Admission DATE: 11/12/20 TIME: 12:46 Identification/Chief Complaint Chief Complaint FALL, SEVERE WRIST PAIN History of Present Illness History of Present Illness 55-year-old female who presented to the emergency room complaining of severe right wrist pain. Patient was taking the trash out, driveway is uphill and uneven and she fell forward catching herself with her hand. / had immediate onset of pain afterwards and noticed some bleeding. She has . Pain is sharp and achy in nature. It is worse anytime she tries to move x r c/w open fx , fx irrigated in ER, PT IS NPO, HAS OPEN FRACTURE FROM FALL Family History Family History: Hypertension Social History Smoke: No ALCOHOL: none Drugs: None Current Medications Current Medications Current Medications Morphine Sulfate (Morphine Sulfate) 5 mg 1X ONCE IV Last administered on 11/12/20at 10:51; Start 11/12/20 at 10:45; Stop 11/12/20 at 10:46; Status DC Diphtheria/ Tetanus/Acell Pertussis (ADACEL TDap SYRINGE) 0.5 ml ONCE ONCE VAX IM Last administered on 11/12/20at 11:50; Start 11/12/20 at 11:30; Stop 11/12/20 at 11:31; Status DC Cefazolin Sodium/ Dextrose 50 ml @ 100 mls/hr 1X ONCE IV Last administered on 11/12/20at 11:50; Start 11/12/20 at 11:30; Stop 11/12/20 at 11:59; Status DC Gentamicin Sulfate 300 mg/ Dextrose 107.5 ml @ 107.5 mls/ hr 1X ONCE IV Last administered on 11/12/20at 12:31; Start 11/12/20 at 11:45; Stop 11/12/20 at 12:44; Status DC Morphine Sulfate (Morphine Sulfate) 5 mg 1X ONCE IV Last administered on 11/12/20at 11:47; Start 11/12/20 at 11:45; Stop 11/12/20 at 11:46; Status DC Fentanyl Citrate (Fentanyl 2ml Vial) 25 mcg PRN Q5MIN PRN IVP MILD PAIN 1-3; Start 11/12/20 at 12:45; Stop 11/13/20 at 12:44 Fentanyl Citrate (Fentanyl 2ml Vial) 50 mcg PRN Q5MIN PRN IVP MODERATE PAIN 4- 6; Start 11/12/20 at 12:45; Stop 11/13/20 at 12:44 Morphine Sulfate (Morphine Sulfate) 1 mg PRN Q10MIN PRN IVP SEVERE PAIN 7-10; Start 11/12/20 at 12:45; Stop 11/13/20 at 12:44 Ringer's Solution 1,000 ml @ 30 mls/hr Q24H IV ; Start 11/12/20 at 12:45; Stop 11/13/20 at 00:44 Hydromorphone HCl (Dilaudid) 0.5 mg PRN Q10MIN PRN IVP SEVERE PAIN 7-10, 2nd CHOICE; Start 11/12/20 at 12:45; Stop 11/13/20 at 12:44 Prochlorperazine Edisylate (Compazine) 5 mg PACU PRN PRN IVP NAUSEA, MRX1; Start 11/12/20 at 12:45; Stop 11/13/20 at 12:44 Active Scripts Active Reported Metformin Hcl 1,000 Mg Tablet 1,000 Mg PO BIDWMEALS Allergies Allergies: Coded Allergies: No Known Drug Allergies (Unverified , 01/17/20) ROS Review of System 14 PT ROS OTHERWISE NEG General: No: Chills, Night Sweats, Fatigue, Malaise, Appetite, Other PSYCHOLOGICAL ROS: No: Anxiety, Behavioral Disorder, Concentration difficultie, Decreased libido, Depression, Disorientation, Hallucinations, Hostility, Irritablity, Memory difficulties, Mood Swings, Obsessive thoughts, Physical abuse, Sexual abuse, Sleep disturbances, Suicidal ideation, Other Eyes: No Blurry vision, No Decreased vision, No Double vision, No Dry eyes, No Excessive tearing, No Eye Pain, No Itchy Eyes, No Loss of vision, No Photophobia, No Scotomata, No Uses contacts, No Uses glasses, No Other HEENT: No: Heacaches, Visual Changes, Hearing change, Nasal congestion, Nasal discharge, Oral lesions, Sinus pain, Sore Throat, Epistaxis, Sneezing, Snoring, Tinnitus, Vertigo, Vocal changes, Other ALLERGY AND IMMUNOLOGY: No: Hives, Insect Bite Sensitivity, Itchy/Watery Eyes, Nasal Congestion, Post Nasal Drip, Seasonal Allergies, Other Hematological and Lymphatic: No: Bleeding Problems, Blood Clots, Blood Trans fusions, Brusing, Night Sweats, Pallor, Swollen Lymph Nodes, Other ENDOCRINE: No: Breast Changes, Galactorrhea, Hair Pattern Changes, Hot Flashes, Malaise/lethargy, Mood Swings, Palpitations, Polydipsia/polyuria, Skin Changes, Temperature Intolerance, Unexpected Weight Changes, Other Breast: No New/Changing Breast Lumps, No Nipple changes, No Nipple discharge, No Other Respiratory: No: Cough, Hemoptysis, Orthopnea, Pleuritic Pain, Shortness of breath, SOB with excertion, Sputum Changes, Stridor, Tachypnea, Wheezing, Other Cardiovascular: No Chest Pain, No Palpitations, No Orthopnea, No Paroxysmal Noc. Dyspnea, No Edema, No Lt Headedness, No Other Gastrointestinal: No Nausea, No Vomiting, No Abdominal Pain, No Diarrhea, No Constipation, No Melena, No Hematochezia, No Other Genitourinary: No Dysuria, No Frequency, No Incontinence, No Hematuria, No Retention, No Discharge, No Urgency, No Pain, No Flank Pain, No Other, No , No , No , No , No , No , No Musculoskeletal: Yes Gait Disturbance, Yes Joint Pain, Yes Joint Stiffness, Yes Joint Swelling, Yes Muscle Pain; No Muscular Weakness, No Pain In:, No Swelling In:, No Other Neurological: Yes Gait Disturbance; No Behavorial Changes, No Bowel/Bladder ControlChng, No Confusion, No Dizziness, No Headaches, No Impaired Coord/balance, No Memory Loss, No Numbness/Tingling, No Seizures, No Speech Problems, No Tremors, No Visual Changes, No Weakness, No Other Skin: No Dry Skin, No Eczema, No Hair Changes, No Lumps, No Mole Changes, No Mottling, No Nail Changes, No Pruritus, No Rash, No Skin Lesion Changes, No Other, No Acne Physical Exam Physical Exam General: Awake, alert, NAD. Well Nourished, well hydrated. Cooperative HEENT: Atraumatic, EOMI, PERRL, airway patent, moist oral mucosa Neck: Supple, trachea midline Respiratory: CTA bilaterally, normal effort, no wheezing/crackles CV: RRR, no murmur, cap refill <2 GI: Soft, nondistended, nontender, no masses MSK: Right wrist: Obvious deformity at the wrist with 1 cm laceration with small amount of oozing, intact sensation, intact distal range of motion in the hand, 2+ radial pulse Skin: Warm, dry, intact Neuro: A&O x3, speech NL, sensory and motor grossly intact, no focal deficits Psych: Normal affect, normal mood, General: Alert, Oriented X3, Cooperative, moderate distress HEENT: EOMI, Mucous membr. moist/pink Lungs: Clear to auscultation, Normal air movement Heart: S1S2, RRR, no thrills, no gallops Breasts: Not examined Abdomen: Normal bowel sounds, Soft Rectal Exam: not examined PELVIC: Examination not indicated Extremities: No clubbing, No cyanosis Neuro: Normal speech, Cranial nerves 3-12 NL Psych/Mental Status: Mental status NL, Mood NL Vitals Vitals Vital Signs Date Time Temp Pulse Resp B/P (MAP) Pulse Ox O2 Delivery O2 Flow Rate FiO2 11/12/20 11:47 16 94 Room Air 11/12/20 10:46 98.3 88 98.3 11/12/20 10:45 137/93 (108) Images Images EXAM: XR RT WRIST 2 VIEWS 11/12/2020 10:46 AM CLINICAL INDICATION: Open fracture from fall COMPARISON: None TECHNIQUE: 2 views of the right wrist FINDINGS: There is a comminuted distal radius fracture with severe, greater than one shaft width displacement. The proximal fragment extends to the skin consistent with reported fracture. The distal fragment remains grossly aligned with the carpus. There is a comminuted, displaced distal ulnar fracture. There is disruption of the distal radioulnar joint. There is diffuse soft tissue swelling and small amount of soft tissue gas present. Tissue gas and small amou nt of IMPRESSION: Comminuted, severely displaced open fracture of the distal radius and comminuted, displaced distal ulnar fracture. Electronically signed by: Monserrat Gandhi MD (11/12/2020 11:15 AM) [id number] DICTATED and SIGNED BY: MONSERRAT GANDHI MD DATE: 11/12/20 [id number] VTE Prophylaxis Ordered VTE Prophylaxis Devices: Contraindicated VTE Pharmacological Prophylaxi: Contraindicated Assessment/Plan Assessment/Plan IMPRESSION: Mechanical fall Comminuted, severely displaced open fracture of the distal radius and comminuted, displaced distal ulnar fracture. Gait instability morbid obesity plan admit ORTHO CONSULT IV PAIN CONTROL NPO IV FLUIDS IV ZOFRAN PRN SCD'S DVT PROPHYLAXIS Justifications for Admission Other Justification TANK MILTON MD Nov 12, 2020 12:48
--- NOTE | 2020-11-12 13:06 | ED.ADGEN ---
Past Medical History Past Medical History: Diabetes-Type II, Hypertension Past Surgical History: No Surgical History Smoking Status: Never Smoker Alcohol Use: None General Adult EDM: Chief Complaint: WRIST PAIN HPI: HPI: Patient is 55-year-old female who presents to the emergency room complaining of severe right wrist pain. Patient was taking the trash out and fell forward catching herself with her hand. She had immediate onset of pain afterwards and noticed some bleeding. She has never had anything like this happen to her previously. Pain is sharp and achy in nature. It is worse anytime she tries to move. Pain minimally better if she stays at rest. She states she is able to feel her hand and move it without difficulty. She denies any severe bleeding. Review of Systems: Review of Systems: Complete ROS is negative unless otherwise documented in HPI Current Medications: Current Medications Medications (Trade) Dose Ordered Sig/Tiera Start Time Stop Time Status Last Admin Dose Admin Cefazolin Sodium/ Dextrose 50 ml @ 100 mls/hr 1X ONCE 11/12/20 11:30 11/12/20 11:59 DC 11/12/20 11:50 100 MLS/HR Diphtheria/ Tetanus/Acell Pertussis (ADACEL TDap SYRINGE) 0.5 ml ONCE ONCE 11/12/20 11:30 11/12/20 11:31 DC 11/12/20 11:50 0.5 ML Morphine Sulfate (Morphine Sulfate) 5 mg 1X ONCE 11/12/20 10:45 11/12/20 10:46 DC 11/12/20 10:51 5 MG Allergies: Allergies: Allergies Coded Allergies Type Severity Reaction Last Updated Verified No Known Drug Allergies 01/17/20 No Physical Exam: PE: General: Awake, alert, NAD. Well Nourished, well hydrated. Cooperative HEENT: Atraumatic, EOMI, PERRL, airway patent, moist oral mucosa Neck: Supple, trachea midline Respiratory: CTA bilaterally, normal effort, no wheezing/crackles CV: RRR, no murmur, cap refill <2 GI: Soft, nondistended, nontender, no masses MSK: Right wrist: Obvious deformity at the wrist with 1 cm laceration with small amount of oozing, intact sensation, intact distal range of motion in the hand, 2+ radial pulse Skin: Warm, dry, intact Neuro: A&O x3, speech NL, sensory and motor grossly intact, no focal deficits Psych: Normal affect, normal mood, not suicidal or homicidal Current Patient Data: Vital Signs: Vital Signs Date Time Temp Pulse Resp B/P (MAP) Pulse Ox O2 Delivery O2 Flow Rate FiO2 11/12/20 10:46 98.3 88 20 97 98.3 11/12/20 10:45 137/93 (108) Room Air EKG: EKG: [] Heart Score: C/O Chest Pain: N/A Risk Factors: Risk Factors: DM, Current or recent (<one month) smoker, HTN, HLP, family history of CAD, obesity. Risk Scores: Score 0 - 3: 2.5% MACE over next 6 weeks - Discharge Home Score 4 - 6: 20.3% MACE over next 6 weeks - Admit for Clinical Observation Score 7 - 10: 72.7% MACE over next 6 weeks - Early Invasive Strategies Radiology/Procedures: Radiology/Procedures: [] Course & Med Decision Making: Course & Med Decision Making Pertinent Labs and Imaging studies reviewed. (See chart for details) Patient is a 55-year-old female who presents to the emergency room complaining of right wrist pain. Patient has a obvious open fracture. There is no bone sticking out at this time. Sensation, distal movement, radial pulse are intact. Wound was cleaned and a splint was placed. Tetanus was updated. Patient was given Ancef and gentamicin. I have discussed the case with Dr. Ac who will operate this evening. Covid test was ordered due to need for surgery. Dragon Disclaimer: Dragon Disclaimer: This electronic medical record was generated, in whole or in part, using a voice recognition dictation system. Departure Departure Impression: Primary Impression: Open fracture of wrist Disposition: ADMITTED INPATIENT Condition: STABLE Referrals: TELMA REN MD (PCP) DIMA MCCARTY MD Nov 12, 2020 13:05
[2020-11-12] MEDS ORDERED: LISI1TAB37 PO (13:55)
[2020-11-12] MEDS ORDERED: CITA20TA6 PO (13:56)
[2020-11-12 14:17] LABS: BASO % 1 % (0-3); EOS # 0.1 x10^3/uL (0.0-0.7); EOS % 2 % (0-3); HEMATOCRIT 37.9 % (36.0-47.0); HEMOGLOBIN 12.5 g/dL (12.0-15.5); LYMPH # 1.6 x10^3/uL (1.0-4.8); LYMPH % 30 % (24-48); MEAN CORPUSCULAR HEMOGLOBIN 30 pg (25-35); MEAN CORPUSCULAR HGB CONC 33 g/dL (31-37); MEAN CORPUSCULAR VOLUME 90 fL (79-100); MONO # 0.3 x10^3/uL (0.0-1.1); MONO % 6 % (0-9); NEUT # 3.1 x10^3/uL (1.8-7.7); NEUT % 61 % (31-73); PLATELET COUNT 118 x10^3/uL (140-400); RED CELL DISTRIBUTION WIDTH 14.4 % (11.5-14.5); WHITE BLOOD COUNT 5.1 x10^3/uL (4.0-11.0)
[2020-11-12 14:37] LABS: BARBITURATES NEG (NEG); BENZODIAZEPINES NEG (NEG); CANNABINOIDS NEG (NEG); COCAINE NEG (NEG); METHADONE NEG (NEG); OPIATES POS (NEG); PHENCYCLIDINE NEG (NEG)
[2020-11-12 14:38] LABS: AMPHETAMINE/METHAMPHETAMINE NEG (NEG)
[2020-11-12] MEDS ORDERED: 0.9 % SODIUM CHLORIDE 10 ML DISP.SYRIN. IV PRN (14:45)
[2020-11-12] MEDS ORDERED: SODIUM PHOSPHATES 19/7GM 133 ML ENEMA. PR PRN (14:45)
[2020-11-12] MEDS ORDERED: ONDANSETRON PF 4 MG/2 ML VIAL. IV PRN (14:45)
[2020-11-12] MEDS ORDERED: cloNIDine HCL 0.1 MG TABLET PO PRN (14:45)
[2020-11-12] MEDS ORDERED: ACETAMINOPHEN 325 MG TABLET. PO PRN (14:45)
[2020-11-12] MEDS ORDERED: DOCUSATE SODIUM 100 MG CAPSULE. PO PRN (14:45)
[2020-11-12] MEDS ORDERED: MAG HYDROX/ALUMINUM HYD/SIMETH 30 ML ORAL.SUSP PO PRN (14:45)
[2020-11-12] MEDS ORDERED: guaiFENesin ORAL 200 MG/10 ML LIQUID. PO PRN (14:45)
[2020-11-12] MEDS ORDERED: ZOLPIDEM 5 MG TABLET. PO PRN (14:45)
[2020-11-12] MEDS ORDERED: LORazepam 0.5 MG TABLET PO PRN (14:45)
[2020-11-12] MEDS ORDERED: ALBUTEROL SULFATE 2.5 MG/3 ML NEBU. NEB PRN (14:45)
[2020-11-12 14:49] LABS: ALBUMIN 3.3 g/dL (3.4-5.0); ALBUMIN/GLOBULIN RATIO 0.8 (1.0-1.7); CALCIUM 8.4 mg/dL (8.5-10.1); CREATININE 0.6 mg/dL (0.6-1.0); POTASSIUM 3.5 mmol/L (3.5-5.1); TOTAL BILIRUBIN 0.7 mg/dL (0.2-1.0); TOTAL PROTEIN 7.3 g/dL (6.4-8.2)
--- NOTE | 2020-11-12 14:57 | RAD ---
Exam Date: 11/12/2020 2:40 PM XR CHEST 1V Indication: Reason: FALL PRE OP EVALUATION FOR OPEN WRIST FRACTURE / Spl. Instructions: / History: Comparison: January 21, 2020 FINDINGS/ IMPRESSION: The cardiac silhouette is enlarged without congestion. There is no focal consolidation, pleural effusion or pneumothorax. The visualized osseous structures are intact. Electronically signed by: Jamaal Montalvo MD (11/12/2020 2:54 PM) [id number]
[2020-11-12] MEDS: IV NORMAL SALINE 1000ML BAG 1,000 ML IV SCH ×3 (15:19→21:14)
[2020-11-12] MEDS: INSULIN LISPRO 100 UNIT/ML 3ML VIAL for OP,RR ONLY. SQ PRN ×2 (16:22→18:54)
[2020-11-12] MEDS ORDERED: METO-239 PO (16:37)
[2020-11-12] MEDS ORDERED: BUPIVACAINE-EPI 0.25% 30 ML VIAL KIT. ONE (16:38)
[2020-11-12] MEDS ORDERED: PROPOFOL 10 MG/ML (20ML) VIAL. IV ONE (17:19)
[2020-11-12] MEDS ORDERED: LIDOCAINE 2% PF 5 ML VIAL. ONE (17:19)
[2020-11-12] MEDS ORDERED: ONDANSETRON PF 4 MG/2 ML VIAL. ONE (17:19)
[2020-11-12] MEDS ORDERED: fentaNYL PF VIAL 100 MCG/2 ML VIAL ONE (17:20)
[2020-11-12] MEDS ORDERED: SEVOFLURANE 61 TO 120 MINUTES. IH ONE (17:57)
--- NOTE | 2020-11-12 18:45 | PDOC4 ---
Operative Note Operative Note Date of Procedure: November 12, 2020 Preoperative diagnosis: Other intraarticular fracture of lower end of right radius, initial encounter for open fracture type I or II S52.571B Displaced fracture of right ulna styloid process, initial encounter for open fracture type I or II S52.611B Procedure: Right wrist, open treatment of distal radial intra-articular fracture with internal fixation of 3 or more fragments CPT 87682 Right wrist percutaneous skeletal fixation ulnar styloid fracture CPT 53085 Right wrist, debridement including removal of foreign material at the site of an open fracture and/or an open dislocation (excisional debridement) skin, subcutaneous tissue, muscle fascia, muscle, and bone CPT 12754 Surgeon: Jovanni Ac MD. Director Franchise Sales: Zach HARVEY Anesthesia Type: General EBL: 50 mL Specimens: none Drains: none Complications: none Tourniquet time: 50 minutes at 250 mm Hg Implant Company: [employer] VariAx 2 Distal Radius Plating System, and [place] K- wires used for percutaneous ulna fixation. INDICATION FOR PROCEDURE: The patient is an 55-year-old who fell and had a displaced open right distal radius and ulna fracture. There is intra-articular involvement. I recommended urgent surgery due to the nature of the open fracture. We talked about the risks of infection with open fractures and risks of nonunion or need for additional surgery. I discussed the potential use of an external fixator and would make that decision intraoperatively. We talked about potential risks of surgery such as bleeding, infection, stiffness, need for hardware removal or other potential surgical or anesthetic complications. The patient stated understanding of the risks, benefits and alternatives. Written consent was obtained and she desired to proceed with surgery. PROCEDURE IN DETAIL: The patient was identified in the preoperative holding area. The correct right wrist was marked by me. The patient was taken to the operating room, where a general anesthetic was used. Preoperative antibiotics were given intravenously. At the time of her admission through the emergency room I instructed that she should receive tetanus, Ancef, and gentamicin, and she has been on antibiotics preoperatively but an additional dose of Ancef was given at the time of surgery. A timeout procedure was performed. Tourniquet was used on the upper right arm. The limb was prepared in sterile fashion with Betadine, and sterile drapes were applied. The [employer] InterPulse pneumatic jacketer was used and the open wound was thoroughly lavaged with copious amounts of saline. Excisional debridement of the open fracture was performed using a 15 blade scalpel, removing nonviable skin, subcutaneous tissue, muscle, fascia, and ultimately intraoperatively I removed fragments of nonviable comminuted bone. An Esmarch bandage was used to exsanguinate the limb and the tourniquet was inflated. The volar approach of Bruce was used distally. Sharp dissection was used and Bovie electrocautery was used as for hemostasis. The flexor carpi radialis tendon was retracted ulnarly to protect the median nerve. The brachioradialis was retracted radially to protect the radial artery. A Weitlaner retractor was also placed. Subperiosteal dissection of the pronator quadratus was performed after an L incision was made and the muscle was reflected across the fracture site. The fracture was easily identified but markedly displaced, comminuted and unstable. This fracture is comminuted and has intra-articular fracture components. Fracture hematoma was cleared with curettes, rongeurs, and irrigation. The [employer] InterPulse pneumatic jacketer was used and copious amounts of saline were irrigated through the open fracture. Open fracture fragments were removed including pieces of bone. Preliminary stabilization was performed with Leela wires. I used a small image intensifier fluoroscopy unit throughout the case and interpreted all of the images myself. I applied a volar plate longer than the usual plate and placed a single nonlocking screw to compress the plate to the bone, and again checked the position of the plate on the image intensifier. I adjusted the plate as needed for satisfactory alignment and fixation. Next, I placed locking screws distally and locking screws proximally and I confirmed the reduction with the image intensifier. The K-wires were removed. The ulnar styloid was approached percutaneously. K wire fixation was performed in an intramedullary fashion. An intramedullary K wire was placed. The wire was bent and trimmed. A Jurgan ball was placed. Copious saline irrigation was used through the open fracture. Outer gloves were changed. The tourniquet was released and Bovie electrocautery was used for hemostasis. Bupivacaine 0.25% with epinephrine was injected. The incision was closed with #3-0 Vicryl in the subcutaneous tissues by me, and #3-0 Prolene in the skin by my internet marketing assistant. The open wound was closed loosely with #3-0 Prolene simple sutures. Xeroform and a sterile dressing and a volar splint were applied by my internet marketing assistant. Needle and sponge counts were correct. There were no apparent complications JOVANNI AC MD Nov 12, 2020 18:45
[2020-11-12] MEDS ORDERED: oxyCODONE/APAP 5/325 1 TAB TABLET PO PRN (19:00)
[2020-11-12] MEDS: IV 1/2 NORMAL SALINE 1,000 ML IV SCH (19:00)
[2020-11-12] MEDS ORDERED: POLYETHYLENE GLYCOL 3350 17 GM PACKET. PO PRN (19:00)
[2020-11-12] MEDS ORDERED: MORPHINE SULFATE 4 MG/ML VIAL. IVP PRN (19:00)
[2020-11-12] MEDS ORDERED: DEXTROSE 50% 25 GM / 50ML DISP.SYRIN. IV PRN ×3 (19:00→22:30)
[2020-11-12] MEDS ORDERED: ONDANSETRON PF 4 MG/2 ML VIAL. IVP PRN (19:00)
[2020-11-12] MEDS: fentaNYL PF VIAL 100 MCG/2 ML VIAL IVP PRN ×2 (19:09→19:21)
--- NOTE | 2020-11-12 23:48 | RAD ---
Two-view left wrist 6:53 PM HISTORY: Postop AP lateral views COMPARISON: 10:40 AM There has been repair of the markedly comminuted fracture distal radius with an anterior overlying pl ate and screws. There has been pinning of the markedly comminuted fracture of the distal ulna. There is a single bone fragment which projects anterior to the wrist on the lateral view. IMPRESSION: Status post repair of fractures the distal radius and ulna. Electronically signed by: Arpan Valenzuela III, MD (11/12/2020 11:45 PM) [facility]
[2020-11-13 03:16] VITALS: BP 163/86
[2020-11-13] MEDS: oxyCODONE/APAP 5/325 1 TAB TABLET PO PRN ×5 (03:22→21:59)
[2020-11-13] MEDS: IV NORMAL SALINE 1000ML BAG 1,000 ML IV SCH (03:25)
[2020-11-13 05:38] LABS: BASO % 1 % (0-3); EOS % 1 % (0-3); HEMATOCRIT 32.4 % (36.0-47.0); LYMPH # 0.9 x10^3/uL (1.0-4.8); LYMPH % 18 % (24-48); MEAN CORPUSCULAR HEMOGLOBIN 31 pg (25-35); MEAN CORPUSCULAR HGB CONC 34 g/dL (31-37); MEAN CORPUSCULAR VOLUME 90 fL (79-100); MONO # 0.5 x10^3/uL (0.0-1.1); MONO % 10 % (0-9); NEUT # 3.7 x10^3/uL (1.8-7.7); NEUT % 71 % (31-73); PLATELET COUNT 110 x10^3/uL (140-400); RED BLOOD COUNT 3.61 x10^6/uL (3.50-5.40); RED CELL DISTRIBUTION WIDTH 14.2 % (11.5-14.5); WHITE BLOOD COUNT 5.2 x10^3/uL (4.0-11.0)
[2020-11-13 05:53] LABS: CALCIUM 7.6 mg/dL (8.5-10.1); CREATININE 0.7 mg/dL (0.6-1.0); GFR 86.2; POTASSIUM 3.7 mmol/L (3.5-5.1)
[2020-11-13] MEDS ORDERED: MAGNESIUM HYDROXIDE 2,400 MG/30 ML ORAL.SUSP. PO PRN (06:00)
[2020-11-13 07:45] VITALS: BP 130/79
[2020-11-13] MEDS ORDERED: INSULIN LISPRO 300 UNITS/3 ML VIAL. SQ SCH (08:00)
[2020-11-13] MEDS: MULTIVITAMIN with MINERAL TABLET. PO SCH (08:11)
[2020-11-13] MEDS: metFORMIN 500 MG TABLET PO SCH ×2 (08:11→16:10)
[2020-11-13] MEDS: SENNOSIDES/DOCUSATE 8.6/50MG TABLET. PO SCH (08:11)
[2020-11-13] MEDS: CHOLECALCIFEROL (VITAMIN D3) 1,000 UNIT TABLET PO SCH (08:11)
[2020-11-13] MEDS: METOPROLOL SUCC 24HR ER 25 MG TAB.ER.24H. PO SCH (08:12)
[2020-11-13] MEDS: CITALOPRAM 20 MG TABLET. PO SCH (08:12)
[2020-11-13] MEDS: IV 1/2 NORMAL SALINE 1,000 ML IV SCH (08:18)
[2020-11-13] MEDS: INSULIN LISPRO 300 UNITS/3 ML VIAL. SQ SCH ×3 (08:18→16:28)
[2020-11-13] MEDS: PIPERACILLIN/TAZOBACTAM 3.375 GM in IV NORMAL SALINE 50ML 50 ML IV SCH ×3 (10:44→23:14)
--- NOTE | 2020-11-13 10:56 | NUR ---
SW following. Discussed with RN, pt from home with son, room air, regular diet, rapid COVID-19 negative. Pt had surgery 11/12/20. ID consulted - pt now on IV abx. PT/OT ordered. Med Assist following for self pay status. SW will continue to follow.
--- NOTE | 2020-11-13 11:19 | CONS ---
DATE OF CONSULTATION: 11/13/2020 INFECTIOUS DISEASE CONSULTATION REFERRING PHYSICIAN: Dr. Mead. REASON FOR CONSULTATION: Open wrist fracture, antibiotic management. Source : Patient , medical staff and Chart review. 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 She fell outdoors and sustained right open wrist fracture. The patient denies any fevers, chills, did have some nausea yesterday after she underwent surgery. She was seen by Orthopedics and underwent right wrist open treatment of distal radial intraarticular fracture with internal fixation of 3 or more fragments, right wrist percutaneous skeletal fixation of ulnar styloid fracture, right wrist debridement including removal of foreign material at the site of an open fracture and/or open dislocation skin, subcutaneous tissue, muscle fascia, muscle and bone on 11/12/2020. The patient received Ancef, gentamicin, tetanus and also received an additional dose of Ancef given at the time of surgery. White count was normal, platelets of 118. CRP of 20.2, glucose of 211. UDS was positive for opiates. SARS-COVID negative. Today, the patient denies any complaints. Denies any fevers, chills, nausea, vomiting, diarrhea, abdominal pain, symptoms or rash. Postop pain is under control with current pain medication. Denies any sick contact. Denies any headache, sore throat. Had chest pain with deep breathing. PAST MEDICAL HISTORY: Hyperglycemia, diabetes. SOCIAL HISTORY: No smoking, alcohol or drug use. Lives with family. FAMILY HISTORY: As per HPI. CURRENT MEDICATIONS: Received cefazolin, gentamicin, DTaP. ALLERGIES: No known drug allergies. REVIEW OF SYSTEMS: Negative except for above in HPI. PHYSICAL EXAMINATION: VITAL SIGNS: Temperature 97.5, pulse 87, respiratory rate 18, blood pressure 130/79, oxygen saturation 94% on 3 liters O2 by nasal cannula. GENERAL: Alert, oriented x 3 female, sitting upright in chair, in no acute distress, was working with PT and OT earlier. HEENT: Normocephalic, atraumatic. Anicteric. Oral mucosa moist. NECK: Supple, no JVD. LUNGS: Clear bilaterally. No wheezing. HEART: S1, S2. No gallops or murmurs. ABDOMEN: Soft, nontender, nondistended. EXTREMITIES: No edema, no cyanosis. MUSCULOSKELETAL: Right upper extremity in brace, not taken down. Dressing intact. Able to wiggle fingers. NEUROLOGIC: Alert and oriented x 3, grossly nonfocal. PSYCHIATRIC: Cooperative, appropriate mood and affect. DERMATOLOGIC: Warm, dry. No generalized rash. LABORATORY DATA: WBC 5.2, hemoglobin 11.0, hematocrit 32.4, platelets 110. Sodium 139, potassium 3.7, chloride 104, bicarbonate 28, BUN 7, creatinine 0.7, glucose 256. C-reactive protein 20.2. Vitamin D 15.3. SARS-COVID negative. IMAGING: Wrist x-ray noted. Chest x-ray noted. MICRO: None. IMPRESSION: 1. Mechanical fall. 2. Comminuted severely displaced open fracture of the distal radius, comminuted displaced distal ulnar fracture, status post orthopedic surgery right wrist, open treatment of distal radial intraarticular fracture with internal fixation of 3 or more fragments, styloid fracture repair, debridement including removal of foreign material at the site of open fracture and open dislocation, skin, subcutaneous tissue, muscle fascia, muscle and bone on 11/12/2020. 3. Diabetes mellitus. 4. Thrombocytopenia. 5. Vitamin D deficiency. RECOMMENDATIONS: 1. Start IV vancomycin and Zosyn. 2. Monitor renal functions closely. 3. Pharmacy to assist with vancomycin dosing depending on renal function and trough levels. 4. Depending on clinical status, we will decide on further treatment of antibiotics when ready for discharge. 5. Pain control per primary. 6. Continue local wound care as directed. Thank you for allowing me to participate in this patient's care. If you have any questions, do not hesitate to contact me. CHRIS CHANG MD DR: EMILIA/bradly JOB#: [id number] / [id number] LORRI
[2020-11-13 11:30] VITALS: BP 129/68
[2020-11-13] MEDS ORDERED: VANCOMYCIN 2 GM in IV NORMAL SALINE 500ML BAG 500 ML IV ONE (12:00)
[2020-11-13] MEDS: VANCOMYCIN PER PHARMACY MC PRN (12:22)
--- NOTE | 2020-11-13 12:22 | NUR ---
Pharmacy Vancomycin Dosing Note S:Consulted to monitor and dose vancomycin started 11/13/20. O:SARIAH LEMUS is a 55 year old F with an open wrist fracture, h/o DM. Height: 5 feet, 0 inches Weight: 88.6 kg Dosing Weight: Actual Other Antibiotics: ZOSYN 3.375G IV Q6HRS LABS: Last BUN: 7 Last Creatinine: 0.7 Creatinine Clearance: 88 mL/min Last WBC: 5.2 Tmax (past 24 hours): 100.4 Microbiology: BLOOD CX IN PROCESS I/O: 1960/350 A: Patient requires vancomycin for an open wrist fracture, goal trough 10-20 mcg/ml. Her SCr is 0.7 with an eCrCl of 88 ml/min. Initiate the following: P: 1. Initiate Vancomycin 2000 mg IV x 1 dose, then 1250 mg IV q12h 2. Follow up Trough level on 11/14/20 at 2330 3. Pharmacy will continue to monitor, follow and adjust therapy as needed. MARIS FLEMING [facility], 11/13/20 [id number]
--- NOTE | 2020-11-13 15:02 | PDOC ---
[employer] PROGRESS NOTE Date of Service DOS: DATE: 11/13/20 TIME: 14:36 Chief Complaint Chief Complaint A/P: Mechanical fall. Comminuted severely displaced open fracture of the distal radius, comminuted displaced distal ulnar fracture, status post orthopedic surgery right wrist, open treatment of distal radial intraarticular fracture with internal fixation of 3 or more fragments, styloid fracture repair, debridement including removal of foreign material at the site of open fracture and open dislocation, skin, subcutaneous tissue, muscle fascia, muscle and bone on 11/12/2020. Had Tdap vaccine and ID consultation for antibiotics given it was an open dirty fracture. Diabetes mellitus - sliding scale Thrombocytopenia. - will monitor Vitamin D deficiency - will replace History of Present Illness History of Present Illness Ms Loaiza is a 55 yo who presented to the emergency room complaining of se raghav right wrist pain. Patient was taking the trash out, driveway is uphill and uneven and she fell forward catching herself with her hand. / had immediate onset of pain afterwards and noticed some bleeding. She was taking out trash and sustained right open wrist fracture. S/p right wrist open treatment of distal radial intraarticular fracture with internal fixation of 3 or more fragments, right wrist percutaneous skeletal fixation of ulnar styloid fracture, right wrist debridement including removal of foreign material at the site of an open fracture and/or open dislocation skin, subcutaneous tissue, muscle fascia, muscle and bone on 11/12/2020. The patient received Ancef, gentamicin, TDaP vaccine. White count was normal, platelets of 118. CRP of 20.2, glucose of 211. UDS was positive for opiates. SARS-COVID negative. Postop pain is under control with current pain medication. Afebrile. Wants to go home. Now on IV antibiotics given her open, dirty wound. Cultures pending. Vitals/I&O Vitals/I&O: Vital Signs Date Time Temp Pulse Resp B/P (MAP) Pulse Ox O2 Delivery O2 Flow Rate FiO2 11/13/20 11:30 97.7 87 18 129/68 (88) 91 Nasal Cannula 3.0 97.7 I & O 11/12/20 11/12/20 11/13/20 15:00 23:00 07:00 Intake Total 50 ml 1550 ml 360 ml Output Total 350 ml Balance 50 ml 1200 ml 360 ml Physical Exam General: Alert, Cooperative Heart: Regular rate Abdomen: Soft Extremities: Other (There is a 4cm laceration transversely and about 1 cm pro ximal to the wrist flexion crease, starting at the palmaris longus tendon and extending ulnarly beyond the flexor carpi ulnaris tendon. There is no definitive tendon involvement. The bones are no longer exposed but the extensive laceration indicates an open fracture primarily of the ulnar fracture although the radius is likely involved due to the extensive laceration. There is deformity of the wrist and instability and wrist swelling masks the extent of the deformity. There is severe tenderness at the wrist. Finger motion is decreased but there is no evidence of specific neurovascular injury. Capillary refill is normal. Pulse is not assessable due to the tenderness of the wrist and open fracture. Light touch sensation is intact. Motor function is difficult to assess but seems present for the radial ulnar and median nerves. There is no tenderness at the elbow. ) Skin: Other (4 cm open fracture laceration) Labs Labs: Laboratory Tests Test 11/12/20 16:13 11/12/20 18:44 11/12/20 21:09 11/13/20 05:30 Glucose (Fingerstick) 324 mg/dL (70-99) 259 mg/dL (70-99) 211 mg/dL (70-99) White Blood Count 5.2 x10^3/uL (4.0-11.0) Red Blood Count 3.61 x10^6/uL (3.50-5.40) Hemoglobin 11.0 g/dL (12.0-15.5) Hematocrit 32.4 % (36.0-47.0) Mean Corpuscular Volume 90 fL (79-100) Mean Corpuscular Hemoglobin 31 pg (25-35) Mean Corpuscular Hemoglobin Concent 34 g/dL (31-37) Red Cell Distribution Width 14.2 % (11.5-14.5) Platelet Count 110 x10^3/uL (140-400) Neutrophils (%) (Auto) 71 % (31-73) Lymphocytes (%) (Auto) 18 % (24-48) Monocytes (%) (Auto) 10 % (0-9) Eosinophils (%) (Auto) 1 % (0-3) Basophils (%) (Auto) 1 % (0-3) Neutrophils # (Auto) 3.7 x10^3/uL (1.8-7.7) Lymphocytes # (Auto) 0.9 x10^3/uL (1.0-4.8) Monocytes # (Auto) 0.5 x10^3/uL (0.0-1.1) Eosinophils # (Auto) 0.0 x10^3/uL (0.0-0.7) Basophils # (Auto) 0.0 x10^3/uL (0.0-0.2) Sodium Level 139 mmol/L (136-145) Potassium Level 3.7 mmol/L (3.5-5.1) Chloride Level 104 mmol/L (98-107) Carbon Dioxide Level 28 mmol/L (21-32) Anion Gap 7 (6-14) Blood Urea Nitrogen 7 mg/dL (7-20) Creatinine 0.7 mg/dL (0.6-1.0) Estimated GFR (Cockcroft-Gault) 86.2 Glucose Level 256 mg/dL (70-99) Calcium Level 7.6 mg/dL (8.5-10.1) C-Reactive Protein, Quantitative 20.2 mg/L (0-3.3) 25-Hydroxy Vitamin D Total 15.3 ng/mL (30-100) Test 11/13/20 07:56 11/13/20 11:28 Glucose (Fingerstick) 248 mg/dL (70-99) 304 mg/dL (70-99) Assessment and Plan Assessmemt and Plan Problems Medical Problems: (1) Open fracture of wrist Status: Acute Goals of Care: Advance Care Planning: Total time spent [id number] with patient greater than 16 minutes in discussion with goals of care, comfort care, end-of-life care, pain management, code status Comment Review of Relevant I have reviewed the following items jorge (where applicable) has been applied. Medications: Current Medications Medications (Trade) Dose Ordered Sig/Tiera Route PRN Reason Start Time Stop Time Status Last Admin Dose Admin Sodium Chloride 1,000 ml @ 100 mls/hr Q10H IV 11/12/20 14:45 11/13/20 10:06 DC 11/13/20 03:25 Insulin Human Lispro (HumaLOG VIAL for OP,RR ONLY) 0-10 units PRN Q1HR PRN SQ PER PROTOCOL 11/12/20 16:15 11/12/20:00 DC 11/12/20 18:54 Bupivacaine HCl/ Epinephrine Bitart (Sensorcain-Epi 0.25% Kit) 30 ml STK-MED ONCE .ROUTE 11/12/20 16:38 11/12/20 16:39 DC 11/12/20 17:13 Cefazolin Sodium/ Dextrose 50 ml @ 100 mls/hr 1X PREOP PRN IV PRIOR TO PROCEDURE 11/12/20 16:45 11/12/20 18:00 DC 11/12/20 17:01 Fentanyl Citrate (Fentanyl 2ml Vial) 25 mcg PRN Q1HR PRN IVP SEVERE PAIN 7-10 11/12/20 19:00 11/12/20 23:38 Multivitamins (Thera M Plus) 1 tab DAILY PO 11/13/20 09:00 11/13/20 08:11 Senna/Docusate Sodium (Senna Plus) 1 tab DAILY PO 11/13/20 09:00 11/13/20 08:11 Vitamin D (Vitamin D3) 5,000 unit DAILY PO 11/13/20 09:00 11/13/20 08:11 Cefazolin Sodium/ Dextrose 50 ml @ 100 mls/hr Q6H IV 11/12/20 20:00 11/13/20 08:29 DC 11/13/20 08:14 Citalopram Hydrobromide (CeleXA) 20 mg DAILY PO 11/13/20 09:00 11/13/20 08:12 Metoprolol Succinate (Toprol Xl) 12.5 mg DAILY PO 11/13/20 09:00 11/13/20 08:12 Metformin HCl (Glucophage) 1,000 mg BIDWMEALS PO 11/13/20 08:00 11/13/20 08:11 Insulin Human Lispro (HumaLOG) 0-7 UNITS TIDWMEALS SQ 11/13/20 08:00 11/13/20 11:37 Oxycodone/ Acetaminophen (Percocet 5/325) 2 tab PRN Q4HRS PRN PO SEVERE PAIN 11/12/20 19:30 11/13/20 12:31 Vancomycin HCl (Vanco Per Pharmacy) 1 each PRN DAILY PRN MC SEE COMMENTS 11/13/20 10:30 11/13/20 12:22 Piperacillin Sod/ Tazobactam Sod 3.375 gm/Sodium Chloride 50 ml @ 100 mls/hr Q6HRS IV 11/13/20 12:00 11/13/20 10:44 Vancomycin HCl 2 gm/Sodium Chloride 500 ml @ 250 mls/hr 1X ONCE IV 11/13/20 12:00 11/13/20 13:59 DC 11/13/20 11:33 Justifications for Admission Other Justification open wrist fx FERNANDO CABRALES MD Nov 13, 2020 15:02
[2020-11-13 15:30] VITALS: BP 129/68
[2020-11-13] MEDS ORDERED: BISACODYL 10 MG SUPP.RECT. PR PRN (16:00)
[2020-11-13 19:00] VITALS: BP 128/52
[2020-11-13] MEDS: LACTOBACILLUS RHAMNOSUS GG 1 CAPSULE. PO SCH (21:06)
[2020-11-13] MEDS: INSULIN GLARGINE SYRINGE. SQ SCH (21:09)
[2020-11-13 23:00] VITALS: BP 89/21
[2020-11-13] MEDS: VANCOMYCIN 1.25 GM in IV NORMAL SALINE 250ML 250 ML IV SCH (23:52)
[2020-11-14 03:00] VITALS: BP 125/76
[2020-11-14] MEDS: oxyCODONE/APAP 5/325 1 TAB TABLET PO PRN ×3 (03:27→18:36)
[2020-11-14] MEDS: PIPERACILLIN/TAZOBACTAM 3.375 GM in IV NORMAL SALINE 50ML 50 ML IV SCH ×4 (05:27→23:35)
[2020-11-14 07:00] VITALS: BP 120/69
[2020-11-14 08:16] LABS: CREATININE 0.6 mg/dL (0.6-1.0)
--- NOTE | 2020-11-14 08:45 | PDOC ---
PROGRESS NOTES Date of Service Late entry, the patient was seen on 11/13/2020 Subjective Subjective Feeling better than before surgery. Some pain at the wrist persists. Objective Vital Signs Vital Signs Date Time Temp Pulse Resp B/P (MAP) Pulse Ox O2 Delivery O2 Flow Rate FiO2 11/14/20 07:00 98.1 80 16 120/69 (86) 95 Room Air 98.1 11/13/20 15:30 3.0 Physical Exam Splint is intact and dry. The fingers are still moderately immobile but there does not seem to be any specific neurovascular injury nor compartment syndrome. Capillary refill, sensation, and slight motion are all unremarkable. Labs Laboratory Tests Test 11/12/20 10:45 11/12/20 10:58 11/12/20 14:20 11/12/20 16:13 White Blood Count 5.1 x10^3/uL (4.0-11.0) Red Blood Count 4.20 x10^6/uL (3.50-5.40) Hemoglobin 12.5 g/dL (12.0-15.5) Hematocrit 37.9 % (36.0-47.0) Mean Corpuscular Volume 90 fL (79-100) Mean Corpuscular Hemoglobin 30 pg (25-35) Mean Corpuscular Hemoglobin Concent 33 g/dL (31-37) Red Cell Distribution Width 14.4 % (11.5-14.5) Platelet Count 118 x10^3/uL (140-400) Neutrophils (%) (Auto) 61 % (31-73) Lymphocytes (%) (Auto) 30 % (24-48) Monocytes (%) (Auto) 6 % (0-9) Eosinophils (%) (Auto) 2 % (0-3) Basophils (%) (Auto) 1 % (0-3) Neutrophils # (Auto) 3.1 x10^3/uL (1.8-7.7) Lymphocytes # (Auto) 1.6 x10^3/uL (1.0-4.8) Monocytes # (Auto) 0.3 x10^3/uL (0.0-1.1) Eosinophils # (Auto) 0.1 x10^3/uL (0.0-0.7) Basophils # (Auto) 0.0 x10^3/uL (0.0-0.2) Sodium Level 141 mmol/L (136-145) Potassium Level 3.5 mmol/L (3.5-5.1) Chloride Level 105 mmol/L (98-107) Carbon Dioxide Level 23 mmol/L (21-32) Anion Gap 13 (6-14) Blood Urea Nitrogen 14 mg/dL (7-20) Creatinine 0.6 mg/dL (0.6-1.0) Estimated GFR (Cockcroft-Gault) 103.0 BUN/Creatinine Ratio 23 (6-20) Glucose Level 279 mg/dL (70-99) Calcium Level 8.4 mg/dL (8.5-10.1) Total Bilirubin 0.7 mg/dL (0.2-1.0) Aspartate Amino Transf (AST/SGOT) 43 U/L (15-37) Alanine Aminotransferase (ALT/SGPT) 52 U/L (14-59) Alkaline Phosphatase 98 U/L (46-116) Total Protein 7.3 g/dL (6.4-8.2) Albumin 3.3 g/dL (3.4-5.0) Albumin/Globulin Ratio 0.8 (1.0-1.7) Coronavirus (PCR) Not detected (Not Detected) SARS-CoV-2 Antigen (Rapid) Negative (NEGATIVE) Urine Opiates Screen Pos (NEG) Urine Methadone Screen Neg (NEG) Urine Barbiturates Neg (NEG) Urine Phencyclidine Screen Neg (NEG) Urine Amphetamine/Methamphetamine Neg (NEG) Urine Benzodiazepines Screen Neg (NEG) Urine Cocaine Screen Neg (NEG) Urine Cannabinoids Screen Neg (NEG) Urine Ethyl Alcohol Neg (NEG) Glucose (Fingerstick) 324 mg/dL (70-99) Test 11/12/20 18:44 11/12/20 21:09 11/13/20 05:30 11/13/20 07:56 Glucose (Fingerstick) 259 mg/dL (70-99) 211 mg/dL (70-99) 248 mg/dL (70-99) White Blood Count 5.2 x10^3/uL (4.0-11.0) Red Blood Count 3.61 x10^6/uL (3.50-5.40) Hemoglobin 11.0 g/dL (12.0-15.5) Hematocrit 32.4 % (36.0-47.0) Mean Corpuscular Volume 90 fL (79-100) Mean Corpuscular Hemoglobin 31 pg (25-35) Mean Corpuscular Hemoglobin Concent 34 g/dL (31-37) Red Cell Distribution Width 14.2 % (11.5-14.5) Platelet Count 110 x10^3/uL (140-400) Neutrophils (%) (Auto) 71 % (31-73) Lymphocytes (%) (Auto) 18 % (24-48) Monocytes (%) (Auto) 10 % (0-9) Eosinophils (%) (Auto) 1 % (0-3) Basophils (%) (Auto) 1 % (0-3) Neutrophils # (Auto) 3.7 x10^3/uL (1.8-7.7) Lymphocytes # (Auto) 0.9 x10^3/uL (1.0-4.8) Monocytes # (Auto) 0.5 x10^3/uL (0.0-1.1) Eosinophils # (Auto) 0.0 x10^3/uL (0.0-0.7) Basophils # (Auto) 0.0 x10^3/uL (0.0-0.2) Sodium Level 139 mmol/L (136-145) Potassium Level 3.7 mmol/L (3.5-5.1) Chloride Level 104 mmol/L (98-107) Carbon Dioxide Level 28 mmol/L (21-32) Anion Gap 7 (6-14) Blood Urea Nitrogen 7 mg/dL (7-20) Creatinine 0.7 mg/dL (0.6-1.0) Estimated GFR (Cockcroft-Gault) 86.2 Glucose Level 256 mg/dL (70-99) Calcium Level 7.6 mg/dL (8.5-10.1) C-Reactive Protein, Quantitative 20.2 mg/L (0-3.3) 25-Hydroxy Vitamin D Total 15.3 ng/mL (30-100) Test 11/13/20 11:28 11/13/20 16:20 11/13/20 20:46 11/14/20 06:55 Glucose (Fingerstick) 304 mg/dL (70-99) 312 mg/dL (70-99) 201 mg/dL (70-99) Creatinine 0.6 mg/dL (0.6-1.0) Estimated GFR (Cockcroft-Gault) 103.0 Test 11/14/20 07:33 Glucose (Fingerstick) 181 mg/dL (70-99) Laboratory Tests Test 11/13/20 11:28 11/13/20 16:20 11/13/20 20:46 11/14/20 06:55 Glucose (Fingerstick) 304 mg/dL (70-99) 312 mg/dL (70-99) 201 mg/dL (70-99) Creatinine 0.6 mg/dL (0.6-1.0) Estimated GFR (Cockcroft-Gault) 103.0 Test 11/14/20 07:33 Glucose (Fingerstick) 181 mg/dL (70-99) Imaging Report reviewed and images independently reviewed. I am pleased with the alignment, considering the amount of displacement and comminution initially. This has satisfactory alignment for healing with minimal if any deformity. PATIENT: SARIAH LEMUS EACCOUNT: [id number] : 1965 LOCATION: [address] [place] [address] AGE: 55 SEX: F EXAM STATUS: ADM IN ORD. PHYSICIAN: JOVANNI STANLEY MD REASON: postop PROCEDURE: WRIST 2V RIGHT Two-view left wrist 6:53 PM HISTORY: Postop AP lateral views COMPARISON: 10:40 AM There has been repair of the markedly comminuted fracture distal radius with an anterior overlying plate and screws. There has been pinning of the markedly comminuted fracture of the distal ulna. There is a single bone fragment which projects anterior to the wrist on the lateral view. IMPRESSION: Status post repair of fractures the distal radius and ulna. Electronically signed by: Jovanni Walsh III, MD (11/12/2020 11:45 PM) [facility] DICTATED and SIGNED BY: JOVANNI WALSH III, MD DATE: 11/12/20 [id number] Assessment Assessment POD# 1 after ORIF and I&D open fracture Plan Plan of Care Discharge planning. Oral antibiotics should be satisfactory at this point, or even no additional antibiotics. (Antibiotics after open fracture are definitely recommended for 24 to 72 hours after the I&D procedure, beyond that isn't required, but I would agree to oral antibiotics for 10 days.) Office follow-up with me in about 10 days. Keep splint intact and dry. Justicifation of Admission Dx: Justifications for Admission: Justification of Admission Dx: Yes Respiratory Failure: Severe Vent Deficit JOVANNI STANLEY MD Nov 14, 2020 08:45
[2020-11-14] MEDS: LACTOBACILLUS RHAMNOSUS GG 1 CAPSULE. PO SCH ×2 (09:15→20:29)
[2020-11-14] MEDS: MULTIVITAMIN with MINERAL TABLET. PO SCH (09:15)
[2020-11-14] MEDS: metFORMIN 500 MG TABLET PO SCH ×2 (09:15→18:33)
[2020-11-14] MEDS: CHOLECALCIFEROL (VITAMIN D3) 1,000 UNIT TABLET PO SCH (09:15)
[2020-11-14] MEDS: SENNOSIDES/DOCUSATE 8.6/50MG TABLET. PO SCH (09:15)
[2020-11-14] MEDS: METOPROLOL SUCC 24HR ER 25 MG TAB.ER.24H. PO SCH (09:16)
[2020-11-14] MEDS: CITALOPRAM 20 MG TABLET. PO SCH (09:23)
[2020-11-14] MEDS: INSULIN LISPRO 300 UNITS/3 ML VIAL. SQ SCH ×3 (09:26→18:37)
--- NOTE | 2020-11-14 09:50 | PDOC ---
Infectious Disease Note Subjective: Subjective Pt states doing ok postop pain but under control no f/n/v/d Vital Signs: Vital Signs Vital Signs Date Time Temp Pulse Resp B/P (MAP) Pulse Ox O2 Delivery O2 Flow Rate FiO2 11/14/20 09:16 80 120/69 11/14/20 08:00 Room Air 11/14/20 07:00 98.1 16 95 98.1 11/13/20 15:30 3.0 Physical Exam: PHYSICAL EXAM GENERAL: Alert, oriented x 3 female, in no acute distress, HEENT: Normocephalic, atraumatic. Anicteric. Oral mucosa moist. NECK: Supple, no JVD. LUNGS: Clear bilaterally. No wheezing. HEART: S1, S2. No gallops or murmurs. ABDOMEN: Soft, nontender, nondistended. EXTREMITIES: No edema, no cyanosis. MUSCULOSKELETAL: Right upper extremity in splint, not taken down, NEUROLOGIC: Alert and oriented x 3, grossly nonfocal. PSYCHIATRIC: Cooperative, appropriate mood and affect. DERMATOLOGIC: Warm, dry. No generalized rash. Medications: Inpatient Meds: Medications reviewed. Labs: Lab Laboratory Tests Test 11/13/20 11:28 11/13/20 16:20 11/13/20 20:46 11/14/20 06:55 Glucose (Fingerstick) 304 mg/dL (70-99) 312 mg/dL (70-99) 201 mg/dL (70-99) Creatinine 0.6 mg/dL (0.6-1.0) Estimated GFR (Cockcroft-Gault) 103.0 Test 11/14/20 07:33 Glucose (Fingerstick) 181 mg/dL (70-99) Micro Objective: Assessment: 1. . Comminuted severely displaced open fracture of the rt distal radius, comminuted displaced distal ulnar fracture, status post orthopedic surgery right wrist, open treatment of distal radial intraarticular fracture with internal fixation of 3 or more fragments, styloid fracture repair, debridement including removal of foreign material at the site of open fracture and open dislocation, skin, subcutaneous tissue, muscle fascia, muscle and bone on 11/12/2020. 2. Mechanical fall. 3. Diabetes mellitus. 4. Thrombocytopenia. 5. Vitamin D deficiency. Plan: Plan of Care 1. Cont IV vancomycin and Zosyn. 2. Monitor renal functions closely. 3. Pharmacy to assist with vancomycin dosing depending on renal function and trough levels. 4. Depending on clinical status, we will decide on further treatment of antibiotics when ready for discharge. 5. Continue local wound care as directed. CHRIS CHANG MD Nov 14, 2020 09:50
[2020-11-14 11:00] VITALS: BP 128/68
--- NOTE | 2020-11-14 11:08 | NUR ---
SW following. Discussed with RN, pt from home with son, room air, ada diet, COVID-19 negative. PT/OT recommending home. Cultures pending to determine abx needed. Pt wanting to go home. SW will continue to follow.
--- NOTE | 2020-11-14 11:21 | PDOC ---
[facility] PROGRESS NOTE Date of Service DOS: DATE: 11/14/20 TIME: 11:11 Chief Complaint Chief Complaint A/P: Mechanical fall. Comminuted severely displaced open fracture of the distal radius, comminuted displaced distal ulnar fracture, status post orthopedic surgery right wrist, open treatment of distal radial intraarticular fracture with internal fixation of 3 or more fragments, styloid fracture repair, debridement including removal of foreign material at the site of open fracture and open dislocation, skin, subcutaneous tissue, muscle fascia, muscle and bone on 11/12/2020. Had Tdap vaccine and ID consultation for antibiotics given it was an open dirty fracture. Diabetes mellitus - sliding scale Thrombocytopenia. - will monitor Vitamin D deficiency - will replace History of Present Illness History of Present Illness Ms Loaiza is a 55 yo who presented to the emergency room complaining of se raghav right wrist pain. Patient was taking the trash out, driveway is uphill and uneven and she fell forward catching herself with her hand. / had immediate onset of pain afterwards and noticed some bleeding. She was taking out trash and sustained right open wrist fracture. S/p right wrist open treatment of distal radial intraarticular fracture with internal fixation of 3 or more fragments, right wrist percutaneous skeletal fixation of ulnar styloid fracture, right wrist debridement including removal of foreign material at the site of an open fracture and/or open dislocation skin, subcutaneous tissue, muscle fascia, muscle and bone on 11/12/2020. The patient received Ancef, gentamicin, TDaP vaccine. White count was normal, platelets of 118. CRP of 20.2, glucose of 211. UDS was positive for opiates. SARS-COVID negative. 11/13: Postop pain is under control with current pain medication. Afebrile. Wants to go home. Now on IV antibiotics given her open, dirty wound. Cultures pending. 11/14:. Patient seen and evaluated bedside. Afebrile. Pain controlled. She remains on IV antibiotics; will discuss with ID about switching to oral. Patrick wang is anxious to discharge today. Will prepare for discharge home today. Greater than 30 minutes spent managing the discharge of this patient. Vitals/I&O Vitals/I&O: Vital Signs Date Time Temp Pulse Resp B/P (MAP) Pulse Ox O2 Delivery O2 Flow Rate FiO2 11/14/20 11:00 98.1 78 16 128/68 (88) 98 Room Air 98.1 11/13/20 15:30 3.0 I & O 11/13/20 11/13/20 11/14/20 15:00 23:00 07:00 Intake Total 900 ml 300 ml 350 ml Output Total 810 ml 300 ml 0 ml Balance 90 ml 0 ml 350 ml Physical Exam Physical Exam: GENERAL: Alert, oriented x 3 female, in no acute distress, HEENT: Normocephalic, atraumatic. Anicteric. Oral mucosa moist. NECK: Supple, no JVD. LUNGS: Clear bilaterally. No wheezing. HEART: S1, S2. No gallops or murmurs. ABDOMEN: Soft, nontender, nondistended. EXTREMITIES: No edema, no cyanosis. MUSCULOSKELETAL: Right upper extremity in splint, not taken down, NEUROLOGIC: Alert and oriented x 3, grossly nonfocal. PSYCHIATRIC: Cooperative, appropriate mood and affect. DERMATOLOGIC: Warm, dry. No generalized rash. General: Alert, Cooperative Heart: Regular rate Abdomen: Soft Extremities: Other (There is a 4cm laceration transversely and about 1 cm pr oximal to the wrist flexion crease, starting at the palmaris longus tendon and extending ulnarly beyond the flexor carpi ulnaris tendon. There is no definitive tendon involvement. The bones are no longer exposed but the extensive laceration indicates an open fracture primarily of the ulnar fracture although the radius is likely involved due to the extensive laceration. There is deformity of the wrist and instability and wrist swelling masks the extent of the deformity. There is severe tenderness at the wrist. Finger motion is decreased but there is no evidence of specific neurovascular injury. Capillary refill is normal. Pulse is not assessable due to the tenderness of the wrist and open fracture. Light touch sensation is intact. Motor function is difficult to assess but seems present for the radial ulnar and median nerves. There is no tenderness at the elbow. ) Skin: Other (4 cm open fracture laceration) Labs Labs: Laboratory Tests Test 11/13/20 11:28 11/13/20 16:20 11/13/20 20:46 11/14/20 06:55 Glucose (Fingerstick) 304 mg/dL (70-99) 312 mg/dL (70-99) 201 mg/dL (70-99) Creatinine 0.6 mg/dL (0.6-1.0) Estimated GFR (Cockcroft-Gault) 103.0 Test 11/14/20 07:33 Glucose (Fingerstick) 181 mg/dL (70-99) Assessment and Plan Assessmemt and Plan Problems Medical Problems: (1) Open fracture of wrist Status: Acute Goals of Care: Advance Care Planning: Total time spent [id number] with patient greater than 16 minutes in discussion with goals of care, comfort care, end-of-life care, pain management, code status Comment Review of Relevant I have reviewed the following items jorge (where applicable) has been applied. Medications: Current Medications Medications (Trade) Dose Ordered Sig/Tiera Route PRN Reason Start Time Stop Time Status Last Admin Dose Admin Piperacillin Sod/ Tazobactam Sod 3.375 gm/Sodium Chloride 50 ml @ 100 mls/hr Q6HRS IV 11/13/20 12:00 11/14/20 05:27 Vancomycin HCl 2 gm/Sodium Chloride 500 ml @ 250 mls/hr 1X ONCE IV 11/13/20 12:00 11/13/20 13:59 DC 11/13/20 11:33 Vancomycin HCl 1.25 gm/Sodium Chloride 250 ml @ 167 mls/hr Q12H IV 11/14/20 00:00 11/13/20 23:52 Lactobacillus Rhamnosus (Culturelle) 1 cap BID PO 11/13/20 21:00 11/14/20 09:15 Insulin Glargine (Lantus Syringe) 25 unit QHS SQ 11/13/20 21:00 11/13/20 21:09 Justifications for Admission Other Justification open wrist fx NAVIN CUNNINGHAM MD Nov 14, 2020 11:21
--- NOTE | 2020-11-14 11:23 | PDOC3 ---
Discharge Summary Visit Information Date of Admission: Nov 12, 2020 Date of Discharge: Nov 14, 2020 Final Diagnosis Problems Medical Problems: (1) Open fracture of wrist Status: Acute Brief Hospital Course Allergies Allergies Coded Allergies Type Severity Reaction Last Updated Verified No Known Drug Allergies 01/17/20 No Vital Signs Vital Signs Date Time Temp Pulse Resp B/P (MAP) Pulse Ox O2 Delivery O2 Flow Rate FiO2 11/14/20 11:00 98.1 78 16 128/68 (88) 98 Room Air 98.1 11/13/20 15:30 3.0 Lab Results Laboratory Tests Test 11/12/20 14:20 11/12/20 16:13 11/12/20 18:44 11/12/20 21:09 Urine Opiates Screen Pos (NEG) Urine Methadone Screen Neg (NEG) Urine Barbiturates Neg (NEG) Urine Phencyclidine Screen Neg (NEG) Urine Amphetamine/Methamphetamine Neg (NEG) Urine Benzodiazepines Screen Neg (NEG) Urine Cocaine Screen Neg (NEG) Urine Cannabinoids Screen Neg (NEG) Urine Ethyl Alcohol Neg (NEG) Glucose (Fingerstick) 324 mg/dL (70-99) 259 mg/dL (70-99) 211 mg/dL (70-99) Test 11/13/20 05:30 11/13/20 07:56 11/13/20 11:28 11/13/20 16:20 White Blood Count 5.2 x10^3/uL (4.0-11.0) Red Blood Count 3.61 x10^6/uL (3.50-5.40) Hemoglobin 11.0 g/dL (12.0-15.5) Hematocrit 32.4 % (36.0-47.0) Mean Corpuscular Volume 90 fL (79-100) Mean Corpuscular Hemoglobin 31 pg (25-35) Mean Corpuscular Hemoglobin Concent 34 g/dL (31-37) Red Cell Distribution Width 14.2 % (11.5-14.5) Platelet Count 110 x10^3/uL (140-400) Neutrophils (%) (Auto) 71 % (31-73) Lymphocytes (%) (Auto) 18 % (24-48) Monocytes (%) (Auto) 10 % (0-9) Eosinophils (%) (Auto) 1 % (0-3) Basophils (%) (Auto) 1 % (0-3) Neutrophils # (Auto) 3.7 x10^3/uL (1.8-7.7) Lymphocytes # (Auto) 0.9 x10^3/uL (1.0-4.8) Monocytes # (Auto) 0.5 x10^3/uL (0.0-1.1) Eosinophils # (Auto) 0.0 x10^3/uL (0.0-0.7) Basophils # (Auto) 0.0 x10^3/uL (0.0-0.2) Sodium Level 139 mmol/L (136-145) Potassium Level 3.7 mmol/L (3.5-5.1) Chloride Level 104 mmol/L (98-107) Carbon Dioxide Level 28 mmol/L (21-32) Anion Gap 7 (6-14) Blood Urea Nitrogen 7 mg/dL (7-20) Creatinine 0.7 mg/dL (0.6-1.0) Estimated GFR (Cockcroft-Gault) 86.2 Glucose Level 256 mg/dL (70-99) Calcium Level 7.6 mg/dL (8.5-10.1) C-Reactive Protein, Quantitative 20.2 mg/L (0-3.3) 25-Hydroxy Vitamin D Total 15.3 ng/mL (30-100) Glucose (Fingerstick) 248 mg/dL (70-99) 304 mg/dL (70-99) 312 mg/dL (70-99) Test 11/13/20 20:46 11/14/20 06:55 11/14/20 07:33 Glucose (Fingerstick) 201 mg/dL (70-99) 181 mg/dL (70-99) Creatinine 0.6 mg/dL (0.6-1.0) Estimated GFR (Cockcroft-Gault) 103.0 Laboratory Tests Test 11/13/20 11:28 11/13/20 16:20 11/13/20 20:46 11/14/20 06:55 Glucose (Fingerstick) 304 mg/dL (70-99) 312 mg/dL (70-99) 201 mg/dL (70-99) Creatinine 0.6 mg/dL (0.6-1.0) Estimated GFR (Cockcroft-Gault) 103.0 Test 11/14/20 07:33 Glucose (Fingerstick) 181 mg/dL (70-99) Brief Hospital Course Ms. Loaiza is a 55 old female who presented with open right wrist fra cture. Consultation was placed to orthopedic surgery. She had open reduction internal fixation of right wrist. Consultation was placed to ID for antibiotic management. Patient tolerated surgery well. She was discharged home with family/self-care. Recommended to follow-up with orthopedic surgery in 10 days. Discharge Information Condition at Discharge: Improved Follow Up: Weeks Disposition/Orders: D/C to Home Scheduled Citalopram Hydrobromide (Citalopram Hbr) 20 Mg Tablet, 1 TAB PO DAILY for depression, #30 Ref 5 (Reported) Entered as Reported by: RADHA PLASENCIA on 11/12/201355 Last Action: Continued on 11/12/201853 by JOVANNI STANLEY MD Metformin Hcl (Metformin Hcl) 1,000 Mg Tablet, 1,000 MG PO BIDWMEALS for , (Reported) Entered as Reported by: ANITHA WRIGHT on 01/18/20 0037 Last Action: Converted on 11/12/201853 by JOVANNI STANLEY MD Metoprolol Succinate (Metoprolol Succinate ( Xl )) 25 Mg Tab.er.24h, 12.5 MG PO DAILY for FOR HYPERTENSION, #30 Ref 0 (Reported) Entered as Reported by: Jena Castano on 11/12/201636 Last Taken: Unknown Dose on 11/11/20 Last Action: Continued on 11/12/201853 by JOVANNI STANLEY MD Discontinued Medications Lisinopril/Hydrochlorothiazide (Lisinopril-Hctz 20-12.5 Mg Tab) 1 Each Tablet, 1 TAB PO DAILY for htn, #30 Ref 5 (Reported) Entered as Reported by: RADHA PLASENCIA on 11/12/20 1355 Last Action: Discontinued on 11/12/201635 by Jena Castano Justicifation of Admission Dx: Justifications for Admission: Justification of Admission Dx: Yes Respiratory Failure: Severe Vent Deficit NAVIN CUNNINGHAM MD Nov 14, 2020 11:23
[2020-11-14] MEDS: VANCOMYCIN 1.25 GM in IV NORMAL SALINE 250ML 250 ML IV SCH (12:17)
[2020-11-14 15:00] VITALS: BP 140/64
[2020-11-14] MEDS: VANCOMYCIN PER PHARMACY MC PRN (16:33)
[2020-11-14 19:00] VITALS: BP 125/67
[2020-11-14] MEDS: INSULIN GLARGINE SYRINGE. SQ SCH (20:32)
[2020-11-14 23:00] VITALS: BP 125/67
[2020-11-15 01:28] LABS: VANC TR 7.2 mcg/mL (10.0-20.0)
[2020-11-15] MEDS: VANCOMYCIN PER PHARMACY MC PRN (02:02)
[2020-11-15] MEDS: VANCOMYCIN 1.25 GM in IV NORMAL SALINE 250ML 250 ML IV SCH ×2 (02:02→10:31)
--- NOTE | 2020-11-15 02:03 | NUR ---
Pharmacy Vancomycin Dosing Note S:Consulted to monitor and dose vancomycin started 11/13/20. O:SARIAH LEMUS is a 55 year old F with open wrist fracture, h/o DM . Height: 5 feet, 0 inches Weight: 88.6 kg Garber Body Weight: 45.50 Adjusted Body Weight: 62.74 Dosing Weight: Actual Other Antibiotics: ZOSYN 3.375G IV Q6HRS LABS: Last BUN: 7 Last Creatinine: 0.6 Creatinine Clearance: 102 mL/min Last WBC: 5.2 Last Procalcitonin: Tmax (past 24 hours): 98.6 Microbiology: BLOOD CX (11/12): NGTD I/O: 1550/1110 Drug Levels: Last Trough level: 7.2, TT~8 on 11/15/20 at 0045 Last dose given 11/14/20 at 1217 Vancomycin Dosing: Loading Dose: 2000 mg x1 Dosing Weight: Actual Target Trough: 10-20 A: Based on: LOW TROUGH, P: 1. INITIATE NEW REGIMEN OF Vancomycin 1250 mg IV q8h 2. Follow up Trough level on 11/16/20 at 1000 3. Pharmacy will continue to monitor, follow and adjust therapy as needed. PHU MELCHOR [facility], 11/15/20 [id number]
[2020-11-15 03:00] VITALS: BP 124/70
[2020-11-15] MEDS: oxyCODONE/APAP 5/325 1 TAB TABLET PO PRN ×2 (05:21→17:36)
[2020-11-15] MEDS: PIPERACILLIN/TAZOBACTAM 3.375 GM in IV NORMAL SALINE 50ML 50 ML IV SCH ×4 (05:21→23:47)
[2020-11-15 05:39] LABS: BASO % 0 % (0-3); EOS # 0.1 x10^3/uL (0.0-0.7); EOS % 2 % (0-3); HEMATOCRIT 32.1 % (36.0-47.0); HEMOGLOBIN 10.6 g/dL (12.0-15.5); LYMPH # 1.1 x10^3/uL (1.0-4.8); LYMPH % 27 % (24-48); MEAN CORPUSCULAR HEMOGLOBIN 30 pg (25-35); MEAN CORPUSCULAR HGB CONC 33 g/dL (31-37); MEAN CORPUSCULAR VOLUME 91 fL (79-100); MONO # 0.5 x10^3/uL (0.0-1.1); MONO % 11 % (0-9); NEUT # 2.5 x10^3/uL (1.8-7.7); NEUT % 59 % (31-73); PLATELET COUNT 85 x10^3/uL (140-400); RED BLOOD COUNT 3.51 x10^6/uL (3.50-5.40); RED CELL DISTRIBUTION WIDTH 14.3 % (11.5-14.5); WHITE BLOOD COUNT 4.2 x10^3/uL (4.0-11.0)
[2020-11-15 06:14] LABS: ALBUMIN 2.6 g/dL (3.4-5.0); ALBUMIN/GLOBULIN RATIO 0.7 (1.0-1.7); CALCIUM 7.9 mg/dL (8.5-10.1); CREATININE 0.5 mg/dL (0.6-1.0); GFR 127.2; POTASSIUM 3.5 mmol/L (3.5-5.1); TOTAL BILIRUBIN 0.6 mg/dL (0.2-1.0); TOTAL PROTEIN 6.2 g/dL (6.4-8.2)
[2020-11-15 07:00] VITALS: BP 118/55
[2020-11-15] MEDS: CHOLECALCIFEROL (VITAMIN D3) 1,000 UNIT TABLET PO SCH (08:39)
[2020-11-15] MEDS: LACTOBACILLUS RHAMNOSUS GG 1 CAPSULE. PO SCH ×2 (08:39→21:06)
[2020-11-15] MEDS: metFORMIN 500 MG TABLET PO SCH ×2 (08:39→17:34)
[2020-11-15] MEDS: SENNOSIDES/DOCUSATE 8.6/50MG TABLET. PO SCH (08:39)
[2020-11-15] MEDS: CITALOPRAM 20 MG TABLET. PO SCH (08:39)
[2020-11-15] MEDS: MULTIVITAMIN with MINERAL TABLET. PO SCH (08:39)
[2020-11-15] MEDS: INSULIN LISPRO 300 UNITS/3 ML VIAL. SQ SCH ×3 (08:39→17:00)
[2020-11-15] MEDS: METOPROLOL SUCC 24HR ER 25 MG TAB.ER.24H. PO SCH (08:40)
--- NOTE | 2020-11-15 09:23 | PDOC ---
Infectious Disease Note Subjective: Subjective Pt states doing ok postop pain but under control no f/n/v/d Vital Signs: Vital Signs Vital Signs Date Time Temp Pulse Resp B/P (MAP) Pulse Ox O2 Delivery O2 Flow Rate FiO2 11/15/20 08:40 64 118/55 11/15/20 07:00 98.0 18 91 Room Air 98.0 11/15/20 06:21 3.0 Physical Exam: PHYSICAL EXAM GENERAL: Alert, oriented x 3 female, in no acute distress, HEENT: Normocephalic, atraumatic. Anicteric. Oral mucosa moist. NECK: Supple, no JVD. LUNGS: Clear bilaterally. No wheezing. HEART: S1, S2. No gallops or murmurs. ABDOMEN: Soft, nontender, nondistended. EXTREMITIES: No edema, no cyanosis. MUSCULOSKELETAL: Right upper extremity in splint, taken down after okay by Ortho team Right hand swelling present, sutures intact in place, pin present, swelling of the fingers has improved NEUROLOGIC: Alert and oriented x 3, grossly nonfocal. PSYCHIATRIC: Cooperative, appropriate mood and affect. DERMATOLOGIC: Warm, dry. No generalized rash. Medications: Inpatient Meds: Medications reviewed. Labs: Lab Laboratory Tests Test 11/14/20 11:59 11/14/20 17:49 11/14/20 20:24 11/15/20 00:45 Glucose (Fingerstick) 248 mg/dL (70-99) 221 mg/dL (70-99) 224 mg/dL (70-99) Vancomycin Level Trough 7.2 mcg/mL (10.0-20.0) Vancomycin Last Dose Date Unk Vancomycin Last Dose Time Unk Test 11/15/20 01:45 11/15/20 07:25 White Blood Count 4.2 x10^3/uL (4.0-11.0) Red Blood Count 3.51 x10^6/uL (3.50-5.40) Hemoglobin 10.6 g/dL (12.0-15.5) Hematocrit 32.1 % (36.0-47.0) Mean Corpuscular Volume 91 fL (79-100) Mean Corpuscular Hemoglobin 30 pg (25-35) Mean Corpuscular Hemoglobin Concent 33 g/dL (31-37) Red Cell Distribution Width 14.3 % (11.5-14.5) Platelet Count 85 x10^3/uL (140-400) Neutrophils (%) (Auto) 59 % (31-73) Lymphocytes (%) (Auto) 27 % (24-48) Monocytes (%) (Auto) 11 % (0-9) Eosinophils (%) (Auto) 2 % (0-3) Basophils (%) (Auto) 0 % (0-3) Neutrophils # (Auto) 2.5 x10^3/uL (1.8-7.7) Lymphocytes # (Auto) 1.1 x10^3/uL (1.0-4.8) Monocytes # (Auto) 0.5 x10^3/uL (0.0-1.1) Eosinophils # (Auto) 0.1 x10^3/uL (0.0-0.7) Basophils # (Auto) 0.0 x10^3/uL (0.0-0.2) Sodium Level 144 mmol/L (136-145) Potassium Level 3.5 mmol/L (3.5-5.1) Chloride Level 105 mmol/L (98-107) Carbon Dioxide Level 30 mmol/L (21-32) Anion Gap 9 (6-14) Blood Urea Nitrogen 8 mg/dL (7-20) Creatinine 0.5 mg/dL (0.6-1.0) Estimated GFR (Cockcroft-Gault) 127.2 BUN/Creatinine Ratio 16 (6-20) Glucose Level 126 mg/dL (70-99) Calcium Level 7.9 mg/dL (8.5-10.1) Total Bilirubin 0.6 mg/dL (0.2-1.0) Aspartate Amino Transf (AST/SGOT) 29 U/L (15-37) Alanine Aminotransferase (ALT/SGPT) 28 U/L (14-59) Alkaline Phosphatase 76 U/L (46-116) Total Protein 6.2 g/dL (6.4-8.2) Albumin 2.6 g/dL (3.4-5.0) Albumin/Globulin Ratio 0.7 (1.0-1.7) Glucose (Fingerstick) 166 mg/dL (70-99) Micro Objective: Assessment: 1. . Comminuted severely displaced open fracture of the rt distal radius, comminuted displaced distal ulnar fracture, status post orthopedic surgery right wrist, open treatment of distal radial intraarticular fracture with internal fixation of 3 or more fragments, styloid fracture repair, debridement including removal of foreign material at the site of open fracture and open dislocation, skin, subcutaneous tissue, muscle fascia, muscle and bone on 11/12/2020. 2. Mechanical fall. 3. Diabetes mellitus. 4. Thrombocytopenia. 5. Vitamin D deficiency. Plan: Plan of Care 1. Cont Zosyn. DC IV vancomycin, start daptomycin for now 2. Hold discharge today as patient still has a lot of swelling which could be postop 3. Local wound care as directed 4. Reevaluate patient next Wednesday 5. Call ID MD purification operator if any questions or concerns Discussed with Dr. Perez Discussed with CHRIS RENE MD Nov 15, 2020 09:23
--- NOTE | 2020-11-15 10:24 | NUR ---
SW following. Discussed with RN, pt from home with son, room air, ada diet, COVID-19 negative. Pt wanting to go home. Cultures pending for abx determination. Med Assist following for self pay status. SW will continue to follow.
[2020-11-15 11:00] VITALS: BP 137/71
[2020-11-15] MEDS: DAPTOmycin (GENERIC) IVPB 380 MG in IV NORMAL SALINE 50ML 50 ML IV SCH (13:58)
--- NOTE | 2020-11-15 14:47 | PDOC ---
[facility] PROGRESS NOTE Date of Service DOS: DATE: 11/15/20 TIME: 14:53 Chief Complaint Chief Complaint A/P: Mechanical fall. Comminuted severely displaced open fracture of the distal radius, comminuted displaced distal ulnar fracture, status post orthopedic surgery right wrist, open treatment of distal radial intraarticular fracture with internal fixation of 3 or more fragments, styloid fracture repair, debridement including removal of foreign material at the site of open fracture and open dislocation, skin, subcutaneous tissue, muscle fascia, muscle and bone on 11/12/2020. Had Tdap vaccine and ID consultation for antibiotics given it was an open dirty fracture. Diabetes mellitus - sliding scale Thrombocytopenia. - will monitor Vitamin D deficiency - will replace History of Present Illness History of Present Illness Ms Loaiza is a 55 yo who presented to the emergency room complaining of se raghav right wrist pain. Patient was taking the trash out, driveway is uphill and uneven and she fell forward catching herself with her hand. / had immediate onset of pain afterwards and noticed some bleeding. She was taking out trash and sustained right open wrist fracture. S/p right wrist open treatment of distal radial intraarticular fracture with internal fixation of 3 or more fragments, right wrist percutaneous skeletal fixation of ulnar styloid fracture, right wrist debridement including removal of foreign material at the site of an open fracture and/or open dislocation skin, subcutaneous tissue, muscle fascia, muscle and bone on 11/12/2020. The patient received Ancef, gentamicin, TDaP vaccine. White count was normal, platelets of 118. CRP of 20.2, glucose of 211. UDS was positive for opiates. SARS-COVID negative. 11/13: Postop pain is under control with current pain medication. Afebrile. Wants to go home. Now on IV antibiotics given her open, dirty wound. Cultures pending. 11/14:. Patient seen and evaluated bedside. Afebrile. Pain controlled. She remains on IV antibiotics; will discuss with ID about switching to oral. Patrick wang is anxious to discharge today. Will prepare for discharge home today. Greater than 30 minutes spent managing the discharge of this patient. Afebrile. Seen and discussed with her and her son. Dressing taken down with nursing and ID and bogginess noted at wrist. Will need to remain inpatient and continue IV antibiotics possibly able to transition to p.o. antibiotics and discharge over the weekend. We will follow up wound cultures from the OR. Vitals/I&O Vitals/I&O: Vital Signs Date Time Temp Pulse Resp B/P (MAP) Pulse Ox O2 Delivery O2 Flow Rate FiO2 11/15/20 11:00 98.4 70 18 137/71 (93) 97 Room Air 98.4 11/15/20 06:21 3.0 I & O 11/14/20 11/14/20 11/15/20 14:52 22:52 06:52 Intake Total 350 ml Output Total 0 ml 0 ml Balance 0 ml 350 ml Physical Exam Physical Exam: GENERAL: Alert, oriented x 3 female, in no acute distress, HEENT: Normocephalic, atraumatic. Anicteric. Oral mucosa moist. NECK: Supple, no JVD. LUNGS: Clear bilaterally. No wheezing. HEART: S1, S2. No gallops or murmurs. ABDOMEN: Soft, nontender, nondistended. EXTREMITIES: No edema, no cyanosis. MUSCULOSKELETAL: Right upper extremity in splint, taken down after okay by Ortho team Right hand swelling present, sutures intact in place, pin present, swelling of the fingers has improved NEUROLOGIC: Alert and oriented x 3, grossly nonfocal. PSYCHIATRIC: Cooperative, appropriate mood and affect. DERMATOLOGIC: Warm, dry. No generalized rash. General: Alert, Cooperative Heart: Regular rate Abdomen: Soft Extremities: Other (There is a 4cm laceration transversely and about 1 cm proximal to the wrist flexion crease, starting at the palmaris longus tendon and extending ulnarly beyond the flexor carpi ulnaris tendon. There is no definitive tendon involvement. The bones are no longer exposed but the extensive laceration indicates an open fracture primarily of the ulnar fracture although the radius is likely involved due to the extensive laceration. There is deformity of the wrist and instability and wrist swelling masks the extent of the deformity. There is severe tenderness at the wrist. Finger motion is decreased but there is no evidence of specific neurovascular injury. Capillary refill is normal. Pulse is not assessable due to the tenderness of the wrist and open fracture. Light touch sensation is intact. Motor function is difficult to assess but seems present for the radial ulnar and median nerves. There is no tenderness at the elbow. ) Skin: Other (4 cm open fracture laceration) Labs Labs: Laboratory Tests Test 11/14/20 17:49 11/14/20 20:24 11/15/20 00:45 11/15/20 01:45 Glucose (Fingerstick) 221 mg/dL (70-99) 224 mg/dL (70-99) Vancomycin Level Trough 7.2 mcg/mL (10.0-20.0) Vancomycin Last Dose Date Unk Vancomycin Last Dose Time Unk White Blood Count 4.2 x10^3/uL (4.0-11.0) Red Blood Count 3.51 x10^6/uL (3.50-5.40) Hemoglobin 10.6 g/dL (12.0-15.5) Hematocrit 32.1 % (36.0-47.0) Mean Corpuscular Volume 91 fL (79-100) Mean Corpuscular Hemoglobin 30 pg (25-35) Mean Corpuscular Hemoglobin Concent 33 g/dL (31-37) Red Cell Distribution Width 14.3 % (11.5-14.5) Platelet Count 85 x10^3/uL (140-400) Neutrophils (%) (Auto) 59 % (31-73) Lymphocytes (%) (Auto) 27 % (24-48) Monocytes (%) (Auto) 11 % (0-9) Eosinophils (%) (Auto) 2 % (0-3) Basophils (%) (Auto) 0 % (0-3) Neutrophils # (Auto) 2.5 x10^3/uL (1.8-7.7) Lymphocytes # (Auto) 1.1 x10^3/uL (1.0-4.8) Monocytes # (Auto) 0.5 x10^3/uL (0.0-1.1) Eosinophils # (Auto) 0.1 x10^3/uL (0.0-0.7) Basophils # (Auto) 0.0 x10^3/uL (0.0-0.2) Sodium Level 144 mmol/L (136-145) Potassium Level 3.5 mmol/L (3.5-5.1) Chloride Level 105 mmol/L (98-107) Carbon Dioxide Level 30 mmol/L (21-32) Anion Gap 9 (6-14) Blood Urea Nitrogen 8 mg/dL (7-20) Creatinine 0.5 mg/dL (0.6-1.0) Estimated GFR (Cockcroft-Gault) 127.2 BUN/Creatinine Ratio 16 (6-20) Glucose Level 126 mg/dL (70-99) Calcium Level 7.9 mg/dL (8.5-10.1) Total Bilirubin 0.6 mg/dL (0.2-1.0) Aspartate Amino Transf (AST/SGOT) 29 U/L (15-37) Alanine Aminotransferase (ALT/SGPT) 28 U/L (14-59) Alkaline Phosphatase 76 U/L (46-116) Total Protein 6.2 g/dL (6.4-8.2) Albumin 2.6 g/dL (3.4-5.0) Albumin/Globulin Ratio 0.7 (1.0-1.7) Test 11/15/20 07:25 11/15/20 11:43 Glucose (Fingerstick) 166 mg/dL (70-99) 173 mg/dL (70-99) Assessment and Plan Assessmemt and Plan Problems Medical Problems: (1) Open fracture of wrist Status: Acute Goals of Care: Advance Care Planning: Total time spent [id number] with patient greater than 16 minutes in discussion with goals of care, comfort care, end-of-life care, pain management, code status Comment Review of Relevant I have reviewed the following items jorge (where applicable) has been applied. Medications: Current Medications Medications (Trade) Dose Ordered Sig/Tiera Route PRN Reason Start Time Stop Time Status Last Admin Dose Admin Vancomycin HCl (Vancomycin Trough Level) 1 each 1X ONCE 11/14/20 23:30 11/14/20 23:31 DC 11/14/20 23:30 Vancomycin HCl 1.25 gm/Sodium Chloride 250 ml @ 167 mls/hr Q8H IV 11/15/20 02:00 11/15/20 12:32 DC 11/15/20 10:31 Daptomycin 380 mg/ Sodium Chloride 50 ml @ 100 mls/hr Q24H IV 11/15/20 14:00 11/15/20 13:58 Justifications for Admission Other Justification open wrist fx FERNANDO CABRALES MD Nov 15, 2020 14:47
[2020-11-15 15:00] VITALS: BP 139/77
[2020-11-15 19:00] VITALS: BP 130/68
[2020-11-15] MEDS: INSULIN GLARGINE SYRINGE. SQ SCH (21:07)
[2020-11-15 23:00] VITALS: BP 133/77
[2020-11-16] MEDS: oxyCODONE/APAP 5/325 1 TAB TABLET PO PRN ×3 (02:45→20:52)
[2020-11-16 03:00] VITALS: BP 136/72
[2020-11-16] MEDS: PIPERACILLIN/TAZOBACTAM 3.375 GM in IV NORMAL SALINE 50ML 50 ML IV SCH ×3 (05:19→18:08)
[2020-11-16 07:00] VITALS: BP 134/76
[2020-11-16 07:11] LABS: CREATININE 0.6 mg/dL (0.6-1.0)
[2020-11-16] MEDS: INSULIN LISPRO 300 UNITS/3 ML VIAL. SQ SCH ×3 (08:00→17:00)
--- NOTE | 2020-11-16 08:38 | PDOC ---
Infectious Disease Note Subjective: Subjective Pt states doing ok postop pain but under control no f/n/v/d Vital Signs: Vital Signs Vital Signs Date Time Temp Pulse Resp B/P (MAP) Pulse Ox O2 Delivery O2 Flow Rate FiO2 11/16/20 07:00 98.1 71 18 134/76 (95) 92 Room Air 98.1 11/16/20 03:00 1.0 Physical Exam: PHYSICAL EXAM GENERAL: Alert, oriented x 3 female, in no acute distress, HEENT: Normocephalic, atraumatic. Anicteric. Oral mucosa moist. NECK: Supple, no JVD. LUNGS: Clear bilaterally. No wheezing. HEART: S1, S2. No gallops or murmurs. ABDOMEN: Soft, nontender, nondistended. EXTREMITIES: No edema, no cyanosis. MUSCULOSKELETAL: Right upper extremity in splint, taken down after okay by Ortho team Right hand swelling present, sutures intact in place, pin present, swelling of the fingers has improved NEUROLOGIC: Alert and oriented x 3, grossly nonfocal. PSYCHIATRIC: Cooperative, appropriate mood and affect. DERMATOLOGIC: Warm, dry. No generalized rash. Medications: Inpatient Meds: Medications reviewed. Labs: Lab Laboratory Tests Test 11/15/20 11:43 11/15/20 16:32 11/15/20 21:06 11/16/20 06:20 Glucose (Fingerstick) 173 mg/dL (70-99) 135 mg/dL (70-99) 140 mg/dL (70-99) Creatinine 0.6 mg/dL (0.6-1.0) Estimated GFR (Cockcroft-Gault) 103.0 Test 11/16/20 07:07 Glucose (Fingerstick) 122 mg/dL (70-99) Micro Objective: Assessment: 1. . Comminuted severely displaced open fracture of the rt distal radius, comminuted displaced distal ulnar fracture, status post orthopedic surgery right wrist, open treatment of distal radial intraarticular fracture with internal fixation of 3 or more fragments, styloid fracture repair, debridement including removal of foreign material at the site of open fracture and open dislocation, skin, subcutaneous tissue, muscle fascia, muscle and bone on 11/12/2020. 2. Mechanical fall. 3. Diabetes mellitus. 4. Thrombocytopenia. 5. Vitamin D deficiency. Plan: Plan of Care 1. Cont Zosynb and daptomycin 2. Local wound care as directed 3. BC negative Discussed with CHRIS RENE MD Nov 16, 2020 08:38
[2020-11-16] MEDS: LACTOBACILLUS RHAMNOSUS GG 1 CAPSULE. PO SCH ×2 (09:05→20:51)
[2020-11-16] MEDS: CHOLECALCIFEROL (VITAMIN D3) 1,000 UNIT TABLET PO SCH (09:05)
[2020-11-16] MEDS: CITALOPRAM 20 MG TABLET. PO SCH (09:05)
[2020-11-16] MEDS: SENNOSIDES/DOCUSATE 8.6/50MG TABLET. PO SCH (09:05)
[2020-11-16] MEDS: MULTIVITAMIN with MINERAL TABLET. PO SCH (09:05)
[2020-11-16] MEDS: metFORMIN 500 MG TABLET PO SCH ×2 (09:05→18:08)
[2020-11-16] MEDS: METOPROLOL SUCC 24HR ER 25 MG TAB.ER.24H. PO SCH (09:07)
--- NOTE | 2020-11-16 09:10 | PDOC ---
[facility] PROGRESS NOTE Date of Service DOS: DATE: 11/16/20 TIME: 09:08 Chief Complaint Chief Complaint A/P: Mechanical fall. Comminuted severely displaced open fracture of the distal radius, comminuted displaced distal ulnar fracture, status post orthopedic surgery right wrist, open treatment of distal radial intraarticular fracture with internal fixation of 3 or more fragments, styloid fracture repair, debridement including removal of foreign material at the site of open fracture and open dislocation, skin, subcutaneous tissue, muscle fascia, muscle and bone on 11/12/2020. Had Tdap vaccine and ID consultation for antibiotics given it was an open dirty fracture. Diabetes mellitus - sliding scale Thrombocytopenia. - will monitor Vitamin D deficiency - will replace History of Present Illness History of Present Illness Ms Loaiza is a 55 yo who presented to the emergency room complaining of se raghav right wrist pain. Patient was taking the trash out, driveway is uphill and uneven and she fell forward catching herself with her hand. / had immediate onset of pain afterwards and noticed some bleeding. She was taking out trash and sustained right open wrist fracture. S/p right wrist open treatment of distal radial intraarticular fracture with internal fixation of 3 or more fragments, right wrist percutaneous skeletal fixation of ulnar styloid fracture, right wrist debridement including removal of foreign material at the site of an open fracture and/or open dislocation skin, subcutaneous tissue, muscle fascia, muscle and bone on 11/12/2020. The patient received Ancef, gentamicin, TDaP vaccine. White count was normal, platelets of 118. CRP of 20.2, glucose of 211. UDS was positive for opiates. SARS-COVID negative. 11/13: Postop pain is under control with current pain medication. Afebrile. Wants to go home. Now on IV antibiotics given her open, dirty wound. Cultures pending. 11/14:. Patient seen and evaluated bedside. Afebrile. Pain controlled. She remains on IV antibiotics; will discuss with ID about switching to oral. Patrick wang is anxious to discharge today. Will prepare for discharge home today. Greater than 30 minutes spent managing the discharge of this patient. 11/15: Afebrile. Seen and discussed with her and her son. Dressing taken down with nursing and ID and bogginess noted at wrist. Will need to remain inpatient and continue IV antibiotics possibly able to transition to p.o. antibiotics and discharge over the weekend. We will follow up wound cultures from the OR. 11/16: Afebrile. Blood cultures still no growth to date. She feels well, feels better. Pain 11/09 today. Continue IV Zosyn and IV daptomycin will need to discuss with ID about antibiotics management prior to discharge. Vitals/I&O Vitals/I&O: Vital Signs Date Time Temp Pulse Resp B/P (MAP) Pulse Ox O2 Delivery O2 Flow Rate FiO2 11/16/20 07:00 98.1 71 18 134/76 (95) 92 Room Air 98.1 11/16/20 03:00 1.0 I & O 11/15/20 11/15/20 11/16/20 15:00 23:00 07:00 Intake Total 200 ml 300 ml 250 ml Balance 200 ml 300 ml 250 ml Physical Exam Physical Exam: GENERAL: Alert, oriented x 3 female, in no acute distress, HEENT: Normocephalic, atraumatic. Anicteric. Oral mucosa moist. NECK: Supple, no JVD. LUNGS: Clear bilaterally. No wheezing. HEART: S1, S2. No gallops or murmurs. ABDOMEN: Soft, nontender, nondistended. EXTREMITIES: No edema, no cyanosis. MUSCULOSKELETAL: Right upper extremity in splint, taken down after okay by Ortho team Right hand swelling present, sutures intact in place, pin present, swelling of the fingers has improved NEUROLOGIC: Alert and oriented x 3, grossly nonfocal. PSYCHIATRIC: Cooperative, appropriate mood and affect. DERMATOLOGIC: Warm, dry. No generalized rash. General: Alert, Cooperative Heart: Regular rate Abdomen: Soft Extremities: Other (There is a 4cm laceration transversely and about 1 cm proximal to the wrist flexion crease, starting at the palmaris longus tendon and extending ulnarly beyond the flexor carpi ulnaris tendon. There is no definitive tendon involvement. The bones are no longer exposed but the extensive laceration indicates an open fracture primarily of the ulnar fracture although the radius is likely involved due to the extensive laceration. There is deformity of the wrist and instability and wrist swelling masks the extent of the deformity. There is severe tenderness at the wrist. Finger motion is decreased but there is no evidence of specific neurovascular injury. Capillary refill is normal. Pulse is not assessable due to the tenderness of the wrist and open fracture. Light touch sensation is intact. Motor function is difficult to assess but seems present for the radial ulnar and median nerves. There is no tenderness at the elbow. ) Skin: Other (4 cm open fracture laceration) Labs Labs: Laboratory Tests Test 11/15/20 11:43 11/15/20 16:32 11/15/20 21:06 11/16/20 06:20 Glucose (Fingerstick) 173 mg/dL (70-99) 135 mg/dL (70-99) 140 mg/dL (70-99) Creatinine 0.6 mg/dL (0.6-1.0) Estimated GFR (Cockcroft-Gault) 103.0 Test 11/16/20 07:07 Glucose (Fingerstick) 122 mg/dL (70-99) Assessment and Plan Assessmemt and Plan Problems Medical Problems: (1) Open fracture of wrist Status: Acute Goals of Care: Advance Care Planning: Total time spent [id number] with patient greater than 16 minutes in discussion with goals of care, comfort care, end-of-life care, pain management, code status Comment Review of Relevant I have reviewed the following items jorge (where applicable) has been applied. Medications: Current Medications Medications (Trade) Dose Ordered Sig/Tiera Route PRN Reason Start Time Stop Time Status Last Admin Dose Admin Daptomycin 380 mg/ Sodium Chloride 50 ml @ 100 mls/hr Q24H IV 11/15/20 14:00 11/15/20 13:58 Justifications for Admission Other Justification open wrist fx NAVIN CUNNINGHAM MD Nov 16, 2020 09:10
[2020-11-16 11:00] VITALS: BP 141/60
[2020-11-16] MEDS: DAPTOmycin (GENERIC) IVPB 380 MG in IV NORMAL SALINE 50ML 50 ML IV SCH (14:05)
[2020-11-16 15:00] VITALS: BP 124/68
[2020-11-16 19:00] VITALS: BP 145/85
[2020-11-16] MEDS: INSULIN GLARGINE SYRINGE. SQ SCH (21:00)
[2020-11-16 23:00] VITALS: BP 125/53
[2020-11-17] MEDS: PIPERACILLIN/TAZOBACTAM 3.375 GM in IV NORMAL SALINE 50ML 50 ML IV SCH ×4 (00:12→17:43)
[2020-11-17 03:00] VITALS: BP 130/71
[2020-11-17 07:00] VITALS: BP 156/75
[2020-11-17] MEDS: INSULIN LISPRO 300 UNITS/3 ML VIAL. SQ SCH ×3 (08:00→17:00)
--- NOTE | 2020-11-17 09:15 | PDOC ---
Infectious Disease Note Subjective: Subjective Pt states doing ok postop pain but under control no f/n/v/d Vital Signs: Vital Signs Vital Signs Date Time Temp Pulse Resp B/P (MAP) Pulse Ox O2 Delivery O2 Flow Rate FiO2 11/17/20 07:00 98.4 72 18 156/75 (102) 96 Room Air 98.4 Physical Exam: PHYSICAL EXAM GENERAL: Alert, oriented x 3 female, in no acute distress, HEENT: Normocephalic, atraumatic. Anicteric. Oral mucosa moist. NECK: Supple, no JVD. LUNGS: Clear bilaterally. No wheezing. HEART: S1, S2. No gallops or murmurs. ABDOMEN: Soft, nontender, nondistended. EXTREMITIES: No edema, no cyanosis. MUSCULOSKELETAL: Right upper extremity dressing in place not taken down taken down Right upper extremity swelling present, swelling of the fingers has improved NEUROLOGIC: Alert and oriented x 3, grossly nonfocal. PSYCHIATRIC: Cooperative, appropriate mood and affect. DERMATOLOGIC: Warm, dry. No generalized rash. Medications: Inpatient Meds: Medications reviewed. Labs: Lab Laboratory Tests Test 11/16/20 11:28 11/16/20 17:03 11/16/20 19:47 11/17/20 07:46 Glucose (Fingerstick) 161 mg/dL (70-99) 139 mg/dL (70-99) 178 mg/dL (70-99) 112 mg/dL (70-99) Micro Objective: Assessment: 1. . Comminuted severely displaced open fracture of the rt distal radius, comminuted displaced distal ulnar fracture, status post orthopedic surgery right wrist, open treatment of distal radial intraarticular fracture with internal fixation of 3 or more fragments, styloid fracture repair, debridement including removal of foreign material at the site of open fracture and open dislocation, skin, subcutaneous tissue, muscle fascia, muscle and bone on 11/12/2020. 2. Mechanical fall. 3. Diabetes mellitus. 4. Thrombocytopenia. 5. Vitamin D deficiency. Plan: Plan of Care 1. Cont Zosynb and daptomycin 2. Local wound care as directed 3. BC negative 4. Labs in CHRIS Bowser MD Nov 17, 2020 09:15
[2020-11-17] MEDS: SENNOSIDES/DOCUSATE 8.6/50MG TABLET. PO SCH (09:18)
[2020-11-17] MEDS: LACTOBACILLUS RHAMNOSUS GG 1 CAPSULE. PO SCH ×2 (09:18→21:59)
[2020-11-17] MEDS: CHOLECALCIFEROL (VITAMIN D3) 1,000 UNIT TABLET PO SCH (09:18)
[2020-11-17] MEDS: CITALOPRAM 20 MG TABLET. PO SCH (09:19)
[2020-11-17] MEDS: MULTIVITAMIN with MINERAL TABLET. PO SCH (09:19)
[2020-11-17] MEDS: METOPROLOL SUCC 24HR ER 25 MG TAB.ER.24H. PO SCH (09:19)
[2020-11-17] MEDS: metFORMIN 500 MG TABLET PO SCH ×2 (09:19→17:43)
[2020-11-17] MEDS: oxyCODONE/APAP 5/325 1 TAB TABLET PO PRN ×2 (09:22→21:58)
--- NOTE | 2020-11-17 10:01 | PDOC ---
[facility] PROGRESS NOTE Date of Service DOS: DATE: 11/17/20 TIME: 09:59 Chief Complaint Chief Complaint A/P: Mechanical fall. Comminuted severely displaced open fracture of the distal radius, comminuted displaced distal ulnar fracture, status post orthopedic surgery right wrist, open treatment of distal radial intraarticular fracture with internal fixation of 3 or more fragments, styloid fracture repair, debridement including removal of foreign material at the site of open fracture and open dislocation, skin, subcutaneous tissue, muscle fascia, muscle and bone on 11/12/2020. Had Tdap vaccine and ID consultation for antibiotics given it was an open dirty fracture. Diabetes mellitus - sliding scale Thrombocytopenia. - will monitor Vitamin D deficiency - will replace History of Present Illness History of Present Illness Ms Loaiza is a 55 yo who presented to the emergency room complaining of se raghav right wrist pain. Patient was taking the trash out, driveway is uphill and uneven and she fell forward catching herself with her hand. / had immediate onset of pain afterwards and noticed some bleeding. She was taking out trash and sustained right open wrist fracture. S/p right wrist open treatment of distal radial intraarticular fracture with internal fixation of 3 or more fragments, right wrist percutaneous skeletal fixation of ulnar styloid fracture, right wrist debridement including removal of foreign material at the site of an open fracture and/or open dislocation skin, subcutaneous tissue, muscle fascia, muscle and bone on 11/12/2020. The patient received Ancef, gentamicin, TDaP vaccine. White count was normal, platelets of 118. CRP of 20.2, glucose of 211. UDS was positive for opiates. SARS-COVID negative. 11/13: Postop pain is under control with current pain medication. Afebrile. Wants to go home. Now on IV antibiotics given her open, dirty wound. Cultures pending. 11/14:. Patient seen and evaluated bedside. Afebrile. Pain controlled. She remains on IV antibiotics; will discuss with ID about switching to oral. Patrick wang is anxious to discharge today. Will prepare for discharge home today. Greater than 30 minutes spent managing the discharge of this patient. 11/15: Afebrile. Seen and discussed with her and her son. Dressing taken down with nursing and ID and bogginess noted at wrist. Will need to remain inpatient and continue IV antibiotics possibly able to transition to p.o. antibiotics and discharge over the weekend. We will follow up wound cultures from the OR. 11/16: Afebrile. Blood cultures still no growth to date. She feels well, feels better. Pain 11/09 today. Continue IV Zosyn and IV daptomycin will need to discuss with ID about antibiotics management prior to discharge. 11/17: Afebrile. Pain well controlled. Still has questions about discharge timeframe. Continue Zosyn and daptomycin. Due to high risk of infection I recommend patient not be discharged until his wound is reevaluated by Orthopedic Surgery or ID. Vitals/I&O Vitals/I&O: Vital Signs Date Time Temp Pulse Resp B/P (MAP) Pulse Ox O2 Delivery O2 Flow Rate FiO2 11/17/20 09:24 98 Room Air 11/17/20 09:19 72 156/75 11/17/20 07:00 98.4 18 98.4 I & O 11/16/20 11/16/20 11/17/20 15:00 23:00 07:00 Intake Total 100 ml 600 ml Balance 100 ml 600 ml Physical Exam Physical Exam: GENERAL: Alert, oriented x 3 female, in no acute distress, HEENT: Normocephalic, atraumatic. Anicteric. Oral mucosa moist. NECK: Supple, no JVD. LUNGS: Clear bilaterally. No wheezing. HEART: S1, S2. No gallops or murmurs. ABDOMEN: Soft, nontender, nondistended. EXTREMITIES: No edema, no cyanosis. MUSCULOSKELETAL: Right upper extremity in splint, taken down after okay by Ort team Right hand swelling present, sutures intact in place, pin present, swelling of the fingers has improved NEUROLOGIC: Alert and oriented x 3, grossly nonfocal. PSYCHIATRIC: Cooperative, appropriate mood and affect. DERMATOLOGIC: Warm, dry. No generalized rash. General: Alert, Cooperative Heart: Regular rate Abdomen: Soft Extremities: Other (There is a 4cm laceration transversely and about 1 cm proximal to the wrist flexion crease, starting at the palmaris longus tendon and extending ulnarly beyond the flexor carpi ulnaris tendon. There is no definitive tendon involvement. The bones are no longer exposed but the extensive laceration indicates an open fracture primarily of the ulnar fracture although the radius is likely involved due to the extensive laceration. There is deformity of the wrist and instability and wrist swelling masks the extent of the deformity. There is severe tenderness at the wrist. Finger motion is decreased but there is no evidence of specific neurovascular injury. Capillary refill is normal. Pulse is not assessable due to the tenderness of the wrist and open fracture. Light touch sensation is intact. Motor function is difficult to assess but seems present for the radial ulnar and median nerves. There is no tenderness at the elbow. ) Skin: Other (4 cm open fracture laceration) Labs Labs: Laboratory Tests Test 11/16/20 11:28 11/16/20 17:03 11/16/20 19:47 11/17/20 07:46 Glucose (Fingerstick) 161 mg/dL (70-99) 139 mg/dL (70-99) 178 mg/dL (70-99) 112 mg/dL (70-99) Assessment and Plan Assessmemt and Plan Problems Medical Problems: (1) Open fracture of wrist Status: Acute Goals of Care: Advance Care Planning: Total time spent [id number] with patient greater than 16 minutes in discussion with goals of care, comfort care, end-of-life care, pain management, code status Comment Review of Relevant I have reviewed the following items jorge (where applicable) has been applied. Justifications for Admission Other Justification open wrist fx NAVIN CUNNINGHAM MD Nov 17, 2020 10:01
[2020-11-17 11:00] VITALS: BP 141/70
[2020-11-17] MEDS: DAPTOmycin (GENERIC) IVPB 380 MG in IV NORMAL SALINE 50ML 50 ML IV SCH (14:41)
[2020-11-17 15:00] VITALS: BP 153/101
[2020-11-17 19:00] VITALS: BP 153/82
[2020-11-17] MEDS: INSULIN GLARGINE SYRINGE. SQ SCH (21:59)
[2020-11-17 23:00] VITALS: BP 147/87
[2020-11-18] MEDS: PIPERACILLIN/TAZOBACTAM 3.375 GM in IV NORMAL SALINE 50ML 50 ML IV SCH ×3 (00:09→11:18)
[2020-11-18 03:00] VITALS: BP 141/71
[2020-11-18 07:14] VITALS: BP 134/78
[2020-11-18] MEDS: INSULIN LISPRO 300 UNITS/3 ML VIAL. SQ SCH ×2 (07:40→11:14)
[2020-11-18 07:45] LABS: BASO % 1 % (0-3); EOS # 0.1 x10^3/uL (0.0-0.7); EOS % 2 % (0-3); HEMATOCRIT 31.8 % (36.0-47.0); HEMOGLOBIN 10.7 g/dL (12.0-15.5); LYMPH # 1.1 x10^3/uL (1.0-4.8); LYMPH % 34 % (24-48); MEAN CORPUSCULAR HEMOGLOBIN 30 pg (25-35); MEAN CORPUSCULAR HGB CONC 34 g/dL (31-37); MEAN CORPUSCULAR VOLUME 90 fL (79-100); MONO # 0.4 x10^3/uL (0.0-1.1); MONO % 11 % (0-9); NEUT # 1.7 x10^3/uL (1.8-7.7); NEUT % 52 % (31-73); PLATELET COUNT 105 x10^3/uL (140-400); RED BLOOD COUNT 3.54 x10^6/uL (3.50-5.40); RED CELL DISTRIBUTION WIDTH 14.5 % (11.5-14.5); WHITE BLOOD COUNT 3.3 x10^3/uL (4.0-11.0)
[2020-11-18 07:51] LABS: ALBUMIN 2.5 g/dL (3.4-5.0); ALBUMIN/GLOBULIN RATIO 0.7 (1.0-1.7); CREATININE 0.6 mg/dL (0.6-1.0); POTASSIUM 3.4 mmol/L (3.5-5.1); TOTAL BILIRUBIN 0.6 mg/dL (0.2-1.0); TOTAL PROTEIN 5.9 g/dL (6.4-8.2)
[2020-11-18] MEDS: CITALOPRAM 20 MG TABLET. PO SCH (08:04)
[2020-11-18] MEDS: MULTIVITAMIN with MINERAL TABLET. PO SCH (08:04)
[2020-11-18] MEDS: CHOLECALCIFEROL (VITAMIN D3) 1,000 UNIT TABLET PO SCH (08:04)
[2020-11-18] MEDS: metFORMIN 500 MG TABLET PO SCH (08:04)
[2020-11-18] MEDS: SENNOSIDES/DOCUSATE 8.6/50MG TABLET. PO SCH (08:04)
[2020-11-18] MEDS: LACTOBACILLUS RHAMNOSUS GG 1 CAPSULE. PO SCH (08:04)
[2020-11-18] MEDS: METOPROLOL SUCC 24HR ER 25 MG TAB.ER.24H. PO SCH (08:05)
--- NOTE | 2020-11-18 10:31 | PDOC ---
Infectious Disease Note Subjective: Subjective Pt states doing ok postop pain but under control no f/n/v/d Vital Signs: Vital Signs Vital Signs Date Time Temp Pulse Resp B/P (MAP) Pulse Ox O2 Delivery O2 Flow Rate FiO2 11/18/20 08:05 67 134/78 11/18/20 08:00 Room Air 11/18/20 07:14 98.4 18 92 98.4 Physical Exam: PHYSICAL EXAM GENERAL: Alert, oriented x 3 female, in no acute distress, HEENT: Normocephalic, atraumatic. Anicteric. Oral mucosa moist. NECK: Supple, no JVD. LUNGS: Clear bilaterally. No wheezing. HEART: S1, S2. No gallops or murmurs. ABDOMEN: Soft, nontender, nondistended. EXTREMITIES: No edema, no cyanosis except rt upper ext. MUSCULOSKELETAL: Right upper extremity dressing in place taken down Right hand swelling present, sutures intact in place, pin present, swelling of the fingers has improved Right upper extremity swelling present, some bruising around the elbow area MSK right hand swelling as above, right upper extremity swelling as above, no elbow swelling or effusion NEUROLOGIC: Alert and oriented x 3, grossly nonfocal. PSYCHIATRIC: Cooperative, appropriate mood and affect. DERMATOLOGIC: Warm, dry. No generalized rash. Medications: Inpatient Meds: Medications reviewed. Labs: Lab Laboratory Tests Test 11/17/20 11:28 11/17/20 17:09 11/17/20 19:50 11/18/20 06:25 Glucose (Fingerstick) 154 mg/dL (70-99) 94 mg/dL (70-99) 158 mg/dL (70-99) White Blood Count 3.3 x10^3/uL (4.0-11.0) Red Blood Count 3.54 x10^6/uL (3.50-5.40) Hemoglobin 10.7 g/dL (12.0-15.5) Hematocrit 31.8 % (36.0-47.0) Mean Corpuscular Volume 90 fL (79-100) Mean Corpuscular Hemoglobin 30 pg (25-35) Mean Corpuscular Hemoglobin Concent 34 g/dL (31-37) Red Cell Distribution Width 14.5 % (11.5-14.5) Platelet Count 105 x10^3/uL (140-400) Neutrophils (%) (Auto) 52 % (31-73) Lymphocytes (%) (Auto) 34 % (24-48) Monocytes (%) (Auto) 11 % (0-9) Eosinophils (%) (Auto) 2 % (0-3) Basophils (%) (Auto) 1 % (0-3) Neutrophils # (Auto) 1.7 x10^3/uL (1.8-7.7) Lymphocytes # (Auto) 1.1 x10^3/uL (1.0-4.8) Monocytes # (Auto) 0.4 x10^3/uL (0.0-1.1) Eosinophils # (Auto) 0.1 x10^3/uL (0.0-0.7) Basophils # (Auto) 0.0 x10^3/uL (0.0-0.2) Erythrocyte Sedimentation Rate 55 (0-25) Sodium Level 144 mmol/L (136-145) Potassium Level 3.4 mmol/L (3.5-5.1) Chloride Level 106 mmol/L (98-107) Carbon Dioxide Level 27 mmol/L (21-32) Anion Gap 11 (6-14) Blood Urea Nitrogen 11 mg/dL (7-20) Creatinine 0.6 mg/dL (0.6-1.0) Estimated GFR (Cockcroft-Gault) 103.0 BUN/Creatinine Ratio 18 (6-20) Glucose Level 121 mg/dL (70-99) Calcium Level 8.0 mg/dL (8.5-10.1) Total Bilirubin 0.6 mg/dL (0.2-1.0) Aspartate Amino Transf (AST/SGOT) 42 U/L (15-37) Alanine Aminotransferase (ALT/SGPT) 27 U/L (14-59) Alkaline Phosphatase 73 U/L (46-116) Creatine Kinase 67 U/L (26-192) Total Protein 5.9 g/dL (6.4-8.2) Albumin 2.5 g/dL (3.4-5.0) Albumin/Globulin Ratio 0.7 (1.0-1.7) Test 11/18/20 07:04 Glucose (Fingerstick) 123 mg/dL (70-99) Micro Objective: Assessment: 1. . Comminuted severely displaced open fracture of the rt distal radius, comminuted displaced distal ulnar fracture, status post orthopedic surgery right wrist, open treatment of distal radial intraarticular fracture with internal fixation of 3 or more fragments, styloid fracture repair, debridement including removal of foreign material at the site of open fracture and open dislocation, skin, subcutaneous tissue, muscle fascia, muscle and bone on 11/12/2020. 2. Mechanical fall. 3. Diabetes mellitus. 4. Thrombocytopenia. 5. Vitamin D deficiency. Plan: Plan of Care Patient can be discharged home on empiric antibiotics Cipro, Flagyl, Zyvox for 10 days Prescription in chart Social service to assist with discharge antibiotics Side effects discussed including tendon rupture, C. difficile colitis, cardiac arrhythmias etc Potential for antibiotic failure discussed Seek immediate medical attention if has any worsening of wounds or systemic symptoms Follow-up with Ortho clinic as scheduled Local wound care as directed by orthopedics BC negative Discussed with RN We will sign off Call with any questions CHRIS CHANG MD Nov 18, 2020 10:31
[2020-11-18 10:45] VITALS: BP 135/84
--- NOTE | 2020-11-18 12:09 | DISCH ---
DISCHARGE INSTRUCTIONS Condition on Discharge Condition on Discharge: Stable Activity After Discharge Activity Instructions for Disc: No restrictions, Resume previous activity, Activity as tolerated Exercise Instruction after Dis: Walk 15 min, 3 x per day Weight Bearing Status after Di: No restrictions, Full weight bearing, As tolerated Diet after Discharge Diet after Discharge: Cardiac, Regular, Diabetic No Calorie Level Diet Texture: Regular Liquid Texture: Thin Liquid Wound Incision Care Wound/Incision Care: No wound care needed Checks after Discharge Checks after discharge: Check blood press - daily, Check blood sugar, ac/hs, Check your Temp as needed Follow-Up Follow up with: PCP within 2 weeks of discharge Follow Up With: Orthopedic surgery as needed Treatment/Equipment after DC Adaptive Equipment Issued: None Discharge Respiratory Equipmen: Oxygen CARLOS RODRÍGUEZ MD Nov 18, 2020 12:09
[2020-11-18] MEDS: oxyCODONE/APAP 5/325 1 TAB TABLET PO PRN (12:53)
--- NOTE | 2020-11-18 13:57 | NUR ---
Discharge Note: PT DISCHARGED HOME WITH SELF CARE. PT LEFT FACILITY VIA PRIVATE VEHICLE WITH GRAND-DAUGHTER AND SON AT 1335. PT STABLE AND ALERT UPON DISCHARGE. PT PIV REMOVED FROM L AC WITHOUT COMPLICATIONS, BANDAGE APPLIED. PT BANDAGE TO R FA CHANGED, SUTURES INTACT, NO DRAINAGE/INFLAMMATION/REDNESS PRESENT. PT EDUCATED ABOUT DISCHARGE INSTRUCTIONS, DISCHARGE MEDICATIONS, WOUND CARE, FOLLOW-UP INSTRUCTIONS, AND LIFTING RESTRICTIONS. PT AND FAMILY VOICED NO CONCERNS AT THIS TIME. PT LEFT WITH ALL PERSONAL BELONGINGS. SARIAH LEMUS Discharge instructions and discharge home medications reviewed with Patient and a copy given. All questions have been answered and understanding verbalized.
--- NOTE | 2020-11-20 20:42 | PDOC3 ---
[facility]-Discharge Summary Date of Admission: Date of Admission: Nov 12, 2020 Date of Discharge: Date of Discharge: Nov 18, 2020 Discharge Diagnosis: Discharge Diagnosis: Mechanical fall. Comminuted severely displaced open fracture of the distal radius, comminuted displaced distal ulnar fracture, status post orthopedic surgery right wrist, open treatment of distal radial intraarticular fracture with internal fixation of 3 or more fragments, styloid fracture repair, debridement including removal of foreign material at the site of open fracture and open dislocation, skin, subcutaneous tissue, muscle fascia, muscle and bone on 11/12/2020. Had Tdap vaccine and ID consultation for antibiotics given it was an open dirty fracture. Diabetes mellitus - sliding scale Thrombocytopenia. - will monitor Vitamin D deficiency - will replace Hospital Course: Hospital Course: 55 yo who presented to the emergency room complaining of severe right wrist pain. Patient was taking the trash out, driveway is uphill and uneven and she fell forward catching herself with her hand. / had immediate onset of pain afterwards and noticed some bleeding. She was taking out trash and sustained right open wrist fracture. S/p right wrist open treatment of distal radial intraarticular fracture with internal fixation of 3 or more fragments, right wrist percutaneous skeletal fixation of ulnar styloid fracture, right wrist debridement including removal of foreign material at the site of an open fracture and/or open dislocation skin, subcutaneous tissue, muscle fascia, muscle and bone on 11/12/2020. The patient received Ancef, gentamicin, TDaP vaccine. White count was normal, platelets of 118. CRP of 20.2, glucose of 211. UDS was positive for opiates. SARS-COVID negative. 11/13: Postop pain is under control with current pain medication. Afebrile. Wants to go home. Now on IV antibiotics given her open, dirty wound. Cultures pending. 11/14:. Patient seen and evaluated bedside. Afebrile. Pain controlled. She remains on IV antibiotics; will discuss with ID about switching to oral. Patient is anxious to discharge today. Will prepare for discharge home today. Greater than 30 minutes spent managing the discharge of this patient. 11/15: Afebrile. Seen and discussed with her and her son. Dressing taken down with nursing and ID and bogginess noted at wrist. Will need to remain inpatient and continue IV antibiotics possibly able to transition to p.o. antibiotics and discharge over the weekend. We will follow up wound cultures from the OR. 11/16: Afebrile. Blood cultures still no growth to date. She feels well, feels better. Pain 11/09 today. Continue IV Zosyn and IV daptomycin will need to discuss with ID about antibiotics management prior to discharge. 11/17: Afebrile. Pain well controlled. Still has questions about discharge timeframe. Continue Zosyn and daptomycin. Due to high risk of infection I rec aline patient not be discharged until his wound is reevaluated by Orthopedic Surgery or ID. By day of discharge patient was clinically stable. Rest of hospital course was uneventful. Disposition: Disposition/Orders: D/C to Home Activity: Activity: Resume previous activity Diet: Diet: Soft Medications: Home Meds Reported Medications Metoprolol Succinate (METOPROLOL SUCCINATE ( XL )) 25 Mg Tab.er.24h, 12.5 MG PO DAILY for FOR HYPERTENSION, #30 TAB 0 Refills 11/12/20 Citalopram Hydrobromide (CITALOPRAM HBR) 20 Mg Tablet, 1 TAB PO DAILY for depression, #30 TAB 5 Refills 11/12/20 Metformin Hcl (METFORMIN HCL) 1,000 Mg Tablet, 1000 MG PO BIDWMEALS for , TAB 01/18/20 Scheduled Citalopram Hydrobromide (Citalopram Hbr), 1 TAB PO DAILY, (Reported) Metformin Hcl (Metformin Hcl), 1,000 MG PO BIDWMEALS, (Reported) Metoprolol Succinate (Metoprolol Succinate ( Xl )), 12.5 MG PO DAILY, (Reported) Total Time: Total Time: Total time spent was 32 minutes in preparing scripts, discharge planning with SW and RN, and preparing this discharge summary. Patient seen and examined on day of discharge. Justicifation of Admission Dx: Justifications for Admission: Justification of Admission Dx: Yes Respiratory Failure: Severe Vent Deficit CARLOS RODRÍGUEZ MD Nov 20, 2020 20:41
== END 2020-11-18 13:35 | disposition home or self-care (01) | DRG 512 ==
LOC: ER 10:34 → 4 NORTH 11:35
PROVIDERS: ADMIT Family Medicine; ATTEND Family Medicine
PROC: 0PH Upper Bones, Insertion (ICD-10-PCS; 2020-11-12)
PROC: 0PBK0ZZ Excision of Right Ulna, Open Approach (ICD-10-PCS; 2020-11-12)
PROC: 2W38X1Z Immobilization of Right Upper Extremity using Splint (ICD-10-PCS; 2020-11-12)
PROC: 0PSH04Z Reposition Right Radius with Internal Fixation Device, Open Approach (ICD-10-PCS; principal; 2020-11-12 16:30)
DX: S52.571A Other intraarticular fracture of lower end of right radius, initial encounter for closed fracture (principal); S52.611A Displaced fracture of right ulna styloid process, initial encounter for closed fracture; D69.6 Thrombocytopenia, unspecified; S52.501B Unspecified fracture of the lower end of right radius, initial encounter for open fracture type I or II; S52.601B Unspecified fracture of lower end of right ulna, initial encounter for open fracture type I or II; E11.65 Type 2 diabetes mellitus with hyperglycemia; E55.9 Vitamin D deficiency, unspecified; E66.01 Morbid (severe) obesity due to excess calories; I10 Essential (primary) hypertension; Z20.822 Contact with and (suspected) exposure to COVID-19; Z23 Encounter for immunization; Z82.49 Family history of ischemic heart disease and other diseases of the circulatory system; W18.39XA Other fall on same level, initial encounter; Y93.89 Activity, other specified; Y92.89 Other specified places as the place of occurrence of the external cause; Y99.8 Other external cause status
CPT/HCPCS: 29125; 36415; 71045; 73100; 80048; 80053; 80202; 80307; 82306; 82550; 82565; 82962; 85025; 85651; 86140; 87040; 87426; 90471; 90715; 94760; 96365; 96367; 96375; 96376; J0690; J0878; J1580; J1815; J2270; J2405; J2543; J2704; J3010; J3370; J7030; J7040; J7050; J7060; U0003; U0005; 97110-GP; 97116-GP; 97530-GP; 97535-GO; 99285-25; G0378